=== PATIENT | female | born 1935 | race Two or more races ===

== ENCOUNTER 2024-01-12 15:04 | Inpatient (IN) | payer MEDICARE, OTHER, SELFPAY ==
[2024-01-12] VITALS (12 sets, daily range): BP systolic 100–153; BP diastolic 59–100; BMI 34.5
--- NOTE | 2024-01-12 11:13 | ED.GENMED ---
ED Provider Triage
<Jose Robert PA-C - Last Filed: 01/12/24 11:14>
-
Patient seen by provider in Triage?: Seen in Triage
88-year-old female with history insulin-dependent diabetes, coronary artery disease, CHF presents with chest pain and shortness of breath progressively worsening over the past week.
Evaluated by provider in triage. EKG performed in triage. Will check labs.
Patient is Malagasy-speaking. Her son is with her who speaks some Chilean
History of Present Illness
<Jose Robert PA-C - Last Filed: 01/12/24 11:14>
General
Chief Complaint: Chest Pain
Time Seen by Provider: 01/12/24 12:42
<Arianne Solano DO - Last Filed: 01/12/24 14:04>
History of Present Illness
History of Present Illness:
88-year-old female with history of CAD status post stenting to the LAD in 2020, CHF, RACHEL on CPAP at night, hypertension presenting to the emergency department for chest wall pain. Patient reports symptoms have been ongoing for the past several
days, worsened last evening. Reports a dull ache to her chest, as well as shortness of breath. Denies cough or fever. She tried 3 nitroglycerin today, without relief. Denies any recent surgery or travel. [facility] follows primarily with [facility]. Patient is Malagasy-speaking, with primary translation performed by son. Pain is present at rest and with exertion. No additional history obtained at this time
Phy Exam
<Arianne Solano DO - Last Filed: 01/12/24 14:04>
Physical Exam
Physical Exam:
General: Well-appearing, no clinical signs of dehydration, nontoxic and in no acute distress. Morbidly obese
HEENT: protecting airway
Neck: appears supple
CV: Normal heart rate, regular rhythm
Resp: No accessory muscle use, no increased work of breathing, lungs clear to auscultation bilaterally
Abd: Soft and non-distended, no tenderness to palpation
Extremities: No deformities, no swelling, no erythema
Neuro: alert, no focal neurologic deficit
: deferred
Rectal: deferred
Psych: Normal affect
Skin: Intact
Scores
<Arianne Solano DO - Last Filed: 01/12/24 14:04>
Heart Score for Chest Pain Patients
STEMI patient?: No
History: Moderately Suspicious
ECG: Significant ST-Depression
Age: >/= 65 years
Risk Factors: >/= 3 Risk Factors or History of CAD
Troponin: </= Normal Limit
Heart Score for Chest Pain Patients: 7
Heart Score Risk: 72.7 % MACE over next 6 weeks
Course
<Jose Robert PA-C - Last Filed: 01/12/24 11:14>
Orders/Labs/Results
Orders:
Orders
01/12/24 11:01
Electrocardiogram (*1) Urgent
Reason for Study: Chest Pain
EKG- Treatment ONCE
01/12/24 11:02
EKG- Treatment ONCE
01/12/24 11:11
CR Chest - 2 Views Urgent
Comment:
Reason For Exam: chest pain, sob
01/12/24 11:22
Complete Blood Count/With Diff Urgent
Comprehensive Metabolic Panel Urgent
NT-proBNP Urgent
Troponin I Urgent
01/12/24 13:07
Morphine Sulfate 4 mg IV NOW STA
01/12/24 14:20
Troponin I Urgent
Abnormal Lab Results
01/12/24
11:22
WBC 12.3 H 10^3/uL
(4.8-10.8)
Hgb 11.8 L g/dL
(12.0-16.0)
Hct 35.7 L %
(37.0-47.0)
MCV 79.0 L fL
(81.0-99.0)
MCH 26.1 L pg
(27.0-31.0)
RDW 15.7 H %
(11.5-14.5)
Abs Immat Gran (auto) 0.1 H 10^3/uL
(0-0.05)
Absolute Neuts (auto) 9.3 H 10^3/uL
(1.4-6.5)
Absolute Monos (auto) 0.7 H 10^3/uL
(0.1-0.6)
Immature Gran % 1.0 H %
(0-0.5)
Neutrophils % 75.8 H %
(42.2-75.2)
Lymphocytes % 13.9 L %
(20.5-51.1)
BUN 23 H mg/dl
(7-17)
Glucose 144 H mg/dl
(70-99)
01/12/24 11:22
01/12/24 11:22
Vital Signs
Initial and Last Documented VS:
Initial Vital Signs
Temp Pulse Resp BP Pulse Ox
98.0 F 82 20 153/84 94
01/12/24 11:08 01/12/24 11:08 01/12/24 11:08 01/12/24 11:08 01/12/24 11:08
Last Documented Vital Signs
Temp Pulse Resp BP Pulse Ox
98.0 F 82 20 120/67 93
01/12/24 11:08 01/12/24 11:08 01/12/24 12:52 01/12/24 12:49 01/12/24 12:50
<Arianne Solano, DO - Last Filed: 01/12/24 14:04>
Orders/Labs/Results
Orders:
Orders
01/12/24 11:01
Electrocardiogram (*1) Urgent
Reason for Study: Chest Pain
EKG- Treatment ONCE
01/12/24 11:02
EKG- Treatment ONCE
01/12/24 11:11
CR Chest - 2 Views Urgent
Comment:
Reason For Exam: chest pain, sob
01/12/24 11:22
Complete Blood Count/With Diff Urgent
Comprehensive Metabolic Panel Urgent
NT-proBNP Urgent
Troponin I Urgent
01/12/24 13:07
Morphine Sulfate 4 mg IV NOW STA
01/12/24 14:20
Troponin I Urgent
Abnormal Lab Results
01/12/24
11:22
WBC 12.3 H 10^3/uL
(4.8-10.8)
Hgb 11.8 L g/dL
(12.0-16.0)
Hct 35.7 L %
(37.0-47.0)
MCV 79.0 L fL
(81.0-99.0)
MCH 26.1 L pg
(27.0-31.0)
RDW 15.7 H %
(11.5-14.5)
Abs Immat Gran (auto) 0.1 H 10^3/uL
(0-0.05)
Absolute Neuts (auto) 9.3 H 10^3/uL
(1.4-6.5)
Absolute Monos (auto) 0.7 H 10^3/uL
(0.1-0.6)
Immature Gran % 1.0 H %
(0-0.5)
Neutrophils % 75.8 H %
(42.2-75.2)
Lymphocytes % 13.9 L %
(20.5-51.1)
BUN 23 H mg/dl
(7-17)
Glucose 144 H mg/dl
(70-99)
01/12/24 11:22
01/12/24 11:22
Vital Signs
Initial and Last Documented VS:
Initial Vital Signs
Temp Pulse Resp BP Pulse Ox
98.0 F 82 20 153/84 94
01/12/24 11:08 01/12/24 11:08 01/12/24 11:08 01/12/24 11:08 01/12/24 11:08
Last Documented Vital Signs
Temp Pulse Resp BP Pulse Ox
98.0 F 82 20 120/67 93
01/12/24 11:08 01/12/24 11:08 01/12/24 12:52 01/12/24 12:49 01/12/24 12:50
<Arianne Solano DO - Last Filed: 01/12/24 14:04>
MDM/Problems Addressed
MDM/Problems Addressed:
88-year-old female with history of CAD status post stenting to LAD, CHF, hypertension presenting for chest wall pain. Vital signs on arrival are significant for hypertension.
On exam, patient is in no acute distress, does appear slightly uncomfortable, however notes that she has bad arthritis and is having chronic pain to her legs. Patient had EKG on arrival, abnormal with ST depressions laterally, no prior for
comparison. At this time, concern for unstable angina. Plan for laboratory analysis including troponin. Patient had nitro prior to arrival without relief. Will administer morphine. Will discuss with cardiology.
14:00 - Patient's troponin is 0.022. Will obtain second. Again given patient's comorbidities and known cardiac disease, with concern of unstable angina and abnormal EKG, plan for admission for continued cardiac consultation.
<Arianne Solano DO - Last Filed: 01/12/24 14:04>
*EKG
Interpreted by ED Provider?: Yes
EKG Intrepretation Date: 01/12/24
EKG Intrepretation Time: 13:59
Interpretation: abnormal
Comparison EKG: no comparison EKG present
Heart Rate: 75
Rate: normal
Rhythm: sinus
[place]: normal axis
Interval: normal interval
QRS Pattern: normal QRS
Ischemia: ST depression (laterally)
*Critical Care Note
Total Time (30-74mins, 75-104mins- exclusive of procedures): Not Applicable
ED Attending Note
<Jose Robert PA-C - Last Filed: 01/12/24 11:14>
-
Portions of this chart may have been created with voice recognition software.� Occasional wrong word or��sound alike� substitutions may have occurred due to the inherent limitations of voice recognition software.
Discharge Plan
Departure
Referrals:
Sabino August MD [Family Provider] -
Interventions
Interventions:
*Risk Screen - Suicide Last Done: 01/12/24 11:08
*General Assessment Last Done: 01/12/24 11:08
*Neglect/Abuse Screening Last Done: 01/12/24 12:53
*ED COVID-19 Vaccine History Last Done: 01/12/24 11:08
ED- Cardiac Assessment Last Done: 01/12/24 12:51
Discharge Date and Time
Print Language: Malagasy
[2024-01-12 11:52] LABS: % Basophils 0.4 % (0-2); % Lymphocytes 13.9 % (20.5-51.1); % Monocytes 5.9 % (1.7-9.3); % Neutrophils 75.8 % (42.2-75.2); Absolute Basophils 0.1 10^3/uL (0-0.2); Absolute Eosinophils 0.4 10^3/uL (0-0.7); Absolute Immature Granulocytes 0.1 10^3/uL (0-0.05); Absolute Lymphocytes 1.7 10^3/uL (1.2-3.4); Absolute Monocytes 0.7 10^3/uL (0.1-0.6); Absolute Neutrophils 9.3 10^3/uL (1.4-6.5); Hematocrit 35.7 % (37.0-47.0); Hemoglobin 11.8 g/dL (12.0-16.0); Mean Corp Hgb Conc. 33.1 g/dL (33.0-37.0); Mean Corpuscular Hgb 26.1 pg (27.0-31.0); Mean Platelet Volume 8.8 fL (7.4-10.4); Nucleated Red Blood Cells % 0 %; Platelet Count 357 10^3/uL (130-400); Red Blood Cell Count 4.52 10^6/uL (4.20-5.40); Red Cell Dist. Width 15.7 % (11.5-14.5); White Blood Cell Count 12.3 10^3/uL (4.8-10.8)
[2024-01-12 12:04] LABS: ALT (SGPT) 16 U/L (0-35); AST (SGOT) 20 U/L (14-36); Albumin 4.1 g/dl (3.5-5.0); Alkaline Phosphatase 74 U/L (38-126); Blood Urea Nitrogen 23 mg/dl (7-17); Calcium 9.5 mg/dl (8.4-10.2); Carbon Dioxide 24 mmol/L (22-30); Chloride 102 mmol/L (98-107); Glucose 144 mg/dl (70-99); Potassium 4.1 mmol/L (3.5-5.1); Sodium 140 mmol/L (135-145); Total Bilirubin 0.4 mg/dl (0.2-1.3); Total Protein 6.8 g/dl (6.3-8.2); eGFR > 60.00
[2024-01-12 12:13] LABS: NT-proBNP 518 pg/ml; Troponin I 0.022 ng/ml
--- NOTE | 2024-01-12 13:52 | CON.CAR ---
Addendum entered and electronically signed by Bi Mcdaniel MD 01/12/24 17:10:
I saw and examined the patient.
The INTERNATIONAL FIRST OFFICER's note was reviewed and I agree with the note.
Comment: 88-year-old female with coronary artery disease (PCI to LAD, 2021), hypertension, dyslipidemia, HFpEF, type 2 diabetes mellitus, RACHEL on CPAP, asthma, and obesity who presented to the emergency department the chief complaint of shortness of
breath.
She also has mod to severe , we will update her echo.
- IV diuresis for now
- trend trop
- update echo
Original Note:
Consultation
Consultation Request
Date/Time Consultation Requested: 01/12/2024 13:40
Date/Time Consultation Performed: 01/12/2024 14:00
Requesting Provider: Dr. Soalno
Performing Provider: ROSALIA Dowd for Dr. Mcdaniel
Reason for Consultation: Chest pain
Medical History
-
Chief Complaint: Shortness of breath
History of Present Illness:
Umm Skinner is an 88-year-old female with coronary artery disease (PCI to LAD, 2021), hypertension, dyslipidemia, HFpEF, type 2 diabetes mellitus, RACHEL on CPAP, asthma, and obesity who presented to the emergency department the chief complaint of
shortness of breath. Her shortness of breath has been ongoing for several days. It is worse when she lays flat. Last night every time she fell asleep she woke up struggling to breathe. She is normally not very active but feels that she cannot do
much due to her shortness of breath. She reports medication adherence. She does not weigh herself at home but does not believe she gained any weight. She had chest pain 2 days ago but has since subsided.
This patient is Martiniquais-speaking. A draw operator service was used for this consultation.
Past Medical History
Past Medical History: Asthma, CAD, CHF, HTN, Hypercholesterolemia and NIDDM
Social History
Tobacco: Non-Smoker
Alcohol: None
Drug: None
Personal:
Living: Alone
Employment: Retired
Allergies / Home Medications
Allergy/AdvReac Type Severity Reaction Status Date / Time
No Known Allergies Allergy Unverified 01/12/24 11:18
Review of Systems
-
History Source: Patient
All other systems: Negative unless noted
Constitutional: Fatigue
EENT: No Symptoms
Respiratory: Trouble Breathing
Cardiac: No Symptoms
Abdomen/GI: No Symptoms
: No Symptoms
Musculoskeletal: No Symptoms
Skin: No Symptoms
Neurological: No Symptoms
Endocrine: No Symptoms
Hematologic/Lymphatic: No Symptoms
Physical Exam
Vital Signs
Temp Pulse Resp BP Pulse Ox
98.0 F 82 20 120/67 93
01/12/24 11:08 01/12/24 11:08 01/12/24 12:52 01/12/24 12:49 01/12/24 12:50
Lab Results
01/12/24 11:22
01/12/24 11:22
Troponin I 0.022 ng/ml 01/12/24 11:22
Bcy-R-Gwvwiblcasl Pept 518 pg/ml 01/12/24 11:22
Physical Exam
General: Well Developed, Well Nourished, No Apparent Distress and Comfortable
HEENT: Normocephalic, Anicteric and Moist Mucous Membranes
Respiratory: Clear and Non Labored Respirations
Cardiac: S1/S2, Regular Rhythm and Murmur (III/)
Breast: Deferred by me
GI: Soft, Non Tender, Non Distended and Normal Bowel Sounds
Rectal: Deferred by Provider
Genito-urinary: No Costovertebral Tender
Musculoskeletal: No Clubbing
Skin: Warm and Dry
Neuro: AO x 3
Hematologic/Lymphatic: No Lymphadenopathy
Psych: Calm
Impression / Plan
-
BACKGROUND: 88F with CAD, HFpEF, severe , HTN, HLD, asthma, DM, RACHEL on CPAP, and obesity presents with shortness of breath
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
Shortness of breath, in the setting of acute on chronic heart failure
-Prior notes from [facility] reflect she has home oxygen
HFpEF, acute on chronic
-proBNP only 518 but she endorses orthopnea and PND
-Diuresis with furosemide 40 mg IV twice daily
-Update echocardiogram
-She does not weigh herself at home, we discussed she will need to start doing so, dry weight to be determined
-Heart failure education
-Daily weight, I/O, and BMP with diuresis
Aortic stenosis, moderate to severe by TTE 07/2021 (JUDY 1.1 cm�)
-Diuresis
-Records reflect she was high risk for AVR, I do not see any mention of TAVR
-Update echocardiogram
CAD
-Stable without chest pain
-Continue aspirin, PCI to mid LAD 08/11/2020
-LHC 07/2021: LAD with patent stent, D1 50%, OM2 70%
Leukocytosis, per primary
Hypertension, chronic and stable
Asthma, chronic, no acute exacerbation
Type 2 diabetes mellitus, HbA1c pending, per primary
RACHEL on CPAP
Obesity
Data Reviewed
-
EKG: Report Reviewed by me (Sinus rhythm with PACs, rate 75)
Radiology: Report Reviewed by me (CXR: No acute pathology)
Labs: Labs Reviewed by me
--- NOTE | 2024-01-12 14:11 | HPS.HSE ---
Addendum entered and electronically signed by Dwaine Hoang MD 01/12/24 15:02:
This note serves as an addendum to the H&P by rn nursery ASHLEY Beverley DAILEY
HPI:
88 yo with CAD s/p stenting to LAD in 2020 and CHF, HTN, RACHEL on CPAP pw Lt sided CP . Not relived by SL NTG and tylenol. Associated wih orthopna.
Vitals stable.
KENNEDY
WCC 12.3 Hgb 11.8
Troponin 0.022.
pBNP 518
EKG : lateral depressions, no priors available.
CXR: Heart and pulmonary vascularity at least top normal.
ASSESSMENT & PLAN
CP concerning for ACS/USA : currently CP free
HX CAD s/p stenting to LAD in 2020 a
- CBC card consulted c/w t ASA
- Full liquid diet incase card cath
- trend TPNI
- ECHO
HX CHF; c/w TOE STAPLER PO Frusemide
DMT2 on Insulin: held tresiba, held metformin , add ISS low
[place] HTN: Metoprolol
HLD: on Atorvastatin
HX RACHEL on CPAP
- c/w all OP meds
DVT Px: LMWH
Code: Full code
IP TLM
Original Note:
Family Physician
-
Family Physician: Sabino August
Chief Complaint
-
chest pain
sob
History of Present Illness
88-year-old female with history of CAD status post stenting to the LAD in 2020, CHF, RACHEL on CPAP at night, hypertension presenting to the emergency department for left sided chest pain radiating to back and left upper arm for one week. she was
taking Tylenol, nitro with no relief in her symptoms. last night she was not able to sleep due to sob and chest pain. she was not able to lay flat due to sob. denied fever, chills, runny nose, congestion, cough.denied MARQUIS, dizzy or syncopal episode.
denied abdominal pain, n,v,d. denied dysuria or hematuria
admitting for for further management. patient received asa and nitro for unstable angina.
Medical History
Past Medical History
Past Medical History: Reports Other
Additional Past Medical History:
RACHEL
DM
HTn
CAD
CHF
Past Surgical History: Reports Other
Additional Past Surgical History:
hysterectomy
Coronary artery stent
Social History
Tobacco: Non-smoker
Alcohol: None
Drug: None
Personal: Single
Living: With Family
Family History
Family History: Not pertinent
Allergies / Home Medications
Allergies reflects when Allergies were last updated in [facility].
Home Medications with original date entered in [facility]
Allergy/Medication List:
Allergies
Allergy/AdvReac Type Severity Reaction Status Date / Time
No Known Allergies Allergy Unverified 01/12/24 11:18
Home Medications
acetaminophen 650 mg tablet,extended release (Pain Relief (acetaminophen)) 650 mg PO BIDPRN PRN mild pain 01/12/24
albuterol sulfate 90 mcg/actuation aerosol inhaler (Ventolin HFA) 2 puff inhalation R Q4HPRN PRN sob/wheezing 01/12/24
aspirin 81 mg tablet,delayed release 81 mg PO DAILY 01/12/24
atorvastatin 80 mg tablet 80 mg PO QPM 01/12/24
bisacodyl 5 mg tablet,delayed release 10 mg PO DAILY 01/12/24
cholecalciferol (vitamin D3) 50 mcg (2,000 unit) capsule (Vitamin D3) 50 mcg PO DAILY 01/12/24
diclofenac sodium 1 % topical gel 1 ea topical QIDPRN PRN knee pain 01/12/24
docusate sodium 100 mg capsule 100 mg PO BID 01/12/24
fluticasone furoate 200 mcg-vilanterol 25 mcg/dose inhalation powder (Breo Ellipta) 2 inh inhalation R DAILY 01/12/24
furosemide 20 mg tablet 20 mg PO BID 01/12/24
insulin degludec 100 unit/mL (3 mL) subcutaneous pen (Tresiba FlexTouch U-100 insulin) 35 unit SC HS 01/12/24
bsuycg-egjxrolq-tloovim 24,000-76,000-120,000 unit capsule,delayed rel (Creon) 1 cap PO MEALS 01/12/24
meclizine 12.5 mg tablet 12.5 mg PO BIDPRN PRN dizziness 01/12/24
metformin 1,000 mg tablet 1,000 mg PO BID 01/12/24
metoprolol tartrate 25 mg tablet 12.5 mg PO BID 01/12/24
mirabegron 50 mg tablet,extended release 24 hr (Myrbetriq) 50 mg PO DAILY 01/12/24
nitroglycerin 0.4 mg sublingual tablet 0.4 mg sublingual [id number] PRN chest pain 01/12/24
tramadol 50 mg tablet 50 mg PO TIDPRN PRN moderate pain 01/12/24
zolpidem 5 mg tablet (Ambien) 5 mg PO HSPRN PRN sleep 01/12/24
Review of Systems
-
Constitutional: Reports No Symptoms
EENT: Reports No Symptoms
Respiratory: Reports No Symptoms and Trouble Breathing
Cardiac: Reports Chest Pain
Abdomen/GI: Reports No Symptoms
: Reports No Symptoms
Musculoskeletal: Reports Other (b/l Knee pain)
Skin: Reports No Symptoms
Neurological: Reports No Symptoms
Endocrine: Reports No Symptoms
Hematologic/Lymphatic: Reports No Symptoms
Psych: Reports No Symptoms
Physical Exam
Vital Signs
Vital Signs
Temp Pulse Resp BP Pulse Ox
98.0 F 82 20 120/67 93
01/12/24 11:08 01/12/24 11:08 01/12/24 12:52 01/12/24 12:49 01/12/24 12:50
Physical Exam
General: Well Developed, Well Nourished and No Apparent Distress
HEENT: NormoCephalic, Moist mucous membranes and Atraumatic
Respiratory: Clear
Cardiac: S1/S2 and Regular Rhythm; No Murmur or Rub
GI: Soft, Non Tender, Non Distended and Normal Bowel Sounds; No Organomegaly
Rectal: Deferred by Provider
Musculoskeletal: No Clubbing, No Cyanosis and No Edema
Skin: No Rash
Neuro: AO x 3 and Nonfocal/grossly intact
Laboratory Results
-
01/12/24 11:22
01/12/24 11:22
Laboratory Results
Total Bilirubin 0.4 mg/dl (0.2-1.3) 01/12/24 11:22
AST 20 U/L (14-36) 01/12/24 11:22
ALT 16 U/L (0-35) 01/12/24 11:22
Alkaline Phosphatase 74 U/L (38-126) 01/12/24 11:22
Troponin I 0.022 ng/ml 01/12/24 11:22
Data Reviewed
-
Diagnostic Radiology: Report Reviewed by me
Lab Data: Labs Reviewed by me
Impression/Plan
-
#unstable angina /sob r/o acute ACS
-trop 0.022
-chest x ray negative
-EKG with SINUS RHYTHM WITH PREMATURE ATRIAL COMPLEXES
MARKED ST ABNORMALITY, POSSIBLE LATERAL SUBENDOCARDIAL INJURY
-continue to trend trop
-morphine prn for pain
-obtain ECHO
-asa continued, received loading dose asa in ER
-cardiology consulted
#leucocytosis unclear cause
-wbc 12.3
-obtain UA
-ctm
#hxt of CAD
-s/p cardiac stents
-asa continued
#HLD
-statin continued
#hxt of CHF
-lasix continued
-strict I &O
-daily weight
-fluid restriction
#type 2 Dm
-sliding scale
-hold metformin
#essential htn
-metoprolol continued
#hxt of osteoarthritis/knee pain
-tramadol continued
#RACHEL
-C PAP ordered
#DVT Prophylaxis
-Lovenox
#CODE status
-full code
[2024-01-12] MEDS: LOW STRENGTH ASPIRIN 324 MG PO (14:27)
[2024-01-12] MEDS: MORPHINE SULFATE 4 MG IV (14:27)
[2024-01-12 15:04] LABS: Troponin I 0.024 ng/ml
[2024-01-12] MEDS: LASIX 40 MG IV (15:38)
[2024-01-12 17:43] LABS: Glucose - Point of Care 137 mg/dl (70-99)
--- NOTE | 2024-01-12 17:50 | PTCARENOTE ---
Patient received from the ED. She alert, speaks Gambian only, obtaining silo operator services. Appears short of breath, placed on 3 liters NC 98%, HOB elevated. NSR HR in the 60's, BP 111/60. Right knee pain
[2024-01-12] MEDS: DICLOFENAC 1% TOPICAL GEL 2 GRAM TOPICAL (17:55)
[2024-01-12] MEDS: NOVOLOG FLEXPEN-LOW RESISTANCE SC (19:07)
[2024-01-12] MEDS: SYMBICORT 160/4.5 MCG INHALER 2 PUFF INH (19:19)
--- NOTE | 2024-01-12 19:51 | PTCARENOTE ---
Admission completed uses paper feeder services
[2024-01-12] MEDS: LIPITOR 80 MG PO (20:02)
[2024-01-12] MEDS: LOVENOX 40 MG SC (20:02)
[2024-01-12] MEDS: ZENPEP DELAYED RELEASE CAPSULE 1 CAPSULE PO (20:02)
[2024-01-12] MEDS: COLACE 100 MG PO (20:03)
[2024-01-12] MEDS: LOPRESSOR PO (20:06)
[2024-01-12 20:32] LABS: Troponin I 0.014 ng/ml
[2024-01-12] MEDS: AMBIEN 5 MG PO (21:47)
[2024-01-12 22:32] LABS: Urine Albumin Negative (Neg - Trace); Urine Bilirubin Negative (Negative); Urine Character Clear (Clear); Urine Color Yellow; Urine Glucose Negative (Negative); Urine Ketone Negative (Negative); Urine Leukocyte 1+ (Negative); Urine Nitrite Negative (Negative); Urine Occult Blood Negative (Negative); Urine Urobilinogen Negative (Neg - 1+)
[2024-01-12 22:38] LABS: Urine Bacteria Moderate (Negative); Urine Red Blood Cell 0-2 /HPF (0-2)
[2024-01-13] VITALS (20 sets, daily range): BP systolic 97–164; BP diastolic 46–102; PULSE 72; O2SAT 94; BMI 37.2
[2024-01-13 01:19] LABS: Glucose - Point of Care 104 mg/dl (70-99)
[2024-01-13] MEDS: DICLOFENAC 1% TOPICAL GEL 2 GRAM TOPICAL ×2 (02:21→07:37)
[2024-01-13] MEDS: ULTRAM 50 MG PO ×3 (02:52→21:25)
[2024-01-13 03:21] LABS: Hematocrit 34.4 % (37.0-47.0); Hemoglobin 11.8 g/dL (12.0-16.0); Mean Corp Hgb Conc. 34.3 g/dL (33.0-37.0); Mean Corpuscular Hgb 26.5 pg (27.0-31.0); Mean Corpuscular Volume 77.1 fL (81.0-99.0); Mean Platelet Volume 8.7 fL (7.4-10.4); Platelet Count 334 10^3/uL (130-400); Red Blood Cell Count 4.46 10^6/uL (4.20-5.40); Red Cell Dist. Width 15.6 % (11.5-14.5); White Blood Cell Count 9.6 10^3/uL (4.8-10.8)
[2024-01-13 03:29] LABS: Glucose - Point of Care 115 mg/dl (70-99)
[2024-01-13 03:51] LABS: Blood Urea Nitrogen 19 mg/dl (7-17); Calcium 9.3 mg/dl (8.4-10.2); Carbon Dioxide 26 mmol/L (22-30); Chloride 104 mmol/L (98-107); Estimated Creatinine Clearance 64 ml/min; Glucose 108 mg/dl (70-99); HDL Cholesterol 53 mg/dl; LDL Cholesterol, Calculated 40 mg/dl; Potassium 3.5 mmol/L (3.5-5.1); Sodium 142 mmol/L (135-145); Total Cholesterol 123 mg/dl (50-199); Triglyceride 154 mg/dl (10-149); Very Low Density Lipoprotein 30 mg/dl (0-30); eGFR > 60.00
--- NOTE | 2024-01-13 03:55 | PTCARENOTE ---
Rec'd pt at change of shift. Pt on TELE monitor in NSR w/ occasional PACs. Pt moaning out and upon assessment repeating the same phrase. Per swim coach pt keeps repeating 'How did I get here, why am i here.' This RN explained to patient situation
and provided emotional support. Pt remains intermittently forgetful of place and situation. Per son pt has hx of recent forgetfulness. Unable to complete home med rec due to forgetfulness despsite swim coach. Pt Israeli speaking and swim coach in
room to be used as needed. Pt was restless and mumbling and showing signs of discomfort but denied any pain or chest discomfort via swim coach. Patient does report 'trouble breathing' sating anywhere from 92-98% on RA and 2L of oxygen applied for
comfort. Pt verbalized having difficultly sleeping and PRN Ambien given HS as ordered (see mar). Pt uses call young appropriately and maintained on bed alarm for safety. Pt resting in bed with call young in reach.
[2024-01-13 06:30] LABS: Glucose - Point of Care 109 mg/dl (70-99)
[2024-01-13] MEDS: MORPHINE SULFATE 1 MG IV (06:40)
[2024-01-13] MEDS: VENTOLIN NEBULES 2.5 MG INH (07:22)
[2024-01-13] MEDS: SYMBICORT 160/4.5 MCG INHALER 2 PUFF INH ×2 (07:26→20:09)
--- NOTE | 2024-01-13 07:26 | PTCARENOTE ---
Pt called out reporting chest pain at 0637 describing pain as 'pressure' and rating it as a 10/10. IV morphine given for pain per order (see mar) and O2 via nasal canula continued. EKG obtained and ROSALIA Vergara aware. No new orders rec'd. When
further assessed pt reported hunger, right knee pain (hx arteritis), and 'itching' in lower back. VSS (see flowchart). Handoff report given to dayshift RN.
[2024-01-13] MEDS: LASIX 20 MG PO ×2 (07:47→08:43)
[2024-01-13] MEDS: COLACE 100 MG PO ×2 (07:47→20:17)
[2024-01-13] MEDS: ASPIR LOW (ENTERIC COATED) 81 MG PO (07:47)
[2024-01-13] MEDS: VITAMIN D3 (cholecalciferol) 50 MCG PO (07:47)
[2024-01-13] MEDS: ZENPEP DELAYED RELEASE CAPSULE 1 CAPSULE PO ×3 (07:47→16:38)
[2024-01-13] MEDS: LOPRESSOR 12.5 MG PO ×2 (07:47→20:16)
[2024-01-13] MEDS: NOVOLOG FLEXPEN-LOW RESISTANCE SC ×3 (08:39→17:53)
[2024-01-13 08:40] LABS: Glucose - Point of Care 117 mg/dl (70-99)
[2024-01-13] MEDS: DULCOLAX 10 MG PO (08:48)
[2024-01-13] MEDS: NITROSTAT (SUBLINGUAL) 0.4 MG SL (09:07)
--- NOTE | 2024-01-13 09:14 | W.PN.HOSP.TC ---
Today's Communication/Plan
-
See PN
Assessment / Plan
Assessment / Plan
88yo Portuguese speaking F with PMHX of CAD s/p PCI @2020, CHF, HTN, RACHEL on CPAP came with 2 weeks of progressive SOB associated with intermittent pressure-like epigastric pain. PAtient recently became less ambulatory 2/2 progression of R knee
osteoarthritis. Also concern for UTI
A/P:
#dyspnea 2/2 CHF exacerbation
#Chest pain, atypical with PMHX of CAD
Lasix, follow weights and electrolytes, low sodium diet
Echo
Cardiology consult
Morphin, Nitro SL (actually nitro was helpful to the patient)
Serial troponin WNL
EKG without signs of ACS
BroBNP 518, but can be lowith obesity, chest XR showed possible early mild vascular congestion
check DDimer
cont ASA, statin, BB
telemetry showed sinus arrhythmia
LDL 40
Check Hgba1c and TSH
#UTI
ceftriaxone follow Ucx
Cr WNL, currently no concern for complicated infection
#DM type 2 with neuropathy
Cont basal insulin, Accuchecks, Insulin SS and DM diet
hold metformin
#pancreatic insufficiency
#Vertigo
#Insomnia
#Urinary urgency
cont home meds
#RACHEL
cont CPAP
DVT ppx lovenox
Full code
I have spent at least 58min reviewing chart, test results, communication with consultants and direct patient care
Anticipated Discharge: > 48 hours
Subjective/Interval History
-
Date of Service: January 13, 2024
Objective Data
-
Labs:
Laboratory Results
01/13/24
03:04
WBC 9.6
Hgb 11.8 L
Hct 34.4 L
Plt Count 334
Sodium 142
Potassium 3.5
Chloride 104
Carbon Dioxide 26
BUN 19 H
Creatinine 0.7
Glucose 108 H
Calcium 9.3
Vital Signs:
Vital Signs
Temp Pulse Resp BP Pulse Ox
97.9 F 71 24 97/54 99
01/13/24 06:50 01/13/24 09:11 01/13/24 07:27 01/13/24 09:11 01/13/24 09:00
I&O
01/12/24 01/13/24 01/14/24
06:59 06:59 06:59
Intake Total 240 / 240
Output Total 500 / 500 300 / 300
Balance -260 / -260 -300 / -300
Review of Systems
-
History Source: Patient
All other systems: Reviewed and negative
Respiratory: Reports Trouble Breathing
Cardiac: Reports Chest Pain
Physical Exam
-
General: No Apparent Distress
HEENT: Normocephalic and Atraumatic
Respiratory: Clear to Auscultation; Negative Wheezes
Cardiac: Regular Rhythm
GI: Soft, Nontender and Nondistended
Genito-urinary: No Costovertebral Tender
Musculoskeletal: No Clubbing, No Cyanosis, Edema, Right Lower Extrem and Edema, Left Lower Extrem
Neuro: Awake, Alert, Oriented and AO x 3
Psych: Calm
[2024-01-13 09:34] LABS: Glycohemoglobin (HgbA1c) 6.7 % (4.0-5.6)
[2024-01-13 09:34] LABS: D-Dimer 1.78 ug/mlFEU (0.00-0.50)
[2024-01-13 09:51] LABS: Troponin I 0.014 ng/ml
--- NOTE | 2024-01-13 10:11 | PTCARENOTE ---
Patient with multiple complaints, using educational sign language interpreter services. 'I'm hungry and diabetic, I need to eat' Epigastric pain comes and goes, some relief with 1 SL nitro earlier. She is alert to self, place and time. SR in the 70's. Dyspneic, orthopneic
and anxious, upset. Oxygen at 4 liters NC, POX 100%. Purwick placed. Voided on commode earlier became very short of breath, voided 300 cc, so using purwick for now. 40 PO Lasix given She is eating her full liquid tray, call young in reach
[2024-01-13] MEDS: ROCEPHIN 1000 MG IV (10:25)
[2024-01-13] MEDS: STERILE WATER FOR INJECTION 10 ML IV (10:26)
--- NOTE | 2024-01-13 10:55 | PTCARENOTE ---
Patient wanting to get up, assisted to the chair using rolling walker
[2024-01-13 11:16] LABS: TSH Reflex To Free T4 2.01 uIU/ml (0.47-4.68)
--- NOTE | 2024-01-13 11:26 | CM ---
Chart reviewed. Patient is independent of ADLS, lives alone in a apartment, 1st floor, elevator access, ambulates with a RW. Patient does not speak Japanese, I spoke to the patient's son Camilo. Patient is current with [facility]. Referral sent to
resume services. Plan is for the patient to return home with [facility] CM to follow
--- NOTE | 2024-01-13 12:07 | W.PN.CD ---
Addendum entered and electronically signed by Bi Mcdaniel MD 01/13/24 15:15:
I saw and examined the patient.
The WOMEN'S BASKETBALL COACH's note was reviewed and I agree with the note.
Comment: IV diuresis, pending echo
Original Note:
Today's Communication / Plan
-
Continue diuresis
Echocardiogram today
Check cost of SGLT2i
Impression / Plan
-
BACKGROUND: 88F with CAD, HFpEF, severe , HTN, HLD, asthma, DM, RACHEL on CPAP, and obesity presents with shortness of breath
Cadd Instructor: Dr. Rosenthal ([place])
Shortness of breath, in the setting of acute on chronic heart failure
-Prior notes from [facility] reflect she has home oxygen
HFpEF, acute on chronic
-proBNP only 518 but she endorses orthopnea and PND
-Contiue diuresis with furosemide 40 mg IV twice daily
-Consider spironolactone tomorrow (BP soft today)
-Case mgmt to suárez SGLT2i
-Update echocardiogram
-Weights appear to be very unreliable
-She does not weigh herself at home, we discussed she will need to start doing so, dry weight to be determined
-Heart failure education
-Daily weight, I/O, and BMP with diuresis
Aortic stenosis, moderate to severe by TTE 07/2021 (JUDY 1.1 cm�)
-Diuresis
-Records reflect she was high risk for AVR, I do not see any mention of TAVR
-Update echocardiogram
CAD
-Stable without chest pain
-Continue aspirin, PCI to mid LAD 08/11/2020
-LHC 07/2021: LAD with patent stent, D1 50%, OM2 70%
Abnormal D-dimer, CT scan ordered by primary, no PE identified
Leukocytosis, resolved, likely reactive
Hypertension, chronic and stable
Asthma, chronic, no acute exacerbation
Type 2 diabetes mellitus, HbA1c pending, per primary
RACHEL on CPAP
Obesity, BMI 37
SUBJECTIVE:
Denies CP and shortness of breath is improving.
Physical Exam
Vital Signs/Labs
Vital Signs
Temp Pulse Resp BP Pulse Ox
98.2 F 71 20 97/62 98
01/13/24 11:20 01/13/24 09:11 01/13/24 11:20 01/13/24 09:12 01/13/24 11:20
01/12/24 01/13/24 01/14/24
06:59 06:59 06:59
Actual Weight 98.1 kg
01/13/24 03:04
01/13/24 03:04
Triglycerides 154 mg/dl (10-149) H 01/13/24 03:04
LDL Cholesterol, Calc 40 mg/dl 01/13/24 03:04
VLDL Cholesterol, Calc 30 mg/dl (0-30) 01/13/24 03:04
HDL Cholesterol 53 mg/dl 01/13/24 03:04
01/12/24
11:22
Kry-V-Mtlbsvjdpoh Pept 518
LAB Results
01/12/24 01/12/24 01/12/24
11:22 14:26 19:51
Troponin I 0.022 0.024 0.014 D
01/12/24 01/13/24
20:30 09:16
Troponin I Cancelled 0.014
Physical Exam
Constitutional: No acute distress and Comfortable
EENT: Anicteric and Moist mucous membranes
Cardiovascular: Rhythm & rate is regular, Pedal edema present (mild), Systolic murmur present and S1S2 is normal
Respiratory: Respiratory effort normal and Crackles Present
GI: Soft, Distention absent, Flat and Non tender
Neuro/Psych: AO x 3
Other: Skin (warm and dry)
Data Reviewed
-
Date of Service: January 13, 2024
Labs: Labs Reviewed by me
[2024-01-13] MEDS: KCL 40 MEQ PO (13:02)
[2024-01-13 13:09] LABS: Glucose - Point of Care 132 mg/dl (70-99)
--- NOTE | 2024-01-13 13:09 | CM ---
Pricing through the patient's [facility] Prescription Plan ID # [id number]
Farxiga 10 mg daily is $0 copay
Jardiance 10mg daily is $0 copay
--- NOTE | 2024-01-13 13:21 | PTCARENOTE ---
Patient taken to CT of chest US today on a stretchor. Patient returned to room, walked to the bathroom using rolling walker, in chair, diet advanced, call young in reach
[2024-01-13] MEDS: LASIX 40 MG PO (16:38)
[2024-01-13 17:19] LABS: Glucose - Point of Care 121 mg/dl (70-99)
[2024-01-13] MEDS: LOVENOX 40 MG SC (17:24)
[2024-01-13] MEDS: LIPITOR 80 MG PO (17:24)
[2024-01-13 21:36] LABS: Glucose - Point of Care 151 mg/dl (70-99)
[2024-01-13] MEDS: AMBIEN 5 MG PO (23:55)
[2024-01-14] VITALS (8 sets, daily range): BP systolic 127–172; BP diastolic 59–90; BMI 37.0
--- NOTE | 2024-01-14 00:18 | PTCARENOTE ---
Rec'd pt at change of shift. Pt in NSR, with vss, AAO*3, and Central African speaking. Pt forgetful at times, bed/chair alarm applied for safety. Pt reported R knee discomfort and PO Ultram given as ordered for pain. Pt on 4L of oxygen for comfort and
pulse ox at 98%. Shipping Team Leader at bedside and pt uses call young when needed. Pt denied any further pain or discomfort. Pt resting in bed with call young in reach.
[2024-01-14 05:01] LABS: % Basophils 0.7 % (0-2); % Eosinophils 3.4 % (0-6); % Immature Granulocytes 0.9 % (0-0.5); % Lymphocytes 21.6 % (20.5-51.1); % Monocytes 7.6 % (1.7-9.3); % Neutrophils 65.8 % (42.2-75.2); Absolute Basophils 0.1 10^3/uL (0-0.2); Absolute Eosinophils 0.3 10^3/uL (0-0.7); Absolute Immature Granulocytes 0.1 10^3/uL (0-0.05); Absolute Lymphocytes 1.9 10^3/uL (1.2-3.4); Absolute Monocytes 0.7 10^3/uL (0.1-0.6); Absolute Neutrophils 5.9 10^3/uL (1.4-6.5); Hematocrit 39.6 % (37.0-47.0); Hemoglobin 13.2 g/dL (12.0-16.0); Mean Corp Hgb Conc. 33.3 g/dL (33.0-37.0); Mean Corpuscular Hgb 26.9 pg (27.0-31.0); Mean Corpuscular Volume 80.7 fL (81.0-99.0); Mean Platelet Volume 8.8 fL (7.4-10.4); Nucleated Red Blood Cells % 0 %; Platelet Count 329 10^3/uL (130-400); Red Blood Cell Count 4.91 10^6/uL (4.20-5.40); Red Cell Dist. Width 15.6 % (11.5-14.5); White Blood Cell Count 8.9 10^3/uL (4.8-10.8)
--- NOTE | 2024-01-14 05:15 | DOWNTIME ---
There was a [employer] Client Blister Packaging Machine Operator Downtime on 01/14/2024 from 0100 to 01/14/2024 at 0355. Downtime documentation of patient's care, including medication administrations, has been reconciled in the electronic record per guidelines. Refer to the
patient's paper chart under the miscellaneous tab to see printed paper medication records and downtime forms.
[2024-01-14 05:50] LABS: Ferritin 17.1 ng/ml (11.1-264.0)
[2024-01-14 06:38] LABS: ALT (SGPT) 15 U/L (0-35); Albumin 3.7 g/dl (3.5-5.0); Alkaline Phosphatase 67 U/L (38-126); Blood Urea Nitrogen 18 mg/dl (7-17); Calcium 9.7 mg/dl (8.4-10.2); Carbon Dioxide 29 mmol/L (22-30); Chloride 102 mmol/L (98-107); Estimated Creatinine Clearance 56 ml/min; Iron 48 ug/dl (37-170); Magnesium 1.7 mg/dl (1.6-2.3); Potassium 3.7 mmol/L (3.5-5.1); Sodium 141 mmol/L (135-145); Total Bilirubin 0.4 mg/dl (0.2-1.3); Total Protein 6.4 g/dl (6.3-8.2); eGFR > 60.00
[2024-01-14] MEDS: DICLOFENAC 1% TOPICAL GEL 2 GRAM TOPICAL ×3 (06:42→17:30)
[2024-01-14 06:47] LABS: AST (SGOT) 18 U/L (14-36); Glucose 140 mg/dl (70-99); Percent Saturation 13 % (20-50); Total Iron Binding Capacity 353 ug/dl (265-497)
[2024-01-14 07:13] LABS: Glucose - Point of Care 169 mg/dl (70-99)
[2024-01-14] MEDS: SYMBICORT 160/4.5 MCG INHALER 2 PUFF INH ×2 (08:43→19:21)
--- NOTE | 2024-01-14 08:51 | PTCARENOTE ---
Received patient this morning sitting at the side of the bed, assisted assistant casino shift manager in transferring the patient to the chair. ARAUJO, and required assist of two to place on the standing scale and then transfer to the chair with the rolling walker.
Stance stooped over and appeared to have discomfort from her right knee with activity. Eating breakfast, chair alarm in place and using virtual patient observation for safety, call young in reach.
[2024-01-14] MEDS: NOVOLOG FLEXPEN-LOW RESISTANCE 1 UNITS SC ×2 (09:11→17:16)
[2024-01-14] MEDS: COLACE 100 MG PO ×2 (09:12→19:18)
[2024-01-14] MEDS: ASPIR LOW (ENTERIC COATED) 81 MG PO (09:12)
[2024-01-14] MEDS: FARXIGA 10 MG PO (09:12)
[2024-01-14] MEDS: DULCOLAX 10 MG PO (09:12)
[2024-01-14] MEDS: LASIX 40 MG PO (09:13)
[2024-01-14] MEDS: ZENPEP DELAYED RELEASE CAPSULE 1 CAPSULE PO ×3 (09:13→17:17)
[2024-01-14] MEDS: VITAMIN D3 (cholecalciferol) 50 MCG PO (09:13)
[2024-01-14] MEDS: LOPRESSOR 12.5 MG PO ×2 (09:13→19:18)
[2024-01-14] MEDS: FLUSH (NSS) 1 FLUSH IV (09:14)
[2024-01-14] MEDS: STERILE WATER FOR INJECTION 10 ML IV (09:14)
[2024-01-14] MEDS: ROCEPHIN 1000 MG IV (09:14)
[2024-01-14] MEDS: ULTRAM 50 MG PO ×2 (09:16→17:29)
--- NOTE | 2024-01-14 11:11 | W.PN.HOSP.TC ---
Addendum entered and electronically signed by Colt Florentino MD 01/14/24 11:15:
Echo with pulmonary HTN, preserved EF and moderate-severe
Original Note:
Today's Communication/Plan
-
increase Lasix to 60mg sinc every minimal weight drop
Assessment / Plan
Assessment / Plan
88yo Cameroonian speaking F with PMHX of CAD s/p PCI @2020, CHF, HTN, RACHEL on CPAP came with 2 weeks of progressive SOB associated with intermittent pressure-like epigastric pain. PAtient recently became less ambulatory 2/2 progression of R knee
osteoarthritis. Also concern for UTI
A/P:
#dyspnea 2/2 CHF exacerbation
#Chest pain, atypical with PMHX of CAD
Lasix, follow weights and electrolytes, low sodium diet
Echo
Cardiology consult
Morphin, Nitro SL (actually nitro was helpful to the patient)
Serial troponin WNL
EKG without signs of ACS
BroBNP 518, but can be lowith obesity, chest XR showed possible early mild vascular congestion
check DDimer
cont ASA, statin, BB
telemetry showed sinus arrhythmia
LDL 40
Hgba1c 6.7%
TSH WNL
#UTI
ceftriaxone
Ucx - CNB - possible E.coli
Cr WNL, currently no concern for complicated infection
#DM type 2 with neuropathy
Cont basal insulin, Accuchecks, Insulin SS and DM diet
hold metformin
#pancreatic insufficiency
#Vertigo
#Insomnia
#Urinary urgency
cont home meds
#RACHEL
cont CPAP
DVT ppx lovenox
Full code
I have spent at least 38min reviewing chart, test results, communication with consultants and direct patient care
Anticipated Discharge: > 48 hours
Subjective/Interval History
-
Date of Service: January 14, 2024
Objective Data
-
Labs:
Laboratory Results
01/14/24 01/14/24
04:23 06:03
WBC 8.9
Hgb 13.2
Hct 39.6
Plt Count 329
Sodium Cancelled 141
Potassium Cancelled 3.7
Chloride Cancelled 102
Carbon Dioxide Cancelled 29
BUN Cancelled 18 H
Creatinine Cancelled 0.8
Glucose Cancelled 140 H
Calcium Cancelled 9.7
Total Bilirubin Cancelled 0.4
AST Cancelled 18
ALT Cancelled 15
Alkaline Phosphatase Cancelled 67
Vital Signs:
Vital Signs
Temp Pulse Resp BP Pulse Ox
98.6 F 78 20 136/88 97
01/14/24 06:56 01/14/24 08:47 01/14/24 08:47 01/14/24 06:58 01/14/24 08:47
I&O
01/13/24 01/14/24 01/15/24
06:59 06:59 06:59
Intake Total 240 / 240 1060 / 1060
Output Total 500 / 500 1350 / 1350
Balance -260 / -260 -290 / -290
Review of Systems
-
History Source: Patient
All other systems: Reviewed and negative
Physical Exam
-
General: No Apparent Distress
HEENT: Normocephalic
Respiratory: Crackles
Cardiac: Regular Rhythm
GI: Soft, Nontender and Nondistended
Musculoskeletal: No Clubbing, No Cyanosis, Edema, Right Lower Extrem and Edema, Left Lower Extrem
Neuro: Awake, Alert, Oriented and AO x 3
Psych: Calm
--- NOTE | 2024-01-14 11:31 | CM ---
Chart reviewed. Patient is independent of ADLS, lives alone in a apartment, 1st floor, elevator access, ambulates with a rollator, receives VN along with CLOTH COLORER through [place]. PT evaluation recommending SNF. I spoke to patient's sons and they are
refusing. I notified Dr. Florentino. Plan is for the patient to return home with VN. CM to follow
[2024-01-14 12:07] LABS: Glucose - Point of Care 141 mg/dl (70-99)
[2024-01-14] MEDS: NOVOLOG FLEXPEN-LOW RESISTANCE SC (12:08)
--- NOTE | 2024-01-14 12:08 | W.PN.CD ---
Today's Communication / Plan
-
Continue diuresis.
Possible R/L heart cath to clarify volume status, also a TAVR evaluation.
Impression / Plan
-
Impression/Plan: 88F with CAD, HFpEF, severe , HTN, HLD, asthma, DM, RACHEL on CPAP, and obesity presents with shortness of breath.
#Shortness of breath
-In the setting of acute on chronic heart failure.
-Prior notes from [place] reflect she has home oxygen.
-Difficult to discern volume status.
-Given , we will discuss R/L heart catheterization to clarify volume status, coronary anatomy.
#HFpEF
-Acute on chronic.
-proBNP only 518 but she endorses orthopnea and PND.
-Continue diuresis with furosemide 40 mg IV twice daily.
-Consider spironolactone tomorrow (BP soft today).
-Case mgmt to suárez SGLT2i.
-Echocardiogram confirms normal LVEF and moderate-severe .
#Aortic stenosis
-Chronic.
-Moderate to severe (JUDY 1.1 cm�).
-Diuresis
-Records reflect she was high risk for AVR, I do not see any mention of TAVR
-Update echocardiogram
#CAD
-Stable without chest pain.
-PCI to mid LAD 08/11/2020.
-LHC 07/2021: LAD with patent stent, D1 50%, OM2 70%.
-Continue aspirin, atorvastatin, metoprolol.
#Abnormal D-dimer
-CTPE scan negative.
#Leukocytosis
-Acute, resolved.
-Likely reactive.
#Hypertension
-Chronic and stable.
#Asthma
-Chronic, no acute exacerbation.
#Type 2 diabetes mellitus
-Chronic, insulin dependent.
-HbA1c = 6.7%.
#RACHEL on CPAP
#Obesity, BMI 37
Clay Temperer: Dr. Rosenthal ([place])
Subjective/Interval History:
Weight down 0.4 kg (97.7 kg <-- 98.1 kg).
BP mildly elevated.
SaO2 99% on 2LNC.
She feels the same.
Internal medicine increasing furosemide given lack of progress.
DATA:
TTE, 01/13/2024:
CONCLUSIONS
Normal LV size and function with no regional wall motion abnormalities.
LV ejection fraction is 55-60% by visual assessment.
Mild concentric LVH.
Normal right ventricular size and function.
Moderate to severe aortic stenosis.
Mild tricuspid regurgitation.
Estimated pulmonary artery pressure of 37 mmHg, assuming a right atrial
pressure of 3 mmHg.
No prior study available for comparison.
CTPE, 01/13/2024:
IMPRESSION:
No evidence of central pulmonary embolism.
LE Duplex, 01/13/2024:
IMPRESSION:
No evidence of deep venous thrombosis bilaterally.
Left popliteal fossa fluid collection, likely a Davis's cyst.
Physical Exam
Vital Signs/Labs
Vital Signs
Temp Pulse Resp BP Pulse Ox
36.6 C 78 24 136/88 99
01/14/24 11:40 01/14/24 08:47 01/14/24 11:40 01/14/24 06:58 01/14/24 11:40
01/13/24 01/14/24 01/15/24
11:59 11:59 11:59
Actual Weight 98.1 kg 97.7 kg
01/14/24 04:23
01/14/24 06:03
Magnesium 1.7 mg/dl (1.6-2.3) 01/14/24 06:03
Triglycerides 154 mg/dl (10-149) H 01/13/24 03:04
LDL Cholesterol, Calc 40 mg/dl 01/13/24 03:04
VLDL Cholesterol, Calc 30 mg/dl (0-30) 01/13/24 03:04
HDL Cholesterol 53 mg/dl 01/13/24 03:04
01/12/24
11:22
Omq-I-Xlnvyexznfb Pept 518
LAB Results
01/12/24 01/12/24 01/12/24
11:22 14:26 19:51
Troponin I 0.022 0.024 0.014 D
01/12/24 01/13/24
20:30 09:16
Troponin I Cancelled 0.014
Physical Exam
Constitutional: No acute distress and Comfortable
EENT: Anicteric and Moist mucous membranes
Cardiovascular: Rhythm & rate is regular, JVD pressure is normal, Pedal edema present (Trace), Systolic murmur present and S1S2 is normal
Respiratory: Respiratory effort normal, Lungs clear to auscul., Wheeze Absent, Crackles Absent and Rhonchi Absent
GI: Soft, Distention absent, Flat, Non tender and Normal bowel sounds
Neuro/Psych: AO x 3
Data Reviewed
-
Date of Service: January 14, 2024
Medical Decision Making: Reviewed Test Results, Independent Historian Assessment and Test Interpretation
EKG: Tracing Personally Visualized and interpreted and Report Reviewed by me
Echo: Tracing Personally Visualized and interpreted and Report Reviewed by me
X-Ray/CT/US/MRI/NUC/PET: Image Personally Visualized and interpreted and Report Reviewed by me
Medical Tests (PFT, Pathology etc): Image Personally Visualized and interpreted and Report Reviewed by me
Labs: Labs Reviewed by me
Old Records: Reviewed
[2024-01-14 12:47] LABS: Glucose - Point of Care 190 mg/dl (70-99)
[2024-01-14] MEDS: LASIX 60 MG PO (15:02)
--- NOTE | 2024-01-14 16:36 | PTCARENOTE ---
Patient sitting oob in the chair, has been using call young appropriately. Found crying, moaning and talking to herself frequently. When questioned if she needed pain medication she denied. Appears sad, stating she wants to go home. Using google
translate, communicating that we are giving her diuretics here, she verbalized that she can take pills at home. Chair alarm and med sitter still in place, call young in reach.
[2024-01-14 17:11] LABS: Glucose - Point of Care 163 mg/dl (70-99)
[2024-01-14] MEDS: LIPITOR 80 MG PO (17:17)
[2024-01-14] MEDS: LOVENOX 40 MG SC (17:17)
--- NOTE | 2024-01-14 18:11 | PTCARENOTE ---
Assisting patient to the bathroom with rolling walker. Able to get to the bathroom better than this morning. Patient is stooped over when she walks and lies her arms on the top of walker rather than using her hands, does not take direction well,
seems to understand but prefers to do it her own way. Son in now to visit, informed him that she cries often in the room and appears very restless. He states that this behavior also happens at home. Questioned son about home meds, and if she takes
anything for anxiety. Son states that she takes lexapro, added this med to her med list. Wanted to review home meds with him, he states her other son will be here tonight and he can go on her portal and let us know.
[2024-01-14 21:52] LABS: Glucose - Point of Care 150 mg/dl (70-99)
[2024-01-14] MEDS: AMBIEN 5 MG PO (22:37)
--- NOTE | 2024-01-14 22:41 | PTCARENOTE ---
Pt. received at change of shift. Pt. seen and assessed in room with 2 sons present. Pt. pleasant sitting in chair. Palauan speaking, VS WNL, Tele reading NSR. After sons left, pt. nods head in understanding to plan of care. Call young within reach.
Hourly rounds done on patient. Around 2229, pt. restless, moaning and groaning. Pt. appearing to be crying and cannot sleep. PRN ambien administered. Call young within reach, fall precautions in place. Continuing to monitor pt at this time.
[2024-01-15] VITALS (10 sets, daily range): BP systolic 115–149; BP diastolic 56–96; PULSE 87; O2SAT 97; BMI 36.8
[2024-01-15] MEDS: ULTRAM 50 MG PO ×3 (00:45→20:31)
[2024-01-15 03:15] LABS: Hematocrit 35.5 % (37.0-47.0); Mean Corp Hgb Conc. 33.8 g/dL (33.0-37.0); Mean Corpuscular Hgb 26.1 pg (27.0-31.0); Mean Corpuscular Volume 77.3 fL (81.0-99.0); Mean Platelet Volume 9.1 fL (7.4-10.4); Platelet Count 348 10^3/uL (130-400); Red Blood Cell Count 4.59 10^6/uL (4.20-5.40); Red Cell Dist. Width 15.9 % (11.5-14.5); White Blood Cell Count 10.2 10^3/uL (4.8-10.8)
[2024-01-15] MEDS: TORADOL 15 MG IV (03:45)
[2024-01-15 05:25] LABS: ALT (SGPT) 16 U/L (0-35); AST (SGOT) 18 U/L (14-36); Alkaline Phosphatase 74 U/L (38-126); Blood Urea Nitrogen 24 mg/dl (7-17); Calcium 9.5 mg/dl (8.4-10.2); Carbon Dioxide 29 mmol/L (22-30); Chloride 102 mmol/L (98-107); Estimated Creatinine Clearance 50 ml/min; Glucose 156 mg/dl (70-99); Magnesium 1.8 mg/dl (1.6-2.3); Potassium 3.3 mmol/L (3.5-5.1); Sodium 142 mmol/L (135-145); Total Bilirubin 0.4 mg/dl (0.2-1.3); Total Protein 6.7 g/dl (6.3-8.2); eGFR > 60.00
[2024-01-15] MEDS: SYMBICORT 160/4.5 MCG INHALER 2 PUFF INH ×2 (07:16→20:02)
--- NOTE | 2024-01-15 08:22 | W.PN.CD ---
Today's Communication / Plan
-
Discuss TAVR evaluation.
Restart escitalopram.
Impression / Plan
-
Impression/Plan: 88F with CAD, HFpEF, severe , HTN, HLD, asthma, DM, RACHEL on CPAP, and obesity presents with shortness of breath.
#Shortness of breath
-In the setting of acute on chronic heart failure.
-Prior notes from [facility] reflect she has home oxygen.
-Difficult to discern volume status.
-Given , we will discuss R/L heart catheterization to clarify volume status, coronary anatomy.
#HFpEF
-Acute on chronic.
-proBNP only 518 but she endorses orthopnea and PND.
-Continue diuresis with furosemide 40 mg IV twice daily.
-Consider spironolactone tomorrow (BP soft today).
-Case mgmt to suáerz SGLT2i.
-Echocardiogram confirms normal LVEF and moderate-severe .
#Aortic stenosis
-Chronic.
-Moderate to severe (JUDY 1.1 cm�).
-Diuresis.
-We will discuss TAVR work up, which may also help us clarify her volume status, coronary anatomy.
#CAD
-Stable without chest pain.
-PCI to mid LAD 08/11/2020.
-C 07/2021: LAD with patent stent, D1 50%, OM2 70%.
-Continue aspirin, atorvastatin, metoprolol.
#Abnormal D-dimer
-CTPE scan negative.
#Leukocytosis
-Acute, resolved.
-Likely reactive.
#Hypertension
-Chronic and stable.
#Asthma
-Chronic, no acute exacerbation.
#Type 2 diabetes mellitus
-Chronic, insulin dependent.
-HbA1c = 6.7%.
#RACHEL on CPAP
#Obesity, BMI 37
French Instructor: Dr. Rosenthal ([place])
Subjective/Interval History:
Weight stable.
Patient reportedly on escitalopram at home (not previously known).
Nursing reports the patient has been crying in her room, sons confirm that this behavior happens at home as well.
Communication limited by language barrier. Jordanian rack carrier not readily available.
DATA:
TTE, 01/13/2024:
CONCLUSIONS
Normal LV size and function with no regional wall motion abnormalities.
LV ejection fraction is 55-60% by visual assessment.
Mild concentric LVH.
Normal right ventricular size and function.
Moderate to severe aortic stenosis.
Mild tricuspid regurgitation.
Estimated pulmonary artery pressure of 37 mmHg, assuming a right atrial
pressure of 3 mmHg.
No prior study available for comparison.
CTPE, 01/13/2024:
IMPRESSION:
No evidence of central pulmonary embolism.
LE Duplex, 01/13/2024:
IMPRESSION:
No evidence of deep venous thrombosis bilaterally.
Left popliteal fossa fluid collection, likely a Davis's cyst.
Physical Exam
Vital Signs/Labs
Vital Signs
Temp Pulse Resp BP Pulse Ox
36.8 C 76 14 139/59 95
01/15/24 07:03 01/15/24 07:17 01/15/24 07:17 01/15/24 07:07 01/15/24 07:17
01/13/24 01/14/24 01/15/24
11:59 11:59 11:59
Actual Weight 98.1 kg 97.7 kg
01/15/24 02:54
01/15/24 04:35
Magnesium 1.8 mg/dl (1.6-2.3) 01/15/24 04:35
Triglycerides 154 mg/dl (10-149) H 01/13/24 03:04
LDL Cholesterol, Calc 40 mg/dl 01/13/24 03:04
VLDL Cholesterol, Calc 30 mg/dl (0-30) 01/13/24 03:04
HDL Cholesterol 53 mg/dl 01/13/24 03:04
01/12/24
11:22
Tvx-N-Ecdsesdxhdk Pept 518
LAB Results
01/12/24 01/12/24 01/12/24
11:22 14:26 19:51
Troponin I 0.022 0.024 0.014 D
01/12/24 01/13/24
20:30 09:16
Troponin I Cancelled 0.014
Physical Exam
Constitutional: No acute distress and Comfortable
EENT: Anicteric and Moist mucous membranes
Cardiovascular: Rhythm & rate is regular, Pedal edema is absent, JVD pressure is normal, S1S2 is normal and Murmur/rub/gallop absent
Respiratory: Respiratory effort normal, Lungs clear to auscul., Wheeze Absent, Crackles Absent and Rhonchi Absent
GI: Soft, Distention absent, Flat, Non tender and Normal bowel sounds
Neuro/Psych: AO x 3
Data Reviewed
-
Date of Service: January 15, 2024
Medical Decision Making: Reviewed Test Results and Independent Historian Assessment
EKG: Tracing Personally Visualized and interpreted and Report Reviewed by me
Echo: Tracing Personally Visualized and interpreted and Report Reviewed by me
X-Ray/CT/US/MRI/NUC/PET: Image Personally Visualized and interpreted and Report Reviewed by me
Medical Tests (PFT, Pathology etc): Report Reviewed by me
Labs: Labs Reviewed by me
[2024-01-15 08:33] LABS: Glucose - Point of Care 174 mg/dl (70-99)
[2024-01-15] MEDS: NOVOLOG FLEXPEN-LOW RESISTANCE 1 UNITS SC ×2 (09:13→16:55)
[2024-01-15] MEDS: FARXIGA 10 MG PO (09:14)
[2024-01-15] MEDS: KCL 40 MEQ PO ×2 (09:14→20:31)
[2024-01-15] MEDS: COLACE 100 MG PO ×2 (09:14→20:30)
[2024-01-15] MEDS: ASPIR LOW (ENTERIC COATED) 81 MG PO (09:14)
[2024-01-15] MEDS: DULCOLAX 10 MG PO (09:14)
[2024-01-15] MEDS: LASIX 60 MG PO ×2 (09:15→16:54)
[2024-01-15] MEDS: ZENPEP DELAYED RELEASE CAPSULE 1 CAPSULE PO ×3 (09:16→16:54)
[2024-01-15] MEDS: LOPRESSOR 12.5 MG PO ×2 (09:16→20:30)
[2024-01-15] MEDS: MAGNESIUM OXIDE 500 MG PO (09:16)
[2024-01-15] MEDS: VITAMIN D3 (cholecalciferol) 50 MCG PO (09:16)
[2024-01-15] MEDS: STERILE WATER FOR INJECTION 10 ML IV (09:20)
[2024-01-15] MEDS: ROCEPHIN 1000 MG IV (09:20)
[2024-01-15] MEDS: FLUSH (NSS) 2 FLUSH IV (09:20)
--- NOTE | 2024-01-15 10:23 | PTCARENOTE ---
TT to Dr. Florentino that med rec was updated after son produced his mother's med list. Patient assisted oob to standing scale. ARAUJO and complains of right knee pain but declined pain medication when offered this morning. Dr. Ward in to speak with
the patient regarding possible right and left heart cath tomorrow. Dr. Florentino in the room to translate. Patient would like to discuss with her son later today when he viPatient sitting oob in the chair now, alarm in place, call young in reach.
[2024-01-15] MEDS: NOVOLOG FLEXPEN-LOW RESISTANCE 2 UNITS SC (11:18)
[2024-01-15 11:19] LABS: Glucose - Point of Care 212 mg/dl (70-99)
--- NOTE | 2024-01-15 11:50 | CM ---
Chart reviewed. Patient lives alone in apartment, 1st floor, elevator access, ambulates with a rollator. PT evaluation recommending SNF. Patient sons are refusing. Patient is current with [facility]. Plan is for the patient to return home with
[facility]. CM to follow
--- NOTE | 2024-01-15 14:10 | W.PN.HOSP.TC ---
Today's Communication/Plan
-
cont diuresis
replete portassium
ceftriaxone to cont
Card for possible cath
Assessment / Plan
Assessment / Plan
88yo East Timorese speaking F with PMHX of CAD s/p PCI @2020, CHF, HTN, RACHEL on CPAP came with 2 weeks of progressive SOB associated with intermittent pressure-like epigastric pain. Patient recently became less ambulatory 2/2 progression of R knee
osteoarthritis. Also concern for UTI
Managed for CHF, however no symptom improvement on diuresis, chest CT without PE, probably patient has symptomatic . Pending cardiology for possible R and L heart cath
A/P:
#dyspnea 2/2 CHF exacerbation
#Chest pain, atypical with PMHX of CAD
Lasix, follow weights and electrolytes, low sodium diet
Echo
Cardiology consult
Morphin, Nitro SL (actually nitro was helpful to the patient)
Serial troponin WNL
EKG without signs of ACS
BroBNP 518, but can be low with obesity, chest XR showed possible early mild vascular congestion
check DDimer
cont ASA, statin, BB
telemetry showed sinus arrhythmia
LDL 40
Hgba1c 6.7%
TSH WNL
#UTI
ceftriaxone
Ucx - CNB - pansensitive E.coli - Ceftriaxone 5 days till 01/18/24
Cr WNL, currently no concern for complicated infection
#DM type 2 with neuropathy
Cont basal insulin, Accuchecks, Insulin SS and DM diet
hold metformin
#pancreatic insufficiency
#Vertigo
#Insomnia
#Urinary urgency
cont home meds
#RACHEL
cont CPAP
DVT ppx lovenox
Full code
I have spent at least 38min reviewing chart, test results, communication with consultants and direct patient care
Anticipated Discharge: > 48 hours
Subjective/Interval History
-
Date of Service: January 15, 2024
Objective Data
-
Labs:
Laboratory Results
01/15/24 01/15/24
02:54 04:35
WBC 10.2
Hgb 12.0
Hct 35.5 L
Plt Count 348
Sodium Cancelled 142
Potassium Cancelled 3.3 L
Chloride Cancelled 102
Carbon Dioxide Cancelled 29
BUN Cancelled 24 H
Creatinine Cancelled 0.9
Glucose Cancelled 156 H
Calcium Cancelled 9.5
Total Bilirubin Cancelled 0.4
AST Cancelled 18
ALT Cancelled 16
Alkaline Phosphatase Cancelled 74
Vital Signs:
Vital Signs
Temp Pulse Resp BP Pulse Ox
97.6 F 71 20 115/63 98
01/15/24 10:56 01/15/24 11:21 01/15/24 10:56 01/15/24 11:21 01/15/24 10:56
I&O
01/14/24 01/15/24 01/16/24
06:59 06:59 06:59
Intake Total 1060 / 1060 980 / 980
Output Total 1350 / 1350
Balance -290 / -290 980 / 980
Review of Systems
-
History Source: Patient
All other systems: Reviewed and negative
Respiratory: Reports Trouble Breathing
Physical Exam
-
General: No Apparent Distress
HEENT: Normocephalic
Respiratory: Clear to Auscultation
Cardiac: Regular Rhythm
GI: Soft, Nontender and Nondistended
Musculoskeletal: No Clubbing, No Cyanosis and No Edema
Skin: Warm
Neuro: Awake, Alert, Oriented and AO x 3
[2024-01-15 16:36] LABS: Glucose - Point of Care 181 mg/dl (70-99)
[2024-01-15] MEDS: ProAIR HFA INHALER 2 PUFF INH ×2 (16:46→20:03)
[2024-01-15] MEDS: LIPITOR 80 MG PO (16:54)
[2024-01-15] MEDS: LOVENOX 40 MG SC (16:54)
[2024-01-15] MEDS: DICLOFENAC 1% TOPICAL GEL 2 GRAM TOPICAL (20:30)
--- NOTE | 2024-01-15 20:45 | PTCARENOTE ---
Addendum entered by Shara Deutsch RN 01/15/24 20:52:
BP 128/70, SNR mid 80s, 99% on 4 L 02-- lowered to 2L. Patient tolerating lower rate.
Original Note:
Received patient at change of shift. Patient awake, alert, and oriented sitting in chair. No complaint of chest pain. Used bedside commode and had pain in right knee-- could not use walker because of pain. RN assist x2 to bed afterwards. Used
uniforms sales representative to verify wanting pain medication (see MAR) and to discuss care plan for the night. Patient verbalized understanding. Call young left within reach.
[2024-01-15 21:25] LABS: Glucose - Point of Care 213 mg/dl (70-99)
[2024-01-15] MEDS: AMBIEN 5 MG PO (21:44)
[2024-01-16] VITALS (15 sets, daily range): BP systolic 100–163; BP diastolic 43–107; BMI 36.8
--- NOTE | 2024-01-16 01:18 | PTCARENOTE ---
Addendum entered by Shara Deutsch RN 01/16/24 02:14:
Discussed plan of care with TODD Marie. Continue plan of care-- bed alarm.
Original Note:
Patient confused in conversation. Became weepy and restless at bedtime-- stripping off gown, laying backwards in bed, pulling off monitor. When asked, patient denies any pain. Comfort measures provided. Bed alarm on for safety.
[2024-01-16] MEDS: TYLENOL 650 MG PO ×2 (03:30→21:49)
[2024-01-16] MEDS: LIDOCAINE 4% PATCH 2 PATCH TOPICAL (03:31)
--- NOTE | 2024-01-16 03:45 | PTCARENOTE ---
Pt requested lidocaine patches both be placed on the right knee-- laterally and medially.
[2024-01-16 04:13] LABS: % Basophils 0.6 % (0-2); % Eosinophils 2.8 % (0-6); % Immature Granulocytes 1.1 % (0-0.5); % Lymphocytes 20.8 % (20.5-51.1); % Monocytes 8.9 % (1.7-9.3); % Neutrophils 65.8 % (42.2-75.2); Absolute Basophils 0.1 10^3/uL (0-0.2); Absolute Eosinophils 0.3 10^3/uL (0-0.7); Absolute Immature Granulocytes 0.1 10^3/uL (0-0.05); Absolute Lymphocytes 2.2 10^3/uL (1.2-3.4); Absolute Neutrophils 7.1 10^3/uL (1.4-6.5); Hematocrit 38.4 % (37.0-47.0); Hemoglobin 12.9 g/dL (12.0-16.0); Mean Corp Hgb Conc. 33.6 g/dL (33.0-37.0); Mean Corpuscular Hgb 26.7 pg (27.0-31.0); Mean Corpuscular Volume 79.3 fL (81.0-99.0); Mean Platelet Volume 9.1 fL (7.4-10.4); Nucleated Red Blood Cells % 0 %; Platelet Count 384 10^3/uL (130-400); Red Blood Cell Count 4.84 10^6/uL (4.20-5.40); Red Cell Dist. Width 15.9 % (11.5-14.5); White Blood Cell Count 10.8 10^3/uL (4.8-10.8)
[2024-01-16 04:40] LABS: ALT (SGPT) 18 U/L (0-35); AST (SGOT) 20 U/L (14-36); Albumin 4.2 g/dl (3.5-5.0); Alkaline Phosphatase 74 U/L (38-126); Blood Urea Nitrogen 29 mg/dl (7-17); Calcium 9.7 mg/dl (8.4-10.2); Carbon Dioxide 24 mmol/L (22-30); Chloride 102 mmol/L (98-107); Estimated Creatinine Clearance 50 ml/min; Glucose 156 mg/dl (70-99); Potassium 4.2 mmol/L (3.5-5.1); Sodium 140 mmol/L (135-145); Total Bilirubin 0.4 mg/dl (0.2-1.3); Total Protein 7.1 g/dl (6.3-8.2); eGFR > 60.00
[2024-01-16] MEDS: ULTRAM 50 MG PO ×2 (06:04→10:58)
--- NOTE | 2024-01-16 06:15 | PTCARENOTE ---
Patient called RN with shortness of breath. She was tachypneic (rr30/min) and increased work of breathing. Patient also complaining of right knee pain. PRN ultram given-- see MAY. HR Sinus 70s-80s, BP 157/91. Sat patient in chair and made
comfortable. Notified respiratory for PRN albuterol inhaler-- 99% on 2 L. Once patient in chair, patient calmed down and breathing improved. Call young in reach, chair alarm in place.
[2024-01-16] MEDS: SYMBICORT 160/4.5 MCG INHALER 2 PUFF INH (06:23)
[2024-01-16] MEDS: ProAIR HFA INHALER 2 PUFF INH (06:23)
[2024-01-16 07:20] LABS: Glucose - Point of Care 175 mg/dl (70-99)
--- NOTE | 2024-01-16 08:28 | W.PN.CD ---
Today's Communication / Plan
-
Right/left cardiac catheterization as part of TAVR workup and to clarify volume status.
Deliniation of clinical course will depend on filling pressures.
Impression / Plan
-
Impression/Plan: 88F with CAD, HFpEF, severe , HTN, HLD, asthma, DM, RACHEL on CPAP, and obesity presents with shortness of breath.
#Shortness of breath
-In the setting of acute on chronic heart failure.
-Prior notes from [facility] reflect she has home oxygen.
-Difficult to discern volume status.
-Right/left heart catheterization today to clarify volume status and coronary anatomy.
#HFpEF
-Acute on chronic.
-proBNP only 518 but she endorses orthopnea and PND.
-Continue diuresis with furosemide 40 mg IV twice daily.
-Consider spironolactone tomorrow (BP soft today).
-Case mgmt to suárez SGLT2i.
-Echocardiogram confirms normal LVEF and moderate-severe .
-L/R cath for volume today.
#Aortic stenosis
-Chronic.
-Moderate to severe (JUDY 1.1 cm�).
-Diuresis.
-L/R cath as part of TAVR workup.
#CAD
-Stable without chest pain.
-PCI to mid LAD 08/11/2020.
-LHC 07/2021: LAD with patent stent, D1 50%, OM2 70%.
-Continue aspirin, atorvastatin, metoprolol.
#Abnormal D-dimer
-CTPE scan negative.
#Leukocytosis
-Acute, resolved.
-Likely reactive.
#Hypertension
-Chronic and stable.
#Asthma
-Chronic, no acute exacerbation.
#Type 2 diabetes mellitus
-Chronic, insulin dependent.
-HbA1c = 6.7%.
#RACHEL on CPAP
#Obesity, BMI 37
Prevention Specialist: Dr. Rosenthal ([place])
Subjective/Interval History:
Communication improved through Hospitalist (thanks to Dr. Florentino).
Patient is agreeable to cardiac catheterization as part of her workup.
She had some SOB this morning associated with her knee pain. This improved with tramadol.
The patient's sons are present and assist with translation. She is hungry.
DATA:
TTE, 01/13/2024:
CONCLUSIONS
Normal LV size and function with no regional wall motion abnormalities.
LV ejection fraction is 55-60% by visual assessment.
Mild concentric LVH.
Normal right ventricular size and function.
Moderate to severe aortic stenosis.
Mild tricuspid regurgitation.
Estimated pulmonary artery pressure of 37 mmHg, assuming a right atrial
pressure of 3 mmHg.
No prior study available for comparison.
CTPE, 01/13/2024:
IMPRESSION:
No evidence of central pulmonary embolism.
LE Duplex, 01/13/2024:
IMPRESSION:
No evidence of deep venous thrombosis bilaterally.
Left popliteal fossa fluid collection, likely a Davis's cyst.
Physical Exam
Vital Signs/Labs
Vital Signs
Temp Pulse Resp BP Pulse Ox
36.9 C 72 20 163/94 98
01/16/24 07:16 01/16/24 06:25 01/16/24 07:16 01/16/24 03:33 01/16/24 07:16
01/14/24 01/15/24 01/16/24
11:59 11:59 11:59
Actual Weight 97.7 kg 97.3 kg
01/16/24 03:41
01/16/24 03:41
Magnesium 2.0 mg/dl (1.6-2.3) 01/16/24 03:41
Triglycerides 154 mg/dl (10-149) H 01/13/24 03:04
LDL Cholesterol, Calc 40 mg/dl 01/13/24 03:04
VLDL Cholesterol, Calc 30 mg/dl (0-30) 01/13/24 03:04
HDL Cholesterol 53 mg/dl 01/13/24 03:04
01/12/24
11:22
Pxs-T-Yojuluivuhn Pept 518
LAB Results
01/13/24
09:16
Troponin I 0.014
Physical Exam
Constitutional: No acute distress and Comfortable
EENT: Anicteric and Moist mucous membranes
Cardiovascular: Rhythm & rate is regular, Pedal edema is absent, JVD pressure is normal, Systolic murmur present and S1S2 is normal
Respiratory: Respiratory effort normal and Other (Decreased throughout.)
GI: Soft
Neuro/Psych: AO x 3
Data Reviewed
-
Date of Service: January 16, 2024
Medical Decision Making: Reviewed Test Results, Independent Historian Assessment and Test Interpretation
EKG: Tracing Personally Visualized and interpreted and Report Reviewed by me
Echo: Report Reviewed by me
X-Ray/CT/US/MRI/NUC/PET: Image Personally Visualized and interpreted and Report Reviewed by me
Labs: Labs Reviewed by me
Old Records: Reviewed
[2024-01-16] MEDS: LOPRESSOR 12.5 MG PO ×2 (08:36→20:09)
[2024-01-16] MEDS: ASPIR LOW (ENTERIC COATED) 81 MG PO (08:36)
[2024-01-16] MEDS: MAGNESIUM OXIDE 500 MG PO (08:36)
[2024-01-16] MEDS: LEXAPRO 20 MG PO (08:36)
[2024-01-16] MEDS: ZENPEP DELAYED RELEASE CAPSULE 1 CAPSULE PO (08:36)
[2024-01-16] MEDS: FARXIGA 10 MG PO (08:37)
[2024-01-16] MEDS: BUSPAR 20 MG PO ×3 (08:37→21:50)
[2024-01-16] MEDS: LASIX 60 MG PO (08:37)
[2024-01-16] MEDS: NORVASC 10 MG PO (08:38)
[2024-01-16] MEDS: VITAMIN D3 (cholecalciferol) 50 MCG PO (08:38)
[2024-01-16] MEDS: KCL 40 MEQ PO (08:38)
[2024-01-16] MEDS: FOLVITE 1 MG PO (08:38)
[2024-01-16 09:04] LABS: Glucose - Point of Care 156 mg/dl (70-99)
[2024-01-16] MEDS: COLACE PO (09:14)
[2024-01-16] MEDS: DULCOLAX PO (09:14)
[2024-01-16] MEDS: NOVOLOG FLEXPEN-LOW RESISTANCE SC ×3 (10:17→18:37)
[2024-01-16 10:46] LABS: Glucose - Point of Care 134 mg/dl (70-99)
[2024-01-16] MEDS: ROCEPHIN 1000 MG IV (10:46)
[2024-01-16] MEDS: STERILE WATER FOR INJECTION 10 ML IV (10:46)
[2024-01-16] MEDS: ZENPEP DELAYED RELEASE CAPSULE PO ×2 (12:46→18:37)
--- NOTE | 2024-01-16 12:57 | CM ---
Chat reviewed. Patient is independent of ADLS, lives alone in a apartment, 1st floor, elevator access, ambulates with a rollator. Patient is current with VN. Plan is for the patient to return home with [facility]. CM to follow
--- NOTE | 2024-01-16 13:06 | W.PN.HOSP.TC ---
Today's Communication/Plan
-
pending further cardio mgmt
Assessment / Plan
Assessment / Plan
88yo Welsh speaking F with PMHX of CAD s/p PCI @2020, CHF, HTN, RACHEL on CPAP came with 2 weeks of progressive SOB associated with intermittent pressure-like epigastric pain. Patient recently became less ambulatory 2/2 progression of R knee
osteoarthritis. Also concern for UTI
Managed for CHF, however no symptom improvement on diuresis, chest CT without PE, probably patient has symptomatic . Pending cardiology for R and L heart cath
A/P:
#dyspnea 2/2 CHF exacerbation
#Chest pain, atypical with PMHX of CAD
#Moderate-severe
Lasix, follow weights and electrolytes, low sodium diet
Echo: EF preserved, Moderate to severe aortic stenosis
Cardiology consult
Morphin, Nitro SL (actually nitro was helpful to the patient)
Serial troponin WNL
EKG without signs of ACS
BroBNP 518, but can be low with obesity, chest XR showed possible early mild vascular congestion
DDimer elevated but CTA w/o PE, US LE w/o DVT
cont ASA, statin, BB
telemetry showed sinus arrhythmia
LDL 40
Hgba1c 6.7%
TSH WNL
#UTI
ceftriaxone
Ucx - CNB - pansensitive E.coli - Ceftriaxone 5 days till 01/18/24
Cr WNL, currently no concern for complicated infection
#DM type 2 with neuropathy
Cont basal insulin, Accuchecks, Insulin SS and DM diet
hold metformin
#pancreatic insufficiency
#Vertigo
#Insomnia
#Urinary urgency
cont home meds
#RACHEL
cont CPAP
DVT ppx lovenox
Full code
I have spent at least 38min reviewing chart, test results, communication with consultants and direct patient care
Anticipated Discharge: > 48 hours
Subjective/Interval History
-
Date of Service: January 16, 2024
Objective Data
-
Labs:
Laboratory Results
01/16/24
03:41
WBC 10.8
Hgb 12.9
Hct 38.4
Plt Count 384
Sodium 140
Potassium 4.2 D
Chloride 102
Carbon Dioxide 24
BUN 29 H
Creatinine 0.9
Glucose 156 H
Calcium 9.7
Total Bilirubin 0.4
AST 20
ALT 18
Alkaline Phosphatase 74
Vital Signs:
Vital Signs
Temp Pulse Resp BP Pulse Ox
98.4 F 72 20 134/69 97
01/16/24 12:10 01/16/24 10:00 01/16/24 12:10 01/16/24 08:36 01/16/24 12:10
I&O
01/15/24 01/16/24 01/17/24
06:59 06:59 06:59
Intake Total 980 / 980 1080 / 1080 480 / 480
Output Total 350 / 350
Balance 980 / 980 730 / 730 480 / 480
Review of Systems
-
History Source: Patient
All other systems: Reviewed and negative
Respiratory: Reports Trouble Breathing
Physical Exam
-
General: No Apparent Distress
HEENT: Normocephalic
Respiratory: Clear to Auscultation
GI: Soft, Nontender and Nondistended
Musculoskeletal: No Clubbing, No Cyanosis and No Edema
Neuro: Awake, Alert, Oriented and AO x 3
Psych: Calm
[2024-01-16] MEDS: NITROSTAT (SUBLINGUAL) 0.4 MG SL (16:20)
[2024-01-16 16:23] LABS: Glucose - Point of Care 138 mg/dl (70-99)
--- NOTE | 2024-01-16 16:41 | PTCARENOTE ---
pt c/o 7/10 chest pressure. ekg complete, 1 sl nitro given per protocol. nsr, vss. pt resting in bed. notified dr. gil, pt taken to wharf laborer. report called prior. pt educated on plan of care and pt verbalized understanding.
--- NOTE | 2024-01-16 17:35 | ITS.CL.CATH ---
Bilingual Executive Assistant - Catheterization
Cardiac Catheterization
Procedure Report:
CARDIAC CATHETERIZATION REPORT
Date of Procedure: 01/16/2024
Referring: Colt Florentino M.D.
Indication: Moderate to severe aortic valve stenosis, shortness of breath, evaluation of filling pressures.
PROCEDURE:
1. Right heart catheterization.
2. Coronary angiography.
ACCESS:
6 Colombian right radial artery.
5 Colombian right antecubital vein.
CATHETERS:
1. 5 Colombian balloon wedge.
2. 5 Colombian JR4.
3. 5 Colombian JL 3.5.
HEMODYNAMIC DATA
Weight (kg): 97.1
AO (s/d/x mmHg): 156/84/113
LV (s/x mmHg): Not obtained.
PCWP (a/v/x mmHg): 30/27/26
PA (s/d/x mmHg): 50/26/34
RV (s/x mmHg): 50/14
RA (a/v/x mmHg): 19/16/15
SVC SvO2 (%): 55.8
PA SvO2 (%): 57.5
SaO2 (%): 98.0 (on 2 L nasal cannula)
Hbg (g/dL): 13.0
CO (L/min): 2.61
CI (L/min/m2): 1.30
TPG (mmHg): 8
PVR (Mittal Units): 3.1
SVR (dynes*seconds*cm^-5): 3004
AVO2 Diff (Volume %): 7.16
AV gradient (x, mmHg): Not obtained.
AV area (cm2): Not obtained.
LEFT VENTRICULOGRAPHY: Not performed.
CORONARY ANGIOGRAPHY
Dominance: Right.
Left Main: Normal size, bifurcating vessel. There is no coronary artery disease.
LAD: Normal size vessel giving rise to 1 significant diagonal before wrapping around the apex. There are minor luminal irregularities throughout the body of the vessel. A patent stent is present in the mid vessel.
Ramus: Congenitally absent.
Circumflex: Large size, nondominant vessel giving rise to 1 obtuse marginal before terminating as a larger left posterolateral branch. There is a 30% lesion in the distal circumflex as it becomes the left posterolateral branch.
RCA: Large size, dominant vessel. There is no coronary artery disease.
INTERVENTIONS
None.
Closure Device: Vascular band for the right radial artery, manual pressure for the right antecubital vein.
Radiation dose (mGy): 453.87
DAP (cm2.Gy): 34.6770
Fluoroscopy time (minutes): 3.6
Sedation time (minutes): 12
CONCLUSIONS:
1. Right dominant circulation with a patent stent in the mid LAD and a 30% lesion in the distal circumflex as becomes the left posterolateral branch.
2. Severely elevated filling pressures (PCWP = 26 mmHg at 97.1 kg).
3. Severely depressed cardiac function (cardiac index = 1.3 L/min/m�).
4. 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
5. Severely elevated systemic vascular resistance (SVR = 3004 dynes*seconds*cm^-5).
RECOMMENDATIONS:
1. Expectant management after cardiac catheterization via right radial and antecubital approach.
2. Limited weight bearing on the right wrist for one week.
3. Increase diuresis given severe elevation in filling pressures.
4. Guideline directed medical therapy as hemodynamics will tolerate.
5. Consider vasodilators to improve forward flow as well as cardiac index.
6. TAVR evaluation.
Copy to: Colt Florentino M.D., Sabino Lozano M.D.
Roosevelt Ward, DO, FACC, FACP
[2024-01-16] MEDS: LASIX PO (18:24)
[2024-01-16] MEDS: ZESTRIL 5 MG PO (19:06)
[2024-01-16] MEDS: LIPITOR 80 MG PO (19:06)
[2024-01-16] MEDS: LOVENOX 40 MG SC (19:07)
[2024-01-16] MEDS: BUMEX 50 IV (19:08)
--- NOTE | 2024-01-16 19:21 | PTCARENOTE ---
pt back from lab courier, right radial band cdi, right brachial dressing is cdi. pt offers no complaints at this time. pt is sr on the monitor, hr in the 70s, vss. pt educated on plan of care. pw placed per natasha garcia/ camilla gtt running per
protocol. call young within reach.
[2024-01-16] MEDS: DICLOFENAC 1% TOPICAL GEL 2 GRAM TOPICAL (20:08)
[2024-01-16] MEDS: COLACE 100 MG PO (20:09)
--- NOTE | 2024-01-16 21:37 | PTCARENOTE ---
Patient received at change of shift. Patient in bed post cath-- awake, alert, and oriented. Right brachial site clean, dry, and intact. Soft with no hematoma. Right radial site with R-band-- 8 mL of air. Site clean, dry, and intact. Soft with no
hematoma. BP 140/92, NSR 79-82, 97% on room air. Discussed with patient the importance of not pushing up with her hand and care plan. Patient's son in room. Patient verbalized understanding. Call young within reach.
[2024-01-16 22:26] LABS: Glucose - Point of Care 143 mg/dl (70-99)
[2024-01-17] VITALS (13 sets, daily range): BP systolic 76–145; BP diastolic 48–111; BMI 36.2
[2024-01-17] MEDS: ULTRAM 50 MG PO (02:26)
[2024-01-17] MEDS: BUMEX 50 IV (03:50)
[2024-01-17 03:58] LABS: Hematocrit 38.9 % (37.0-47.0); Hemoglobin 13.1 g/dL (12.0-16.0); Mean Corp Hgb Conc. 33.7 g/dL (33.0-37.0); Mean Corpuscular Hgb 26.1 pg (27.0-31.0); Mean Corpuscular Volume 77.5 fL (81.0-99.0); Mean Platelet Volume 8.8 fL (7.4-10.4); Platelet Count 439 10^3/uL (130-400); Red Blood Cell Count 5.02 10^6/uL (4.20-5.40); Red Cell Dist. Width 16.1 % (11.5-14.5); White Blood Cell Count 9.1 10^3/uL (4.8-10.8)
--- NOTE | 2024-01-17 04:22 | PTCARENOTE ---
Bumex continued overnight--see MAY. Sinus/Sinus arrhythmia/PACs, blood pressure stable. Cath sites stable. Patient reinforced on activity restrictions-- patient continues to use it. Complete bed bath given. Purewick still in place.
[2024-01-17 04:23] LABS: Blood Urea Nitrogen 24 mg/dl (7-17); Calcium 9.7 mg/dl (8.4-10.2); Carbon Dioxide 26 mmol/L (22-30); Chloride 101 mmol/L (98-107); Estimated Creatinine Clearance 56 ml/min; Glucose 181 mg/dl (70-99); Potassium 3.8 mmol/L (3.5-5.1); Sodium 142 mmol/L (135-145); eGFR > 60.00
[2024-01-17 07:57] LABS: Glucose - Point of Care 220 mg/dl (70-99)
[2024-01-17] MEDS: NOVOLOG FLEXPEN-LOW RESISTANCE 2 UNITS SC (09:28)
[2024-01-17] MEDS: LIDOCAINE 4% PATCH 2 PATCH TOPICAL (09:29)
[2024-01-17] MEDS: VITAMIN D3 (cholecalciferol) 50 MCG PO (09:31)
[2024-01-17] MEDS: LOPRESSOR 12.5 MG PO ×2 (09:32→19:45)
[2024-01-17] MEDS: FOLVITE 1 MG PO (09:32)
[2024-01-17] MEDS: MAGNESIUM OXIDE 500 MG PO (09:32)
[2024-01-17] MEDS: BUSPAR 20 MG PO ×3 (09:32→21:37)
[2024-01-17] MEDS: NORVASC 10 MG PO (09:32)
[2024-01-17] MEDS: FARXIGA 10 MG PO (09:32)
[2024-01-17] MEDS: COLACE 100 MG PO (09:32)
[2024-01-17] MEDS: DULCOLAX 10 MG PO (09:32)
[2024-01-17] MEDS: ASPIR LOW (ENTERIC COATED) 81 MG PO (09:32)
[2024-01-17] MEDS: LEXAPRO 20 MG PO (09:32)
[2024-01-17] MEDS: FEOSOL 325 MG PO (09:32)
[2024-01-17] MEDS: ZENPEP DELAYED RELEASE CAPSULE 1 CAPSULE PO ×3 (09:33→17:37)
[2024-01-17] MEDS: STERILE WATER FOR INJECTION 10 ML IV (09:33)
[2024-01-17] MEDS: ROCEPHIN 1000 MG IV (09:33)
[2024-01-17] MEDS: ZESTRIL 5 MG PO (09:33)
[2024-01-17] MEDS: DICLOFENAC 1% TOPICAL GEL 2 GRAM TOPICAL (09:36)
--- NOTE | 2024-01-17 10:25 | PTCARENOTE ---
Patient OOB to chair with assist x1 and walker. After 30 minutes, patient c/o feeling dizzy. BP 82/60 HR75 RR24. Patient back in bed, physician in room, Maximino put on hold at 1030.
--- NOTE | 2024-01-17 10:30 | W.PN.CD ---
Addendum entered and electronically signed by Gabe Loza MD 01/17/24 12:57:
I personally evaluated and examined the patient. I agree with the assessment and documentation, examination and plan of care as noted below.
Briefly, 88-year-old woman with coronary disease, severe , heart failure with HFpEF, asthma and diabetes along with obstructive sleep apnea on CPAP status post right heart cath on 01/16/2024 was noted to have severely elevated filling pressure.
Patient's cardiac output was significantly reduced. She was started on Bumex drip. Overnight patient becomes hypotensive limiting diuretic efforts. At this time we will hold patient's lisinopril and valsartan. I will switch Bumex drip to IV
twice daily starting tomorrow.
Original Note:
Today's Communication / Plan
-
Hold Bumex drip
Hold lisinopril
Impression / Plan
-
Impression/Plan: 88F with CAD, HFpEF, severe , HTN, HLD, asthma, DM, RACHEL on CPAP, and obesity presents with shortness of breath.
#Shortness of breath
-In the setting of acute on chronic heart failure.
-Prior notes from [facility] reflect she has home oxygen.
-Difficult to discern volume status.
-Right/left heart catheterization today to clarify volume status and coronary anatomy.
#HFpEF, acute on chronic.
-proBNP only 518 but she endorsed orthopnea and PND.
-RHC 01/16/24: Severely elevated filling pressures (PCWP = 26 mmHg at 97.1 kg) with severely depressed cardiac function (cardiac index = 1.3 L/min/m�).
-She was started on a Bumex drip post cardiac catheterization, now on hold
-SGLT2i stopped, she is being treated for a UTI (on Rocephin)
-Echocardiogram confirms normal LVEF and moderate-severe .
-Dry weight to be determined, first standing scale weight this admission 98.1 kg
#Aortic stenosis
-Chronic.
-Moderate to severe (JUDY 1.1 cm�).
-Diuresis.
#CAD
-Stable without chest pain.
-PCI to mid LAD 08/11/2020.
-LHC 01/16/2024: Patent stent in mid LAD and 30% lesion in the distal circumflex as a becomes a left posteriolateral branch
-Continue aspirin, atorvastatin, metoprolol.
#Abnormal D-dimer
-CTPE scan negative.
#Leukocytosis
-Acute, resolved.
-Likely reactive.
#Hypertension
-Now with hypotension, hold Bumex gtt & Lisinopril
#Asthma
-Chronic, no acute exacerbation.
#Type 2 diabetes mellitus
-Chronic, insulin dependent.
-HbA1c = 6.7%.
#RACHEL on CPAP
#Obesity, BMI 41
Email Deployment Specialist: Dr. Rosenthal ([place])
Subjective/Interval History:
She is having orthostasis with associated hypotension.
Her son is at the bedside and she prefers to utilize him for translation. A professional translation service was offered.
DATA:
TTE, 01/13/2024:
CONCLUSIONS
Normal LV size and function with no regional wall motion abnormalities.
LV ejection fraction is 55-60% by visual assessment.
Mild concentric LVH.
Normal right ventricular size and function.
Moderate to severe aortic stenosis.
Mild tricuspid regurgitation.
Estimated pulmonary artery pressure of 37 mmHg, assuming a right atrial
pressure of 3 mmHg.
No prior study available for comparison.
CTPE, 01/13/2024:
IMPRESSION:
No evidence of central pulmonary embolism.
LE Duplex, 01/13/2024:
IMPRESSION:
No evidence of deep venous thrombosis bilaterally.
Left popliteal fossa fluid collection, likely a Davis's cyst.
Physical Exam
Vital Signs/Labs
Vital Signs
Temp Pulse Resp BP Pulse Ox
97.5 F 68 20 121/69 97
01/17/24 08:22 01/17/24 07:59 01/17/24 03:32 01/17/24 07:59 01/17/24 08:11
01/16/24 01/17/24 01/18/24
06:59 06:59 06:59
Actual Weight 97.3 kg 95.6 kg
01/17/24 03:49
01/17/24 03:49
Magnesium 2.0 mg/dl (1.6-2.3) 01/17/24 03:49
Triglycerides 154 mg/dl (10-149) H 01/13/24 03:04
LDL Cholesterol, Calc 40 mg/dl 01/13/24 03:04
VLDL Cholesterol, Calc 30 mg/dl (0-30) 01/13/24 03:04
HDL Cholesterol 53 mg/dl 01/13/24 03:04
01/12/24
11:22
Trl-E-Cuisxgygcag Pept 518
Physical Exam
Constitutional: No acute distress and Comfortable
EENT: Anicteric and Moist mucous membranes
Cardiovascular: Rhythm & rate is regular, Systolic murmur present and S1S2 is normal
Respiratory: Respiratory effort normal and Lungs clear to auscul.
GI: Soft, Distention absent, Flat, Non tender and Normal bowel sounds
Neuro/Psych: AO x 3
Other: Skin (Warm and dry, edema improving)
Data Reviewed
-
Date of Service: January 17, 2024
--- NOTE | 2024-01-17 11:35 | W.PN.HOSP.TC ---
Today's Communication/Plan
-
Hold Lisinopril and Bumex drip with symptomatic hypotesnion
Assessment / Plan
Assessment / Plan
88yo Albanian speaking F with PMHX of CAD s/p PCI @2020, CHF, HTN, RACHEL on CPAP came with 2 weeks of progressive SOB associated with intermittent pressure-like epigastric pain. Patient recently became less ambulatory 2/2 progression of R knee
osteoarthritis. Also concern for UTI
Managed for CHF, however no symptom improvement on diuresis, chest CT without PE, probably patient has symptomatic . Pending cardiology for R and L heart cath
A/P:
#dyspnea 2/2 CHF exacerbation
#Chest pain, atypical with PMHX of CAD
#Moderate-severe
follow weights and electrolytes, low sodium diet
Echo: EF preserved, Moderate to severe aortic stenosis
Cardiology consult: cardiac cath R and L heart done on 01/16/24. found Right dominant circulation with a patent stent in the mid LAD and a 30% lesion in the distal circumflex as becomes the left posterolateral branch, no stent placed, PCWP 26mmHg,
CI 1.3, elevated SVR
Bumex drip started, causing weight drop and neg 2L balance, however patient did not tolerate with hypotension, so it was stopped on 01/17/24
cont ASA, statin, BB
TAVR assessment team to start eval on 01/19/24
telemetry showed sinus arrhythmia
LDL 40
Hgba1c 6.7%
TSH WNL
Serial troponin WNL
EKG without signs of ACS
#UTI
Ucx - CNB - pansensitive E.coli - Ceftriaxone 5 days till 01/18/24
Cr WNL, currently no concern for complicated infection
#DDimer elevated
CTA w/o PE, US LE w/o DVT
#DM type 2 with neuropathy
Cont basal insulin, Accuchecks, Insulin SS and DM diet
hold metformin
#pancreatic insufficiency
#Vertigo
#Insomnia
#Urinary urgency
cont home meds
#RACHEL
cont CPAP
DVT ppx lovenox
Full code
I have spent at least 38min reviewing chart, test results, communication with consultants and direct patient care
Anticipated Discharge: > 48 hours
Subjective/Interval History
-
Date of Service: January 17, 2024
Objective Data
-
Labs:
Laboratory Results
01/17/24
03:49
WBC 9.1
Hgb 13.1
Hct 38.9
Plt Count 439 H
Sodium 142
Potassium 3.8
Chloride 101
Carbon Dioxide 26
BUN 24 H
Creatinine 0.8
Glucose 181 H
Calcium 9.7
Vital Signs:
Vital Signs
Temp Pulse Resp BP Pulse Ox
97.5 F 80 20 82/60 95
01/17/24 08:22 01/17/24 10:23 01/17/24 03:32 01/17/24 10:23 01/17/24 10:39
I&O
01/16/24 01/17/24 01/18/24
06:59 06:59 06:59
Intake Total 1080 / 1080 530 / 530
Output Total 350 / 350 3000 / 3000
Balance 730 / 730 -2470 / -2470
Review of Systems
-
History Source: Patient
All other systems: Reviewed and negative
Constitutional: Reports Fatigue
Respiratory: Reports Trouble Breathing
Neuro: Reports Lightheadedness
Physical Exam
-
General: Comfortable and Appears in Distress
HEENT: Normocephalic
GI: Soft, Nontender and Nondistended
Musculoskeletal: No Clubbing, No Cyanosis and No Edema
Neuro: Awake, Alert, Oriented and AO x 3
Psych: Calm
--- NOTE | 2024-01-17 13:00 | PTCARENOTE ---
Patient c/o chest pain and difficulty breathing per son. RA 95% HR78 BP 101/66 Patient restless and moaning. Patient repositioned in bed and symptoms resolved within 3 minutes. Patient now resting comfortably, eating lunch, no c/o pain or
difficulty breathing at present. ECG done. Physician notified, orders for Troponins.
[2024-01-17 13:31] LABS: Glucose - Point of Care 251 mg/dl (70-99)
[2024-01-17] MEDS: NOVOLOG FLEXPEN-LOW RESISTANCE 3 UNITS SC (13:31)
[2024-01-17] MEDS: TYLENOL 650 MG PO (14:29)
[2024-01-17 15:06] LABS: Troponin I 0.084 ng/ml
[2024-01-17] MEDS: LIPITOR 80 MG PO (17:37)
[2024-01-17] MEDS: LOVENOX 40 MG SC (17:37)
[2024-01-17] MEDS: NOVOLOG FLEXPEN-LOW RESISTANCE 1 UNITS SC (17:41)
[2024-01-17 17:42] LABS: Glucose - Point of Care 176 mg/dl (70-99)
[2024-01-17] MEDS: COLACE PO (19:23)
[2024-01-17 21:08] LABS: Glucose - Point of Care 213 mg/dl (70-99)
[2024-01-17] MEDS: MAALOX PLUS 1 TABLET PO (21:37)
[2024-01-17] MEDS: PEPCID 20 MG PO (21:37)
[2024-01-17 22:26] LABS: Troponin I 0.114 ng/ml
--- NOTE | 2024-01-17 22:45 | PTCARENOTE ---
Received patient at change of shift. Pt OOB in recliner chair, proceeded to have three episodes of loose stool in the bathroom. Pt complained of cramps in stomach. Colace held. Pepcid and Maalox administered. No further BMs since then. Second
troponin at HS was 0.114, no complaints of chest pain. SR on the monitor, HR in the 70s. Bed and chair alarms activated. R radial and R brachial dressings remain dry. Call young within reach.
[2024-01-18] VITALS (7 sets, daily range): BP systolic 91–143; BP diastolic 40–70
[2024-01-18 06:12] LABS: Troponin I 0.074 ng/ml
[2024-01-18 06:14] LABS: Blood Urea Nitrogen 35 mg/dl (7-17); Calcium 9.8 mg/dl (8.4-10.2); Carbon Dioxide 25 mmol/L (22-30); Chloride 96 mmol/L (98-107); Estimated Creatinine Clearance 20 ml/min; Glucose 180 mg/dl (70-99); Magnesium 2.3 mg/dl (1.6-2.3); Potassium 3.5 mmol/L (3.5-5.1); Sodium 137 mmol/L (135-145); eGFR 22.38
[2024-01-18 07:28] LABS: Glucose - Point of Care 207 mg/dl (70-99)
[2024-01-18] MEDS: FOLVITE 1 MG PO (07:45)
[2024-01-18] MEDS: ZENPEP DELAYED RELEASE CAPSULE 1 CAPSULE PO ×3 (07:45→16:59)
[2024-01-18] MEDS: ASPIR LOW (ENTERIC COATED) 81 MG PO (07:45)
[2024-01-18] MEDS: FEOSOL 325 MG PO (07:45)
[2024-01-18] MEDS: NOVOLOG FLEXPEN-LOW RESISTANCE 2 UNITS SC ×2 (07:45→16:59)
[2024-01-18] MEDS: MAGNESIUM OXIDE 500 MG PO (07:45)
[2024-01-18] MEDS: BUSPAR 20 MG PO ×3 (07:45→21:36)
[2024-01-18] MEDS: LEXAPRO 20 MG PO (07:45)
[2024-01-18] MEDS: VITAMIN D3 (cholecalciferol) 50 MCG PO (07:46)
[2024-01-18] MEDS: LIDOCAINE 4% PATCH 2 PATCH TOPICAL (07:46)
[2024-01-18] MEDS: DULCOLAX PO (07:46)
[2024-01-18] MEDS: COLACE PO (07:46)
--- NOTE | 2024-01-18 08:40 | PTCARENOTE ---
Received pt sitting on side of the bed crying and calling out in Cuban. Language line used to assess pt. Pt states she is crying because she is hungry and breakfast as not come yet. I assured pt that breakfast was ordered and will be coming. Pt
crying holding chest, moaning and dramatically gasping. She denies having chest pain. Reports some feelings of dizziness and shortness of breath this morning but not now. 97% on RA. Emotional support given and a snack. Will continue to monitor
closely.
--- NOTE | 2024-01-18 09:33 | W.PN.HOSP.TC ---
Today's Communication/Plan
-
stop antihypertensives and Bumex
US kidney and Urine studies
serial BMP
avoid SBP<100 - IVF as needed
Pending TAVR team eval on 01/19/24
Last dose of Abx today
Hold laxatives
start probiotics
Assessment / Plan
Assessment / Plan
88yo Syrian speaking F with PMHX of CAD s/p PCI @2020, CHF, HTN, RACHEL on CPAP came with 2 weeks of progressive SOB associated with intermittent pressure-like epigastric pain. Also concern for UTI
Managed for CHF and moderate severe , chest CT without PE, probably patient has symptomatic . S/P R and L heart cath with findings of volume overload. Developed LAUREANO afterward, however dyspnea much improved with aggressive diuresis
A/P:
#LAUREANO
Possibly 2/2 episodes of diarrhea and hypotension due to aggressive diuresis and Abx
Norvasc and Bumex held
Cautious to give IVF in view of recent volume overload
Urine studies and US kidney pending
Watch patient off BP meds and off diuretics expecting improvement, if episodes of SBP<100 - will give small bolus IVF
serial Cr
Cannot r/o SARAY. Pending repeated BMP, expecting kidney function recovery with aforementioned approach, patient not oliguric
#dyspnea 2/2 CHF exacerbation
#Chest pain, atypical with PMHX of CAD
#Moderate-severe
follow weights and electrolytes, low sodium diet
Echo: EF preserved, Moderate to severe aortic stenosis
Cardiology consult: cardiac cath R and L heart done on 01/16/24. found Right dominant circulation with a patent stent in the mid LAD and a 30% lesion in the distal circumflex as becomes the left posterolateral branch, no stent placed, PCWP 26mmHg,
CI 1.3, elevated SVR
Bumex drip started, causing weight drop and neg 2L balance, however patient did not tolerate with hypotension, so it was stopped on 01/17/24
cont ASA, statin, BB
TAVR assessment team to start eval on 01/19/24
telemetry showed sinus arrhythmia
LDL 40
Hgba1c 6.7%
TSH WNL
Serial troponin WNL
EKG without signs of ACS
#UTI
Completed Ceftriaxone
#Abx-induced diarrhea
hold laxatives
Probiotics
#DDimer elevated
CTA w/o PE, US LE w/o DVT
#DM type 2 with neuropathy
Cont basal insulin, Accuchecks, Insulin SS and DM diet
hold metformin
#pancreatic insufficiency
#Vertigo
#Insomnia
#Urinary urgency
cont home meds
#RACHEL
cont CPAP
DVT ppx hep (witgh LAUREANO)
Full code
I have spent at least 58min reviewing chart, test results, communication with consultants and direct patient care
Anticipated Discharge: > 48 hours
Subjective/Interval History
-
Date of Service: January 18, 2024
Objective Data
-
Labs:
Laboratory Results
01/18/24
04:30
Sodium 137
Potassium 3.5
Chloride 96 L
Carbon Dioxide 25
BUN 35 H
Creatinine 2.1 H
Glucose 180 H
Calcium 9.8
Vital Signs:
Vital Signs
Temp Pulse Resp BP Pulse Ox
97.8 F 87 20 92/40 97
01/18/24 06:52 01/18/24 05:00 01/18/24 06:52 01/18/24 04:19 01/18/24 06:52
I&O
01/17/24 01/18/24 01/19/24
06:59 06:59 06:59
Intake Total 530 / 530 1180 / 1180
Output Total 3000 / 3000 550 / 550
Balance -2470 / -2470 630 / 630
--- NOTE | 2024-01-18 09:43 | W.PN.CD ---
Today's Communication / Plan
-
-Hold diuretics
-Hold antihypertensives to allow for improved renal perfusion
Impression / Plan
-
Impression/Plan: 88F with CAD, HFpEF, severe , HTN, HLD, asthma, DM, RACHEL on CPAP, and obesity presents with shortness of breath.
#Shortness of breath
-In the setting of acute on chronic heart failure.
-Prior notes from [facility] reflect she has home oxygen.
-Difficult to discern volume status.
-Left heart cath showed patent stent in mid LAD and only 30% distal left circumflex lesion.
-Right/left heart catheterization on 01/16/2024 significantly elevated filling pressure and reduced cardiac index
#LAUREANO
-Acute renal failure noted
-Patient herself is clinically feeling much better but creatinine is rising.
-Bumex drip is on hold. Will hold Bumex IV as well.
-Patient has diarrhea, Bumex drip and contrast which may have played a role
#HFpEF, acute on chronic.
-proBNP only 518 but she endorsed orthopnea and PND.
-RHC 01/16/24: Severely elevated filling pressures (PCWP = 26 mmHg at 97.1 kg) with severely depressed cardiac function (cardiac index = 1.3 L/min/m�).
-She was started on a Bumex drip post cardiac catheterization, LAUREANO noted.
-SGLT2i stopped, she is being treated for a UTI (on Rocephin)
-Echocardiogram confirms normal LVEF and moderate-severe .
-Dry weight to be determined, first standing scale weight this admission 98.1 kg
# Acute renal insufficiency
-Creatinine is elevated after Bumex drip and IV contrast.
-Holding diuresis at this time.
-SGLT2i stopped,
-Will hold amlodipine and metoprolol today as well.
#Aortic stenosis
-Chronic.
-Moderate to severe (JUDY 1.1 cm�).
-Diuresis -on hold with LAUREANO
#CAD
-Stable without chest pain.
-PCI to mid LAD 08/11/2020.
-LHC 01/16/2024: Patent stent in mid LAD and 30% lesion in the distal circumflex as a becomes a left posteriolateral branch
-Continue aspirin, atorvastatin,
-Holding metoprolol and amlodipine.
#Abnormal D-dimer
-CTPE scan negative.
#Leukocytosis
-Acute, resolved.
-Likely reactive.
#Hypertension
-Now with hypotension, hold Bumex gtt & Lisinopril
#Asthma
-Chronic, no acute exacerbation.
#Type 2 diabetes mellitus
-Chronic, insulin dependent.
-HbA1c = 6.7%.
#RACHEL on CPAP
#Obesity, BMI 41
Senior Front End Developer: Dr. Rosenthal ([place])
Subjective/Interval History:
Patient is feeling better and breathing is improved.
Her son is at the bedside and she prefers to utilize him for translation. A professional translation service was offered.
DATA:
TTE, 01/13/2024:
CONCLUSIONS
Normal LV size and function with no regional wall motion abnormalities.
LV ejection fraction is 55-60% by visual assessment.
Mild concentric LVH.
Normal right ventricular size and function.
Moderate to severe aortic stenosis.
Mild tricuspid regurgitation.
Estimated pulmonary artery pressure of 37 mmHg, assuming a right atrial
pressure of 3 mmHg.
No prior study available for comparison.
CTPE, 01/13/2024:
IMPRESSION:
No evidence of central pulmonary embolism.
LE Duplex, 01/13/2024:
IMPRESSION:
No evidence of deep venous thrombosis bilaterally.
Left popliteal fossa fluid collection, likely a Davis's cyst.
Physical Exam
Vital Signs/Labs
Vital Signs
Temp Pulse Resp BP Pulse Ox
97.8 F 87 20 92/40 97
01/18/24 06:52 01/18/24 05:00 01/18/24 06:52 01/18/24 04:19 01/18/24 06:52
01/17/24 01/18/24 01/19/24
06:59 06:59 06:59
Actual Weight 95.6 kg
01/17/24 03:49
Magnesium 2.3 mg/dl (1.6-2.3) 01/18/24 04:30
Triglycerides 154 mg/dl (10-149) H 01/13/24 03:04
LDL Cholesterol, Calc 40 mg/dl 01/13/24 03:04
VLDL Cholesterol, Calc 30 mg/dl (0-30) 01/13/24 03:04
HDL Cholesterol 53 mg/dl 01/13/24 03:04
01/12/24
11:22
Thn-Q-Xhdtrtakslk Pept 518
LAB Results
01/17/24 01/17/24 01/18/24
14:28 21:55 04:30
Troponin I 0.084 H* 0.114 H* D 0.074 H* D
Physical Exam
Constitutional: No acute distress, Comfortable and Other (Ashy looks)
EENT: Anicteric and Moist mucous membranes
Cardiovascular: Rhythm & rate is regular, Pedal edema present, JVD present and Systolic murmur present
Respiratory: Respiratory effort normal and Lungs clear to auscul.
GI: Non tender and Normal bowel sounds
Neuro/Psych: Alert, Oriented and AO x 3
Data Reviewed
-
Date of Service: January 18, 2024
Medical Decision Making: Reviewed Test Results, Independent Historian Assessment and Review of Case with other Provider
EKG: Tracing Personally Visualized and interpreted
Echo: Report Reviewed by me
Labs: Labs Reviewed by me
Old Records: Reviewed
[2024-01-18] MEDS: VISBIOME 2 CAP PO (10:35)
[2024-01-18] MEDS: NSS 250 IV (12:01)
[2024-01-18 13:25] LABS: Glucose - Point of Care 234 mg/dl (70-99)
[2024-01-18] MEDS: NOVOLOG FLEXPEN-LOW RESISTANCE 3 UNITS SC (13:25)
--- NOTE | 2024-01-18 13:50 | PTCARENOTE ---
Pt's bp low 91/52. Dr Arreola notified. 250ml NS bolus given. Repeat 119/66.
[2024-01-18] MEDS: HEPARIN 5000 UNITS SC ×2 (15:17→23:20)
[2024-01-18] MEDS: ULTRAM 50 MG PO ×2 (15:17→23:20)
[2024-01-18 15:21] LABS: Urine Sodium 16 mmol/L (30-90)
[2024-01-18 16:53] LABS: Glucose - Point of Care 227 mg/dl (70-99)
[2024-01-18] MEDS: LIPITOR 80 MG PO (16:59)
[2024-01-18 18:04] LABS: % Basophils 0.5 % (0-2); % Eosinophils 2.1 % (0-6); % Immature Granulocytes 0.9 % (0-0.5); % Lymphocytes 20.2 % (20.5-51.1); % Monocytes 8.2 % (1.7-9.3); % Neutrophils 68.1 % (42.2-75.2); Absolute Basophils 0.1 10^3/uL (0-0.2); Absolute Eosinophils 0.3 10^3/uL (0-0.7); Absolute Immature Granulocytes 0.1 10^3/uL (0-0.05); Absolute Lymphocytes 2.6 10^3/uL (1.2-3.4); Absolute Monocytes 1.1 10^3/uL (0.1-0.6); Absolute Neutrophils 8.7 10^3/uL (1.4-6.5); Hematocrit 39.5 % (37.0-47.0); Hemoglobin 13.4 g/dL (12.0-16.0); Mean Corp Hgb Conc. 33.9 g/dL (33.0-37.0); Mean Corpuscular Hgb 27.2 pg (27.0-31.0); Mean Corpuscular Volume 80.1 fL (81.0-99.0); Mean Platelet Volume 8.9 fL (7.4-10.4); Nucleated Red Blood Cells % 0 %; Platelet Count 460 10^3/uL (130-400); Red Blood Cell Count 4.93 10^6/uL (4.20-5.40); Red Cell Dist. Width 15.7 % (11.5-14.5); White Blood Cell Count 12.8 10^3/uL (4.8-10.8)
[2024-01-18 18:19] LABS: Blood Urea Nitrogen 44 mg/dl (7-17); Calcium 9.7 mg/dl (8.4-10.2); Carbon Dioxide 25 mmol/L (22-30); Chloride 94 mmol/L (98-107); Estimated Creatinine Clearance 21 ml/min; Glucose 203 mg/dl (70-99); Potassium 3.4 mmol/L (3.5-5.1); Sodium 135 mmol/L (135-145); eGFR 23.73
[2024-01-18] MEDS: KCL 40 MEQ PO (20:17)
[2024-01-18] MEDS: LR 1000 IV (20:18)
[2024-01-18 21:55] LABS: Glucose - Point of Care 221 mg/dl (70-99)
--- NOTE | 2024-01-18 23:52 | PTCARENOTE ---
Received pt at change of shift. SR on the monitor, HR in the 70s, VSS. Pt complained of 7/10 pain in her left knee. PRN Ultram administered as per MAY.R brachial and R radial sites intact. Assisted pt from chair to bed, call young within reach.
[2024-01-19] VITALS (8 sets, daily range): BP systolic 117–135; BP diastolic 50–75; PULSE 77; O2SAT 97; BMI 41.6
[2024-01-19] MEDS: ULTRAM 50 MG PO (05:44)
--- NOTE | 2024-01-19 06:06 | PTCARENOTE ---
01/18 0522 Pt transferred from IVU via bed with belongings. x1-2 assist w/ rolling walker. Telemetry orders. VSS: SR on monitor, afebrile, HR 73, RR 18, BP 130/62, pox 95% room air. c/o pain to right need, Ultram administered. IVF infusing per order
though Lt arm INT. Bed alarm in place. Patient oriented to room. call young within reach.
[2024-01-19 08:06] LABS: Glucose - Point of Care 214 mg/dl (70-99)
[2024-01-19 08:26] LABS: Blood Urea Nitrogen 37 mg/dl (7-17); Calcium 9.6 mg/dl (8.4-10.2); Carbon Dioxide 27 mmol/L (22-30); Chloride 98 mmol/L (98-107); Estimated Creatinine Clearance 34 ml/min; Glucose 197 mg/dl (70-99); Magnesium 2.4 mg/dl (1.6-2.3); Sodium 138 mmol/L (135-145); eGFR 43.81
[2024-01-19] MEDS: ZENPEP DELAYED RELEASE CAPSULE 1 CAPSULE PO ×3 (08:34→17:55)
[2024-01-19] MEDS: ASPIR LOW (ENTERIC COATED) 81 MG PO (08:34)
[2024-01-19] MEDS: FEOSOL 325 MG PO (08:35)
[2024-01-19] MEDS: FOLVITE 1 MG PO (08:35)
[2024-01-19] MEDS: LEXAPRO 20 MG PO (08:35)
[2024-01-19] MEDS: BUSPAR 20 MG PO ×3 (08:35→21:49)
[2024-01-19] MEDS: VITAMIN D3 (cholecalciferol) 50 MCG PO (08:35)
[2024-01-19] MEDS: VISBIOME 2 CAP PO (08:35)
[2024-01-19] MEDS: HEPARIN 5000 UNITS SC ×2 (08:35→16:38)
[2024-01-19] MEDS: NOVOLOG FLEXPEN-LOW RESISTANCE 2 UNITS SC ×2 (08:36→11:51)
[2024-01-19] MEDS: LIDOCAINE 4% PATCH 2 PATCH TOPICAL (08:36)
[2024-01-19] MEDS: DICLOFENAC 1% TOPICAL GEL 2 GRAM TOPICAL (08:38)
[2024-01-19 11:50] LABS: Glucose - Point of Care 207 mg/dl (70-99)
--- NOTE | 2024-01-19 13:03 | W.PN.HOSP.TC ---
Today's Communication/Plan
-
Hold diuretics.
BP responded to IV fluid boluses.
Observe off IV fluids. Patient complains of chest tightness.
Relatively stable respiratory status while on 2 L of nasal cannula oxygen
Likely to reintroduce diuretic regimen over the next 24 hours.
Patient antihypertensives
TAVR evaluation
Assessment / Plan
Assessment / Plan
88yo Nigerian speaking F with PMHX of CAD s/p PCI @2020, CHF, HTN, RACHEL on CPAP came with 2 weeks of progressive SOB associated with intermittent pressure-like epigastric pain. Also concern for UTI
Managed for CHF and moderate severe , chest CT without PE, probably patient has symptomatic . S/P R and L heart cath with findings of volume overload. Developed LAUREANO afterward, however dyspnea much improved with aggressive diuresis
Impression:
Acute valvular/preserved EF CHF
Acute hypoxic respiratory insufficiency secondary to above.
Acute kidney injury, cardiorenal state suspected.
Other conditions:
CHF preserved EF
CAD.
Essential hypertension
Type 2 diabetes.
Obstructive sleep apnea on CPAP
Obesity with BMI of 41
Plan:
#dyspnea 2/2 CHF exacerbation
#Chest pain, atypical with PMHX of CAD
#Moderate-severe
follow weights and electrolytes, low sodium diet
Echo: EF preserved, Moderate to severe aortic stenosis
Cardiology consult: cardiac cath R and L heart done on 01/16/24. found Right dominant circulation with a patent stent in the mid LAD and a 30% lesion in the distal circumflex as becomes the left posterolateral branch, no stent placed, PCWP 26mmHg,
CI 1.3, elevated SVR
Bumex drip started, causing weight drop and neg 2L balance, however patient did not tolerate with hypotension, so it was stopped on 01/17/24
cont ASA, statin, BB
TAVR assessment team to start eval on 01/19/24
telemetry showed sinus arrhythmia
LDL 40
Hgba1c 6.7%
TSH WNL
Serial troponin WNL
EKG without signs of ACS
Acute kidney injury suspect cardiorenal state.
Renal sonogram with no evidence of abnormalities.
No obstruction clinically.
Monitor renal function
#UTI
Completed Ceftriaxone
#Abx-induced diarrhea
hold laxatives
Probiotics
#DDimer elevated
CTA w/o PE, US LE w/o DVT
#DM type 2 with neuropathy
Cont basal insulin, Accuchecks, Insulin SS and DM diet
hold metformin
#pancreatic insufficiency
#Vertigo
#Insomnia
#Urinary urgency
cont home meds
#RACHEL
cont CPAP
DVT ppx hep (witgh LAUREANO)
Full code
I have spent at least 58min reviewing chart, test results, communication with consultants and direct patient care
Anticipated Discharge: 24 - 48 hours
Subjective/Interval History
-
Date of Service: January 19, 2024
Objective Data
-
Labs:
Laboratory Results
01/19/24
07:39
Sodium 138
Potassium 4.0
Chloride 98
Carbon Dioxide 27
BUN 37 H
Creatinine 1.2 H
Glucose 197 H
Calcium 9.6
Vital Signs:
Vital Signs
Temp Pulse Resp BP Pulse Ox
97.0 F 74 14 118/70 98
01/19/24 11:17 01/19/24 11:17 01/19/24 11:17 01/19/24 11:17 01/19/24 11:17
I&O
01/18/24 01/19/24 01/20/24
06:59 06:59 06:59
Intake Total 1180 / 1180 250 / 250
Output Total 550 / 550 450 / 450
Balance 630 / 630 -200 / -200
Physical Exam
-
General: Comfortable and Appears in Distress
HEENT: Normocephalic
GI: Soft, Nontender and Nondistended
Musculoskeletal: No Clubbing, No Cyanosis and No Edema
Neuro: Awake, Alert, Oriented and AO x 3
Psych: Calm
--- NOTE | 2024-01-19 16:04 | CONSULT.STRU ---
Consultation
-
Date/Time Consultation Requested: 01/19/2024
Date/Time Consultation Performed: 01/20/2024
Requesting Provider: Sawyer Hernandez MD
Performing Provider: ROSALIA Underwood
Reason for Consultation: /TAVR
Patient History
Physicians
Family Physician: Kory August
History of Present Illness
Ms. Skinner is an 88 yo [place]ese speaking female (she prefers to utilize son to translate vs. language line) that presents with symptomatic aortic stenosis associated with ARAUJO and recent hospitalization. Her echocardiogram from 01/13/2024 is notable
for an EF 55-60%, AV P/M 47/28, JUDY 0.7, pk alexander 3.62, trace AI, MAC with mild MR, mild TR and PAP 37. Discussed pathophysiology and treatment options of including SAVR and TAVR with patient and her son. Explained evaluation process comprising of
staged CT scan d/t RI, CT surgical consult, dental clearance and a heart team discussion. TAVR booklet, contact information, prescriptions, and appointments given to patient. Allowed for and answered questions.
Past Medical History
Past Medical History: Asthma, CAD (JOHNNA to LAD (2020)), CHF (HFpEF), HTN, IDDM, RACHEL (CPAP) and Valvular Disease (aortic stenosis)
Past Surgical History
Past Surgical History: Hysterectomy
Dental History
edentulous
Family History
Mother: N/A
Father: N/A
Social History
Alcohol: None
Drug: None
Tobacco: Non-Smoker
Personal: Single
Living: With Family
Allergies
Allergy/AdvReac Type Severity Reaction Status Date / Time
No Known Allergies Allergy Unverified 01/12/24 11:18
Home Medications
�Medication �Instructions �Recorded �Confirmed �Type
acetaminophen 650 mg 650 mg PO BIDPRN PRN mild pain 01/12/24 01/14/24 History
tablet,extended release (Pain
Relief (acetaminophen))
albuterol sulfate 90 mcg/actuation 2 puff inhalation R Q4HPRN PRN 01/12/24 01/14/24 History
aerosol inhaler (Ventolin HFA) sob/wheezing
aspirin 81 mg tablet,delayed 81 mg PO DAILY Blood Clot 01/12/24 01/14/24 History
release Prevention/Tx
atorvastatin 80 mg tablet 80 mg PO QPM High Cholesterol 01/12/24 01/14/24 History
bisacodyl 5 mg tablet,delayed 10 mg PO DAILY Constipation 01/12/24 01/15/24 History
release
cholecalciferol (vitamin D3) 50 50 mcg PO DAILY Supplement 01/12/24 01/14/24 History
mcg (2,000 unit) capsule (Vitamin
D3)
diclofenac sodium 1 % topical gel 1 ea topical QIDPRN PRN knee pain 01/12/24 01/14/24 History
docusate sodium 100 mg capsule 100 mg PO BID Constipation 01/12/24 01/15/24 History
fluticasone furoate 200 2 inh inhalation R DAILY 01/12/24 01/14/24 History
mcg-vilanterol 25 mcg/dose Lung/Breathing Issues
inhalation powder (Breo Ellipta)
furosemide 20 mg tablet 20 mg PO BID Fluid 01/12/24 01/15/24 History
Retention/Swelling
insulin degludec 100 unit/mL (3 35 unit SC HS Diabetes 01/12/24 01/15/24 History
mL) subcutaneous pen (Tresiba
FlexTouch U-100 insulin)
meclizine 12.5 mg tablet 12.5 mg PO BIDPRN PRN dizziness 01/12/24 01/15/24 History
metoprolol tartrate 25 mg tablet 25 mg PO BID Heart 01/12/24 01/15/24 History
Disease/Condition
mirabegron 50 mg tablet,extended 50 mg PO DAILY Urinary Issue 01/12/24 01/15/24 History
release 24 hr (Myrbetriq)
nitroglycerin 0.4 mg sublingual 0.4 mg sublingual [id number] PRN 01/12/24 01/14/24 History
tablet chest pain
tramadol 50 mg tablet 50 mg PO TIDPRN PRN moderate pain 01/12/24 01/15/24 History
zolpidem 5 mg tablet (Ambien) 5 mg PO HSPRN PRN sleep 01/12/24 01/15/24 History
budesonide 160 mcg-glycopyr 9 2 inh inhalation BID 01/14/24 01/14/24 History
mcg-formot 4.8 mcg/actuation HFA
inhaler (Breztri Aerosphere)
buspirone 10 mg tablet 20 mg PO TID 01/14/24 01/14/24 History
escitalopram oxalate 20 mg tablet 20 mg PO DAILY 01/14/24 01/14/24 History
(Lexapro)
folic acid 1 mg tablet 1 mg PO DAILY 01/14/24 01/14/24 History
gabapentin 100 mg capsule 100 mg PO BID 01/14/24 01/14/24 History
metronidazole 0.75 % topical gel 1 applic topical BID 01/14/24 01/14/24 History
pantoprazole 40 mg tablet,delayed 40 mg PO DAILY 01/14/24 01/14/24 History
release (Protonix)
vitamin M05-ezakwrqcl factor 500 mcg PO DAILY 01/14/24 01/14/24 History
amlodipine 10 mg tablet 10 mg PO DAILY 01/15/24 01/15/24 History
bisacodyl 10 mg rectal suppository 10 mg RI DAILY PRN constipation 01/15/24 01/15/24 History
insulin lispro 100 unit/mL 6 unit SC TID 01/15/24 01/15/24 History
subcutaneous pen
isosorbide mononitrate 60 mg 60 mg PO DAILY 01/15/24 01/15/24 History
tablet,extended release 24 hr
caytfg-klriqept-pajyrgc 1 cap PO TID 01/15/24 01/15/24 History
24,000-76,000-120,000 unit
capsule,delayed rel (Creon)
metformin 1,000 mg tablet 1,000 mg PO BID 01/15/24 01/15/24 History
repaglinide 2 mg tablet 2 mg PO TID 01/15/24 01/15/24 History
tirzepatide 10 mg/0.5 mL 10 mg SC QWEEK 01/15/24 01/15/24 History
subcutaneous pen injector
(Mounjaro)
valsartan 160 mg capsule 160 mg PO DAILY 01/15/24 01/15/24 History
STS%
STS %: 10.9
Review of Systems
-
History Source: Family
General: Reports Weight Gain and Fatigue
Respiratory: Reports ARAUJO
Cardiac: Reports No Symptoms
Abdomen/GI: Reports No Symptoms
Skin: Reports No Symptoms
Neurological: Reports No Symptoms
Physical Exam
Vital Signs
Temp 98.2 F 01/19/24 16:01
Temp route: Oral 01/19/24 16:01
Pulse 70 01/19/24 16:01
Rhythm: Normal sinus rhythm 01/19/24 08:15
With- PAC's 01/17/24 19:57
Resp Rate 14 01/19/24 16:01
Blood pressure 135/68 01/19/24 16:01
Blood pressure extremity used: Right upper arm 01/19/24 16:01
Position: Lying 01/19/24 16:01
MAP (cuff-Quentin Monitor) 70 01/19/24 04:02
SaO2 97 01/19/24 16:01
Nasal Cannula flow liters per minute 2 01/19/24 16:01
Oxygen Mode of Delivery Room air 01/19/24 10:38
Other oxygen comment uses 2L nasal cannula when feeling anxious 01/17/24 19:57
Pulse Ox at Rest 97 01/19/24 09:35
Can the patient verbally communicate their pain? Yes 01/19/24 06:44
Pain scale rating: Asleep 01/19/24 06:44
Actual Weight 96.57 kg 01/19/24 06:00
Body Mass Index (BMI) 41.6 01/19/24 06:00
Supine- Blood Pressure 128/63 01/19/24 09:35
Supine- Pulse 77 01/19/24 09:35
Sitting- Blood Pressure 116/79 01/15/24 10:30
Sitting- Pulse 87 01/15/24 10:30
Heart rate after activity 77 01/19/24 09:35
Blood pressure after activity 121/76 01/13/24 15:23
Oxygen Saturation with Activity 97 01/19/24 09:35
Labs
01/18/24 17:54
01/19/24 07:39
Hemoglobin A1c 6.7 % (4.0-5.6) H 01/12/24 11:22
Troponin I 0.074 ng/ml H* D 01/18/24 04:30
Xhh-Z-Eagzvctbqfv Pept 518 pg/ml 01/12/24 11:22
Urinalysis
Urine Color Yellow 01/12/24 22:11
Urine Clarity Clear (Clear) 01/12/24 22:11
Urine pH 6.0 (5.0-9.0) 01/12/24 22:11
Ur Specific [place] 1.010 (<1.030) 01/12/24 22:11
Urine Ketones Negative (Negative) 01/12/24 22:11
Ur Occult Blood Reflex Negative (Negative) 01/12/24 22:11
Urine Bilirubin Negative (Negative) 01/12/24 22:11
Leukocyte Esterase Rfl 1+ (Negative) A 01/12/24 22:11
Urine RBC 0-2 /HPF (0-2) 01/12/24 22:11
Urine WBC (Reflex) 11-15 /HPF (0-5) A 01/12/24 22:11
Ur Squamous Epith Cells 6-10 /LPF (Few) 01/12/24 22:11
Urine Bacteria (Reflex) Moderate (Negative) A 01/12/24 22:11
Urine Glucose Negative (Negative) 01/12/24 22:11
Urine Albumin (Reflex) Negative (Neg - Trace) 01/12/24 22:11
Diagnostic Studies
Echocardiogram 01/13/2024:
CONCLUSIONS
Normal LV size and function with no regional wall motion abnormalities.
LV ejection fraction is 55-60% by visual assessment.
Mild concentric LVH.
Normal right ventricular size and function.
Moderate to severe aortic stenosis.
Mild tricuspid regurgitation.
Estimated pulmonary artery pressure of 37 mmHg, assuming a right atrial
pressure of 3 mmHg.
No prior study available for comparison.
Aortic Valve
Trileaflet aortic valve. Calcified aortic valve. Thickened aortic valve with
restricted leaflet motion. Moderate to severe aortic stenosis. Peak/mean
gradients across the aortic valve are 47/28 mmHg. Using an LVOT diameter of
1.9 cm, the JUDY = .94 cm2. Trace aortic regurgitation.
Cardiac Catheterization 01/16/2024:
CONCLUSIONS:
1. Right dominant circulation with a patent stent in the mid LAD and a 30% lesion in the distal circumflex as becomes the left posterolateral branch.
2. Severely elevated filling pressures (PCWP = 26 mmHg at 97.1 kg).
3. Severely depressed cardiac function (cardiac index = 1.3 L/min/m�).
4. 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
5. Severely elevated systemic vascular resistance (SVR = 3004 dynes*seconds*cm^-5).
RECOMMENDATIONS:
1. Expectant management after cardiac catheterization via right radial and antecubital approach.
2. Limited weight bearing on the right wrist for one week.
3. Increase diuresis given severe elevation in filling pressures.
4. Guideline directed medical therapy as hemodynamics will tolerate.
5. Consider vasodilators to improve forward flow as well as cardiac index.
6. TAVR evaluation.
Procedure Type:�Isolated AVR
PERIOPERATIVE OUTCOME ESTIMATE %
Operative Mortality 10.9%
Morbidity & Mortality 19.1%
Stroke 2.61%
Renal Failure 5.61%
Reoperation 2.92%
Prolonged Ventilation 13.7%
Deep Sternal Wound Infection 0.242%
Long Hospital Stay (>14 days) 15.8%
Short Hospital Stay (<6 days)* 15%
Exam
General: Well Developed (obese), Well Nourished, No Apparent Distress and Comfortable
HEENT: Moist Mucous Membranes
Neck: Trachea Midline
Respiratory: Clear
Cardiac: Regular Rhythm and Murmur (II/ JOE)
GI: Soft and Non Tender
Rectal: Deferred by Provider
Skin: Warm
Neuro: Awake, Alert, Oriented and AO x 3
Psych: Calm
Assessment / Plan
-
Aortic Stenosis
Continue with TAVR evaluation
Trend creatinine (Rx given)
Staged CT scan r/t CKD (02/02)--Labs improved w/ GFR >60 will repeat labs next week and if GFR continues to be >60 will do full TAVR CT scan.
CT surgical consult (MPT 02/02)
Frailty testing and [id number] at consult
Continue aspirin
Dental Clearance--Patient edentulous
heart team discussion
Data Reviewed
-
EKG: Tracing Personally Visualized and interpreted (SR)
Mortgage Assistant: Report Reviewed by me and Discussed with Physician
Echo: Report Reviewed by me and Discussed with Physician
Labs: Labs Reviewed by me
Old Records: Reviewed (all notes from this admission. )
Total Time Spent with Patient (in minutes): 45
--- NOTE | 2024-01-19 16:35 | CM ---
Met with patient and son Camilo
PT recommending SNF-patient/son declined
Current with [facility]. Per Mark at [facility] she has Caregivers 7am-11p (through waiver)
Referral in [facility], although no response
Spoke with Irina at [facility] [phone] ext [phone]
Discussed need for home health services upon discharge as patient/son declined SNF
Discussed plan with lester Page
PLAN: home with [facility]
Fax #: [phone]
--- NOTE | 2024-01-19 16:58 | W.PN.CD ---
Today's Communication / Plan
-
We will need to reintroduce meds more slowly
AoV will need more evaluation to decide if there is severe present
Impression / Plan
-
88F with CAD, HFpEF, severe , HTN, HLD, asthma, DM, RACHEL on CPAP, and obesity presents with shortness of breath.
Combat Engineer: Dr. Rosenthal ([place])
HFpEF
- PCWP = 26 mmHg at 97.1 kg
- Will need to introduce meds more slowly
- Dry weight to be determined, first standing scale weight this admission 98.1 kg
Low gradient severe
- Could consider dobutamine echo to help determine if this is truley severe valvular
LAUREANO, improved
CAD, no obstructive CAD at cath 01/16/2024
-PCI to mid LAD 08/11/2020.
HTN
Asthma
DM, type II
RACHEL on CPAP
Morbid Obesity, BMI 41
Language barrier
- pt prefers to utilize her son for translation
Subjective:
No CP/dyspnea
DATA:
Cath:
1. Patent stent in the mid LAD and a 30% lesion in the distal circumflex as becomes the left posterolateral branch.
2. Severely elevated filling pressures (PCWP = 26 mmHg at 97.1 kg).
3. Severely depressed cardiac function (cardiac index = 1.3 L/min/m�).
TTE, 01/13/2024:
CONCLUSIONS
Normal LV size and function with no regional wall motion abnormalities.
LV ejection fraction is 55-60% by visual assessment.
Mild concentric LVH.
Normal right ventricular size and function.
Moderate to severe aortic stenosis.
Mild tricuspid regurgitation.
Estimated pulmonary artery pressure of 37 mmHg, assuming a right atrial
pressure of 3 mmHg.
No prior study available for comparison.
CTPE, 01/13/2024:
IMPRESSION:
No evidence of central pulmonary embolism.
LE Duplex, 01/13/2024:
IMPRESSION:
No evidence of deep venous thrombosis bilaterally.
Left popliteal fossa fluid collection, likely a Davis's cyst.
Physical Exam
Vital Signs/Labs
Vital Signs
Temp Pulse Resp BP Pulse Ox
98.2 F 70 14 135/68 97
01/19/24 16:01 01/19/24 16:01 01/19/24 16:01 01/19/24 16:01 01/19/24 16:01
01/18/24 01/19/24 01/20/24
06:59 06:59 06:59
Actual Weight 96.57 kg
01/18/24 17:54
01/19/24 07:39
Magnesium 2.4 mg/dl (1.6-2.3) H 01/19/24 07:39
Triglycerides 154 mg/dl (10-149) H 01/13/24 03:04
LDL Cholesterol, Calc 40 mg/dl 01/13/24 03:04
VLDL Cholesterol, Calc 30 mg/dl (0-30) 01/13/24 03:04
HDL Cholesterol 53 mg/dl 01/13/24 03:04
01/12/24
11:22
Mty-S-Mofsqohptna Pept 518
LAB Results
01/17/24 01/17/24 01/18/24
14:28 21:55 04:30
Troponin I 0.084 H* 0.114 H* D 0.074 H* D
Physical Exam
Constitutional: No acute distress
EENT: Anicteric
Cardiovascular: Rhythm & rate is regular and Systolic murmur present
Respiratory: Respiratory effort normal and Lungs clear to auscul.
GI: Soft and Distention absent
Neuro/Psych: Alert
Data Reviewed
-
Date of Service: January 19, 2024
[2024-01-19 17:52] LABS: Glucose - Point of Care 258 mg/dl (70-99)
[2024-01-19] MEDS: NOVOLOG FLEXPEN-LOW RESISTANCE 3 UNITS SC (17:56)
[2024-01-19] MEDS: LIPITOR 80 MG PO (17:58)
[2024-01-19 21:46] LABS: Glucose - Point of Care 234 mg/dl (70-99)
[2024-01-20] MEDS: HEPARIN 5000 UNITS SC ×4 (00:14→23:18)
[2024-01-20 03:14] VITALS: BP 139/74
[2024-01-20 05:50] VITALS: BMI 41.6
[2024-01-20 07:15] VITALS: BP 156/90
[2024-01-20 07:31] LABS: Blood Urea Nitrogen 30 mg/dl (7-17); Calcium 9.6 mg/dl (8.4-10.2); Carbon Dioxide 28 mmol/L (22-30); Chloride 101 mmol/L (98-107); Estimated Creatinine Clearance 46 ml/min; Glucose 218 mg/dl (70-99); Potassium 3.7 mmol/L (3.5-5.1); Sodium 141 mmol/L (135-145); eGFR > 60.00
[2024-01-20 07:53] LABS: Glucose - Point of Care 187 mg/dl (70-99)
[2024-01-20] MEDS: LIDOCAINE 4% PATCH 2 PATCH TOPICAL (08:01)
[2024-01-20] MEDS: BUSPAR 20 MG PO ×3 (08:02→21:32)
[2024-01-20] MEDS: ASPIR LOW (ENTERIC COATED) 81 MG PO (08:02)
[2024-01-20] MEDS: LEXAPRO 20 MG PO (08:02)
[2024-01-20] MEDS: VITAMIN D3 (cholecalciferol) 50 MCG PO (08:02)
[2024-01-20] MEDS: ZENPEP DELAYED RELEASE CAPSULE 1 CAPSULE PO ×3 (08:02→17:24)
[2024-01-20] MEDS: FEOSOL 325 MG PO (08:02)
[2024-01-20] MEDS: FOLVITE 1 MG PO (08:02)
[2024-01-20] MEDS: VISBIOME 2 CAP PO (08:02)
[2024-01-20] MEDS: NOVOLOG FLEXPEN-LOW RESISTANCE 1 UNITS SC ×2 (08:03→13:11)
--- NOTE | 2024-01-20 08:46 | W.PN.CD ---
Addendum entered and electronically signed by Carmine Canada MD 01/21/24 08:09:
Discussed case with my colleagues:
- Dr. Ward, a member of the structural heart team said that TAVR evaluation is underway
- My colleagues reviewed that with normal LVEF dobutamine stress echo is not that useful
- Valve calcium scoring is being used more frequently to help determine these normal LVEF, low stroke volume, low gradient, severe cases to see if true valvular severe is present or not
- Dr. Ward will see patient today
- Treatment for HFpEF with loop diuretic, MRA, and SGLT2-I makes sense as valve workup progresses
Addendum entered and electronically signed by Carmine Canada MD 01/21/24 07:29:
Asked to comment on troponin elevation. Known CAD, prior LAD PCI but at cath no residual obstructive CAD found. Troponin elevation is non-ischemic myocardial injury related to heart failure and mod/severe .
Addendum entered and electronically signed by Carmine Canada MD 01/20/24 14:00:
Farxiga is covered at ZERO dollar co-pay.
Original Note:
Today's Communication / Plan
-
We will need to reintroduce meds more slowly
- Check copay of SGLT2-I
- Concentrate on BP meds appropriate for HFpEF
- Add back some loop diuretic
- Will need to move slowly on med adjustment
- Add fluid restriction to Na+ restricted diet
- HF education consulted
AoV will need more evaluation to decide if there is severe valvular present
Impression / Plan
-
88F with CAD, HFpEF, mod-severe , HTN, HLD, asthma, DM, RACHEL on CPAP, and obesity presents with shortness of breath.
Marketing Services Rep: Dr. Rosenthal ([place])
HFpEF
- PCWP = 26 mmHg at 97.1 kg
- Will need to introduce meds more slowly. Aggressive diuresis led to LAUREANO
- Dry weight to be determined, first standing scale weight this admission 98.1 kg
- Check copay of SGLT2-I
- Concentrate on BP meds appropriate for HFpEF
- Add back some loop diuretic
- Add fluid restriction to Na+ restricted diet
- HF education consulted
Low gradient severe
- Could consider dobutamine echo to help determine if this is actually severe valvular
LAUREANO, improved
CAD, no obstructive CAD at cath 01/16/2024
-PCI to mid LAD 08/11/2020.
HTN
Asthma
DM, type II
RACHEL on CPAP
Morbid Obesity, BMI 41
Language barrier
- pt prefers to utilize her son for translation
Subjective:
No CP/dyspnea
DATA:
Cath:
1. Patent stent in the mid LAD and a 30% lesion in the distal circumflex as becomes the left posterolateral branch.
2. Severely elevated filling pressures (PCWP = 26 mmHg at 97.1 kg).
3. Severely depressed cardiac function (cardiac index = 1.3 L/min/m�).
TTE, 01/13/2024:
CONCLUSIONS
Normal LV size and function with no regional wall motion abnormalities.
LV ejection fraction is 55-60% by visual assessment.
Mild concentric LVH.
Normal right ventricular size and function.
Moderate to severe aortic stenosis.
Mild tricuspid regurgitation.
Estimated pulmonary artery pressure of 37 mmHg, assuming a right atrial
pressure of 3 mmHg.
No prior study available for comparison.
CTPE, 01/13/2024:
IMPRESSION:
No evidence of central pulmonary embolism.
LE Duplex, 01/13/2024:
IMPRESSION:
No evidence of deep venous thrombosis bilaterally.
Left popliteal fossa fluid collection, likely a Davis's cyst.
Physical Exam
Vital Signs/Labs
Vital Signs
Temp Pulse Resp BP Pulse Ox
98.1 F 87 16 156/90 99
01/20/24 07:15 01/20/24 07:15 01/20/24 07:15 01/20/24 07:15 01/20/24 07:15
01/19/24 01/20/24 01/21/24
06:59 06:59 06:59
Actual Weight 96.57 kg 96.661 kg
01/18/24 17:54
01/20/24 05:28
Magnesium 2.4 mg/dl (1.6-2.3) H 01/19/24 07:39
Triglycerides 154 mg/dl (10-149) H 01/13/24 03:04
LDL Cholesterol, Calc 40 mg/dl 01/13/24 03:04
VLDL Cholesterol, Calc 30 mg/dl (0-30) 01/13/24 03:04
HDL Cholesterol 53 mg/dl 01/13/24 03:04
01/12/24
11:22
Blo-E-Ovjfcmafgnq Pept 518
LAB Results
01/17/24 01/17/24 01/18/24
14:28 21:55 04:30
Troponin I 0.084 H* 0.114 H* D 0.074 H* D
Physical Exam
Constitutional: No acute distress
EENT: Anicteric
Cardiovascular: Rhythm & rate is regular, Pedal edema is absent and Systolic murmur present
Respiratory: Respiratory effort normal and Lungs clear to auscul.
GI: Soft and Distention absent
Neuro/Psych: AO x 3
Data Reviewed
-
Date of Service: January 20, 2024
[2024-01-20] MEDS: ALDACTONE 12.5 MG PO (09:38)
[2024-01-20] MEDS: MYRBETRIQ EXTENDED RELEASE 50 MG PO (09:38)
[2024-01-20] MEDS: LASIX 40 MG PO (09:38)
[2024-01-20] MEDS: LASIX 40 MG IV (11:35)
[2024-01-20] MEDS: SYMBICORT 160/4.5 MCG INHALER INH (11:41)
[2024-01-20] MEDS: SPIRIVA RESPIMAT 2.5 MCG INH (11:42)
[2024-01-20 11:43] VITALS: BP 120/74
[2024-01-20] MEDS: ULTRAM 50 MG PO ×2 (11:45→20:15)
[2024-01-20 12:18] LABS: Glucose - Point of Care 188 mg/dl (70-99)
--- NOTE | 2024-01-20 13:42 | CM ---
Addendum entered by Ligia Felipe 01/20/24 13:52:
Farxiga covered No copay. Spoke with Jodie at [facility] [phone]
Original Note:
Case management consult completed for cost of Jardiance 10mg, Farxiga 10mg.
CM called supplemental insurance listed [facility] and spoke with Elvin who stated both Jardiance and Farxiga are not covered.
CM called [facility] and the pharmacist stated Farxiga is covered.
tt Dr. Canada
--- NOTE | 2024-01-20 15:04 | PN.CDI ---
CDI
- -
CDI:
Physician Documentation Request
Admit Date: 01/12/24 15:04
Dear Doctor Dread,
Please review the following and provide your response in the progress notes.
Clinical Indicators:
- Patient admit with chest pain, shortness of breath, and acute on chronic HFpEF
- 01/15 RHC 'There is no coronary artery disease'
- 01/19 Cardiology note indicates moderate to severe aortic stenosis
- 01/15 RN note 'pt c/o 7/10 chest pressure. ekg complete, 1 sl nitro given'
Laboratory Tests
01/17/24 01/17/24 01/18/24
14:28 21:55 04:30
Troponin I 0.084 H* 0.114 H* D 0.074 H* D
Please clarify the following regarding the documented elevated troponins:
Non-ischemic myocardial injury
Clinically insignificant abnormal lab value
Other
Use of terms such as suspected, likely, concern for, or probable (associated with a specific diagnosis that is being evaluated, monitored, or treated as if it exists) are acceptable and can be coded in the inpatient setting, when documented at the
time of discharge.
Thank you,
Rachel Hall RN
CDI Specialist
Please use your independent medical judgment in providing your response.
--- NOTE | 2024-01-20 15:16 | W.PN.HOSP.TC ---
Today's Communication/Plan
-
Resume Lasix on 12/2239 mg IV given with following dose of 40 mg p.o. daily.
Has been off metoprolol, Norvasc, Imdur. Monitor for recurrent hypotension while on diuresis
Undergoing evaluation for aortic valve stenosis
Reintroduce nightly BiPAP to facilitate diuresis
Plan of care discussed with patient's son at the bedside.
Assessment / Plan
Assessment / Plan
88yo Mozambican speaking F with PMHX of CAD s/p PCI @2020, CHF, HTN, RACHEL on CPAP came with 2 weeks of progressive SOB associated with intermittent pressure-like epigastric pain. Also concern for UTI
Managed for CHF and moderate severe , chest CT without PE, probably patient has symptomatic . S/P R and L heart cath with findings of volume overload. Developed LAUREANO afterward, however dyspnea much improved with aggressive diuresis
Impression:
Acute valvular/preserved EF CHF
Acute hypoxic respiratory insufficiency secondary to above.
Acute kidney injury, cardiorenal state suspected.
Other conditions:
CHF preserved EF
CAD.
Essential hypertension
Type 2 diabetes.
Obstructive sleep apnea on CPAP
Obesity with BMI of 41
Plan:
#dyspnea 2/2 CHF exacerbation
#Chest pain, atypical with PMHX of CAD
#Moderate-severe
follow weights and electrolytes, low sodium diet
Echo: EF preserved, Moderate to severe aortic stenosis
Cardiology consult: cardiac cath R and L heart done on 01/16/24. found Right dominant circulation with a patent stent in the mid LAD and a 30% lesion in the distal circumflex as becomes the left posterolateral branch, no stent placed, PCWP 26mmHg,
CI 1.3, elevated SVR
Bumex drip started, causing weight drop and neg 2L balance, however patient did not tolerate with hypotension, so it was stopped on 01/17/24
cont ASA, statin, BB
TAVR assessment team to start eval on 01/19/24
telemetry showed sinus arrhythmia
LDL 40
Hgba1c 6.7%
TSH WNL
Serial troponin WNL
EKG without signs of ACS
She is dyspneic/orthopneic.
Resume Lasix on 12/2239 mg IV given with following dose of 40 mg p.o. daily.
Has been off metoprolol, Norvasc, Imdur. Monitor for recurrent hypotension while on diuresis
Undergoing evaluation for aortic valve stenosis
Reintroduce nightly BiPAP to facilitate diuresis
Acute kidney injury suspect cardiorenal state.
Renal sonogram with no evidence of abnormalities.
No obstruction clinically.
Monitor renal function
#UTI
Completed Ceftriaxone
#Abx-induced diarrhea
hold laxatives
Probiotics
#DDimer elevated
CTA w/o PE, US LE w/o DVT
#DM type 2 with neuropathy
Cont basal insulin, Accuchecks, Insulin SS and DM diet
hold metformin
#pancreatic insufficiency
#Vertigo
#Insomnia
#Urinary urgency
cont home meds
#RACHEL
cont CPAP
DVT ppx hep (witgh LAUREANO)
Full code
I have spent at least 58min reviewing chart, test results, communication with consultants and direct patient care
Anticipated Discharge: 24 - 48 hours
Subjective/Interval History
-
Date of Service: January 20, 2024
Objective Data
-
Labs:
Laboratory Results
01/20/24
05:28
Sodium 141
Potassium 3.7
Chloride 101
Carbon Dioxide 28
BUN 30 H
Creatinine 0.9
Glucose 218 H
Calcium 9.6
Vital Signs:
Vital Signs
Temp Pulse Resp BP Pulse Ox
97.9 F 78 16 120/74 95
01/20/24 11:43 01/20/24 11:43 01/20/24 11:43 01/20/24 11:43 01/20/24 13:28
I&O
01/19/24 01/20/24 01/21/24
06:59 06:59 06:59
Intake Total 250 / 250 1440 / 1440
Output Total 450 / 450
Balance -200 / -200 1440 / 1440
Physical Exam
-
General: Comfortable and Appears in Distress
HEENT: Normocephalic
GI: Soft, Nontender and Nondistended
Musculoskeletal: No Clubbing, No Cyanosis and No Edema
Neuro: Awake, Alert, Oriented and AO x 3
Psych: Calm
[2024-01-20 15:50] VITALS: BP 123/74
[2024-01-20 17:09] LABS: Glucose - Point of Care 402 mg/dl (70-99)
[2024-01-20] MEDS: LIPITOR 80 MG PO (17:24)
[2024-01-20 18:04] LABS: Glucose 282 mg/dl (70-99)
[2024-01-20] MEDS: NOVOLOG FLEXPEN-LOW RESISTANCE 3 UNITS SC (18:05)
--- NOTE | 2024-01-20 18:42 | PTCARENOTE ---
Patient's dinnertime accucheck RRHI. Stat glucose lab draw obtained by this RN made aware. Stat glucose result 282, patient covered with insulin per protocol.
[2024-01-20 19:20] VITALS: BP 130/87
[2024-01-20 19:48] LABS: Glucose - Point of Care 264 mg/dl (70-99)
[2024-01-20] MEDS: SYMBICORT 160/4.5 MCG INHALER 2 PUFF INH (20:11)
[2024-01-20 23:10] VITALS: BP 118/60
[2024-01-20] MEDS: MELATONIN 5 MG PO (23:18)
[2024-01-20 23:55] LABS: Glucose - Point of Care 262 mg/dl (70-99)
[2024-01-21] MEDS: ULTRAM 50 MG PO (00:49)
[2024-01-21 03:15] VITALS: BP 154/76
[2024-01-21 05:24] VITALS: BMI 42.2
[2024-01-21 07:15] VITALS: BP 109/57
[2024-01-21] MEDS: SPIRIVA RESPIMAT 2.5 MCG 2 PUFF INH (07:28)
[2024-01-21] MEDS: SYMBICORT 160/4.5 MCG INHALER 2 PUFF INH (07:29)
[2024-01-21 07:47] LABS: Glucose - Point of Care 254 mg/dl (70-99)
[2024-01-21 08:11] LABS: Blood Urea Nitrogen 24 mg/dl (7-17); Calcium 9.6 mg/dl (8.4-10.2); Carbon Dioxide 29 mmol/L (22-30); Chloride 96 mmol/L (98-107); Estimated Creatinine Clearance 46 ml/min; Glucose 215 mg/dl (70-99); Potassium 4.1 mmol/L (3.5-5.1); Sodium 139 mmol/L (135-145); eGFR > 60.00
[2024-01-21] MEDS: LIDOCAINE 4% PATCH 2 PATCH TOPICAL (08:46)
[2024-01-21] MEDS: BUSPAR 20 MG PO ×2 (08:47→15:35)
[2024-01-21] MEDS: MYRBETRIQ EXTENDED RELEASE 50 MG PO (08:47)
[2024-01-21] MEDS: ASPIR LOW (ENTERIC COATED) 81 MG PO (08:47)
[2024-01-21] MEDS: ZENPEP DELAYED RELEASE CAPSULE 1 CAPSULE PO ×3 (08:47→17:00)
[2024-01-21] MEDS: VISBIOME 2 CAP PO (08:47)
[2024-01-21] MEDS: FARXIGA 10 MG PO (08:47)
[2024-01-21] MEDS: FOLVITE 1 MG PO (08:48)
[2024-01-21] MEDS: VITAMIN D3 (cholecalciferol) 50 MCG PO (08:48)
[2024-01-21] MEDS: HEPARIN 5000 UNITS SC (08:54)
[2024-01-21] MEDS: LEXAPRO 20 MG PO (08:55)
[2024-01-21] MEDS: FEOSOL 325 MG PO (08:55)
[2024-01-21] MEDS: NOVOLOG FLEXPEN-LOW RESISTANCE 3 UNITS SC (08:57)
[2024-01-21] MEDS: ALDACTONE 12.5 MG PO (09:13)
[2024-01-21] MEDS: LASIX 40 MG PO (09:13)
[2024-01-21 10:53] LABS: Glucose - Point of Care 248 mg/dl (70-99)
[2024-01-21 11:05] VITALS: BP 129/89
[2024-01-21] MEDS: NOVOLOG FLEXPEN-LOW RESISTANCE 2 UNITS SC ×2 (13:08→16:58)
--- NOTE | 2024-01-21 13:56 | W.DS.TRANS ---
DC Summary - Riveting Machine Operator Automatic
-
Discharge Instructions:
Discharge Diagnosis/Procedures Cardiac cath\\
Acute CHF
Aortic stenosis
LAUREANO
Diet 2 Gram Sodium
Blood Work PLEASE GET YOUR LAB WORK DONE NEXT WEEK (FRIDAY
OR FRIDAY). PLEASE FAX RESULTS TO [phone]
[id number] [facility] TEAM
Others Tests YOUR CT SCAN IS SCHEDULED FOR 02/02 AT 10:30 AT
[facility]. NOTHING TO EAT OR DRINK [address] SCAN. PLEASE BRING A LIST OF
YOUR MEDICATIONS.
YOU WILL NEED DENTAL CLEARANCE BEFORE YOUR
VALVE REPLACEMENT
Instructions:
Stand-Alone Forms: DC Instructions- Cath/EP Lab
Changes to Home Medications: Yes
Discharge Medications:
DC Medications w/original date entered in [facility]
acetaminophen 650 mg tablet,extended release (Pain Relief (acetaminophen)) 650 mg PO BIDPRN PRN mild pain 01/12/24
albuterol sulfate 90 mcg/actuation aerosol inhaler (Ventolin HFA) 2 puff inhalation R Q4HPRN PRN sob/wheezing 01/12/24
aspirin 81 mg tablet,delayed release 81 mg PO DAILY Blood Clot Prevention/Tx 01/12/24
atorvastatin 80 mg tablet 80 mg PO QPM High Cholesterol 01/12/24
bisacodyl 5 mg tablet,delayed release 10 mg PO DAILY Constipation 01/12/24
cholecalciferol (vitamin D3) 50 mcg (2,000 unit) capsule (Vitamin D3) 50 mcg PO DAILY Supplement 01/12/24
diclofenac sodium 1 % topical gel 1 ea topical QIDPRN PRN knee pain 01/12/24
docusate sodium 100 mg capsule 100 mg PO BID Constipation 01/12/24
fluticasone furoate 200 mcg-vilanterol 25 mcg/dose inhalation powder (Breo Ellipta) 2 inh inhalation R DAILY Lung/Breathing Issues 01/12/24
furosemide 20 mg tablet 20 mg PO BID Fluid Retention/Swelling 01/12/24
insulin degludec 100 unit/mL (3 mL) subcutaneous pen (Tresiba FlexTouch U-100 insulin) 35 unit SC HS Diabetes 01/12/24
meclizine 12.5 mg tablet 12.5 mg PO BIDPRN PRN dizziness 01/12/24
metoprolol tartrate 25 mg tablet 25 mg PO BID Heart Disease/Condition 01/12/24
mirabegron 50 mg tablet,extended release 24 hr (Myrbetriq) 50 mg PO DAILY Urinary Issue 01/12/24
nitroglycerin 0.4 mg sublingual tablet 0.4 mg sublingual [id number] PRN chest pain 01/12/24
tramadol 50 mg tablet 50 mg PO TIDPRN PRN moderate pain 01/12/24
zolpidem 5 mg tablet (Ambien) 5 mg PO HSPRN PRN sleep 01/12/24
budesonide 160 mcg-glycopyr 9 mcg-formot 4.8 mcg/actuation HFA inhaler (Breztri Aerosphere) 2 inh inhalation BID 01/14/24
buspirone 10 mg tablet 20 mg PO TID 01/14/24
escitalopram oxalate 20 mg tablet (Lexapro) 20 mg PO DAILY 01/14/24
folic acid 1 mg tablet 1 mg PO DAILY 01/14/24
gabapentin 100 mg capsule 100 mg PO BID 01/14/24
metronidazole 0.75 % topical gel 1 applic topical BID 01/14/24
pantoprazole 40 mg tablet,delayed release (Protonix) 40 mg PO DAILY 01/14/24
vitamin B91-mmymqmgrd factor 500 mcg PO DAILY 01/14/24
bisacodyl 10 mg rectal suppository 10 mg IN DAILY PRN constipation 01/15/24
insulin lispro 100 unit/mL subcutaneous pen 6 unit SC TID 01/15/24
mdcutk-vihkvcji-vevdxfb 24,000-76,000-120,000 unit capsule,delayed rel (Creon) 1 cap PO TID 01/15/24
repaglinide 2 mg tablet 2 mg PO TID 01/15/24
tirzepatide 10 mg/0.5 mL subcutaneous pen injector (Leannero) 10 mg SC QWEEK 01/15/24
dapagliflozin propanediol 10 mg tablet 10 mg PO DAILY #30 tabs 01/21/24
Home Medication Changes
Discontinued Amlodipine, Valsartan, Imdur, Metformin.
Farxiga initiated
Pending Results: No
[2024-01-21 14:27] VITALS: BP 134/76
--- NOTE | 2024-01-21 15:13 | CM ---
CM reviewed chart, met with patient bedside who placed call to son, discussed patient for discharge. Son reports he will provide transportation home. IMM reviewed over phone, son agrees to discharge, form placed in chart, patient provided with copy.
CM discussed with patients nurse. CM will continue to follow for all discharge planning needs.
PLAN: home with [facility]
Fax #: [phone]
--- NOTE | 2024-01-21 15:20 | W.PN.CD ---
Today's Communication / Plan
-
Outpatient calcium score to assess severity of aortic valve calcification.
Ongoing outpatient TAVR evaluation, including CTA of chest/abdomen/pelvis.
Stable for outpatient follow up.
I have reached out to Dr. Rosenthal to update him.
Impression / Plan
-
Impression/Plan: 88F with CAD, HFpEF, mod-severe , HTN, HLD, asthma, DM, RACHEL on CPAP, and obesity presents with shortness of breath.
#HFpEF
-Acute on chronic.
-PCWP = 26 mmHg at 97.1 kg.
-Will need to introduce meds more slowly. Aggressive diuresis led to LAUREANO.
-GDMT
-Beta erika: None at this time. LVEF > 40%.
-ACEI/ARB/ARNi: None at this time. LVEF > 40%.
-SGLT2i: Dapagliflozin 10 mg daily.
-MRA: Spironolactone 12.5 mg daily.
-Continue furosemide 40 mg PO daily.
-Currently off of supplemental oxygen.
#Low gradient severe
-Chronic.
-Mean gradient 23 mmHg by echo.
-Difficult to discern if the is contributory as the gradient is not very high, but stroke volume index is < 35 mL/m2.
-It is reasonable to consider a calcium score of the valve (outpatient) to see if the valve is severely calcified.
#LAUREANO
-Resolved.
#CAD
-Chronic, stable.
-PCI to mid LAD 08/11/2020.
-No obstructive CAD at cath 01/16/2024.
#Asthma
-Chronic.
-Currently off of supplemental oxygen.
#HTN
#DM, type II
#RACHEL on CPAP
#Morbid Obesity (BMI = 41)
#Language barrier
-Pt prefers to utilize her son for translation.
Stitch Bonding Machine Drawer In: Dr. Rosenthal ([place])
Subjective/Interval History:
Weight now 98.021 kg, but LAUREANO with diuresis.
SaO2 = 95% on RA.
Dapagliflozin started today.
Spironolactone 12.5 mg daily started yesterday.
DATA:
Cath:
1. Patent stent in the mid LAD and a 30% lesion in the distal circumflex as becomes the left posterolateral branch.
2. Severely elevated filling pressures (PCWP = 26 mmHg at 97.1 kg).
3. Severely depressed cardiac function (cardiac index = 1.3 L/min/m�).
TTE, 01/13/2024:
CONCLUSIONS
Normal LV size and function with no regional wall motion abnormalities.
LV ejection fraction is 55-60% by visual assessment.
Mild concentric LVH.
Normal right ventricular size and function.
Moderate to severe aortic stenosis.
Mild tricuspid regurgitation.
Estimated pulmonary artery pressure of 37 mmHg, assuming a right atrial
pressure of 3 mmHg.
No prior study available for comparison.
CTPE, 01/13/2024:
IMPRESSION:
No evidence of central pulmonary embolism.
LE Duplex, 01/13/2024:
IMPRESSION:
No evidence of deep venous thrombosis bilaterally.
Left popliteal fossa fluid collection, likely a Davis's cyst.
Physical Exam
Vital Signs/Labs
Vital Signs
Temp Pulse Resp BP Pulse Ox
36.4 C 85 18 134/76 95
01/21/24 14:27 01/21/24 14:27 01/21/24 14:27 01/21/24 14:27 01/21/24 14:27
01/20/24 01/21/24 01/22/24
11:59 11:59 11:59
Actual Weight 96.661 kg 98.021 kg
01/18/24 17:54
01/21/24 07:13
Magnesium 2.4 mg/dl (1.6-2.3) H 01/19/24 07:39
Triglycerides 154 mg/dl (10-149) H 01/13/24 03:04
LDL Cholesterol, Calc 40 mg/dl 01/13/24 03:04
VLDL Cholesterol, Calc 30 mg/dl (0-30) 01/13/24 03:04
HDL Cholesterol 53 mg/dl 01/13/24 03:04
01/12/24
11:22
Fom-D-Ifdzkukktnt Pept 518
Physical Exam
Constitutional: No acute distress and Comfortable
EENT: Anicteric and Moist mucous membranes
Cardiovascular: Rhythm & rate is regular, Systolic murmur present and S1S2 is normal
Respiratory: Respiratory effort normal and Other (Decreased throughout.)
GI: Soft, Distention absent, Flat, Non tender and Normal bowel sounds
Neuro/Psych: AO x 3
Other: Cath Site (Right radial access site is C/D/I.)
Data Reviewed
-
Date of Service: January 21, 2024
Medical Decision Making: Reviewed Test Results, Independent Historian Assessment and Test Interpretation
EKG: Tracing Personally Visualized and interpreted and Report Reviewed by me
Echo: Tracing Personally Visualized and interpreted and Report Reviewed by me
X-Ray/CT/US/MRI/NUC/PET: Image Personally Visualized and interpreted and Report Reviewed by me
Medical Tests (PFT, Pathology etc): Image Personally Visualized and interpreted and Report Reviewed by me
Labs: Labs Reviewed by me
Old Records: Reviewed
[2024-01-21 16:41] LABS: Glucose - Point of Care 222 mg/dl (70-99)
[2024-01-21] MEDS: HEPARIN SC (16:58)
[2024-01-21] MEDS: LIPITOR 80 MG PO (17:00)
--- NOTE | 2024-01-21 18:31 | PTCARENOTE ---
Patient discharged home with VN. This RN reviewed discharge instructions and medications with patient and patient's sons at bedside. Patient Tongan speaking, language line used for translation. This RN removed patient's IV, tele pack removed by
tech, patient assisted in dressing in home clothes prior to DC by tech. Patient and her sons verbalized understanding of discharge paperwork. Electric Stop Installer at bedside to speak to sons prior to DC. Patient being taken home by sons, belongings in room
gathered by sons, taken down to son's car at [facility] in wheelchair with assistance from tech.
== END 2024-01-21 18:30 | disposition home health service (06) | DRG 286 ==
LOC: 2 NORTH 15:04
PROVIDERS: Internal Medicine; Internal Medicine Cardiovascular Disease; Physician Assistant; Registered Nurse; ADMITTING PHYSICIAN Internal Medicine; ATTENDING PHYSICIAN Internal Medicine; CONSULT PHYSICIAN Internal Medicine Cardiovascular Disease; EMERGENCY PHYSICIAN Student in an Organized Health Care Education/Training Program; FAMILY PHYSICIAN Internal Medicine
PROC: 4A023N6 Measurement of Cardiac Sampling and Pressure, Right Heart, Percutaneous Approach (ICD-10-PCS; 2024-01-16)
PROC: B211YZZ Fluoroscopy of Multiple Coronary Arteries using Other Contrast (ICD-10-PCS; 2024-01-16)
DX: I11.0 Hypertensive heart disease with heart failure (principal); I50.33 Acute on chronic diastolic (congestive) heart failure; Z68.41 Body mass index [BMI] 40.0-44.9, adult; N39.0 Urinary tract infection, site not specified; K52.1 Toxic gastroenteritis and colitis; N17.8 Other acute kidney failure; I25.10 Atherosclerotic heart disease of native coronary artery without angina pectoris; I35.0 Nonrheumatic aortic (valve) stenosis; D72.829 Elevated white blood cell count, unspecified; E11.9 Type 2 diabetes mellitus without complications; G47.33 Obstructive sleep apnea (adult) (pediatric); J45.909 Unspecified asthma, uncomplicated; E11.40 Type 2 diabetes mellitus with diabetic neuropathy, unspecified; K86.89 Other specified diseases of pancreas; G47.00 Insomnia, unspecified; R42 Dizziness and giddiness; E66.01 Morbid (severe) obesity due to excess calories; T36.95XA Adverse effect of unspecified systemic antibiotic, initial encounter; R06.89 Other abnormalities of breathing; R09.02 Hypoxemia; I5A Non-ischemic myocardial injury (non-traumatic); T50.1X5A Adverse effect of loop [high-ceiling] diuretics, initial encounter; Z95.5 Presence of coronary angioplasty implant and graft; Z79.4 Long term (current) use of insulin; Z79.82 Long term (current) use of aspirin; Z79.51 Long term (current) use of inhaled steroids; Z79.84 Long term (current) use of oral hypoglycemic drugs; I27.29 Other secondary pulmonary hypertension; E78.00 Pure hypercholesterolemia, unspecified
CPT/HCPCS: 71046; 71275; 76770; 80048; 80053; 80061; 81003; 81015; 82570; 82728; 82947; 82962; 83036; 83540; 83550; 83735; 83880; 84300; 84443; 84484; 85025; 85027; 85379; 87077; 87086; 87186; 93005; 93306; 93456; 93970; 94640; 94660; 96374; 97116; 97163; 97530; 99285; C1894; Q9967

== ENCOUNTER → 2024-02-03 10:09 | Outpatient (REF) | payer MEDICARE, OTHER, SELFPAY | LOC: RAD 10:09 | PROVIDERS: ATTENDING PHYSICIAN Nurse Practitioner Acute Care; FAMILY PHYSICIAN Internal Medicine | DX: I35.0 Nonrheumatic aortic (valve) stenosis (principal) | CPT/HCPCS: 74174; 75572; Q9967 ==

== ENCOUNTER 2025-01-21 05:41 | Inpatient (IN) | payer MEDICARE, OTHER, SELFPAY ==
[2025-01-21] VITALS (17 sets, daily range): BP systolic 98–170; BP diastolic 57–98; PULSE 2–84; BMI 40.0
[2025-01-21 00:58] LABS: Hematocrit 43.3 % (37.0-47.0); Hemoglobin 13.0 g/dL (12.0-16.0); Mean Corp Hgb Conc. 30.0 g/dL (33.0-37.0); Mean Corpuscular Volume 88.0 fL (81.0-99.0); Nucleated Red Blood Cells % 0 %; Platelet Count 308 10^3/uL (130-400); Red Cell Dist. Width 18.6 % (11.5-14.5)
[2025-01-21 01:14] LABS: ALT (SGPT) 26 U/L (0-35); AST (SGOT) 25 U/L (14-36); Albumin 4.1 g/dl (3.5-5.0); Alkaline Phosphatase 76 U/L (38-126); Blood Urea Nitrogen 23 mg/dl (7-17); Calcium 9.1 mg/dl (8.4-10.2); Carbon Dioxide 31 mmol/L (22-30); Chloride 106 mmol/L (98-107); Glucose 184 mg/dl (70-99); Potassium 3.9 mmol/L (3.5-5.1); Sodium 143 mmol/L (135-145); Total Protein 6.8 g/dl (6.3-8.2); eGFR > 60.00
[2025-01-21 01:49] LABS: Troponin I 0.040 ng/ml
[2025-01-21] MEDS: NSS 500 IV (02:36)
--- NOTE | 2025-01-21 02:48 | EDRN ---
Pt's sons at bedside are emergency contacts: Cruzito [phone] & Camilo [phone]
[2025-01-21] MEDS: DUONEB 3 ML INH (04:05)
[2025-01-21] MEDS: TYLENOL 650 MG PO (04:06)
--- NOTE | 2025-01-21 04:20 | ED.GENMED ---
History of Present Illness
General
Chief Complaint: Breathing Problem
Source: patient
Exam Limitations: clinical condition
Time Seen by Provider: 01/21/25 01:22
Nursing documentation reviewed up to this point in time: agreed with
History of Present Illness
History of Present Illness:
Note:
CHIEF COMPLAINT(S)
Difficulty breathing, inability to sleep while laying down, recent weight gain.
HISTORY OF PRESENT ILLNESS
The patient is an 89-year-old female with a history of mitral valve disease and hypertension, who presents with progressively worsening difficulty breathing over the past four weeks. She has been unable to sleep while lying flat, and therefore,
sleeps while sitting upright. This positional orthopnea has been accompanied by a significant decline in her ability to ambulate; she becomes breathless after only two steps and is reliant on supplemental oxygen at home. Recently, her oxygen
saturation has been dropping, necessitating continuous use of oxygen. The history suggests exacerbation of heart failure due to mitral valve stenosis, diagnosed previously, and fluid accumulation in her lungs. Additionally, the patient reports a
recent and unexplained increase in abdominal girth and a longstanding hernia that has visibly enlarged. The family also notes difficulty fitting diapers despite trying larger sizes, which raises concerns about potential fluid retention and abdominal
pathology. The patient has been previously advised that valve replacement was considered, but not performed due to concerns about age-related surgical risks.
PAST MEDICAL AND SURGICAL HISTORY
Known mitral valve disease with past consideration for valve replacement, hypertension, possible chronic kidney disease, latest noted during her last hospital visit.
CHRONIC MEDICAL CONDITIONS SIGNIFICANTLY AFFECTING CARE
Mitral valve disease
Hypertension
ADDITIONAL HISTORY OBTAINED FROM SOURCES OTHER THAN THE PATIENT
According to family, the patient cannot manage more than two steps due to severe breathlessness and requires oxygen therapy continuously. Family members are concerned about her severe shortness of breath and inability to fit into appropriately-sized
diapers due to abdominal enlargement.
EXTERNAL RECORDS REVIEWED
Family confirms that the patient has been admitted to this facility previously and relevant medical records, including assessments of her kidney function and details of her cardiac condition, are available for review.
SOCIAL HISTORY
Receives home care assistance.
REVIEW OF SYSTEMS
- Respiratory: Orthopnea, requires oxygen supplementation at home due to drops in oxygen saturation.
- Cardiovascular: History of mitral valve disease, hypertension; significant exertional dyspnea.
- Gastrointestinal: Abdominal distension, noted increase in the size of a pre-existing hernia.
- General: Difficulty managing personal care due to breathlessness and fatigue.
PHYSICAL EXAM
General: Alert, in mild respiratory distress, temporized by increased oxygen. Typically on 2-1/2l.
Skin: Warm, dry.
Head: Normocephalic, atraumatic.
Neck: Supple, trachea midline.
Eye Ears, Nose, Mouth, and Throat: Oral mucosa moist.
Cardiovascular: Normal peripheral perfusion, no edema noted.
Respiratory: Respirations are labored, reliant on supplemental oxygen.
Gastrointestinal: Abdomen largly distended, with noted enlargement of an existing hernia.
Back: Normal range of motion, normal alignment.
Musculoskeletal: Limited by shortness of breath; unable to assess full range of motion or strength.
Neurological: Alert and oriented to person, place, time, and situation.
Psychiatric: Cooperative, appropriate mood & affect.
PLAN
- Admit the patient for further monitoring and management due to concerns about oxygenation and potential heart failure exacerbation.
- Perform a computed tomography (CT) scan of the abdomen if renal function permits, to investigate the cause of abdominal distension and hernia enlargement. If kidney function is compromised, consider a non-contrast CT scan.
- Review and monitor kidney function to determine the feasibility of contrast use for CT.
- Establish a cardiac evaluation to address the possibility of heart failure secondary to mitral valve and cardiac function exacerbations.
- Ensure continuous supplemental oxygen and monitor respiratory status.
- Explore potential surgical options or medical management for hernia if deemed clinically significant.
DIFFERENTIAL DIAGNOSIS
The Differential Diagnosis includes, in no particular order and is not limited to:
1. Congestive Heart Failure Exacerbation
2. Mitral Valve Stenosis/Regurgitation
3. Pulmonary Edema
4. Chronic Obstructive Pulmonary Disease (COPD) Exacerbation
5. Pneumonia
6. Abdominal Hernia with Complications
7. Ascites due to possible cardiac etiology
8. Renal Impairment/Azotemia
9. Anemia
10. Obesity Hypoventilation Syndrome
Disposition:
SUMMARY OF ENCOUNTER
The patient is an 89-year-old female presenting with difficulty breathing (dyspnea) and abdominal distension. Her sons, who have brought her from [place], seek evaluation due to her progressive symptoms. She has a history of cardiac issues,
including previously recommended valve surgery, and has been admitted to this facility before. The patient is currently hypoxic on room air and is utilizing nasal cannula to improve oxygenation. Due to her clinical status and the suspicion of
congestive heart failure exacerbation, admission is warranted. Elevated troponin levels also suggest cardiac involvement in her current condition.
DISPOSITION
Admit
ASSESSMENT
The clinical picture is suggestive of congestive heart failure exacerbation, likely secondary to underlying cardiac pathology and fluid overload. Elevation in troponin levels indicates potential myocardial strain or injury.
PLAN
- Admit the patient for comprehensive management of suspected heart failure exacerbation and close monitoring of cardiac function.
- Continue oxygen supplementation via nasal cannula and assess the need for advanced respiratory support if necessary.
- Evaluate abdominal distension, potentially with imaging, to rule out other possible causes.
- Conduct a thorough cardiac evaluation to determine the extent of exacerbation and elevate treatment for underlying cardiac conditions.
INDEPENDENT REVIEW OF LABS AND INTERPRETATION OF TESTS
My independent review reveals an elevated troponin level, indicating myocardial strain.
MEDICAL DECISION MAKING
-Complexity of Data Reviewed: Chronic conditions affecting care: mitral valve disease, hypertension, congestive heart failure. Differential diagnosis includes:
1. Congestive Heart Failure Exacerbation
2. Mitral Valve Stenosis/Regurgitation
3. Pulmonary Edema
4. Chronic Obstructive Pulmonary Disease (COPD) Exacerbation
5. Pneumonia
6. Abdominal Hernia with Complications
7. Ascites due to possible cardiac etiology
8. Renal Impairment/Azotemia
9. Anemia
10. Obesity Hypoventilation Syndrome
-Data:
Category 1: Non-emergency department records reviewed; external records indicate prior admissions for cardiac issues.
Category 2: Input was obtained from her sons, who provided history regarding her symptoms and previous care.
Category 3: Management has been discussed for her inpatient care to address her current exacerbations and symptoms.
DIAGNOSIS
- Congestive Heart Failure Exacerbation (I50.9)
- Abdominal distension (R19.00)
- Hypoxia (R09.02)
Phy Exam
Physical Exam
Physical Exam:
.
Scores
Heart Failure Risk
Heart Failure Risk Score: Yes
History of Stroke or TIA: No
History of intubation for respiratory distress: No
Heart rate on ED arrival >/= 110: No
SaO2 <90% on arrival on room air: Yes
HR >/=110 during 3min walk test (or too ill to perform test): Yes
ECG has acute ischemic changes: No
Urea >/=12mmol/L (BUN 33.6mg/dL): No
Serum CO2>/=35mmol/L: No
Troponin I or T elevated to [place] Level (0.4mg/dL): No
NT-proBNP >/=5,000ng/L (5,000pg/ml): No
HF Risk Score: 3
Admission Status: HIGH RISK 15.9% Consider SNF treatment or admission to hospital
Course
Orders/Labs/Results
Orders:
Orders
01/21/25 00:37
Electrocardiogram (*1) Urgent
Reason for Study: Other
Other Reason for Exam: Respiratory Distress
Cardiac Monitoring- Treatment ONCE
EKG- Treatment ONCE
IV Insert/Care/Rem.- Treatment PRN
O2 Therapy [RESP] Urgent
Titrate/Wean O2 to maintain O2 sat greater than (%): 93
Special Instructions: TO MAINTAIN CONTINUOUS O2 SATS >/= 93%
Pulse Ox/cont/shift [RESP] Urgent
Quantity: 1
Special Instructions: continuous pulse ox
01/21/25 00:38
CR Chest Portable - 1 View Urgent
Comment:
Reason For Exam: respiratory distress
Reason Study Needs to be Portable: Patient Unstable
01/21/25 00:46
Complete Blood Count/With Diff Urgent
Comprehensive Metabolic Panel Urgent
NT-proBNP Urgent
Troponin I Urgent
01/21/25 01:47
CT Abd/pelvis W Iv Cont Urgent
Comment:
Reason For Exam: abd distention
01/21/25 02:00
0.9% Sodium Chloride 500 ml [Nss] 500 ml IV 125 mls/hr
01/21/25 03:50
Ipratropium/Albuterol Sulfate [Duoneb] 3 ml .ROUTE .STK-MED ONE
01/21/25 04:04
Acetaminophen [Tylenol] 650 mg .ROUTE .STK-MED ONE
01/21/25 04:05
Ipratropium/Albuterol Sulfate [Duoneb] 3 ml INH R NOW ONE
01/21/25 04:06
Acetaminophen [Tylenol] 650 mg PO NOW STA
01/21/25 04:51
Venous Blood Gas Stat
%Oxygen/Room Air: 32
01/21/25 05:05
Furosemide [Lasix] 60 mg IV NOW STA
01/21/25 05:09
Admit/Transfer Patient As Directed
Co-Sign Provider:
Level of Care: Inpatient admission
Assign to:: IMU- Intermediate Care
Physician / Group: Daniel
Diagnosis: CHF exacerbation
Reason for Hospitalization: CHF exacerbation
Expected length of stay greater than two midnights?: Yes
ELOS- Estimated Length of Stay in days: 2
I certify the patient meets the requirements for IP care: Yes
01/21/25 05:20
Code Status As Directed
Resuscitation Status: Full Code
Abnormal Lab Results
01/21/25
00:46
WBC 11.2 H 10^3/uL
(4.8-10.8)
MCH 26.4 L pg
(27.0-31.0)
MCHC 30.0 L g/dL
(33.0-37.0)
RDW 18.6 H %
(11.5-14.5)
Abs Immat Gran (auto) 0.1 H 10^3/uL
(0-0.05)
Absolute Neuts (auto) 8.1 H 10^3/uL
(1.4-6.5)
Absolute Monos (auto) 0.7 H 10^3/uL
(0.1-0.6)
Immature Gran % 1.2 H %
(0-0.5)
Lymphocytes % 16.8 L %
(20.5-51.1)
Carbon Dioxide 31 H mmol/L
(22-30)
BUN 23 H mg/dl
(7-17)
Glucose 184 H mg/dl
(70-99)
Troponin I 0.040 H* ng/ml
01/21/25 00:46
01/21/25 00:46
Vital Signs
Initial and Last Documented VS:
Initial Vital Signs
Pulse Resp Pulse Ox
79 24 97
01/21/25 00:37 01/21/25 00:37 01/21/25 00:37
Last Documented Vital Signs
Temp Pulse Resp BP Pulse Ox
98.6 F 69 18 159/91 95
01/21/25 00:41 01/21/25 01:00 01/21/25 01:00 01/21/25 01:00 01/21/25 04:21
*Pulse Oximetry
SaO2: 95
Nasal Cannula flow liters per minute: 4
Patient hypoxic: no
*Critical Care Note
Total Time (30-74mins, 75-104mins- exclusive of procedures): 40 (Critical care statement: A total of 40 minutes of critical care time was provided for this patient. This time is separate from time utilized to perform the aforementioned documented
procedures. Aggregate critical care time includes only time during which I was engaged in work directl)
Update Note
Update Note:
NAME: CELESTINO CERVANTES
DATE OF EXAM: 01/21/2025
Patient No: [id number]
Physician: TRISTA
Date of : 1935
Past Medical History (entered by Technologist):
Reason For Exam (entered by Technologist):
Other Notes (entered by Technologist): pt arrives from home via transport with c/o SOB. arrives on 3L oxygen, SaO2 85%. Increased to 4L on arrival for SaO2 95%. Pt speaks Danish, pt's family at bedside assisting translate. Pt's family reports she
has been SOB for the past couple of days
Additional Information (per [facility]):
CT ABDOMEN PELVIS WITH CONTRAST
COMPARISON: None
IMPRESSION:
No acute findings in the abdomen.
Moderate body wall edema
There is severe colonic diverticulosis but no diverticulitis. Normal appendix. No bowel obstruction. No free air.
No obstructive uropathy. Bilateral renal cysts.
No concerning bone finding.
Moderate aortic valve calcification. Mild bibasal atelectasis.
Case finalized on 01/21/25 04:05 EDT
Geo Goins M.D.
ED Attending Note
-
Portions of this chart may have been created with voice recognition software.� Occasional wrong word or��sound alike� substitutions may have occurred due to the inherent limitations of voice recognition software.
Discharge Plan
Departure
Patient Disposition: Admit
Date of Disposition: 01/21/25
Time of Disposition: 05:00
Admit to: Telemetry
Presentation/result/management discussed w/ accepting MD/DO: Hospitalist
Discharge Problem:
Unstable angina, Chronic heart failure with preserved ejection fraction (HFpEF), CAD (coronary artery disease), Obesity
Prescriptions:
No Action
atorvastatin 80 mg tablet
80 mg PO QPM
meclizine 12.5 mg tablet
12.5 mg PO BIDPRN PRN (Reason: dizziness)
acetaminophen [Pain Relief (acetaminophen)] 650 mg tablet extended release
650 mg PO BIDPRN PRN (Reason: mild pain)
nitroglycerin 0.4 mg tablet, sublingual
0.4 mg sublingual [id number] PRN (Reason: chest pain)
docusate sodium 100 mg capsule
100 mg PO BID
furosemide 20 mg tablet
20 mg PO BID
albuterol sulfate [Ventolin HFA] 90 mcg/actuation HFA aerosol inhaler
2 puff INHALATION R Q4HPRN PRN (Reason: sob/wheezing)
metoprolol tartrate 25 mg tablet
25 mg PO BID
diclofenac sodium 1 % gel
1 ea TOPICAL QIDPRN PRN (Reason: knee pain)
cholecalciferol (vitamin D3) [Vitamin D3] 50 mcg (2,000 unit) capsule
50 mcg PO DAILY
mirabegron [Myrbetriq] 50 mg tablet extended release 24 hr
50 mg PO DAILY
insulin degludec [Tresiba FlexTouch U-100] 100 unit/mL (3 mL) insulin pen
35 unit SC HS
aspirin 81 mg Tablet,Delayed Release (Dr/Ec)
81 mg PO DAILY
tramadol 50 mg Tablet
50 mg PO TIDPRN PRN (Reason: moderate pain)
Patient Comments:
01/12/2024: last filled 12/10/23, 90 tabs for 30 days from [facility]
bisacodyl 5 mg tablet,delayed release (DR/EC)
10 mg PO DAILY
zolpidem [Ambien] 5 mg Tablet
5 mg PO HSPRN PRN (Reason: sleep)
fluticasone furoate-vilanterol [Breo Ellipta] 200-25 mcg/dose Blister With Device
2 inh INHALATION R DAILY
escitalopram oxalate [Lexapro] 20 mg Tablet
20 mg PO DAILY
folic acid 1 mg Tablet
1 mg PO DAILY
metronidazole 0.75 % Gel
1 applic TOPICAL BID
Breztri Aerosphere 160-9-4.8 mcg/actuation Hfa Aerosol Inhaler
2 inh INHALATION BID
vitamin [id number] factor
500 mcg PO DAILY
pantoprazole [Protonix] 40 mg Tablet,Delayed Release (Dr/Ec)
40 mg PO DAILY
buspirone 10 mg Tablet
20 mg PO TID
gabapentin 100 mg Capsule
100 mg PO BID
repaglinide 2 mg Tablet
2 mg PO TID
bisacodyl 10 mg Suppository
10 mg NC DAILY PRN (Reason: constipation)
insulin lispro 100 unit/mL Insulin Pen
6 unit SC TID
Creon 24,000-76,000 -120,000 unit Capsule,Delayed Release(Dr/Ec)
1 cap PO TID
Mounjaro 10 mg/0.5 mL Pen Injector
10 mg SC QWEEK
dapagliflozin propanediol 10 mg Tablet
10 mg PO DAILY Qty: 30 0RF
Referrals:
Sabino August MD [Family Provider, Internal Medicine]
Interventions
Interventions:
*Risk Screen - Suicide Last Done: 01/21/25 00:54
*General Assessment Last Done: 01/21/25 00:54
*Neglect/Abuse Screening Last Done: 01/21/25 00:54
*ED- Fall Risk Assessment Last Done: 01/21/25 00:54
*ED COVID-19 Vaccine History Last Done: 01/21/25 00:54
*ED Influenza Vaccine History Last Done: 01/21/25 00:54
ED- Cardiac Assessment Last Done: 01/21/25 04:00
ED- Pulmonary Assessment Last Done: 01/21/25 04:00
Discharge Date and Time
Print Language: Danish
--- NOTE | 2025-01-21 04:38 | HPS.HSE ---
Family Physician
-
Family Physician: Sabino August
Chief Complaint
-
Shortness of breath
History of Present Illness
This 89-year-old female with past medical history significant for CHF with preserved EF, moderate to severe aortic stenosis with valve area of 0.94 and peak gradients of 48/28, CAD, diabetes, hypertension, RACHEL who presents to the emergency
department with shortness of breath.
Patient arrived from home via transport complain of shortness of breath and arrives on 3 L of oxygen with oxygen saturation of 85%. Increased to 4 L on arrival for saturation of 95%. Family reports that patient has been short of breath for the
last couple of days. She denies having any chest pain.
They reported that she was admitted here 2 years ago and at that time was told that she had severe aortic stenosis and will need valve replacement. Due to her worsening shortness of breath etc. bring her back to be evaluated for valve replacement.
Did report compliance with her usual medications including Lasix 40 mg p.o. daily. She has not had any known sick contacts. They denied having any cough fevers or chills.
In the emergency department she was afebrile with a temp of 98.6, blood pressure of 160/90 with a pulse rate of 69 she was satting 95% on 4 L. Chest x-ray shows bilateral small pleural effusions with pulmonary interstitial edema. ECG shows sinus
rhythm at a rate of 62 with PACs. Troponin was 0.04 similar to prior. BNP is elevated to 1400.
CBC shows a white count of 11.2 but otherwise unremarkable. Electrolytes were stable. BUN and creatinine were stable and a glucose of 184. CT of the abdomen pelvis shows moderate body wall edema and diverticulosis without diverticulitis.
Otherwise no other acute intra-abdominal findings.
Medical History
Past Medical History
Past Medical History: Reports Other
Additional Past Medical History:
RACHEL
DM
HTn
CAD
CHF
Past Surgical History: Reports Other
Additional Past Surgical History:
hysterectomy
Coronary artery stent
Social History
Tobacco: Non-smoker
Alcohol: None
Drug: None
Personal: Single
Living: With Family
Family History
Family History: Not pertinent
Allergies / Home Medications
Allergies reflects when Allergies were last updated in [facility].
Home Medications with original date entered in [facility]
Allergy/Medication List:
Allergies
Allergy/AdvReac Type Severity Reaction Status Date / Time
No Known Allergies Allergy Unverified 01/12/24 11:18
Review of Systems
-
Constitutional: Reports No Symptoms
EENT: Reports No Symptoms
Respiratory: Reports Trouble Breathing
Cardiac: Reports No Symptoms
Abdomen/GI: Denies Abdominal Pain (Abdominal distention without abdominal pain.)
: Reports No Symptoms
Musculoskeletal: Reports Other (b/l Knee pain)
Skin: Reports No Symptoms
Neurological: Reports No Symptoms
Endocrine: Reports No Symptoms
Hematologic/Lymphatic: Reports No Symptoms
Psych: Reports No Symptoms
Physical Exam
Vital Signs
Vital Signs
Temp Pulse Resp BP Pulse Ox
98.6 F 69 18 159/91 95
01/21/25 00:41 01/21/25 01:00 01/21/25 01:00 01/21/25 01:00 01/21/25 04:21
Physical Exam
General: Well Developed, Well Nourished and No Apparent Distress
HEENT: NormoCephalic, Moist mucous membranes and Atraumatic
Respiratory: Clear
Cardiac: S1/S2 and Regular Rhythm; No Murmur or Rub
GI: Soft, Non Tender, Non Distended and Normal Bowel Sounds; No Organomegaly
Rectal: Deferred by Provider
Musculoskeletal: No Clubbing, No Cyanosis and No Edema
Skin: No Rash
Neuro: AO x 3 and Nonfocal/grossly intact
Laboratory Results
-
01/21/25 00:46
01/21/25 00:46
Laboratory Results
Total Bilirubin 0.6 mg/dl (0.2-1.3) 01/21/25 00:46
AST 25 U/L (14-36) 01/21/25 00:46
ALT 26 U/L (0-35) 01/21/25 00:46
Alkaline Phosphatase 76 U/L (38-126) 01/21/25 00:46
Troponin I 0.040 ng/ml H* 01/21/25 00:46
Data Reviewed
-
Diagnostic Radiology: Image Personally Visualized and interpreted
CT Scan: Report Reviewed by me
Medical Tests (Nuc Med, Echo, EKG etc): Image Personally Visualized and interpreted
Lab Data: Labs Reviewed by me
Old Records: Reviewed
Impression/Plan
-
IMPRESSION:
89-year-old with complex past medical history coming to the emergency department with progressive shortness of breath much more severe over the last 2 to 3 days without known weight gain. Evaluation in the ED is consistent with CHF exacerbation
with increasing BNP, bilateral pleural effusions and pulmonary edema on x-ray, increased work of breathing. She is not wheezing and does not appear to be having asthma or COPD exacerbation. She has no focal consolidation on x-ray and shows no
other signs of an acute infection. She does appear to have significant sleep apnea in the setting of her somnolence.
PLAN:
CHF exacerbation -patient with history of CHF with preserved EF, severe aortic stenosis with valve area of 0.94 and peak gradients of 48/28, prior evaluation by cardiology and suggestion of TAVR a year ago now coming in with shortness of breath,
pulmonary edema and hypoxia. She is usually on 2 L as needed at home but is currently requiring 4 L to maintain a sat of 95%.
- Will admit to IMU given possible need for BiPAP
- Will start on IV Lasix 60 mg every 12 with hold parameters for hypotension
- Continue metoprolol, change to succinate
� Continue losartan
� Echo in a.m.
� Daily weights and ins and outs
�Cardiology consult to CBC
CAD -troponin 0.04. No active chest pain. His troponin similar to prior. ECG is nonischemic
� Continue aspirin, statin and
� Continue beta-blockade
-Will not trend troponin further at this time
HTN
- continue amlodipine and losartan
RACHEL - Sleep apnea, unknown cpap setting. Getting VBG
- if no CO2 retention will start CPAP 10 and titrate to efficacy, family does not know her setting
- if CO2 retention will place on bipap
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
- continue prandin 4 and metformin 1000 bid
- basal bolus insulin with lantus 20 units hs and low dose sliding scale
Pancreatic insufficiency
- continue creon
DVT PPX - lovenox sq
Code status - Full code
[2025-01-21 05:36] LABS: Venous Blood Gas B.E. 6.6 mmol/L (-4 to +4); Venous Blood Gas O2 Sat % 99.4 %
[2025-01-21] MEDS: LASIX 60 MG IV ×2 (05:41→16:46)
--- NOTE | 2025-01-21 07:15 | PTCARENOTE ---
received pt from ED RN. pt is [place] speaking arousable to verbal stimuli, yelling out at times. pt placed on bipap by RT, order present. satting 98%. HR 55 bpm, nsr.
--- NOTE | 2025-01-21 08:00 | CON.CAR ---
Addendum entered and electronically signed by Bi Mcdaniel MD 01/21/25 10:50:
I saw and evaluated the patient, and I provided the substantive portion of the medical decision making.
I reviewed and agree with the note by Dr De and it accurately reflects our care.
I personally performed the medical decision making of the this encounter and my assessment and plan is below:
89 yo F PMH HTN, HFpEF, moderate-severe aortic stenosis, CAD, DM, RACHEL, HLD p/w dyspnea for the past few days.
It appears there is medication compliance issues. Previous eval for TAVR, however, not indicated at that time.
Agree wtih IV diuresis. Will discuss with TAVR team.
Echo Today Jan 21 2025
SUMMARY
1. Normal biventricular size and function without regional wall motion abnormalities.
2. LVEF is 60-65% by visual estimation. Mild concentric LVH.
3. Moderate to severe aortic stenosis with peak/mean gradient of 59/35 mmHg. JUDY = 0.91 cm2.
4. Mild to moderate TR. Estimated PASP moderately elevated at 44 mmHg.
5. Compared to prior from January 13, 2024, mean gradient has increased and TR is now mild to moderate with moderately elevated PASP at 44 mmHg, previously mild TR with estimated PASP at 37 mmHg.
Original Note:
Consultation
Consultation Request
Date/Time Consultation Requested: 01/21/2025; 06:42
Date/Time Consultation Performed: 01/21/2025; 08:00
Requesting Provider: Dr. Isca Sanchez
Performing Provider: Dr. Bi Mcdaniel; Dr. Tim De
Reason for Consultation: CHF exacerbation
Medical History
-
Chief Complaint: CHF exacerbation
History of Present Illness:
89 yo F PMH HTN, HFpEF, moderate-severe aortic stenosis (valve area 0.94; peak gradients fo 48/48), CAD, DM, RACHEL, HLD p/w dyspnea for the past few days.
Patient is nigerien speaking, and currently on BIPAP. Per maxine, son, the patient experienced significant dyspnea, orthopnea, could not lie down. Low O2 to 88% and endorsed some chest pressure. She is on 2.5 L at home oxygen.
Per chart review: she arrived to ED on supplemental oxygen because of dyspnea. She denied chest pain. Per nurse, she is not compliant with meds. No sick contacts, No cough, fever, or chills.
PEr chart review: increase in abdominal girth and a longstanding hernia.
When I visited this morning, she denies chest pain but cannot specify medication names. However, she appears cognitively intact and is able to follow some commands (squeeze my hands, wiggle toes).
ED course: VS 160/90, HR 69, 95% on 4L, CXR (on my review) suggest bilateral pleural effusions + pulmonary edema. CT abdomen pelivs EKG was NSR. Troponin was 0.04. BNP is 1460 (last 518).
discussion with Dr. Hernandez, hospitalist, who obtained additional information -> she is not compliant with her medications, including furosemide. and follows with
Past Medical History
Past Medical History: CAD, CHF, HTN, Hypercholesterolemia, IDDM, Valvular Disease (aortic stenosis) and Other (RACHEL, pancreatic insufficiency)
Past Surgical History: Other (hysterectomy; Coronary artery stent)
Social History
Tobacco: Non-Smoker
Alcohol: None
Drug: None
Personal: Single
Living: With Family
Allergies / Home Medications
Allergy/AdvReac Type Severity Reaction Status Date / Time
No Known Allergies Allergy Verified 01/21/25 01:06
�Medication �Instructions �Recorded �Confirmed �Type
acetaminophen 650 mg 650 mg PO BIDPRN PRN mild pain 01/12/24 01/14/24 History
tablet,extended release (Pain
Relief (acetaminophen))
albuterol sulfate 90 mcg/actuation 2 puff inhalation R Q4HPRN PRN 01/12/24 01/14/24 History
aerosol inhaler (Ventolin HFA) sob/wheezing
aspirin 81 mg tablet,delayed 81 mg PO DAILY Blood Clot 01/12/24 01/14/24 History
release Prevention/Tx
atorvastatin 80 mg tablet 80 mg PO QPM High Cholesterol 01/12/24 01/14/24 History
bisacodyl 5 mg tablet,delayed 10 mg PO DAILY Constipation 01/12/24 01/15/24 History
release
cholecalciferol (vitamin D3) 50 50 mcg PO DAILY Supplement 01/12/24 01/14/24 History
mcg (2,000 unit) capsule (Vitamin
D3)
diclofenac sodium 1 % topical gel 1 ea topical QIDPRN PRN knee pain 01/12/24 01/14/24 History
docusate sodium 100 mg capsule 100 mg PO BID Constipation 01/12/24 01/15/24 History
fluticasone furoate 200 2 inh inhalation R DAILY 01/12/24 01/14/24 History
mcg-vilanterol 25 mcg/dose Lung/Breathing Issues
inhalation powder (Breo Ellipta)
furosemide 20 mg tablet 20 mg PO BID Fluid 01/12/24 01/15/24 History
Retention/Swelling
insulin degludec 100 unit/mL (3 35 unit SC HS Diabetes 01/12/24 01/15/24 History
mL) subcutaneous pen (Tresiba
FlexTouch U-100 insulin)
meclizine 12.5 mg tablet 12.5 mg PO BIDPRN PRN dizziness 01/12/24 01/15/24 History
metoprolol tartrate 25 mg tablet 25 mg PO BID Heart 01/12/24 01/15/24 History
Disease/Condition
mirabegron 50 mg tablet,extended 50 mg PO DAILY Urinary Issue 01/12/24 01/15/24 History
release 24 hr (Myrbetriq)
nitroglycerin 0.4 mg sublingual 0.4 mg sublingual [id number] PRN 01/12/24 01/14/24 History
tablet chest pain
tramadol 50 mg tablet 50 mg PO TIDPRN PRN moderate pain 01/12/24 01/15/24 History
zolpidem 5 mg tablet (Ambien) 5 mg PO HSPRN PRN sleep 01/12/24 01/15/24 History
budesonide 160 mcg-glycopyr 9 2 inh inhalation BID 01/14/24 01/14/24 History
mcg-formot 4.8 mcg/actuation HFA
inhaler (Breztri Aerosphere)
buspirone 10 mg tablet 20 mg PO TID 01/14/24 01/14/24 History
escitalopram oxalate 20 mg tablet 20 mg PO DAILY 01/14/24 01/14/24 History
(Lexapro)
folic acid 1 mg tablet 1 mg PO DAILY 01/14/24 01/14/24 History
gabapentin 100 mg capsule 100 mg PO BID 01/14/24 01/14/24 History
metronidazole 0.75 % topical gel 1 applic topical BID 01/14/24 01/14/24 History
pantoprazole 40 mg tablet,delayed 40 mg PO DAILY 01/14/24 01/14/24 History
release (Protonix)
vitamin D24-uhxasgtun factor 500 mcg PO DAILY 01/14/24 01/14/24 History
bisacodyl 10 mg rectal suppository 10 mg [place] DAILY PRN constipation 01/15/24 01/15/24 History
insulin lispro 100 unit/mL 6 unit SC TID 01/15/24 01/15/24 History
subcutaneous pen
khcuxq-dgermyqu-fvmohn(pork)24,000-76,000-120,000 1 cap PO TID 01/15/24 01/15/24 History
unit capsule,del rel (Creon)
repaglinide 2 mg tablet 2 mg PO TID 01/15/24 01/15/24 History
tirzepatide 10 mg/0.5 mL 10 mg SC QWEEK 01/15/24 01/15/24 History
subcutaneous pen injector
(Mounjaro)
dapagliflozin propanediol 10 mg 10 mg PO DAILY #30 tabs 01/21/24 Rx
tablet
Review of Systems
-
Unable to obtain full review of systems at this time due to: Acuity and Language Barrier
Physical Exam
Vital Signs
Temp Pulse Resp BP Pulse Ox
97.4 F 78 18 122/66 96
01/21/25 06:41 01/21/25 06:00 01/21/25 01:30 01/21/25 06:00 01/21/25 06:38
Lab Results
01/21/25 00:46
01/21/25 00:46
Troponin I 0.040 ng/ml H* 01/21/25 00:46
Syg-U-Xxollctrqlt Pept 1460 pg/ml 01/21/25 00:46
Troponin: 0.040
proBNP 1460 (prior 518)
EK01/21/2025
Vent. Rate : 62 BPM Atrial Rate : 62 BPM
P-R Int : 148 ms QRS Dur : 82 ms
QT Int : 428 ms P-R-T Axes : 52 4 81 degrees
QTcB Int : 434 ms
SINUS RHYTHM WITH PREMATURE ATRIAL COMPLEXES
NONSPECIFIC ST AND T WAVE ABNORMALITY
ABNORMAL ECG
WHEN COMPARED WITH ECG OF 17-Jan-2024 12:43,
PREMATURE ATRIAL COMPLEXES ARE NOW PRESENT
[place] INTERVAL HAS INCREASED
NONSPECIFIC T WAVE ABNORMALITY, IMPROVED IN INFERIOR LEADS
T WAVE INVERSION LESS EVIDENT IN LATERAL LEADS
Diagnostic imaging
CT ABDOMEN PELVIS WITH CONTRAST 01/21/2025 ([facility])
COMPARISON: None
IMPRESSION:
No acute findings in the abdomen.
Moderate body wall edema
There is severe colonic diverticulosis but no diverticulitis. Normal appendix. No bowel obstruction. No free air.
No obstructive uropathy. Bilateral renal cysts.
No concerning bone finding.
Moderate aortic valve calcification. Mild bibasal atelectasis.
Echocardiogram 01/13/2024
CONCLUSIONS
Normal LV size and function with no regional wall motion abnormalities.
LV ejection fraction is 55-60% by visual assessment.
Mild concentric LVH.
Normal right ventricular size and function.
Moderate to severe aortic stenosis.
Mild tricuspid regurgitation.
Estimated pulmonary artery pressure of 37 mmHg, assuming a right atrial
pressure of 3 mmHg.
No prior study available for comparison.
Catheterization lab 01/26/2024:
CONCLUSIONS:
1. Right dominant circulation with a patent stent in the mid LAD and a 30% lesion in the distal circumflex as becomes the left posterolateral branch.
2. Severely elevated filling pressures (PCWP = 26 mmHg at 97.1 kg).
3. Severely depressed cardiac function (cardiac index = 1.3 L/min/m�).
4. 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
5. Severely elevated systemic vascular resistance (SVR = 3004 dynes*seconds*cm^-5).
Physical Exam
General: Other (on BIPAP)
HEENT: Normocephalic
Cardiac: Regular Rhythm and Murmur (holosystolic crescendo-decrescendo murmur)
GI: Soft, Non Tender and Distended
Musculoskeletal: Edema (1+ pitting edema bilaterally)
Neuro: Awake, Alert and No Motor Deficits
Psych: Calm
Impression / Plan
-
In summary, 89 yo F PMH HTN, HFpEF, moderate-severe aortic stenosis (valve area 0.94; peak gradients fo 48/48), CAD, DM, RACHEL, HLD p/w dyspnea most c/f HFpEF exacerbation
HFpEF exacerbation
- Dyspnea, orthopnea, appears fluid overload (abdominal girth) c/f HFpEF exacerbation
- Triggers are broad and include: medication nonadherence, arrhythmia, ischemia, infection, anemia, lifestyle changes etc.
- trigger here: is most likely medication nonadherence
- proBNP 1460 elevated from 518 prior admission
- Last echo in 12/2023 showed EF 55-60%
- Her GDMT per chart review: SGLT2i (dapagliflozin) + b-beta erika (metoprolol tartrate)
- She takes furosemide 20mg bid PO at home as well but is not compliant
- Her pile driver operator helper: Dr. Rosenthal ([place])
Plan:
- Consider increase to IV furosemide 80mg q12h
- Continue metoprolol succinate 25mg bid
- Hold valsartan, hold amlodipine
- Hold isosorbide mononitrate because she no longer complains of chest pain
- f/u TTE today (which should be completed)
- Recommendations are not final until discussed with Dr. Mcdaniel, cardiology attending
Elevated troponin
- 0.040
- EKG showed no signs of ischemia
Aortic Stenosis
- Last stated moderate to severe
- f/u TTE (completed)
CAD
- RHC in 12/2023: TAVR was not deemed appropriate at that time
- C 07/2021: LAD with patent stent, D1 50%, OM2 70%
- PCI to mid LAD 08/11/2020
- No chest pain
- Continue aspirin 81mg
HTN
- hold valsartan, hold amlodipine
--- NOTE | 2025-01-21 08:53 | PTCARENOTE ---
Pt recieved on BIPAP now on 6 liters O2 . Pt Puerto Rican speaking but denies CP or SOB. Will attempt meds
[2025-01-21] MEDS: NOVOLOG FLEXPEN-LOW RESISTANCE SC (09:15)
[2025-01-21 09:20] LABS: Glucose - Point of Care 146 mg/dl (70-99)
[2025-01-21] MEDS: LEXAPRO 15 MG PO (10:10)
[2025-01-21] MEDS: LOPRESSOR PO ×2 (10:10→21:38)
[2025-01-21] MEDS: COLACE 100 MG PO ×2 (10:11→19:53)
[2025-01-21] MEDS: PEPCID 20 MG PO ×2 (10:11→21:48)
[2025-01-21] MEDS: ASPIR LOW (ENTERIC COATED) 81 MG PO (10:12)
[2025-01-21] MEDS: DULCOLAX 10 MG PO (10:12)
--- NOTE | 2025-01-21 10:19 | W.PN.HOSP.TC ---
Today's Communication/Plan
-
Echo
Diuresis
Follow renal function
Plan of care discussed with patient's son over the phone and cardiology
Assessment / Plan
Assessment / Plan
Impression
89-year-old with complex past medical history coming to the emergency department with progressive shortness of breath much more severe over the last 2 to 3 days without known weight gain. Evaluation in the ED is consistent with CHF exacerbation
with increasing BNP, bilateral pleural effusions and pulmonary edema on x-ray, increased work of breathing. She is not wheezing and does not appear to be having asthma or COPD exacerbation. She has no focal consolidation on x-ray and shows no
other signs of an acute infection. She does appear to have significant sleep apnea in the setting of her somnolence.
Acute on chronic hypoxic respiratory failure.
Acute CHF preserved EF/valvular secondary severe aortic stenosis
Acute cardiogenic pulmonary edema
Conditions prior to admission:
Chronic CHF preserved EF.
Chronic hypoxic respiratory failure on home O2 at 2-1/2 L.
CAD
Obstructive sleep apnea on nightly CPAP.
Moderate to severe aortic stenosis by echo 01/21.
CAD.
History of acute kidney injury
IDDM.
Obesity with BMI of 40
Ventral hernia
Plan
Acute CHF presumed with preserved EF and secondary to severe aortic stenosis.
Acute on chronic hypoxic respiratory failure, currently requiring nasal cannula oxygen up to 6 L.
Chest x-ray with pulmonary edema
Weight is up close to 20 pounds since December 2023.
Anasarca with increased abdominal girth and peripheral edema.
Patient states to be compliant with diuretic regimen at home.
Suspect progressive and now critical
Repeat echocardiogram
Cardiology evaluation
Initiated on Lasix 60 mg IV twice daily
Continue metoprolol
Hold Imdur, valsartan avoiding hypotension in the settings of severe aortic stenosis also with prior history of LAUREANO.
Daily weights
Daily BMP
Relatively high risk for TAVR, although could be considered depends on response to diuresis, renal function and overall performance status.
GDMT to be determined according to above.
CAD.
Hypertension
History of PCI to LAD 08/18
She complains of periodic chest pain.
Has mildly elevated troponin.
ECG without ischemia.
Had nonobstructive CAD on cath 01/21
Continue aspirin
Continue high potency statin
Continue beta-erika
Hold amlodipine
Hold Imdur avoiding hypotension while on aggressive diuresis
Obstructive sleep apnea.
Continue CPAP at night.
IDDM
Update hemoglobin A1c.
Continue Basaglar insulin Lantus
Hold oral glucose lowering medications including Prandin and metformin.
Basal bolus protocol with serial Accu-Cheks
Increase of abdominal girth
Anasarca with severe peripheral edema
Ventral hernia.
CT scan abdomen pelvis done in ED pending report
Severe DJD with chronic ambulatory dysfunction
CODE STATUS. Goals of care discussed with patient. Bella is clear with her directions not to pursue any heroic measures including CPR or invasive ventilation. She would accept invasive cardiac tests and procedures if there is a reasonable chance
to improve her quality of life.
DNR
DVT prophylaxis Lovenox
Anticipated Discharge: > 48 hours
Subjective/Interval History
-
Date of Service: January 21, 2025
Objective Data
-
Labs:
Laboratory Results
01/21/25
00:46
WBC 11.2 H
Hgb 13.0
Hct 43.3
Plt Count 308
Sodium 143
Potassium 3.9
Chloride 106
Carbon Dioxide 31 H
BUN 23 H
Creatinine 0.8
Glucose 184 H
Calcium 9.1
Total Bilirubin 0.6
AST 25
ALT 26
Alkaline Phosphatase 76
Vital Signs:
Vital Signs
Temp Pulse Resp BP Pulse Ox
97.5 F 58 18 122/66 92
01/21/25 09:15 01/21/25 10:10 01/21/25 01:30 01/21/25 06:00 01/21/25 09:34
Physical Exam
-
General: Well Developed and No Apparent Distress
HEENT: Normocephalic, Atraumatic and Moist Mucous Membranes
Respiratory: Rales and Crackles; Negative Wheezes
Cardiac: Regular Rhythm, S1/S2 and Murmur (Systolic, left sternal border); Negative Rub or Gallop
GI: Soft, Nontender, Nondistended and Normal Bowel Sounds; Negative Organomegaly
Rectal: Deferred by Provider
Musculoskeletal: No Clubbing, No Cyanosis and No Edema
Skin: Negative Rash
Neuro: Nonfocal/Grossly Intact
[2025-01-21 11:16] LABS: Glycohemoglobin (HgbA1c) 7.8 % (4.0-5.9)
[2025-01-21] MEDS: ULTRAM 50 MG PO ×2 (11:50→19:53)
[2025-01-21 13:05] LABS: Glucose - Point of Care 239 mg/dl (70-99)
[2025-01-21] MEDS: NOVOLOG FLEXPEN-LOW RESISTANCE 2 UNITS SC (13:41)
[2025-01-21] MEDS: ZENPEP DELAYED RELEASE CAPSULE 1 CAPSULE PO ×2 (16:42→21:48)
--- NOTE | 2025-01-21 16:45 | CM ---
Initial Assessment Completed By TRISHA Quinones
Patient who is Icelandic Speaking lives ins subsidized housing in [place] in an apartment, uses a rolling walking, has a CPAP plus Home O2 augie 2-3 Liters (all through [employer]), uses [facility], and No Inpatient Rehab.
PCP: Dr. Sahneka August
Pharmacy: [facility]
Patient has transportation home. PLAN: Home with [facility].
[2025-01-21] MEDS: NOVOLOG FLEXPEN-LOW RESISTANCE 1 UNITS SC (17:04)
[2025-01-21] MEDS: LIPITOR 80 MG PO (17:09)
[2025-01-21] MEDS: LOVENOX 40 MG SC (17:09)
[2025-01-21 17:13] LABS: Glucose - Point of Care 169 mg/dl (70-99)
[2025-01-21] MEDS: AMBIEN 5 MG PO (20:38)
[2025-01-21 21:42] LABS: Glucose - Point of Care 209 mg/dl (70-99)
[2025-01-21] MEDS: LIDOCAINE 4% PATCH 2 PATCH TOPICAL (21:47)
[2025-01-21] MEDS: LANTUS 0.2 UNITS SC (21:48)
--- NOTE | 2025-01-21 22:26 | PTCARENOTE ---
Pt aaox3, cameroonian speaking. NSR with PACs on monitor. Trace blle edema. Heart murmur noted. Palpable pedal pulses. BIPAP HS with 6L. Diminished bilaterally with crackles in bases. SaO2 96%. Round/obese abdomen, +bowel sounds, incontinent of bladder,
purwick in place. HS accucheck 209, 20 units lantus given.
--- NOTE | 2025-01-21 23:19 | PTCARENOTE ---
Pt noted to have significant pain in her knees at 19:45. PRN tramadol given at 19:53. Pt found crying in bed 30 minutes later, stating that she can't fall asleep. PRN ambien given at 20:38. At 21:30, pt states that she was having 5/10 chest pain.
When asked if she had experience this type of pain before, she replied yes. When asked if she takes anything for her chest pain she replied 'nitroglycerin'. Manual BP taken, 105/70. NURSING TECHNICIAN notified via tiger text. PRN nitro held at this time due to soft
BP. Chest pain improved within 5-10 minutes. EKG done, NSR. Pt resting comfortably in bed at this time. No c/o pain. VSS. BP 116/60. Care ongoing.
[2025-01-22] VITALS (10 sets, daily range): BP systolic 101–153; BP diastolic 63–95; PULSE 2–58; BMI 39.3
[2025-01-22] MEDS: ULTRAM 50 MG PO ×3 (04:59→18:44)
[2025-01-22 05:25] LABS: Hematocrit 43.1 % (37.0-47.0); Hemoglobin 12.6 g/dL (12.0-16.0); Mean Corp Hgb Conc. 29.2 g/dL (33.0-37.0); Mean Corpuscular Volume 90.7 fL (81.0-99.0); Platelet Count 281 10^3/uL (130-400); Red Cell Dist. Width 18.4 % (11.5-14.5)
[2025-01-22] MEDS: MORPHINE SULFATE 1 MG IV (05:38)
[2025-01-22 06:00] LABS: Blood Urea Nitrogen 20 mg/dl (7-17); Calcium 9.0 mg/dl (8.4-10.2); Carbon Dioxide 35 mmol/L (22-30); Chloride 101 mmol/L (98-107); Estimated Creatinine Clearance 68 ml/min; Glucose 145 mg/dl (70-99); HDL Cholesterol 58 mg/dl; LDL Cholesterol, Calculated 42 mg/dl; Magnesium 2.1 mg/dl (1.6-2.3); Potassium 3.9 mmol/L (3.5-5.1); Sodium 138 mmol/L (135-145); Very Low Density Lipoprotein 16 mg/dl (0-30); eGFR > 60.00
[2025-01-22] MEDS: NITROSTAT (SUBLINGUAL) 0.4 MG SL (07:36)
[2025-01-22] MEDS: LASIX 60 MG IV ×2 (07:38→16:30)
--- NOTE | 2025-01-22 07:45 | PTCARENOTE ---
Pt crying with chest pain and l hip pain, given Nitro X1 with relief. Pt is AAOx3, Pt on 6L O2 at 91%
[2025-01-22 08:01] LABS: Glucose - Point of Care 153 mg/dl (70-99)
[2025-01-22] MEDS: NOVOLOG FLEXPEN-LOW RESISTANCE 1 UNITS SC (08:49)
[2025-01-22] MEDS: ASPIR LOW (ENTERIC COATED) 81 MG PO (08:50)
[2025-01-22] MEDS: MYRBETRIQ EXTENDED RELEASE 50 MG PO (08:51)
[2025-01-22] MEDS: ZENPEP DELAYED RELEASE CAPSULE 1 CAPSULE PO ×3 (08:51→23:16)
[2025-01-22] MEDS: PEPCID 20 MG PO (08:52)
[2025-01-22] MEDS: LOPRESSOR 25 MG PO ×2 (08:52→19:58)
[2025-01-22] MEDS: DULCOLAX 10 MG PO (08:52)
[2025-01-22] MEDS: LEXAPRO 15 MG PO (08:53)
[2025-01-22] MEDS: COLACE 100 MG PO ×2 (08:54→19:58)
--- NOTE | 2025-01-22 08:54 | W.PN.CD ---
Today's Communication / Plan
-
Cont IV diuresis
Resume farxiga 10 mg
Impression / Plan
-
In summary, 89 yo F PMH HTN, HFpEF, moderate-severe aortic stenosis (valve area 0.94; peak gradients fo 48/48), CAD, DM, RACHEL, HLD p/w dyspnea most c/f HFpEF exacerbation
HFpEF acute on chronic
- Possible med noncompliance
- proBNP 1460 elevated from 518 prior admission
- Echo below
- Her career services manager: Dr. Rosenthal ([place])
- Cont IV diuresis bid
- resume farxiga 10 mg
Elevated troponin
- nonischemic myocardial injury 2/2 HFpEF Exacerbation
Aortic Stenosis
- progressive but remains moderate to severe mean gradient 35 mmHG
- f/u TTE below
- will discuss with IC Friday
CAD
- RHC in 12/2023: TAVR was not deemed appropriate at that time
- [facility] 07/2021: LAD with patent stent, D1 50%, OM2 70%
- PCI to mid LAD 08/11/2020
- No chest pain
- Continue aspirin 81mg
HTN
- cont valsartan and amlodipine
Subjective; back pain otherwise OK
Echo Jan 21 2025: SUMMARY
1. Normal biventricular size and function without regional wall motion abnormalities.
2. LVEF is 60-65% by visual estimation. Mild concentric LVH.
3. Moderate to severe aortic stenosis with peak/mean gradient of 59/35 mmHg. JUDY = 0.91 cm2.
4. Mild to moderate TR. Estimated PASP moderately elevated at 44 mmHg.
5. Compared to prior from January 13, 2024, mean gradient has increased and TR is now mild to moderate with moderately elevated PASP at 44 mmHg, previously mild TR with estimated PASP at 37 mmHg.
Physical Exam
Vital Signs/Labs
Vital Signs
Temp Pulse Resp BP Pulse Ox
97.6 F 71 15 119/77 97
01/22/25 03:00 01/22/25 07:38 01/22/25 04:00 01/22/25 07:41 01/22/25 02:15
01/21/25 01/22/25 01/23/25
06:59 06:59 06:59
Actual Weight 240 lb 4.862 oz 236 lb 5.369 oz
01/22/25 03:59
01/22/25 03:59
Magnesium 2.1 mg/dl (1.6-2.3) 01/22/25 03:59
Triglycerides 84 mg/dl (10-149) 01/22/25 03:59
LDL Cholesterol, Calc 42 mg/dl 01/22/25 03:59
VLDL Cholesterol, Calc 16 mg/dl (0-30) 01/22/25 03:59
HDL Cholesterol 58 mg/dl 01/22/25 03:59
01/21/25
00:46
Jpl-H-Iyhpczhxqjq Pept 1460
LAB Results
01/21/25
00:46
Troponin I 0.040 H*
Physical Exam
Constitutional: No acute distress
EENT: Anicteric
Cardiovascular: Rhythm & rate is regular, Pedal edema present and Systolic murmur present
Respiratory: Respiratory effort normal and Crackles Present
GI: Soft
Neuro/Psych: AO x 3
Data Reviewed
-
Date of Service: January 22, 2025
EKG: Tracing Personally Visualized and interpreted (sr)
Echo: Tracing Personally Visualized and interpreted
Labs: Labs Reviewed by me
[2025-01-22] MEDS: REMOVE LIDOCAINE PATCH 2 PATCH REMOVE (10:15)
[2025-01-22 12:11] LABS: Glucose - Point of Care 304 mg/dl (70-99)
[2025-01-22] MEDS: NOVOLOG FLEXPEN-LOW RESISTANCE 4 UNITS SC (12:28)
--- NOTE | 2025-01-22 14:15 | PTCARENOTE ---
Pt for IVU report given
--- NOTE | 2025-01-22 15:05 | PTCARENOTE ---
Received pt from IMU, monitor showing SR, VSS. Pt denies pain at present. Lungs diminished, O2 6L intact, denies shortness of breath. Oriented to room, call young in reach.
--- NOTE | 2025-01-22 16:03 | W.PN.HOSP.TC ---
Today's Communication/Plan
-
Assessment / Plan
Assessment / Plan
NAD, Armenian/Trinidadian speaking female, sitting in bedside chair with nasal prongs in
Scleral Anicteric
MMM
No JVD
Bibasilar crackles
RRR, S1/S2, right upper sternal border JOE 3/6
Obese, soft, NT, ND, BS+
Warm, Dry
AAOx3
Calm
Impression
89-year-old with complex past medical history coming to the emergency department with progressive shortness of breath much more severe over the last 2 to 3 days without known weight gain. Evaluation in the ED is consistent with CHF exacerbation
with increasing BNP, bilateral pleural effusions and pulmonary edema on x-ray, increased work of breathing. She is not wheezing and does not appear to be having asthma or COPD exacerbation. She has no focal consolidation on x-ray and shows no
other signs of an acute infection. She does appear to have significant sleep apnea in the setting of her somnolence.
Acute on chronic hypoxic respiratory failure.
Acute CHF preserved EF/valvular secondary severe aortic stenosis
Acute cardiogenic pulmonary edema
Conditions prior to admission:
Chronic CHF preserved EF.
Chronic hypoxic respiratory failure on home O2 at 2-1/2 L.
CAD
Obstructive sleep apnea on nightly CPAP.
Moderate to severe aortic stenosis by echo 01/21.
CAD.
History of acute kidney injury
IDDM.
Obesity with BMI of 40
Ventral hernia
Plan
Acute CHF presumed with preserved EF and secondary to severe aortic stenosis.
Acute on chronic hypoxic respiratory failure, currently requiring nasal cannula oxygen up to 6 L.
Chest x-ray with pulmonary edema
Weight is up close to 20 pounds since December 2023.
Anasarca with increased abdominal girth and peripheral edema.
Patient states to be compliant with diuretic regimen at home.
Suspect progressive and now critical
Repeat echocardiogram
Cardiology evaluation
Continue Lasix 60 mg IV twice daily
Continue metoprolol
Hold Imdur, valsartan avoiding hypotension in the settings of severe aortic stenosis also with prior history of LAUREANO.
Daily weights
Daily BMP
Relatively high risk for TAVR, although could be considered depends on response to diuresis, renal function and overall performance status.
Resume Farxiga
GDMT to be determined according to above.
CAD.
Hypertension
History of PCI to LAD 08/18
She complains of periodic chest pain.
Has mildly elevated troponin.
ECG without ischemia.
Had nonobstructive CAD on cath 01/21
Continue aspirin
Continue high potency statin
Continue beta-erika
Hold amlodipine
Hold Imdur avoiding hypotension while on aggressive diuresis
Flank pain could be musculoskeletal no CVA tenderness
Ordered a renal bladder ultrasound. Low clinical suspicion for pyelonephritis/UTI at this time
Obstructive sleep apnea.
Continue CPAP at night.
IDDM
Update hemoglobin A1c.
Continue Basaglar insulin Lantus
Hold oral glucose lowering medications including Prandin and metformin.
Basal bolus protocol with serial Accu-Cheks
Increase of abdominal girth
Anasarca with severe peripheral edema
Ventral hernia.
CT scan abdomen pelvis done in ED pending report
Severe DJD with chronic ambulatory dysfunction
CODE STATUS. Goals of care discussed with patient. Bella is clear with her directions not to pursue any heroic measures including CPR or invasive ventilation. She would accept invasive cardiac tests and procedures if there is a reasonable chance
to improve her quality of life.
DNR
DVT prophylaxis Lovenox
Anticipated Discharge: > 48 hours
Subjective/Interval History
-
Date of Service: January 22, 2025
Seen and examined. Having some left-sided flank pain discomfort
No burning with urination no urinary frequency
Objective Data
-
Labs:
Laboratory Results
01/22/25
03:59
WBC 7.9
Hgb 12.6
Hct 43.1
Plt Count 281
Sodium 138
Potassium 3.9
Chloride 101
Carbon Dioxide 35 H
BUN 20 H
Creatinine 0.7
Glucose 145 H
Calcium 9.0
Vital Signs:
Vital Signs
Temp Pulse Resp BP Pulse Ox
97.8 F 59 18 105/69 99
01/22/25 14:57 01/22/25 14:57 01/22/25 14:57 01/22/25 14:55 01/22/25 14:57
I&O
01/21/25 01/22/25 01/23/25
06:59 06:59 06:59
Intake Total 500 / 500
Output Total 1350 / 1350 1000 / 1000
Balance -1350 / -1350 -500 / -500
[2025-01-22] MEDS: LOVENOX 40 MG SC (16:36)
[2025-01-22] MEDS: LIPITOR 80 MG PO (16:36)
[2025-01-22] MEDS: NOVOLOG FLEXPEN-LOW RESISTANCE 3 UNITS SC (17:40)
[2025-01-22 17:41] LABS: Glucose - Point of Care 265 mg/dl (70-99)
--- NOTE | 2025-01-22 23:02 | PTCARENOTE ---
Pt rec'd at change of shift in recliner chair 2 person assist back to bed with walker. + ARAUJO, no audible wheezing noted on 6 lit n/c.
Saturated in pt's own depends. Depends removed pt washed thoroughly in perineal area and pure wick placed. no irritation noted.
At this time pt resting on Bipap 15/10 with 8 lit, per resp therapist.Sinus with pac's on telemetry.
[2025-01-22 23:14] LABS: Glucose - Point of Care 155 mg/dl (70-99)
[2025-01-22] MEDS: LANTUS 0.2 UNITS SC (23:22)
[2025-01-23] VITALS (8 sets, daily range): BP systolic 103–158; BP diastolic 46–135; BMI 38.8
[2025-01-23] MEDS: AMBIEN 5 MG PO ×2 (01:01→23:19)
[2025-01-23] MEDS: ULTRAM 50 MG PO ×3 (01:32→19:54)
--- NOTE | 2025-01-23 02:06 | PTCARENOTE ---
Pt calling out tugging at Bipap; sat 100% device removed; pt placed back on O2 at 6lit n/c. rsp aware.
pt given Ambien for sleep but pt started calling out legs in constant motion medicated with Tramadol for leg pain and left hip pain.
[2025-01-23 04:48] LABS: Blood Urea Nitrogen 26 mg/dl (7-17); Calcium 8.8 mg/dl (8.4-10.2); Carbon Dioxide 40 mmol/L (22-30); Chloride 96 mmol/L (98-107); Estimated Creatinine Clearance 59 ml/min; Glucose 154 mg/dl (70-99); Potassium 4.2 mmol/L (3.5-5.1); Sodium 139 mmol/L (135-145); eGFR > 60.00
[2025-01-23] MEDS: PEPCID 20 MG PO (07:18)
[2025-01-23] MEDS: MYRBETRIQ EXTENDED RELEASE 50 MG PO (07:18)
[2025-01-23] MEDS: DULCOLAX 10 MG PO (07:18)
[2025-01-23] MEDS: LOPRESSOR 25 MG PO ×2 (07:18→19:54)
[2025-01-23] MEDS: COLACE 100 MG PO ×2 (07:19→19:54)
[2025-01-23] MEDS: LEXAPRO 15 MG PO (07:19)
[2025-01-23] MEDS: FARXIGA 10 MG PO (07:19)
[2025-01-23] MEDS: ASPIR LOW (ENTERIC COATED) 81 MG PO (07:19)
[2025-01-23] MEDS: LASIX 60 MG IV ×2 (07:20→16:36)
[2025-01-23] MEDS: ZENPEP DELAYED RELEASE CAPSULE 1 CAPSULE PO ×3 (07:21→22:46)
[2025-01-23 08:03] LABS: Glucose - Point of Care 150 mg/dl (70-99)
[2025-01-23] MEDS: NOVOLOG FLEXPEN-LOW RESISTANCE 1 UNITS SC (08:49)
--- NOTE | 2025-01-23 12:22 | W.PN.HOSP.TC ---
Today's Communication/Plan
-
Assessment / Plan
Assessment / Plan
NAD, Congolese/Turkish speaking female, sitting in bedside chair with nasal prongs in
Scleral Anicteric
MMM
No JVD
Bibasilar crackles
RRR, S1/S2, right upper sternal border JOE 3/6
Obese, soft, NT, ND, BS+
Warm, Dry
AAOx3
Calm
Impression
89-year-old with complex past medical history coming to the emergency department with progressive shortness of breath much more severe over the last 2 to 3 days without known weight gain. Evaluation in the ED is consistent with CHF exacerbation
with increasing BNP, bilateral pleural effusions and pulmonary edema on x-ray, increased work of breathing. She is not wheezing and does not appear to be having asthma or COPD exacerbation. She has no focal consolidation on x-ray and shows no
other signs of an acute infection. She does appear to have significant sleep apnea in the setting of her somnolence.
Acute on chronic hypoxic respiratory failure.
Acute CHF preserved EF/valvular secondary severe aortic stenosis
Acute cardiogenic pulmonary edema
Conditions prior to admission:
Chronic CHF preserved EF.
Chronic hypoxic respiratory failure on home O2 at 2-1/2 L.
CAD
Obstructive sleep apnea on nightly CPAP.
Moderate to severe aortic stenosis by echo 01/21.
CAD.
History of acute kidney injury
IDDM.
Obesity with BMI of 40
Ventral hernia
Plan
Acute CHF presumed with preserved EF and secondary to severe aortic stenosis.
Acute on chronic hypoxic respiratory failure, currently requiring nasal cannula oxygen up to 6 L.
Chest x-ray with pulmonary edema
Weight is up close to 20 pounds since December 2023.
Anasarca with increased abdominal girth and peripheral edema.
Patient states to be compliant with diuretic regimen at home.
Suspect progressive and now critical
Repeat echocardiogram
Cardiology evaluation
Continue Lasix 60 mg IV twice daily
May need to consider holding Lasix as developing contraction, bicarb now 40, if increases to greater than 42 would give a dose of Diamox
-Appreciate cardiology input
Continue metoprolol
Hold Imdur, valsartan avoiding hypotension in the settings of severe aortic stenosis also with prior history of LAUREANO.
Daily weights
Daily BMP
Relatively high risk for TAVR, although could be considered depends on response to diuresis, renal function and overall performance status.
Resume Farxiga
GDMT to be determined according to above.
CAD.
Hypertension
History of PCI to LAD 08/18
She complains of periodic chest pain.
Has mildly elevated troponin.
ECG without ischemia.
Had nonobstructive CAD on cath 01/21
Continue aspirin
Continue high potency statin
Continue beta-erika
Hold amlodipine
Hold Imdur avoiding hypotension while on aggressive diuresis
Flank pain
Resolved
Obstructive sleep apnea.
Continue CPAP at night.
IDDM
Update hemoglobin A1c.
Continue Basaglar insulin Lantus
Hold oral glucose lowering medications including Prandin and metformin.
Basal bolus protocol with serial Accu-Cheks
Increase of abdominal girth
Anasarca with severe peripheral edema
Ventral hernia.
CT scan abdomen pelvis done in ED pending report
Severe DJD with chronic ambulatory dysfunction
CODE STATUS. Goals of care discussed with patient. Bella is clear with her directions not to pursue any heroic measures including CPR or invasive ventilation. She would accept invasive cardiac tests and procedures if there is a reasonable chance
to improve her quality of life.
DNR
DVT prophylaxis Lovenox
Anticipated Discharge: 24 - 48 hours
Subjective/Interval History
-
Date of Service: January 23, 2025
Seen and examined. He had left-sided flank pain resolved. Now complaining of right knee pain likely related to arthritis
Was seen in the hallway of [facility].
No acute overnight events
Objective Data
-
Labs:
Laboratory Results
01/23/25 01/23/25
03:42 09:12
WBC Pending
Hgb Pending
Hct Pending
Plt Count Pending
Sodium 139 Pending
Potassium 4.2 Pending
Chloride 96 L Pending
Carbon Dioxide 40 H Pending
BUN 26 H Pending
Creatinine 0.8 Pending
Glucose 154 H Pending
Calcium 8.8 Pending
Vital Signs:
Vital Signs
Temp Pulse Resp BP Pulse Ox
98.5 F 64 20 154/82 97
01/23/25 11:12 01/23/25 07:15 01/23/25 11:12 01/23/25 07:15 01/23/25 11:12
I&O
01/22/25 01/23/25 01/24/25
06:59 06:59 06:59
Intake Total 500 / 500
Output Total 1350 / 1350 1000 / 1000
Balance -1350 / -1350 -500 / -500
[2025-01-23 12:40] LABS: Glucose - Point of Care 250 mg/dl (70-99)
--- NOTE | 2025-01-23 13:11 | W.PN.CD ---
Today's Communication / Plan
-
Continue IV diuresis
Impression / Plan
-
In summary, 89 yo F PMH HTN, HFpEF, moderate-severe aortic stenosis (valve area 0.94; peak gradients fo 48/48), CAD, DM, RACHEL, HLD p/w dyspnea most c/f HFpEF exacerbation
HFpEF acute on chronic
- Possible med noncompliance
- proBNP 1460 elevated from 518 prior admission
- Echo below
- Her black oxide coating equipment tender: Dr. Rosenthal ([place])
- Cont IV diuresis bid
- resume farxiga 10 mg
Elevated troponin
- nonischemic myocardial injury 2/2 HFpEF Exacerbation
Aortic Stenosis
- progressive but remains moderate to severe mean gradient 35 mmHG
- f/u TTE below
- will discuss with IC Friday
CAD
- RHC in 12/2023: TAVR was not deemed appropriate at that time
- C 07/2021: LAD with patent stent, D1 50%, OM2 70%
- PCI to mid LAD 08/11/2020
- No chest pain
- Continue aspirin 81mg
HTN
- cont valsartan and amlodipine
Subjective; going for ultrasound this a.m.
Echo Jan 21 2025: SUMMARY
1. Normal biventricular size and function without regional wall motion abnormalities.
2. LVEF is 60-65% by visual estimation. Mild concentric LVH.
3. Moderate to severe aortic stenosis with peak/mean gradient of 59/35 mmHg. JUDY = 0.91 cm2.
4. Mild to moderate TR. Estimated PASP moderately elevated at 44 mmHg.
5. Compared to prior from January 13, 2024, mean gradient has increased and TR is now mild to moderate with moderately elevated PASP at 44 mmHg, previously mild TR with estimated PASP at 37 mmHg.
Physical Exam
Vital Signs/Labs
Vital Signs
Temp Pulse Resp BP Pulse Ox
98.5 F 64 20 154/82 97
01/23/25 11:12 01/23/25 07:15 01/23/25 11:12 01/23/25 07:15 01/23/25 11:12
01/22/25 01/23/25 01/24/25
06:59 06:59 06:59
Actual Weight 236 lb 5.369 oz 233 lb 0.458 oz
Magnesium 2.1 mg/dl (1.6-2.3) 01/22/25 03:59
Triglycerides 84 mg/dl (10-149) 01/22/25 03:59
LDL Cholesterol, Calc 42 mg/dl 01/22/25 03:59
VLDL Cholesterol, Calc 16 mg/dl (0-30) 01/22/25 03:59
HDL Cholesterol 58 mg/dl 01/22/25 03:59
01/21/25
00:46
Nfy-X-Lumhudkfprk Pept 1460
LAB Results
01/21/25
00:46
Troponin I 0.040 H*
Physical Exam
Constitutional: No acute distress
EENT: Anicteric
Cardiovascular: Rhythm & rate is regular
Respiratory: Crackles Present
GI: Soft
Neuro/Psych: Alert and Oriented
Data Reviewed
-
Date of Service: January 23, 2025
EKG: Tracing Personally Visualized and interpreted (Sinus rhythm)
Echo: Tracing Personally Visualized and interpreted
Labs: Labs Reviewed by me
[2025-01-23] MEDS: NOVOLOG FLEXPEN-LOW RESISTANCE 3 UNITS SC (14:37)
[2025-01-23] MEDS: LIPITOR 80 MG PO (16:36)
[2025-01-23] MEDS: LOVENOX 40 MG SC (16:36)
[2025-01-23 17:00] LABS: Glucose - Point of Care 143 mg/dl (70-99)
[2025-01-23] MEDS: NOVOLOG FLEXPEN-LOW RESISTANCE SC (17:33)
[2025-01-23] MEDS: VENTOLIN NEBULES 2.5 MG INH (18:13)
[2025-01-23] MEDS: MORPHINE SULFATE 1 MG IV (18:22)
[2025-01-23 22:39] LABS: Glucose - Point of Care 177 mg/dl (70-99)
[2025-01-23] MEDS: LANTUS 0.2 UNITS SC (22:46)
[2025-01-24] VITALS (7 sets, daily range): BP systolic 105–151; BP diastolic 47–88; PULSE 2–78; BMI 38.0
--- NOTE | 2025-01-24 00:40 | PTCARENOTE ---
Received pt at change of shift resting in bed. pt AAO x3, but forgetful at x's, bed alarm on and audible. SB-SR with PAC's on tele, HR 50's-60's. PRN Tramadol administered per pt request--see MAR. Educated pt to call RN for assistance ambulating,
call young within reach.
[2025-01-24 04:57] LABS: Hematocrit 39.9 % (37.0-47.0); Hemoglobin 12.4 g/dL (12.0-16.0); Mean Corp Hgb Conc. 31.1 g/dL (33.0-37.0); Mean Corpuscular Volume 85.6 fL (81.0-99.0); Platelet Count 264 10^3/uL (130-400); Red Cell Dist. Width 17.7 % (11.5-14.5)
[2025-01-24] MEDS: MORPHINE SULFATE 1 MG IV ×2 (05:17→09:38)
[2025-01-24 05:18] LABS: Blood Urea Nitrogen 20 mg/dl (7-17); Calcium 8.9 mg/dl (8.4-10.2); Chloride 94 mmol/L (98-107); Estimated Creatinine Clearance 67 ml/min; Glucose 130 mg/dl (70-99); Potassium 3.7 mmol/L (3.5-5.1); Sodium 136 mmol/L (135-145); eGFR > 60.00
[2025-01-24 05:30] LABS: Carbon Dioxide 37 mmol/L (22-30)
[2025-01-24] MEDS: PEPCID 20 MG PO (08:20)
[2025-01-24] MEDS: MYRBETRIQ EXTENDED RELEASE 50 MG PO (08:20)
[2025-01-24] MEDS: LASIX 60 MG IV ×2 (08:20→16:54)
[2025-01-24] MEDS: DULCOLAX 10 MG PO (08:21)
[2025-01-24] MEDS: FARXIGA 10 MG PO (08:21)
[2025-01-24] MEDS: LEXAPRO 15 MG PO (08:21)
[2025-01-24] MEDS: ASPIR LOW (ENTERIC COATED) 81 MG PO (08:21)
[2025-01-24] MEDS: COLACE 100 MG PO ×2 (08:21→20:57)
[2025-01-24] MEDS: ULTRAM 50 MG PO ×2 (08:24→20:58)
[2025-01-24] MEDS: ZENPEP DELAYED RELEASE CAPSULE 1 CAPSULE PO ×3 (08:24→21:00)
[2025-01-24 08:48] LABS: Urine Character Slightly Cloudy (Clear)
[2025-01-24 09:01] LABS: Glucose - Point of Care 118 mg/dl (70-99)
[2025-01-24 09:19] LABS: Urine White Cell 70-80 /HPF (0-5)
--- NOTE | 2025-01-24 09:56 | W.PN.CD ---
Today's Communication / Plan
-
Straight cath.
Hold Farxiga with possible UTI.
Impression / Plan
-
In summary, 89 yo F PMH HTN, HFpEF, moderate-severe aortic stenosis (valve area 0.94; peak gradients fo 48/48), CAD, DM, RACHEL, HLD p/w dyspnea most c/f HFpEF exacerbation
Primary stem roller or crusher operator: Dr. Rosenthal ([place])
HFpEF acute on chronic
- Possible med noncompliance
- proBNP 1460 elevated from 518 prior admission, echo below
- Cont furosemide 60 mg IV twice daily, this requires intensive monitoring
- Hold Farxiga 10 mg, possible UTI
- HF education
- Trend daily weight, I/O, and BMP with diuresis
- Net weight loss unclear with transitions from bed scale to standing scale, last December she was 98 kg on a bed scale
Elevated troponin
- nonischemic myocardial injury 2/2 HFpEF Exacerbation
- Chest pain-free
Aortic Stenosis
- progressive but remains moderate to severe mean gradient 35 mmHg
- f/u TTE below
- will discuss with IC today
CAD
- RHC in 12/2023: TAVR was not deemed appropriate at that time
- LHC 07/2021: LAD with patent stent, D1 50%, OM2 70%
- PCI to mid LAD 08/11/2020
- No chest pain
- Continue aspirin 81mg, isosorbide mononitrate on hold with diuresis
Urinary frequency with retention
- Straight cath with UA GLOBAL COMMODITY MANAGER, hold Farxiga
HTN
- Cont valsartan and amlodipine
Chronic hypoxic respiratory failure, on home oxygen
Type 2 diabetes mellitus, with hyperglycemia, HgbA1c 7.8
Obesity, BMI 38
Subjective:
Reporting urinary frequency. Bladder scan with >500 mL.
DATA:
Echo Jan 21 2025:
SUMMARY
1. Normal biventricular size and function without regional wall motion abnormalities.
2. LVEF is 60-65% by visual estimation. Mild concentric LVH.
3. Moderate to severe aortic stenosis with peak/mean gradient of 59/35 mmHg. JUDY = 0.91 cm2.
4. Mild to moderate TR. Estimated PASP moderately elevated at 44 mmHg.
5. Compared to prior from January 13, 2024, mean gradient has increased and TR is now mild to moderate with moderately elevated PASP at 44 mmHg, previously mild TR with estimated PASP at 37 mmHg.
Physical Exam
Vital Signs/Labs
Vital Signs
Temp Pulse Resp BP Pulse Ox
98.1 F 61 22 142/76 97
01/24/25 07:56 01/24/25 08:20 01/24/25 07:56 01/24/25 08:20 01/24/25 07:56
01/23/25 01/24/25 01/25/25
06:59 06:59 06:59
Actual Weight 105.7 kg 103.5 kg
01/24/25 04:39
01/24/25 04:39
Magnesium 2.1 mg/dl (1.6-2.3) 01/22/25 03:59
Triglycerides 84 mg/dl (10-149) 01/22/25 03:59
LDL Cholesterol, Calc 42 mg/dl 01/22/25 03:59
VLDL Cholesterol, Calc 16 mg/dl (0-30) 01/22/25 03:59
HDL Cholesterol 58 mg/dl 01/22/25 03:59
01/21/25
00:46
Efc-I-Chrprbtpgqj Pept 1460
Physical Exam
Constitutional: No acute distress and Comfortable
EENT: Anicteric and Moist mucous membranes
Cardiovascular: Rhythm & rate is regular, Systolic murmur present (III/) and S1S2 is normal
Respiratory: Respiratory effort normal and Lungs clear to auscul.
GI: Soft, Distention absent, Flat and Non tender
Neuro/Psych: Alert and Oriented
Other: Skin (Warm and dry)
Data Reviewed
-
Date of Service: January 24, 2025
[2025-01-24] MEDS: KCL 40 MEQ PO (10:23)
[2025-01-24] MEDS: NOVOLOG FLEXPEN-LOW RESISTANCE SC ×3 (10:23→17:25)
[2025-01-24 10:38] LABS: Urine Character Clear (Clear)
[2025-01-24 11:12] LABS: Urine Squamous Cell 0-2 /LPF (Few)
[2025-01-24 11:19] LABS: Troponin I 0.017 ng/ml
[2025-01-24] MEDS: BenGay-Like 1 APPLIC TOPICAL ×3 (12:08→21:02)
--- NOTE | 2025-01-24 12:44 | W.PN.CD ---
Today's Communication / Plan
-
diuresis
d/w patient/family re: TAVR workup
Impression / Plan
-
In summary, 89 yo F PMH HTN, HFpEF, moderate-severe aortic stenosis (valve area 0.94; peak gradients fo 48/48), CAD, DM, RACHEL, HLD p/w dyspnea most c/f HFpEF exacerbation.
Primary law professor: Dr. Rosenthal ([place])
HFpEF acute on chronic
- Possible med noncompliance
- proBNP 1460 elevated from 518 prior admission, echo below
- Cont furosemide 60 mg IV twice daily, this requires intensive monitoring
- Hold Farxiga 10 mg, possible UTI
- HF education
- Trend daily weight, I/O, and BMP with diuresis
- Net weight loss unclear with transitions from bed scale to standing scale, last December she was 98 kg on a bed scale
Elevated troponin
- nonischemic myocardial injury 2/2 HFpEF Exacerbation
- Chest pain-free
Aortic Stenosis
- prior date reviewed extensively: progressive, moderate-severe likely LFLG with mean gradient ~35 mmHg, JUDY ~1.0; echo somewhat limited given body habitus, prior cath 12/2023 with non-obstructive CAD but no invasive valve gradient, calcium
score 1400, has a small annulus that would size for a evolut 26 mm valve, vessel caliber adaquate for femoral access
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
- will discuss course of cation with son patient (attempted to call son today but straight to voicemail)
CAD
- C 07/2021: LAD with patent stent, D1 50%, OM2 70%
- PCI to mid LAD 08/11/2020
- No chest pain
- Continue aspirin 81mg, isosorbide mononitrate on hold with diuresis
Urinary frequency with retention
- Straight cath with UA PHOTONICS ENGINEER, hold Farxiga
HTN
- Cont valsartan and amlodipine
Chronic hypoxic respiratory failure, on home oxygen
Type 2 diabetes mellitus, with hyperglycemia, HgbA1c 7.8
Obesity, BMI 38
Subjective:
Reporting urinary frequency. UA sent.
DATA:
Echo Jan 21 2025:
SUMMARY
1. Normal biventricular size and function without regional wall motion abnormalities.
2. LVEF is 60-65% by visual estimation. Mild concentric LVH.
3. Moderate to severe aortic stenosis with peak/mean gradient of 59/35 mmHg. JUDY = 0.91 cm2.
4. Mild to moderate TR. Estimated PASP moderately elevated at 44 mmHg.
5. Compared to prior from January 13, 2024, mean gradient has increased and TR is now mild to moderate with moderately elevated PASP at 44 mmHg, previously mild TR with estimated PASP at 37 mmHg.
Physical Exam
Vital Signs/Labs
Vital Signs
Temp Pulse Resp BP Pulse Ox
36.2 C 65 22 142/76 97
01/24/25 11:42 01/24/25 11:42 01/24/25 11:42 01/24/25 08:20 01/24/25 11:42
01/23/25 01/24/25 01/25/25
06:59 06:59 06:59
Actual Weight 105.7 kg 103.5 kg
01/24/25 04:39
01/24/25 04:39
Magnesium 2.1 mg/dl (1.6-2.3) 01/22/25 03:59
Triglycerides 84 mg/dl (10-149) 01/22/25 03:59
LDL Cholesterol, Calc 42 mg/dl 01/22/25 03:59
VLDL Cholesterol, Calc 16 mg/dl (0-30) 01/22/25 03:59
HDL Cholesterol 58 mg/dl 01/22/25 03:59
01/21/25
00:46
Aho-G-Uuldxamabqu Pept 1460
LAB Results
01/24/25
10:39
Troponin I 0.017
Physical Exam
Constitutional: Comfortable
Cardiovascular: Rhythm & rate is regular
Respiratory: Respiratory effort normal
Neuro/Psych: AO x 3
Data Reviewed
-
Date of Service: January 24, 2025
Medical Decision Making: Reviewed Test Results
EKG: Tracing Personally Visualized and interpreted
Echo: Tracing Personally Visualized and interpreted
X-Ray/CT/US/MRI/NUC/PET: Image Personally Visualized and interpreted
Medical Tests (PFT, Pathology etc): Image Personally Visualized and interpreted
Labs: Labs Reviewed by me
[2025-01-24 13:14] LABS: Glucose - Point of Care 140 mg/dl (70-99)
--- NOTE | 2025-01-24 13:47 | W.PN.HOSP.TC ---
Today's Communication/Plan
-
IV diuresis
Empiric antibiotics for UTI ceftriaxone pending cultures
Ongoing evaluation for TAVR
Assessment / Plan
Assessment / Plan
Impression
89-year-old with complex past medical history coming to the emergency department with progressive shortness of breath much more severe over the last 2 to 3 days without known weight gain. Evaluation in the ED is consistent with CHF exacerbation
with increasing BNP, bilateral pleural effusions and pulmonary edema on x-ray, increased work of breathing. She is not wheezing and does not appear to be having asthma or COPD exacerbation. She has no focal consolidation on x-ray and shows no
other signs of an acute infection. She does appear to have significant sleep apnea in the setting of her somnolence.
Acute on chronic hypoxic respiratory failure.
Acute CHF preserved EF/valvular secondary severe aortic stenosis
Acute cardiogenic pulmonary edema
Conditions prior to admission:
Chronic CHF preserved EF.
Chronic hypoxic respiratory failure on home O2 at 2-1/2 L.
CAD
Obstructive sleep apnea on nightly CPAP.
Moderate to severe aortic stenosis by echo 01/21.
CAD.
History of acute kidney injury
IDDM.
Obesity with BMI of 40
Ventral hernia
Plan
Acute CHF presumed with preserved EF and secondary to severe aortic stenosis.
Acute on chronic hypoxic respiratory failure, currently requiring nasal cannula oxygen up to 6 L.
Chest x-ray with pulmonary edema
Weight is up close to 20 pounds since December 2023.
Anasarca with increased abdominal girth and peripheral edema.
Patient states to be compliant with diuretic regimen at home.
Suspect progressive and now critical
Repeat echocardiogram
Cardiology evaluation
Continue IV diuresis monitoring renal function and acid-base status
Continue metoprolol
Hold Imdur, valsartan avoiding hypotension in the settings of severe aortic stenosis also with prior history of LAUREANO.
Daily weights
Daily BMP
Relatively high risk for TAVR, although could be considered depends on response to diuresis, renal function and overall performance status.
Hold Farxiga with possible UTI
GDMT to be determined according to above.
CAD.
Hypertension
History of PCI to LAD 08/18
She complains of periodic chest pain.
Has mildly elevated troponin.
ECG without ischemia.
Had nonobstructive CAD on cath 01/21
Continue aspirin
Continue high potency statin
Continue beta-erika
Hold amlodipine
Hold Imdur avoiding hypotension while on aggressive diuresis
Most likely UTI
Intermittent flank pain
Foul-smelling urine
Urinalysis obtained via straight cath equivocal
Urine cultures pending
Renal sonogram with no acute abnormalities
Start empiric antibiotic ceftriaxone pending cultures
Monitor for retention
Hold Farxiga
Obstructive sleep apnea.
Continue CPAP at night.
Not compliant
IDDM
Hemoglobin A1c 7.8
Continue Basaglar insulin Lantus
Hold oral glucose lowering medications including Prandin and metformin.
Basal bolus protocol with serial Accu-Cheks
Increase of abdominal girth
Anasarca with severe peripheral edema
Ventral hernia.
CT scan abdomen pelvis done in ED pending report
Severe DJD with chronic ambulatory dysfunction
CODE STATUS. Goals of care discussed with patient. Bella is clear with her directions not to pursue any heroic measures including CPR or invasive ventilation. She would accept invasive cardiac tests and procedures if there is a reasonable chance
to improve her quality of life.
DNR
DVT prophylaxis Lovenox
Anticipated Discharge: 24 - 48 hours
Subjective/Interval History
-
Date of Service: January 24, 2025
Objective Data
-
Labs:
Laboratory Results
01/24/25
04:39
WBC 8.4
Hgb 12.4
Hct 39.9
Plt Count 264
Sodium 136
Potassium 3.7
Chloride 94 L
Carbon Dioxide 37 H
BUN 20 H
Creatinine 0.7
Glucose 130 H
Calcium 8.9
Vital Signs:
Vital Signs
Temp Pulse Resp BP Pulse Ox
97.2 F 65 22 142/76 97
01/24/25 11:42 01/24/25 11:42 01/24/25 11:42 01/24/25 08:20 01/24/25 11:42
I&O
01/23/25 01/24/25 01/25/25
06:59 06:59 06:59
Intake Total 500 / 500 476 / 476
Output Total 1600 / 1600 975 / 1025 2570 / 2570
Balance -1100 / -1100 -975 / -1025 -2094 / -2093
Physical Exam
-
General: Well Developed and No Apparent Distress
HEENT: Normocephalic, Atraumatic and Moist Mucous Membranes
Respiratory: Rales and Crackles; Negative Wheezes
Cardiac: Regular Rhythm, S1/S2 and Murmur (Systolic, left sternal border); Negative Rub or Gallop
GI: Soft, Nontender, Nondistended and Normal Bowel Sounds; Negative Organomegaly
Rectal: Deferred by Provider
Musculoskeletal: No Clubbing, No Cyanosis and No Edema
Skin: Negative Rash
Neuro: Nonfocal/Grossly Intact
[2025-01-24] MEDS: STERILE WATER FOR INJECTION IV ×2 (14:53→15:12)
[2025-01-24] MEDS: ROCEPHIN IV ×2 (14:53→15:11)
--- NOTE | 2025-01-24 15:24 | CM ---
"Chart reviewed. Patient is Gibraltarian speaking. I spoke to the patient's son over the phone. 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 Patient receives 21 hours a week. Referral sent to "[facility] to resume services when medically stable for discharge. CM to follow"
[2025-01-24 17:22] LABS: Glucose - Point of Care 142 mg/dl (70-99)
[2025-01-24] MEDS: LIPITOR 80 MG PO (18:18)
[2025-01-24] MEDS: LOVENOX 40 MG SC (18:18)
[2025-01-24] MEDS: DICLOFENAC 1% TOPICAL GEL 100 GRAM TOPICAL (18:19)
--- NOTE | 2025-01-24 19:41 | PTCARENOTE ---
~3911-0048: Handoff repot received from nightshift RN. Pt Azerbaijani speaking, language line utilized for translation. Bed check/chair check in place for safety. AOx4 forgetful at tiems and appears anxious. NSR 70s + murmur, +2 pulses, +1 edema, SBP
140s, 6L NC satting 97%, O2 weaned to 5L NC. Patient c/o 7/10 pain in B/L knees, PRN tramadol given with no relief. Patient max Ax2 to stand and pivot to commode. Urine odorous, patient on commode and voided, urine sample sent. New urine sample
ordered as straight cath sample from hospitalist. Patient bladder scanned for 513cc and straight cathed for 560cc, sterile urine sample sent to lab per order. Pateint still c/o pain in legs, PRN morphine given with no relief, hospitalist made aware
and verbal order for bengay placed. Purewick in place for I/Os and urinary frequency.
Spoke to son on the phone, update given and patient is requesting to speak with Dr. Hernandez about plan of care, TT sent informing hospitalist. All needs met at this time, call young within reach.
~[id number]: Rocephin ordered by hospitalist for possible UTI pending culture results. Spoke to Patient's Son, Camilo. Per Son, he does not want patient to receive abx for possible UTI until Urine Cultures result. Son educated on why abx are ordered
with a pending urine culture but request remains. Dr. Hernandez made aware.
~[id number]: Patient in bed, turned and repositioned. Bladder scanned to monitor for residual, no residual at this time. Purewick in place, patient remains ARAUJO/ dyspneic at rest. Pain seems more manageable in knees at this time, patient states 5/10
is 'ok.' Son at bedside. Large BM in commode. OOB with assit x2 and walker to chair, beds alarm in place for safety. All needs met at this time, call young within reach.
[2025-01-24 20:57] LABS: Glucose - Point of Care 171 mg/dl (70-99)
[2025-01-24] MEDS: LANTUS 0.2 UNITS SC (21:00)
[2025-01-24] MEDS: DICLOFENAC 1% TOPICAL GEL 2 GRAM TOPICAL (21:01)
[2025-01-25] VITALS (7 sets, daily range): BP systolic 97–153; BP diastolic 63–96; BMI 37.8
[2025-01-25] MEDS: AMBIEN 2.5 MG PO (00:55)
[2025-01-25] MEDS: TYLENOL 1000 MG PO ×2 (00:55→23:11)
--- NOTE | 2025-01-25 02:11 | PTCARENOTE ---
Received pt @ change of shift. AAOx3, but forgetful and confused @ times. NSR w/ PACs on monitor. Pt on 4L NC, but increased to 6L NC after not being able to tolerate CPAP/BiPAP overnight. Pt resting in bed in chair position. Discussed plan of care
with help of GUALBERTO Baker. Pt verbalizes understanding. Call young within reach.
[2025-01-25 05:00] LABS: Hematocrit 41.5 % (37.0-47.0); Hemoglobin 13.0 g/dL (12.0-16.0); Mean Corp Hgb Conc. 31.3 g/dL (33.0-37.0); Mean Corpuscular Volume 85.2 fL (81.0-99.0); Platelet Count 268 10^3/uL (130-400); Red Cell Dist. Width 17.7 % (11.5-14.5)
[2025-01-25 05:25] LABS: Blood Urea Nitrogen 24 mg/dl (7-17); Calcium 9.2 mg/dl (8.4-10.2); Carbon Dioxide 39 mmol/L (22-30); Chloride 92 mmol/L (98-107); Estimated Creatinine Clearance 58 ml/min; Glucose 151 mg/dl (70-99); Potassium 3.9 mmol/L (3.5-5.1); Sodium 138 mmol/L (135-145); eGFR > 60.00
[2025-01-25 08:39] LABS: Glucose - Point of Care 130 mg/dl (70-99)
[2025-01-25] MEDS: PEPCID 20 MG PO (09:06)
[2025-01-25] MEDS: NOVOLOG FLEXPEN-LOW RESISTANCE SC ×2 (09:06→15:32)
[2025-01-25] MEDS: MYRBETRIQ EXTENDED RELEASE 50 MG PO (09:06)
[2025-01-25] MEDS: ASPIR LOW (ENTERIC COATED) 81 MG PO (09:06)
[2025-01-25] MEDS: COLACE 100 MG PO ×2 (09:06→19:40)
[2025-01-25] MEDS: BenGay-Like 1 APPLIC TOPICAL ×3 (09:07→22:17)
[2025-01-25] MEDS: LEXAPRO 15 MG PO (09:07)
[2025-01-25] MEDS: LASIX 60 MG IV (09:08)
[2025-01-25] MEDS: DICLOFENAC 1% TOPICAL GEL 2 GRAM TOPICAL ×4 (09:08→22:16)
[2025-01-25] MEDS: DULCOLAX 10 MG PO (09:08)
[2025-01-25] MEDS: ZENPEP DELAYED RELEASE CAPSULE 1 CAPSULE PO ×3 (09:16→22:16)
[2025-01-25 12:56] LABS: Glucose - Point of Care 160 mg/dl (70-99)
--- NOTE | 2025-01-25 13:07 | W.PN.HOSP.TC ---
Today's Communication/Plan
-
IV diuresis
Ongoing evaluation for TAVR
Antibiotics for UTI
Assessment / Plan
Assessment / Plan
Impression
89-year-old with complex past medical history coming to the emergency department with progressive shortness of breath much more severe over the last 2 to 3 days without known weight gain. Evaluation in the ED is consistent with CHF exacerbation
with increasing BNP, bilateral pleural effusions and pulmonary edema on x-ray, increased work of breathing. She is not wheezing and does not appear to be having asthma or COPD exacerbation. She has no focal consolidation on x-ray and shows no
other signs of an acute infection. She does appear to have significant sleep apnea in the setting of her somnolence.
Acute on chronic hypoxic respiratory failure.
Acute CHF preserved EF/valvular secondary severe aortic stenosis
Acute cardiogenic pulmonary edema
Conditions prior to admission:
Chronic CHF preserved EF.
Chronic hypoxic respiratory failure on home O2 at 2-1/2 L.
CAD
Obstructive sleep apnea on nightly CPAP.
Moderate to severe aortic stenosis by echo 01/21.
CAD.
History of acute kidney injury
IDDM.
Obesity with BMI of 40
Ventral hernia
Plan
Acute CHF presumed with preserved EF and secondary to severe aortic stenosis.
Acute on chronic hypoxic respiratory failure, currently requiring nasal cannula oxygen up to 6 L.
Chest x-ray with pulmonary edema
Weight is up close to 20 pounds since December 2023.
Anasarca with increased abdominal girth and peripheral edema.
Patient states to be compliant with diuretic regimen at home.
Suspect progressive and now critical
Repeat echocardiogram
Cardiology evaluation
Continue IV diuresis monitoring renal function and acid-base status
Continue metoprolol
Hold Imdur, valsartan avoiding hypotension in the settings of severe aortic stenosis also with prior history of LAUREANO.
Daily weights
Daily BMP
Relatively high risk for TAVR, although could be considered depends on response to diuresis, renal function and overall performance status.
Hold Farxiga with possible UTI
GDMT to be determined according to above.
CAD.
Hypertension
History of PCI to LAD 08/18
She complains of periodic chest pain.
Has mildly elevated troponin.
ECG without ischemia.
Had nonobstructive CAD on cath 01/21
Continue aspirin
Continue high potency statin
Continue beta-erika
Hold amlodipine
Hold Imdur avoiding hypotension while on aggressive diuresis
Most likely UTI
Intermittent flank pain
Foul-smelling urine
Urinalysis obtained via straight cath equivocal
Urine cultures with E. coli
Renal sonogram with no acute abnormalities
Start empiric antibiotic ceftriaxone pending cultures
Will treat bacteremia/UTI for at least 3 to 5 days of antibiotics.
Hold Farxiga
Obstructive sleep apnea.
Continue CPAP at night.
Not compliant
IDDM
Hemoglobin A1c 7.8
Continue Basaglar insulin Lantus
Hold oral glucose lowering medications including Prandin and metformin.
Basal bolus protocol with serial Accu-Cheks
Increase of abdominal girth
Anasarca with severe peripheral edema
Ventral hernia.
CT scan abdomen pelvis done in ED pending report
Severe DJD with chronic ambulatory dysfunction
CODE STATUS. Goals of care discussed with patient. Bella is clear with her directions not to pursue any heroic measures including CPR or invasive ventilation. She would accept invasive cardiac tests and procedures if there is a reasonable chance
to improve her quality of life.
DNR
DVT prophylaxis Lovenox
Anticipated Discharge: > 48 hours
Subjective/Interval History
-
Date of Service: January 25, 2025
Objective Data
-
Labs:
Laboratory Results
01/25/25
04:39
WBC 7.8
Hgb 13.0
Hct 41.5
Plt Count 268
Sodium 138
Potassium 3.9
Chloride 92 L
Carbon Dioxide 39 H
BUN 24 H
Creatinine 0.8
Glucose 151 H
Calcium 9.2
Vital Signs:
Vital Signs
Temp Pulse Resp BP Pulse Ox
98.0 F 75 16 153/81 95
01/25/25 11:57 01/25/25 11:57 01/25/25 11:57 01/25/25 08:42 01/25/25 12:03
I&O
01/24/25 01/25/25 01/26/25
06:59 06:59 06:59
Intake Total 1314 / 1314
Output Total 975 / 1025 4545 / 4545 500 / 500
Balance -975 / -1025 -3231 / -3231 -500 / -500
Physical Exam
-
General: Well Developed and No Apparent Distress
HEENT: Normocephalic, Atraumatic and Moist Mucous Membranes
Respiratory: Rales and Crackles; Negative Wheezes
Cardiac: Regular Rhythm, S1/S2 and Murmur (Systolic, left sternal border); Negative Rub or Gallop
GI: Soft, Nontender, Nondistended and Normal Bowel Sounds; Negative Organomegaly
Rectal: Deferred by Provider
Musculoskeletal: No Clubbing, No Cyanosis and No Edema
Skin: Negative Rash
Neuro: Nonfocal/Grossly Intact
--- NOTE | 2025-01-25 15:16 | CM ---
Reviewed chart. Prior to admission Mrs. Skinner to review discharge plans. Prior to admission she resides alone in an apartment. Prior to admission she ambulates with a rolling walker. She has CPAP Machine, rolling walker and possible home 02. She
is current with [facility]. Referral already sent to [facility] to resume services when medically stable. Will need to see her current functional level to see if she will have any skilled care needs Meidcal work-up in progress. The discharge
plan is to return home with resumption of [facility] when medically stable.
[2025-01-25] MEDS: ROCEPHIN 1000 MG IV (15:34)
[2025-01-25] MEDS: STERILE WATER FOR INJECTION 10 ML IV (15:34)
[2025-01-25] MEDS: LASIX 80 MG IV (15:34)
--- NOTE | 2025-01-25 15:35 | W.PN.CD ---
Today's Communication / Plan
-
discussed option for TAVR with patient and family
will discuss with heart team
cont. diuresis
restart valsartan at half dose (40 mg)
Impression / Plan
-
89 yo F PMH HTN, HFpEF, borderline severe LFLG (mean grad 35, JUDY 0.9, SVI 36), CAD, DM, RACHEL, HLD p/w HFpEF exacerbation.
Primary escrow officer: Dr. 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 Rsoenthal ([facility])
Aortic Stenosis
- prior data from 2023 hospitalization and repeat TTE from this hospitalization reviewed:
- 2024 echo with progressive, borderline severe LFLG (mean grad 35 mmHg, JUDY 0.9, SVI 36)
- prior cath 12/2023 with non-obstructive CAD but no invasive valve gradient
- TAVR CT with calcium score 1400 and small annulus that would size for a Evolut 26 mm valve, vessel caliber adequate for femoral access
- overall, while her heart failure is certainly multifactorial in setting of HFpEF, obesity, and , I think her aortic valva pathology is significantly contributing to her symptoms and decompensation
- I discussed this at length with the patient and her two sons today at bedside. They are interested in proceeding with TAVR evaluation. This will be discussed among the valve team and we will make an effort to complete her workup while she is here
so that TAVR can be scheduled prior to discharge if deemed appropriate.
HFpEF acute on chronic
- proBNP 1460 elevated from 518 prior admission, echo below
- Cont furosemide 80 mg IV twice daily (increaesd from 60), this requires intensive monitoring
- Hold Farxiga 10 mg, possible UTI
- HF education
- Trend daily weight, I/O, and BMP with diuresis
- Net weight loss unclear with transitions from bed scale to standing scale, last December she was 98 kg on a bed scale
Elevated troponin
- nonischemic myocardial injury 2/2 HFpEF Exacerbation
- Chest pain-free
CAD
- [facility] 07/2021: LAD with patent stent, D1 50%, OM2 70%
- PCI to mid LAD 08/11/2020
- No chest pain
- Continue aspirin 81mg, isosorbide mononitrate on hold with diuresis
Urinary frequency with retention
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
HTN
- Cont valsartan at half dose, amlodipine held given intermittent hypotension
Chronic hypoxic respiratory failure, on home oxygen
Type 2 diabetes mellitus, with hyperglycemia, HgbA1c 7.8
Obesity, BMI 38
Subjective:
Reporting urinary frequency. UA sent.
DATA:
Echo Jan 21 2025:
SUMMARY
1. Normal biventricular size and function without regional wall motion abnormalities.
2. LVEF is 60-65% by visual estimation. Mild concentric LVH.
3. Moderate to severe aortic stenosis with peak/mean gradient of 59/35 mmHg. JUDY = 0.91 cm2.
4. Mild to moderate TR. Estimated PASP moderately elevated at 44 mmHg.
5. Compared to prior from January 13, 2024, mean gradient has increased and TR is now mild to moderate with moderately elevated PASP at 44 mmHg, previously mild TR with estimated PASP at 37 mmHg.
Physical Exam
Vital Signs/Labs
Vital Signs
Temp Pulse Resp BP Pulse Ox
36.7 C 92 16 125/70 95
01/25/25 11:57 01/25/25 14:00 01/25/25 11:57 01/25/25 11:54 01/25/25 12:03
01/24/25 01/25/25 01/26/25
06:59 06:59 06:59
Actual Weight 103.5 kg 103 kg
01/25/25 04:39
01/25/25 04:39
Magnesium 2.1 mg/dl (1.6-2.3) 01/22/25 03:59
Triglycerides 84 mg/dl (10-149) 01/22/25 03:59
LDL Cholesterol, Calc 42 mg/dl 01/22/25 03:59
VLDL Cholesterol, Calc 16 mg/dl (0-30) 01/22/25 03:59
HDL Cholesterol 58 mg/dl 01/22/25 03:59
01/21/25
00:46
Hsu-M-Jliesoywxqo Pept 1460
LAB Results
01/24/25
10:39
Troponin I 0.017
Physical Exam
Constitutional: Comfortable
Cardiovascular: Rhythm & rate is regular
Respiratory: Respiratory effort normal
Neuro/Psych: AO x 3
Data Reviewed
-
Date of Service: January 25, 2025
Medical Decision Making: Reviewed Test Results
EKG: Tracing Personally Visualized and interpreted
Echo: Tracing Personally Visualized and interpreted
Labs: Labs Reviewed by me
[2025-01-25] MEDS: DIOVAN 80 MG PO (15:36)
[2025-01-25] MEDS: LIPITOR 80 MG PO (18:24)
[2025-01-25] MEDS: LOVENOX 40 MG SC (18:24)
[2025-01-25] MEDS: NOVOLOG FLEXPEN-LOW RESISTANCE 4 UNITS SC (18:27)
[2025-01-25 18:28] LABS: Glucose - Point of Care 332 mg/dl (70-99)
[2025-01-25] MEDS: ULTRAM 50 MG PO (19:40)
[2025-01-25] MEDS: LANTUS 0.2 UNITS SC (22:19)
[2025-01-25 22:20] LABS: Glucose - Point of Care 156 mg/dl (70-99)
--- NOTE | 2025-01-25 23:25 | PTCARENOTE ---
Received pt @ change of shift. AAOx3, VSS-- on 2L NC, NSR with occasional PACs. Pt c/o knee pain and flank pain. Given ultram, but still in a lot of discomfort-- reached out to Cynthia Marie ([employer]END[employer]), order for 1000mg Tylenol-- see MAY. Pt less
confused and able to make needs more known tonight. Discussed plan of care, pt verbalizes understanding. Call young within reach.
[2025-01-26 02:05] VITALS: BP 142/82
[2025-01-26 03:08] LABS: Hematocrit 41.2 % (37.0-47.0); Hemoglobin 12.9 g/dL (12.0-16.0); Mean Corp Hgb Conc. 31.3 g/dL (33.0-37.0); Mean Corpuscular Volume 87.1 fL (81.0-99.0); Platelet Count 288 10^3/uL (130-400); Red Cell Dist. Width 17.4 % (11.5-14.5)
[2025-01-26 03:30] LABS: Blood Urea Nitrogen 29 mg/dl (7-17); Calcium 9.1 mg/dl (8.4-10.2); Carbon Dioxide 35 mmol/L (22-30); Chloride 92 mmol/L (98-107); Estimated Creatinine Clearance 58 ml/min; Glucose 191 mg/dl (70-99); Potassium 3.6 mmol/L (3.5-5.1); Sodium 133 mmol/L (135-145); eGFR > 60.00
[2025-01-26 06:00] VITALS: BMI 37.2
[2025-01-26 07:35] VITALS: BP 130/96
--- NOTE | 2025-01-26 07:41 | PTCARENOTE ---
Pt called RN to use the bedside commode. When pivoting to the commode, pt became very short of breath and dyspneic. RN increased oxygen to 6L NC and coached pt on slow, deep and steady breathing-- reminding her to breathe through her nose. She began
clutching her chest and panicking some more. RN took EKG-- pt was moving a lot, so two EKGs were obtained. Pt continued to clutch chest. RN explained pt needs to slow her breathing, and part of the discomfort and pain was from her . RN listened to
lungs-- clear, but diminished @ the bases. Updated day shift RN.
[2025-01-26] MEDS: NOVOLOG FLEXPEN-LOW RESISTANCE 2 UNITS SC (09:39)
[2025-01-26] MEDS: MYRBETRIQ EXTENDED RELEASE 50 MG PO (09:39)
[2025-01-26] MEDS: COLACE 100 MG PO ×2 (09:40→19:36)
[2025-01-26] MEDS: DIOVAN 80 MG PO (09:40)
[2025-01-26] MEDS: DULCOLAX 10 MG PO (09:40)
[2025-01-26] MEDS: LEXAPRO 15 MG PO (09:40)
[2025-01-26] MEDS: ASPIR LOW (ENTERIC COATED) 81 MG PO (09:40)
[2025-01-26] MEDS: ZENPEP DELAYED RELEASE CAPSULE 1 CAPSULE PO ×3 (09:40→20:41)
[2025-01-26] MEDS: LASIX 80 MG IV ×2 (09:41→15:46)
[2025-01-26] MEDS: BenGay-Like 1 APPLIC TOPICAL ×3 (09:41→20:42)
[2025-01-26] MEDS: DICLOFENAC 1% TOPICAL GEL 100 GRAM TOPICAL ×3 (09:41→20:42)
[2025-01-26] MEDS: PEPCID PO (09:42)
[2025-01-26 09:45] LABS: Glucose - Point of Care 244 mg/dl (70-99)
--- NOTE | 2025-01-26 11:05 | W.PN.CD ---
Today's Communication / Plan
-
Continue diuresis.
Discuss at TAVR meeting (/Friday).
Impression / Plan
-
Impression/Plan: 89 y/o Welsh speaking female with HTN, HFpEF, CAD s/p prior PCI, RACHEL, HLD, and HFpEF with borderline severe LFLG (mean grad 35, JUDY 0.9, SVI 36) a/w HFpEF exacerbation and evidence of progression of her .
Primary nurse's companion: Dr. 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 Rosenthal ([place])
#Aortic Stenosis
-Chronic, progressive.
-Prior data from 2023 hospitalization and repeat TTE from this hospitalization reviewed:
-Echo from 01/22/2025 shows progressive, borderline severe LFLG (mean grad 35 mmHg, JUDY 0.9, SVI 36).
-Prior cath from 12/2023 with non-obstructive CAD but no invasive valve gradient.
-TAVR CT with calcium score 1400 but mobile aortic valve leaflets and small annulus. Aortic stenosis deemed moderate at this time and TAVR deferred.
-She sizes for a Medtronic Evolut #26 valve (or a #20 YARELI S3); vessel caliber adequate for femoral access.
-Overall, while her heart failure is certainly multifactorial in setting of HFpEF, obesity, and , I agree her aortic valva pathology is significantly contributing to her symptoms and decompensation.
-Family interested in proceeding with TAVR evaluation. This will be discussed among the valve team and we will make an effort to complete her workup while she is here so that TAVR can be scheduled prior to discharge if deemed appropriate.
-I discussed the fact that the patient's symptoms may or may not be relieved by TAVR. The patient's son acknowledged this fact and conveyed it to the patient. They are both interested in inpatient TAVR if possible due to burden of transportation.
#HFpEF
-Acute on chronic.
-proBNP 1460 elevated from 518 prior admission, echo below.
-GDTM as hemodynamics will tolerate:
-Diuretics: Continue furosemide 80 mg IV twice daily (increased from 60); this requires intensive monitoring.
-Beta erika: Currently on hold.
-ACEI/ARB/ARNi: Valsartan 80 mg daily.
-MRA: None.
-SGLT2i: Dapagliflozin on hold for possible UTI.
-ICD: Not currently indicated.
#Elevated troponin
-Nonischemic myocardial injury 2/2 HFpEF exacerbation.
-Chest pain-free.
#CAD
-Chronic, stable, non-anginal.
-[facility] 07/2021: LAD with patent stent, D1 50%, OM2 70%.
-PCI to mid LAD 08/11/2020.
-Continue aspirin 81mg, isosorbide mononitrate on hold with diuresis.
-Continue atorvastatin 80 mg daily. Goal LDL < 55.
#Urinary frequency with retention
-Acute.
-Straight cath yesterday for 560 mL.
-UA shows evidence of infection. UCx positive for E. coli (Ampicillin-R, Ampicillin/Sulbactam-I, Tetracycline-R, TMP/SMX-R).
-Hold dapagliflozin.
-Continue cefazolin.
#HTN
-Chronic, stable.
-Continue valsartan at half dose.
-Amlodipine held given intermittent hypotension.
#Hypoxic respiratory failure
-Chronic, on home oxygen.
#Type 2 diabetes mellitus
-Chronic, stable.
-HgbA1c 7.8%.
#Obesity
-Chronic, stable.
-BMI 38.
Subjective/Interval History:
Patient continues to require 4-6LNC.
Generalized pain is stable.
Weight is down 1.7 kg (unclear how reliable this is).
DATA:
CT Abdomen/Pelvis, 01/21/2025:
IMPRESSION:
1. No acute intra-abdominal abnormalities.
2. Extensive left colonic diverticular disease.
3. Mild diffuse subcutaneous stranding within the anterior abdominal wall inferiorly. Small fat-containing ventral hernia.
4. 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 Severe left hip osteoarthritis.
5. Additional findings above.
Echo 01/21/2025:
SUMMARY
1. Normal biventricular size and function without regional wall motion abnormalities.
2. LVEF is 60-65% by visual estimation. Mild concentric LVH.
3. Moderate to severe aortic stenosis with peak/mean gradient of 59/35 mmHg. JUDY = 0.91 cm2.
4. Mild to moderate TR. Estimated PASP moderately elevated at 44 mmHg.
5. Compared to prior from January 13, 2024, mean gradient has increased and TR is now mild to moderate with moderately elevated PASP at 44 mmHg, previously mild TR with estimated PASP at 37 mmHg.
Renal US, 01/23/2025:
IMPRESSION:
No hydronephrosis.
There is a 9.0 cm cyst along the lower pole of the right kidney which demonstrates layering echogenic debris which likely represents a hemorrhagic cyst.
Mild debris within the urinary bladder which can be seen with cystitis.
Physical Exam
Vital Signs/Labs
Vital Signs
Temp Pulse Resp BP Pulse Ox
36.3 C 78 24 130/96 93
01/26/25 07:35 01/26/25 10:00 01/26/25 07:35 01/26/25 09:40 01/26/25 07:35
01/24/25 01/25/25 01/26/25
11:59 11:59 11:59
Actual Weight 103.5 kg 103 kg 101.3 kg
01/26/25 02:13
01/26/25 02:13
Magnesium 2.1 mg/dl (1.6-2.3) 01/22/25 03:59
Triglycerides 84 mg/dl (10-149) 01/22/25 03:59
LDL Cholesterol, Calc 42 mg/dl 01/22/25 03:59
VLDL Cholesterol, Calc 16 mg/dl (0-30) 01/22/25 03:59
HDL Cholesterol 58 mg/dl 01/22/25 03:59
01/21/25
00:46
Kbs-K-Jmfrbaoubmh Pept 1460
LAB Results
01/24/25
10:39
Troponin I 0.017
Physical Exam
Constitutional: No acute distress and Comfortable
EENT: Anicteric and Moist mucous membranes
Cardiovascular: Rhythm & rate is regular, Pedal edema is absent, JVD pressure is normal, Systolic murmur present and S1S2 is normal
Respiratory: Respiratory effort normal, Lungs clear to auscul., Wheeze Absent, Rhonchi Absent and Crackles Present (Bilateral bases.)
GI: Soft, Distention absent, Non tender, Normal bowel sounds and Other (Morbidly obese.)
Neuro/Psych: AO x 3
Data Reviewed
-
Date of Service: January 26, 2025
Medical Decision Making: Reviewed Test Results, Independent Historian Assessment and Test Interpretation
EKG: Tracing Personally Visualized and interpreted and Report Reviewed by me
Echo: Tracing Personally Visualized and interpreted and Report Reviewed by me
X-Ray/CT/US/MRI/NUC/PET: Image Personally Visualized and interpreted and Report Reviewed by me
Medical Tests (PFT, Pathology etc): Image Personally Visualized and interpreted and Report Reviewed by me
Labs: Labs Reviewed by me
Old Records: Reviewed
[2025-01-26 11:07] VITALS: BP 134/70
--- NOTE | 2025-01-26 12:19 | CM ---
Chart reviewed. Patient is Mauritanian speaking, lives alone in a subsidized apartment, ambulates with a RW and has [facility] VN. Patient received 21 hours of care with [employer] and VN. Nur from [place] to be notified when discharged at [phone] ext
102, . Plan is for the patient to return home with [place] [facility]. TRISHA to follow
[2025-01-26] MEDS: NOVOLOG FLEXPEN-LOW RESISTANCE 1 UNITS SC (12:53)
[2025-01-26 12:54] LABS: Glucose - Point of Care 174 mg/dl (70-99)
[2025-01-26] MEDS: DICLOFENAC 1% TOPICAL GEL TOPICAL (13:46)
[2025-01-26] MEDS: STERILE WATER FOR INJECTION 10 ML IV (15:45)
[2025-01-26] MEDS: ROCEPHIN 1000 MG IV (15:45)
[2025-01-26 15:48] VITALS: BP 111/85
--- NOTE | 2025-01-26 15:51 | W.PN.HOSP.TC ---
Today's Communication/Plan
-
Continue IV diuresis
Continue IV antibiotics for UTI
Assessment / Plan
Assessment / Plan
Impression
89-year-old with complex past medical history coming to the emergency department with progressive shortness of breath much more severe over the last 2 to 3 days without known weight gain. Evaluation in the ED is consistent with CHF exacerbation
with increasing BNP, bilateral pleural effusions and pulmonary edema on x-ray, increased work of breathing. She is not wheezing and does not appear to be having asthma or COPD exacerbation. She has no focal consolidation on x-ray and shows no
other signs of an acute infection. She does appear to have significant sleep apnea in the setting of her somnolence.
Acute on chronic hypoxic respiratory failure.
Acute CHF preserved EF/valvular secondary severe aortic stenosis
Acute cardiogenic pulmonary edema
Conditions prior to admission:
Chronic CHF preserved EF.
Chronic hypoxic respiratory failure on home O2 at 2-1/2 L.
CAD
Obstructive sleep apnea on nightly CPAP.
Moderate to severe aortic stenosis by echo 01/21.
CAD.
History of acute kidney injury
IDDM.
Obesity with BMI of 40
Ventral hernia
Plan
Acute CHF presumed with preserved EF and secondary to severe aortic stenosis.
Acute on chronic hypoxic respiratory failure, currently requiring nasal cannula oxygen up to 6 L.
Chest x-ray with pulmonary edema
Weight is up close to 20 pounds since December 2023.
Anasarca with increased abdominal girth and peripheral edema.
Patient states to be compliant with diuretic regimen at home.
Suspect progressive and now critical
Repeat echocardiogram
Cardiology evaluation
Continue IV diuresis monitoring renal function and acid-base status
Continue metoprolol
Hold Imdur, valsartan avoiding hypotension in the settings of severe aortic stenosis also with prior history of LAUREANO.
Daily weights
Daily BMP
Relatively high risk for TAVR, although could be considered depends on response to diuresis, renal function and overall performance status.
Hold Farxiga with possible UTI
GDMT to be determined according to above.
CAD.
Hypertension
History of PCI to LAD 08/18
She complains of periodic chest pain.
Has mildly elevated troponin.
ECG without ischemia.
Had nonobstructive CAD on cath 01/21
Continue aspirin
Continue high potency statin
Continue beta-erika
Hold amlodipine
Hold Imdur avoiding hypotension while on aggressive diuresis
Most likely UTI
Intermittent flank pain
Foul-smelling urine
Urinalysis obtained via straight cath equivocal
Urine cultures with E. coli
Renal sonogram with no acute abnormalities
Start empiric antibiotic ceftriaxone pending cultures
Will treat bacteremia/UTI for at least 3 to 5 days of antibiotics.
Hold Farxiga
Obstructive sleep apnea.
Continue CPAP at night.
Not compliant
IDDM
Hemoglobin A1c 7.8
Continue Basaglar insulin Lantus
Hold oral glucose lowering medications including Prandin and metformin.
Basal bolus protocol with serial Accu-Cheks
Increase of abdominal girth
Anasarca with severe peripheral edema
Ventral hernia.
CT scan abdomen pelvis done in ED pending report
Severe DJD with chronic ambulatory dysfunction
CODE STATUS. Goals of care discussed with patient. Bella is clear with her directions not to pursue any heroic measures including CPR or invasive ventilation. She would accept invasive cardiac tests and procedures if there is a reasonable chance
to improve her quality of life.
DNR
DVT prophylaxis Lovenox
Anticipated Discharge: > 48 hours
Subjective/Interval History
-
Date of Service: January 26, 2025
Objective Data
-
Vital Signs:
Vital Signs
Temp Pulse Resp BP Pulse Ox
98 F 78 20 111/85 94
01/26/25 11:07 01/26/25 15:46 01/26/25 11:07 01/26/25 15:46 01/26/25 11:07
I&O
01/25/25 01/26/25 01/27/25
06:59 06:59 06:59
Intake Total 1314 / 1314
Output Total 4545 / 4545 1275 / 1275 450 / 450
Balance -3231 / -3231 -1275 / -1275 -450 / -450
Physical Exam
-
General: Well Developed and No Apparent Distress
HEENT: Normocephalic, Atraumatic and Moist Mucous Membranes
Respiratory: Rales and Crackles; Negative Wheezes
Cardiac: Regular Rhythm, S1/S2 and Murmur (Systolic, left sternal border); Negative Rub or Gallop
GI: Soft, Nontender, Nondistended and Normal Bowel Sounds; Negative Organomegaly
Rectal: Deferred by Provider
Musculoskeletal: No Clubbing, No Cyanosis and No Edema
Skin: Negative Rash
Neuro: Nonfocal/Grossly Intact
[2025-01-26 16:59] LABS: Glucose - Point of Care 265 mg/dl (70-99)
[2025-01-26 17:15] LABS: Glucose - Point of Care 283 mg/dl (70-99)
[2025-01-26] MEDS: LIPITOR 80 MG PO (17:15)
[2025-01-26] MEDS: LOVENOX 40 MG SC (17:15)
[2025-01-26] MEDS: NOVOLOG FLEXPEN-LOW RESISTANCE 3 UNITS SC (17:15)
[2025-01-26 18:49] VITALS: BP 125/82
[2025-01-26] MEDS: ULTRAM 50 MG PO (20:41)
[2025-01-26] MEDS: AMBIEN 2.5 MG PO (20:41)
[2025-01-26 22:08] LABS: Glucose - Point of Care 184 mg/dl (70-99)
[2025-01-26] MEDS: LANTUS 0.2 UNITS SC (22:20)
[2025-01-26 22:23] VITALS: BP 135/75
[2025-01-27] VITALS (9 sets, daily range): BP systolic 99–139; BP diastolic 63–85; PULSE 90; BMI 37.1
--- NOTE | 2025-01-27 03:43 | PTCARENOTE ---
Pt NSR on monitor, VSS. Pt refused BiPAP overnight. Pt c/o generalized pain and Knee pain 10/07. PRN meds given. Pt ambulates to bed side commode with x 1 assist, Safety measures in place, call young within reach
[2025-01-27] MEDS: ULTRAM 50 MG PO ×2 (04:45→21:31)
[2025-01-27 05:07] LABS: Hematocrit 42.7 % (37.0-47.0); Hemoglobin 13.1 g/dL (12.0-16.0); Mean Corp Hgb Conc. 30.7 g/dL (33.0-37.0); Mean Corpuscular Volume 88.0 fL (81.0-99.0); Platelet Count 301 10^3/uL (130-400); Red Cell Dist. Width 17.4 % (11.5-14.5)
[2025-01-27 05:17] LABS: Blood Urea Nitrogen 27 mg/dl (7-17); Calcium 9.1 mg/dl (8.4-10.2); Carbon Dioxide 36 mmol/L (22-30); Chloride 94 mmol/L (98-107); Estimated Creatinine Clearance 57 ml/min; Glucose 169 mg/dl (70-99); Potassium 3.7 mmol/L (3.5-5.1); Sodium 138 mmol/L (135-145); eGFR > 60.00
[2025-01-27 07:53] LABS: Glucose - Point of Care 152 mg/dl (70-99)
[2025-01-27] MEDS: NOVOLOG FLEXPEN-LOW RESISTANCE 1 UNITS SC (07:54)
[2025-01-27] MEDS: DIOVAN 80 MG PO (08:03)
[2025-01-27] MEDS: ZENPEP DELAYED RELEASE CAPSULE 1 CAPSULE PO ×3 (08:03→21:30)
[2025-01-27] MEDS: LASIX IV ×2 (08:03→08:13)
[2025-01-27] MEDS: COLACE 100 MG PO (08:03)
[2025-01-27] MEDS: MYRBETRIQ EXTENDED RELEASE 50 MG PO (08:03)
[2025-01-27] MEDS: PEPCID 20 MG PO (08:04)
[2025-01-27] MEDS: DULCOLAX 10 MG PO (08:04)
[2025-01-27] MEDS: LEXAPRO 15 MG PO (08:04)
[2025-01-27] MEDS: ASPIR LOW (ENTERIC COATED) 81 MG PO (08:04)
[2025-01-27] MEDS: BenGay-Like 1 APPLIC TOPICAL ×3 (08:07→21:32)
[2025-01-27] MEDS: DICLOFENAC 1% TOPICAL GEL 2 GRAM TOPICAL (08:08)
[2025-01-27] MEDS: BUMEX 4 MG PO ×2 (08:39→15:21)
[2025-01-27] MEDS: TYLENOL 650 MG PO ×2 (08:42→23:14)
--- NOTE | 2025-01-27 08:55 | W.PN.CD ---
Today's Communication / Plan
-
oral diuretics
discharge planning
TAVR possibly 02/01; final date pending
Impression / Plan
-
Impression/Plan: 89 y/o [place]orese speaking female with HTN, HFpEF, CAD s/p prior PCI, RACHEL, HLD, and HFpEF with borderline severe LFLG (mean grad 35, JUDY 0.9, SVI 36) a/w HFpEF exacerbation and evidence of progression of her .
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 Rosenthal ([place])
#Aortic Stenosis
-Chronic, progressive.
-Prior data from 2023 hospitalization and repeat TTE from this hospitalization reviewed:
-Echo from 01/22/2025 shows progressive, borderline severe LFLG (mean grad 35 mmHg, JUDY 0.9, SVI 36).
-Prior cath from 12/2023 with non-obstructive CAD but no invasive valve gradient.
-TAVR CT with calcium score 1400 but mobile aortic valve leaflets and small annulus. Aortic stenosis deemed moderate at this time and TAVR deferred.
-She sizes for a Medtronic Evolut #26 valve (or a #20 YARELI S3); vessel caliber adequate for femoral access.
-Overall, while her heart failure is certainly multifactorial in setting of HFpEF, obesity, and , aortic valva pathology is significantly contributing to her symptoms and decompensation.
-I discussed the fact that the patient's symptoms may or may not be relieved by TAVR. The patient's son acknowledged this fact and conveyed it to the patient. Family and patient interested in proceeding with TAVR.
-Case discussed at multidisciplinary TAVR meeting today: plan will be for 26 mm Evolute from the left groin, timing TBD, possible next Thursday 02/01
#HFpEF
-Acute on chronic.
-proBNP 1460 elevated from 518 prior admission, echo below.
-GDTM as hemodynamics will tolerate:
-Diuretics: Transitioned to 4 BID bumex today; will check weight tomrorow to determine final regimen (may do better on 4 qD with BID dosing PRN)
-Beta erika: Currently on hold.
-ACEI/ARB/ARNi: Valsartan 80 mg daily.
-MRA: None.
-SGLT2i: Dapagliflozin on hold for UTI.
-ICD: Not currently indicated.
#Elevated troponin
-Nonischemic myocardial injury 2/2 HFpEF exacerbation.
-Chest pain-free.
#CAD
-Chronic, stable, non-anginal.
-LHC 07/2021: LAD with patent stent, D1 50%, OM2 70%.
-PCI to mid LAD 08/11/2020.
-Continue aspirin 81mg, isosorbide mononitrate on hold with diuresis.
-Continue atorvastatin 80 mg daily. Goal LDL < 55.
#Urinary frequency with retention
-Acute.
-Straight cath yesterday for 560 mL.
-UA shows evidence of infection. UCx positive for E. coli (Ampicillin-R, Ampicillin/Sulbactam-I, Tetracycline-R, TMP/SMX-R).
-Hold dapagliflozin.
-Continue CTX, consider transition to oral antibiotics after tomorrow to facilitate discharge home tomorrow if possible.
#HTN
-Chronic, stable.
-Continue valsartan at half dose.
-Amlodipine held given intermittent hypotension.
#Hypoxic respiratory failure
-Chronic, on home oxygen.
#Type 2 diabetes mellitus
-Chronic, stable.
-HgbA1c 7.8%.
#Obesity
-Chronic, stable.
-BMI 38.
Subjective/Interval History:
Patient continues to require 4-6LNC.
Generalized pain is stable.
Weight is stable, lots of unmeasured UOP
DATA:
CT Abdomen/Pelvis, 01/21/2025:
IMPRESSION:
1. No acute intra-abdominal abnormalities.
2. Extensive left colonic diverticular disease.
3. Mild diffuse subcutaneous stranding within the anterior abdominal wall inferiorly. Small fat-containing ventral hernia.
4. 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 Severe left hip osteoarthritis.
5. Additional findings above.
Echo 01/21/2025:
SUMMARY
1. Normal biventricular size and function without regional wall motion abnormalities.
2. LVEF is 60-65% by visual estimation. Mild concentric LVH.
3. Moderate to severe aortic stenosis with peak/mean gradient of 59/35 mmHg. JUDY = 0.91 cm2.
4. Mild to moderate TR. Estimated PASP moderately elevated at 44 mmHg.
5. Compared to prior from January 13, 2024, mean gradient has increased and TR is now mild to moderate with moderately elevated PASP at 44 mmHg, previously mild TR with estimated PASP at 37 mmHg.
Renal US, 01/23/2025:
IMPRESSION:
No hydronephrosis.
There is a 9.0 cm cyst along the lower pole of the right kidney which demonstrates layering echogenic debris which likely represents a hemorrhagic cyst.
Mild debris within the urinary bladder which can be seen with cystitis.
Physical Exam
Vital Signs/Labs
Vital Signs
Temp Pulse Resp BP Pulse Ox
36.7 C 78 19 134/80 96
01/27/25 03:39 01/27/25 03:39 01/27/25 03:39 01/27/25 03:40 01/27/25 03:39
01/26/25 01/27/25 01/28/25
06:59 06:59 06:59
Actual Weight 101.3 kg 101.2 kg
01/27/25 04:06
01/27/25 04:06
Magnesium 2.1 mg/dl (1.6-2.3) 01/22/25 03:59
Triglycerides 84 mg/dl (10-149) 01/22/25 03:59
LDL Cholesterol, Calc 42 mg/dl 01/22/25 03:59
VLDL Cholesterol, Calc 16 mg/dl (0-30) 01/22/25 03:59
HDL Cholesterol 58 mg/dl 01/22/25 03:59
01/21/25
00:46
Owp-S-Oprbkyxapgp Pept 1460
LAB Results
01/24/25
10:39
Troponin I 0.017
Physical Exam
Constitutional: Comfortable
Cardiovascular: Rhythm & rate is regular
Respiratory: Respiratory effort normal
Neuro/Psych: AO x 3
Data Reviewed
-
Date of Service: January 27, 2025
Medical Decision Making: Reviewed Test Results
Labs: Labs Reviewed by me
--- NOTE | 2025-01-27 11:00 | PTCARENOTE ---
Assumed care at 0700. Patient AO x3, [place] speaking, appears anxious, moaning rubbing knees. Tylenol given for pain and medicated pain rubs applied with relief. NSR, murmur. Oxygen dependent at home, 3 liters NC. Dyspneic at rest and with
activity, purse lip breathing intermittently. Lungs clear CTA, POX 94% on 3 liters NC. Incontinent of urine in bed this morning, assisted to commode, voided and large BM. Assisted back to chair using rolling walker. Bed and chair alarms audible,
call young in reach
--- NOTE | 2025-01-27 12:03 | CM ---
Reviewed preoperative instructions and restrictions, along with showering instructions with the inside tester line with Umm and her son Camilo over the phone. Gave them 2 soaps, along with Indonesian and [place]an showering instructions. Also gave them a
TAVR Book. Patient is outside the driving radius for the CT Transitional RN. 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 Patient is current with
[facility]. Patient receives 21 hours a week with [facility] and a [employer] BLASTING. Plan is for the patient to return home with [facility].
[2025-01-27 12:17] LABS: Glucose - Point of Care 204 mg/dl (70-99)
[2025-01-27] MEDS: NOVOLOG FLEXPEN-LOW RESISTANCE 2 UNITS SC (12:36)
[2025-01-27] MEDS: DICLOFENAC 1% TOPICAL GEL 4 GRAM TOPICAL (12:36)
[2025-01-27] MEDS: ROCEPHIN 1000 MG IV (13:54)
[2025-01-27] MEDS: STERILE WATER FOR INJECTION 10 ML IV (13:54)
--- NOTE | 2025-01-27 14:37 | W.PN.HOSP.TC ---
Today's Communication/Plan
-
Transition to oral diuretics
PT assessment
Discharge planning
Assessment / Plan
Assessment / Plan
Impression
89-year-old with complex past medical history coming to the emergency department with progressive shortness of breath much more severe over the last 2 to 3 days without known weight gain. Evaluation in the ED is consistent with CHF exacerbation
with increasing BNP, bilateral pleural effusions and pulmonary edema on x-ray, increased work of breathing. She is not wheezing and does not appear to be having asthma or COPD exacerbation. She has no focal consolidation on x-ray and shows no
other signs of an acute infection. She does appear to have significant sleep apnea in the setting of her somnolence.
Acute on chronic hypoxic respiratory failure.
Acute CHF preserved EF/valvular secondary severe aortic stenosis
Acute cardiogenic pulmonary edema
Conditions prior to admission:
Chronic CHF preserved EF.
Chronic hypoxic respiratory failure on home O2 at 2-1/2 L.
CAD
Obstructive sleep apnea on nightly CPAP.
Moderate to severe aortic stenosis by echo 01/21.
CAD.
History of acute kidney injury
IDDM.
Obesity with BMI of 40
Ventral hernia
Plan
Acute CHF presumed with preserved EF and secondary to severe aortic stenosis.
Acute on chronic hypoxic respiratory failure, currently requiring nasal cannula oxygen up to 6 L.
Chest x-ray with pulmonary edema
Weight is up close to 20 pounds since December 2023.
Anasarca with increased abdominal girth and peripheral edema.
Patient states to be compliant with diuretic regimen at home.
Suspect progressive and now critical
Repeat echocardiogram
Cardiology evaluation
Responding to IV diuresis and transition from Lasix to Bumex 4 mg twice daily on 01/27
Continue metoprolol
Continue valsartan
Hold Imdur and Norvasc avoiding hypotension
Daily weights
Daily BMP
Relatively high risk for TAVR, although could be considered depends on response to diuresis, renal function and overall performance status.
Hold Farxiga with possible UTI
GDMT to be determined according to above.
CAD.
Hypertension
History of PCI to LAD 08/18
She complains of periodic chest pain.
Has mildly elevated troponin.
ECG without ischemia.
Had nonobstructive CAD on cath 01/21
Continue aspirin
Continue high potency statin
Continue beta-erika
Hold amlodipine
Hold Imdur avoiding hypotension while on aggressive diuresis
UTI without complications
Intermittent flank pain
Foul-smelling urine
Urinalysis obtained via straight cath equivocal
Urine cultures with E. coli
Renal sonogram with no acute abnormalities
Start empiric antibiotic ceftriaxone pending cultures
Continue ceftriaxone through 01/30
Hold Farxiga
Obstructive sleep apnea.
Continue CPAP at night.
Not compliant
IDDM
Hemoglobin A1c 7.8
Continue Basaglar insulin Lantus
Hold oral glucose lowering medications including Prandin and metformin.
Basal bolus protocol with serial Accu-Cheks
Increase of abdominal girth
Anasarca with severe peripheral edema
Ventral hernia.
CT scan abdomen pelvis done in ED pending report
Severe DJD with chronic ambulatory dysfunction
CODE STATUS discussed again on 01/27 with the patient in the presence of son. Patient would like to have full resuscitation
DVT prophylaxis Lovenox
Anticipated Discharge: Within 24 hours
Subjective/Interval History
-
Date of Service: January 27, 2025
Objective Data
-
Labs:
Laboratory Results
01/27/25
04:06
WBC 6.9
Hgb 13.1
Hct 42.7
Plt Count 301
Sodium 138
Potassium 3.7
Chloride 94 L
Carbon Dioxide 36 H
BUN 27 H
Creatinine 0.8
Glucose 169 H
Calcium 9.1
Vital Signs:
Vital Signs
Temp Pulse Resp BP Pulse Ox
97.5 F 80 20 111/75 98
01/27/25 12:12 01/27/25 12:11 01/27/25 12:12 01/27/25 12:11 01/27/25 12:12
I&O
01/26/25 01/27/25 01/28/25
06:59 06:59 06:59
Intake Total 150 / 150 480 / 480
Output Total 1275 / 1275 1150 / 1150
Balance -1275 / -1275 -1000 / -1000 480 / 480
Physical Exam
-
General: Well Developed and No Apparent Distress
HEENT: Normocephalic, Atraumatic and Moist Mucous Membranes
Respiratory: Rales and Crackles; Negative Wheezes
Cardiac: Regular Rhythm, S1/S2 and Murmur (Systolic, left sternal border); Negative Rub or Gallop
GI: Soft, Nontender, Nondistended and Normal Bowel Sounds; Negative Organomegaly
Rectal: Deferred by Provider
Musculoskeletal: No Clubbing, No Cyanosis and No Edema
Skin: Negative Rash
Neuro: Nonfocal/Grossly Intact
[2025-01-27] MEDS: COLACE PO (15:48)
[2025-01-27 17:16] LABS: Glucose - Point of Care 265 mg/dl (70-99)
[2025-01-27] MEDS: NOVOLOG FLEXPEN-LOW RESISTANCE 3 UNITS SC (17:16)
[2025-01-27] MEDS: DICLOFENAC 1% TOPICAL GEL 100 GRAM TOPICAL ×2 (17:16→21:31)
[2025-01-27] MEDS: LOVENOX 40 MG SC (17:16)
[2025-01-27] MEDS: LIPITOR 80 MG PO (17:16)
[2025-01-27] MEDS: LANTUS 0.2 UNITS SC (21:30)
[2025-01-27 21:36] LABS: Glucose - Point of Care 254 mg/dl (70-99)
[2025-01-28] VITALS (45 sets, daily range): BP systolic 79–151; BP diastolic 47–102; BMI 37.2
[2025-01-28] MEDS: NITROSTAT (SUBLINGUAL) 0.4 MG SL ×2 (04:42→05:02)
[2025-01-28] MEDS: LOPRESSOR 2.5 MG IV (04:49)
[2025-01-28] MEDS: TYLENOL 650 MG PO (05:17)
[2025-01-28 05:20] LABS: Hematocrit 43.0 % (37.0-47.0); Hemoglobin 13.3 g/dL (12.0-16.0); Mean Corp Hgb Conc. 30.9 g/dL (33.0-37.0); Mean Corpuscular Volume 87.9 fL (81.0-99.0); Platelet Count 297 10^3/uL (130-400); Red Cell Dist. Width 17.2 % (11.5-14.5)
[2025-01-28 05:38] LABS: Blood Urea Nitrogen 25 mg/dl (7-17); Calcium 9.0 mg/dl (8.4-10.2); Carbon Dioxide 34 mmol/L (22-30); Chloride 96 mmol/L (98-107); Estimated Creatinine Clearance 57 ml/min; Glucose 192 mg/dl (70-99); Magnesium 2.0 mg/dl (1.6-2.3); Potassium 4.2 mmol/L (3.5-5.1); Sodium 136 mmol/L (135-145); eGFR > 60.00
[2025-01-28 05:42] LABS: Troponin I 0.025 ng/ml
[2025-01-28] MEDS: HEPARIN 4000 UNITS IV (05:44)
[2025-01-28] MEDS: HEPARIN 25000 UNITS/250 ML IV ×2 (05:46→23:48)
[2025-01-28 05:57] LABS: APTT 28.5 Sec (23.4-35.0)
--- NOTE | 2025-01-28 05:58 | W.PN.UPDATE ---
Update Note
Progress Note Update
Nursing notified me of new afib with RVR on this patient. Also c/o CP. speaks Cymraes and able to make needs known through her Nurse who speaks her language. HR 120-140s lopressor 2.5mg IV, and 2 doses of NTG SL given. She then c/o MARQUIS. Heparin
infusion for anticoagulation. She is anxious rolling in bed. Valium 1 mg x1. PCXR ordered and done. Will start amiodorone without bolus due to low bp for rate control. Protonix IV given. Reviewed with CBC Dr. Mcdaniel who recommends no further NTG
due to her significant . Pulse oximetry 95-100% on 5 L NC.
[2025-01-28] MEDS: VALIUM INJECTION 1 MG IV (06:00)
[2025-01-28] MEDS: PROTONIX IV 40 MG IV (06:24)
[2025-01-28] MEDS: CORDARONE 259 MG IV ×2 (06:25→15:18)
[2025-01-28] MEDS: NSS (PRESERVATIVE FREE) 10 ML IV (06:25)
--- NOTE | 2025-01-28 07:19 | PTCARENOTE ---
Pt converted to AFib with RVR while asleep. Also c/o chest pain 10/. Nitro SL x 2 given and didn't help with pain, still 10/. NOISE TESTER ordered Lopressor 2.5 IV. BP dropped to SBP in 80s. Pt is very anxious, continued crying and c/o pain in her chest,
head, throat, legs. Tylenol PRN and Diazepam x 1 given. Heparin gtt and Amio gtt started
[2025-01-28] MEDS: COLACE PO (07:46)
[2025-01-28] MEDS: DULCOLAX PO (07:46)
[2025-01-28 07:55] LABS: Glucose - Point of Care 202 mg/dl (70-99)
[2025-01-28] MEDS: NOVOLOG FLEXPEN-LOW RESISTANCE 2 UNITS SC (07:59)
[2025-01-28] MEDS: PEPCID 20 MG PO (08:02)
[2025-01-28] MEDS: BenGay-Like 1 APPLIC TOPICAL ×3 (08:02→20:58)
[2025-01-28] MEDS: ASPIR LOW (ENTERIC COATED) 81 MG PO (08:02)
[2025-01-28] MEDS: ZENPEP DELAYED RELEASE CAPSULE 1 CAPSULE PO ×3 (08:02→20:57)
[2025-01-28] MEDS: DICLOFENAC 1% TOPICAL GEL 4 GRAM TOPICAL ×4 (08:03→20:57)
--- NOTE | 2025-01-28 09:31 | PTCARENOTE ---
Assumed care at 0700. Patient anxious, moaning out. Did have abdominal pain, no resolved. A-Fib hr 130's-110's, on IV amiodarone. Heparin infusing into a new right hand IV. Assisted to commode to void, cloudy yellow urine, small soft BM. Held Colace
and Dulcolax had 4 soft brown stools yesterday, one small one this morning. Denies chest pain. breathing unchanged dyspneic at rest, with exertion and uses purse lip breathing at times. Oxygen decreased to 4 liters NC, POX 96%. Lungs clear. Patient
sitting on side of bed. BP 102/77, will continue to monitor
[2025-01-28] MEDS: MYRBETRIQ EXTENDED RELEASE 50 MG PO (09:50)
[2025-01-28] MEDS: DIOVAN PO (09:51)
[2025-01-28] MEDS: BUMEX PO (10:56)
[2025-01-28] MEDS: LOPRESSOR 12.5 MG PO ×3 (11:00→23:52)
[2025-01-28] MEDS: LOPRESSOR PO (11:38)
[2025-01-28 12:09] LABS: APTT 42.1 Sec (23.4-35.0)
[2025-01-28] MEDS: NOVOLOG FLEXPEN-LOW RESISTANCE 3 UNITS SC (12:48)
[2025-01-28 12:53] LABS: Glucose - Point of Care 258 mg/dl (70-99)
--- NOTE | 2025-01-28 13:02 | W.PN.HOSP.TC ---
Today's Communication/Plan
-
New onset of A-fib with RVR
Transient hypotension
Initiated on amiodarone with plan to transition to oral
Lower dose of beta-erika
Hold valsartan
Hold Bumex
Monitor for recurrent hypotension
Follow BMP and daily weights
Complete course of antibiotics for UTI
Plan is for TAVR tentatively on 02/01
Patient son updated over the phone
Discussed with cardiology
Assessment / Plan
Assessment / Plan
Impression
89-year-old with complex past medical history coming to the emergency department with progressive shortness of breath much more severe over the last 2 to 3 days without known weight gain. Evaluation in the ED is consistent with CHF exacerbation
with increasing BNP, bilateral pleural effusions and pulmonary edema on x-ray, increased work of breathing. She is not wheezing and does not appear to be having asthma or COPD exacerbation. She has no focal consolidation on x-ray and shows no
other signs of an acute infection. She does appear to have significant sleep apnea in the setting of her somnolence.
Acute on chronic hypoxic respiratory failure.
Acute CHF preserved EF/valvular secondary severe aortic stenosis
Acute cardiogenic pulmonary edema
Atrial fibrillation with rapid ventricular response new onset on 01/28/2025
Conditions prior to admission:
Chronic CHF preserved EF.
Chronic hypoxic respiratory failure on home O2 at 2-1/2 L.
CAD
Obstructive sleep apnea on nightly CPAP.
Moderate to severe aortic stenosis by echo 01/21.
CAD.
History of acute kidney injury
IDDM.
Obesity with BMI of 40
Ventral hernia
Plan
Acute CHF presumed with preserved EF and secondary to severe aortic stenosis.
Acute on chronic hypoxic respiratory failure, currently requiring nasal cannula oxygen up to 6 L.
Chest x-ray with pulmonary edema
Weight is up close to 20 pounds since December 2023.
Anasarca with increased abdominal girth and peripheral edema.
Patient states to be compliant with diuretic regimen at home.
Suspect progressive and now critical
Repeat echocardiogram
Cardiology evaluation
Responding to IV diuresis and transition from Lasix to Bumex 4 mg twice daily on 01/27
Continue metoprolol
Hold valsartan with concern for hypotension
Hold Imdur and Norvasc avoiding hypotension
Daily weights
Daily BMP
Relatively high risk for TAVR, although could be considered depends on response to diuresis, renal function and overall performance status.
Hold Farxiga with possible UTI
GDMT to be determined according to above.
Atrial fibrillation with rapid reticular response, new onset on 01/28/2025
Hypotension possibly related to fast rate
Initiated on IV amiodarone with plan to transition to oral.
Continue low-dose of beta-erika.
Adjust other antihypertensive medication and diuresis around to avoid hypotension
Anticoagulation: Initiated on IV heparin for thromboembolic prophylaxis.
CAD.
Hypertension
History of PCI to LAD 08/18
She complains of periodic chest pain.
Has mildly elevated troponin.
ECG without ischemia.
Had nonobstructive CAD on cath 01/21
Continue aspirin
Continue high potency statin
Continue beta-erika
Hold amlodipine
Hold Imdur avoiding hypotension while on aggressive diuresis
UTI without complications
Intermittent flank pain
Foul-smelling urine
Urinalysis obtained via straight cath equivocal
Urine cultures with E. coli
Renal sonogram with no acute abnormalities
Start empiric antibiotic ceftriaxone pending cultures
Continue ceftriaxone through 01/30
Hold Farxiga
Obstructive sleep apnea.
Continue CPAP at night.
Not compliant
IDDM
Hemoglobin A1c 7.8
Continue Basaglar insulin Lantus
Hold oral glucose lowering medications including Prandin and metformin.
Basal bolus protocol with serial Accu-Cheks
Increase of abdominal girth
Anasarca with severe peripheral edema
Ventral hernia.
CT scan abdomen pelvis done in ED pending report
Severe DJD with chronic ambulatory dysfunction
CODE STATUS discussed again on 01/27 with the patient in the presence of son. Patient would like to have full resuscitation
DVT prophylaxis Lovenox
Anticipated Discharge: > 48 hours
Subjective/Interval History
-
Date of Service: January 28, 2025
Objective Data
-
Labs:
Laboratory Results
01/28/25 01/28/25 01/28/25
04:59 05:18 05:38
WBC 7.5 Pending
Hgb 13.3 Pending
Hct 43.0 Pending
Plt Count 297 Pending
APTT 28.5
Sodium 136
Potassium 4.2
Chloride 96 L
Carbon Dioxide 34 H
BUN 25 H
Creatinine 0.8
Glucose 192 H
Calcium 9.0
01/28/25 01/28/25
11:51 18:15
WBC
Hgb
Hct
Plt Count
APTT 42.1 H Pending
Sodium
Potassium
Chloride
Carbon Dioxide
BUN
Creatinine
Glucose
Calcium
Vital Signs:
Vital Signs
Temp Pulse Resp BP Pulse Ox
97.9 F 108 16 93/78 98
01/28/25 11:06 01/28/25 12:00 01/28/25 11:06 01/28/25 12:00 01/28/25 11:06
I&O
01/27/25 01/28/25 01/29/25
06:59 06:59 06:59
Intake Total 150 / 150 870 / 870
Output Total 1150 / 1150 850 / 850 500 / 500
Balance -1000 / -1000 20 / 20 -500 / -500
Physical Exam
-
General: Well Developed and No Apparent Distress
HEENT: Normocephalic, Atraumatic and Moist Mucous Membranes
Respiratory: Rales and Crackles; Negative Wheezes
Cardiac: Regular Rhythm, S1/S2 and Murmur (Systolic, left sternal border); Negative Rub or Gallop
GI: Soft, Nontender, Nondistended and Normal Bowel Sounds; Negative Organomegaly
Rectal: Deferred by Provider
Musculoskeletal: No Clubbing, No Cyanosis and No Edema
Skin: Negative Rash
Neuro: Nonfocal/Grossly Intact
--- NOTE | 2025-01-28 14:06 | CM ---
Reviewed chart. Met with Mrs. Skinner and her son to review discharge plans. He states the medical ream has pushed up her date for the TAVR which is now on 02/01/25. Prior to admission Mrs. Skinner to review discharge plans. Prior to
admission she resides alone in an apartment. Prior to admission she ambulates with a rolling walker. She has CPAP Machine, rolling walker and possible home 02. She is current with [facility]. Referral already sent to [facility] to resume
services when medically stable. Will need to see her current functional level to see if she will have any skilled care needs Meidcal work-up in progress. The discharge plan is to return home with resumption of [facility] when medically
stable.
--- NOTE | 2025-01-28 14:39 | PTCARENOTE ---
Spoke with Dr. Rossi. Continue Amino gtt and Lopressor as ordered
[2025-01-28] MEDS: ROCEPHIN 1000 MG IV (14:45)
[2025-01-28] MEDS: STERILE WATER FOR INJECTION 10 ML IV (14:45)
--- NOTE | 2025-01-28 15:29 | W.PN.CD ---
Addendum entered and electronically signed by Westley Rossi MD 01/28/25 16:22:
Transitioned to amio 200 PO BID. IV amio discontinued.
Original Note:
Today's Communication / Plan
-
heparin, amio, metop for Afib
TAVR planning, likely next week
Impression / Plan
-
Impression/Plan: 89 y/o Thai speaking female with HTN, HFpEF, CAD s/p prior PCI, RACHEL, HLD, and HFpEF with borderline severe LFLG (mean grad 35, JUDY 0.9, SVI 36) a/w HFpEF exacerbation and evidence of progression of her .
Primary quarter backer: Dr. 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 Rosenthal ([place])
#Aortic Stenosis
-Chronic, progressive.
-Prior data from 2023 hospitalization and repeat TTE from this hospitalization reviewed:
-Echo from 01/22/2025 shows progressive, borderline severe LFLG (mean grad 35 mmHg, JUDY 0.9, SVI 36).
-Prior cath from 12/2023 with non-obstructive CAD but no invasive valve gradient.
-TAVR CT with calcium score 1400 but mobile aortic valve leaflets and small annulus. Aortic stenosis deemed moderate at this time and TAVR deferred.
-She sizes for a Medtronic Evolut #26 valve (or a #20 YARELI S3); vessel caliber adequate for femoral access.
-Overall, while her heart failure is certainly multifactorial in setting of HFpEF, obesity, and , aortic valva pathology is significantly contributing to her symptoms and decompensation.
-I discussed the fact that the patient's symptoms may or may not be relieved by TAVR. The patient's son acknowledged this fact and conveyed it to the patient. Family and patient interested in proceeding with TAVR.
-Case discussed at multidisciplinary TAVR meeting today: plan will be for 26 mm Evolute from the left groin, timing TBD, possible next Thursday 02/01; given new Afib w/ RVR, may need to stay to have it done inpatient
#Afib
-new diagnosis
-initially with RVR (rates to 140s) and chest pain
-rates now controlled on IV amio and PO metop 12.5 q6
-heparin gtt
-will consider cardioversion once loaded with amio, perhaps at time of AVR
#HFpEF
-Acute on chronic.
-proBNP 1460 elevated from 518 prior admission, echo below.
-GDTM as hemodynamics will tolerate:
-Diuretics: Transitioned to 4 BID bumex today; will check weight tomrorow to determine final regimen (may do better on 4 qD with BID dosing PRN)
-Beta erika: restarted in setting of Afib w/ RVR at 12.5 q6
-ACEI/ARB/ARNi: Valsartan 80 mg daily.
-MRA: None.
-SGLT2i: Dapagliflozin on hold for UTI.
-ICD: Not currently indicated.
#CAD
-Chronic, stable, non-anginal.
-LHC 07/2021: LAD with patent stent, D1 50%, OM2 70%.
-PCI to mid LAD 08/11/2020.
-Continue aspirin 81mg, isosorbide mononitrate on hold with diuresis.
-Continue atorvastatin 80 mg daily. Goal LDL < 55.
#Urinary frequency with retention
-Acute.
-Straight cath yesterday for 560 mL.
-UA shows evidence of infection. UCx positive for E. coli (Ampicillin-R, Ampicillin/Sulbactam-I, Tetracycline-R, TMP/SMX-R).
-Hold dapagliflozin.
-Continue abx
#HTN
-Chronic, stable.
-Continue valsartan at half dose.
-Amlodipine held given intermittent hypotension.
#Hypoxic respiratory failure
-Chronic, on home oxygen.
#Type 2 diabetes mellitus
-Chronic, stable.
-HgbA1c 7.8%.
#Obesity
-Chronic, stable.
-BMI 38.
Subjective:
Comfortable sitting in chair
No chest pain
Stable dyspnea
DATA:
CT Abdomen/Pelvis, 01/21/2025:
IMPRESSION:
1. No acute intra-abdominal abnormalities.
2. Extensive left colonic diverticular disease.
3. Mild diffuse subcutaneous stranding within the anterior abdominal wall inferiorly. Small fat-containing ventral hernia.
4. 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 Severe left hip osteoarthritis.
5. Additional findings above.
Echo 01/21/2025:
SUMMARY
1. Normal biventricular size and function without regional wall motion abnormalities.
2. LVEF is 60-65% by visual estimation. Mild concentric LVH.
3. Moderate to severe aortic stenosis with peak/mean gradient of 59/35 mmHg. JUDY = 0.91 cm2.
4. Mild to moderate TR. Estimated PASP moderately elevated at 44 mmHg.
5. Compared to prior from January 13, 2024, mean gradient has increased and TR is now mild to moderate with moderately elevated PASP at 44 mmHg, previously mild TR with estimated PASP at 37 mmHg.
Renal US, 01/23/2025:
IMPRESSION:
No hydronephrosis.
There is a 9.0 cm cyst along the lower pole of the right kidney which demonstrates layering echogenic debris which likely represents a hemorrhagic cyst.
Mild debris within the urinary bladder which can be seen with cystitis.
Physical Exam
Vital Signs/Labs
Vital Signs
Temp Pulse Resp BP Pulse Ox
36.6 C 129 17 92/51 100
01/28/25 14:59 01/28/25 15:06 01/28/25 14:59 01/28/25 15:06 01/28/25 14:59
01/27/25 01/28/25 01/29/25
06:59 06:59 06:59
Actual Weight 101.2 kg 101.5 kg
01/28/25 04:59
APTT 42.1 Sec (23.4-35.0) H 01/28/25 11:51
Magnesium 2.0 mg/dl (1.6-2.3) 01/28/25 04:59
Triglycerides 84 mg/dl (10-149) 01/22/25 03:59
LDL Cholesterol, Calc 42 mg/dl 01/22/25 03:59
VLDL Cholesterol, Calc 16 mg/dl (0-30) 01/22/25 03:59
HDL Cholesterol 58 mg/dl 01/22/25 03:59
01/21/25
00:46
Daa-[id number]-Iuhbkplomci Pept 1460
LAB Results
01/28/25
04:59
Troponin I 0.025
Physical Exam
Constitutional: Comfortable
Cardiovascular: Rhythm/rate is irregular
Respiratory: Respiratory effort normal
Neuro/Psych: AO x 3
Data Reviewed
-
Date of Service: January 28, 2025
Medical Decision Making: Reviewed Test Results
EKG: Tracing Personally Visualized and interpreted
Labs: Labs Reviewed by me
--- NOTE | 2025-01-28 16:28 | PTCARENOTE ---
Amino gtt stopped and changed to PO
[2025-01-28 17:15] LABS: Glucose - Point of Care 321 mg/dl (70-99)
[2025-01-28] MEDS: NOVOLOG FLEXPEN-LOW RESISTANCE 4 UNITS SC (17:15)
[2025-01-28] MEDS: LIPITOR 80 MG PO (17:16)
--- NOTE | 2025-01-28 19:38 | PTCARENOTE ---
PTT collected, Heparin gtt at 1200 units/hr. Patient assisted to bed. A-fib HR 112, BP 102/50, oxygen 4 liters NC. Will continue to monitor
[2025-01-28] MEDS: PACERONE 200 MG PO (19:48)
[2025-01-28 20:09] LABS: APTT 46.9 Sec (23.4-35.0)
--- NOTE | 2025-01-28 20:27 | PTCARENOTE ---
PTT 46.9, Heparin gtt increased to 1400 units/hr
[2025-01-28] MEDS: AMBIEN 2.5 MG PO (20:51)
[2025-01-28 20:57] LABS: Glucose - Point of Care 303 mg/dl (70-99)
[2025-01-28] MEDS: LANTUS 0.2 UNITS SC (21:03)
[2025-01-29] VITALS (9 sets, daily range): BP systolic 92–137; BP diastolic 43–110; BMI 37.3
--- NOTE | 2025-01-29 02:16 | PTCARENOTE ---
Assumed care of patient at approx 23:15. Pt restless, anxious and moaning out frequently. Bed alarm in place d/t patients forgetfulness. Bed alarm goes off d/t patient attempting to get OOB. Upon assessment patient sitting on the side of the bed w/
blood dripping onto the floor. Upon further investigation, the IV tubing was torn near the IV connector. RN asked patient 'how did it happen?'. Patient shrugged shoulders and said 'I don't know'. New IV tubing and connector replaced. IV Heparin gtt
infusing at 1400 units/hr, next ptt due at 02:30. Tele remains Afib, HR in the 90-110's at rest. Patient SOB w/ any exertion, and remains on 4L of O2. At times patient will remove oxygen, and is instructed by nursing staff to leave it on. Patient
inc at times, and requires the BSC often and has urinary urgency. Urine yellow and foul smelling. Bed alarm remains active, call young within reach.
[2025-01-29 03:07] LABS: Hematocrit 42.2 % (37.0-47.0); Hemoglobin 12.8 g/dL (12.0-16.0); Mean Corp Hgb Conc. 30.3 g/dL (33.0-37.0); Mean Corpuscular Volume 87.2 fL (81.0-99.0); Platelet Count 294 10^3/uL (130-400); Red Cell Dist. Width 17.2 % (11.5-14.5)
[2025-01-29 03:18] LABS: APTT 109.6 Sec (23.4-35.0)
[2025-01-29 04:04] LABS: Blood Urea Nitrogen 29 mg/dl (7-17); Calcium 8.9 mg/dl (8.4-10.2); Carbon Dioxide 34 mmol/L (22-30); Chloride 96 mmol/L (98-107); Estimated Creatinine Clearance 51 ml/min; Glucose 249 mg/dl (70-99); Potassium 3.8 mmol/L (3.5-5.1); Sodium 137 mmol/L (135-145); eGFR > 60.00
[2025-01-29] MEDS: ULTRAM 50 MG PO (06:16)
[2025-01-29] MEDS: LOPRESSOR PO (06:25)
--- NOTE | 2025-01-29 08:06 | W.PN.CD ---
Today's Communication / Plan
-
I spoke with patient with assistance of parts interpreter line
patient remains on nasal cannula and reports exertional shortness of breath which is unchanged from yesterday. Weights are stable.
A-fib heart rates are in the low 100s with some acceleration with activity. Additional use of beta-erika limited by blood pressure. Will continue with oral amiodarone if further increases in rates can reinitiate IV amiodarone.
Continue efforts to optimize medical therapy for heart failure and A-fib. Ultimate plan for TAVR as previously outlined by Dr. Durbin. Possible TAVR 02/22
Impression / Plan
-
Impression/Plan: 89 y/o [place] Islander speaking female with HTN, HFpEF, CAD s/p prior PCI, RACHEL, HLD, and HFpEF with borderline severe LFLG (mean grad 35, JUDY 0.9, SVI 36) a/w HFpEF exacerbation and evidence of progression of her .
Primary dental laboratory manager: Dr. 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 Rosenthal ([place])
#Aortic Stenosis
-Chronic, progressive.
-Prior data from 2023 hospitalization and repeat TTE from this hospitalization reviewed:
-Echo from 01/22/2025 shows progressive, borderline severe LFLG (mean grad 35 mmHg, JUDY 0.9, SVI 36).
-Prior cath from 12/2023 with non-obstructive CAD but no invasive valve gradient.
-TAVR CT with calcium score 1400 but mobile aortic valve leaflets and small annulus. Aortic stenosis deemed moderate at this time and TAVR deferred.
-She sizes for a Medtronic Evolut #26 valve (or a #20 YARELI S3); vessel caliber adequate for femoral access.
- Heart failure full to be multifactorial but AAS felt to be a significant contributing factor. Issues related to AVR have been reviewed between Dr. Durbin and the patient and family. Also case has been discussed at multidisciplinary TAVR meeting
as previously outlined by Dr. Durbin with plans for
26 mm Evolute from the left groin, timing TBD, possible next Thursday 02/01;
#Afib
-new diagnosis
-initially with RVR (rates to 140s) and chest pain
-rates now controlled on IV amio and PO metop 12.5 q6
-heparin gtt
-will consider cardioversion once loaded with amio, perhaps at time of AVR
#HFpEF
-Acute on chronic.
-proBNP 1460 elevated from 518 prior admission, echo below.
-GDTM as hemodynamics will tolerate:
-Diuretics: Transitioned to 4 BID bumex today; will check weight tomrorow to determine final regimen (may do better on 4 qD with BID dosing PRN)
-Beta erika: restarted in setting of Afib w/ RVR at 12.5 q6
-ACEI/ARB/ARNi: Valsartan 80 mg daily.
-MRA: None.
-SGLT2i: Dapagliflozin on hold for UTI.
-ICD: Not currently indicated.
#CAD
-Chronic, stable, non-anginal.
-LHC 07/2021: LAD with patent stent, D1 50%, OM2 70%.
-PCI to mid LAD 08/11/2020.
-Continue aspirin 81mg, isosorbide mononitrate on hold with diuresis.
-Continue atorvastatin 80 mg daily. Goal LDL < 55.
#Urinary frequency with retention
-Acute.
-Straight cath yesterday for 560 mL.
-UA shows evidence of infection. UCx positive for E. coli (Ampicillin-R, Ampicillin/Sulbactam-I, Tetracycline-R, TMP/SMX-R).
-Hold dapagliflozin.
-Continue abx
#HTN
-Chronic, stable.
-Continue valsartan at half dose.
-Amlodipine held given intermittent hypotension.
#Hypoxic respiratory failure
-Chronic, on home oxygen.
#Type 2 diabetes mellitus
-Chronic, stable.
-HgbA1c 7.8%.
#Obesity
-Chronic, stable.
-BMI 38.
Subjective:
Comfortable sitting in chair
No chest pain
Stable dyspnea
DATA:
CT Abdomen/Pelvis, 01/21/2025:
IMPRESSION:
1. No acute intra-abdominal abnormalities.
2. Extensive left colonic diverticular disease.
3. Mild diffuse subcutaneous stranding within the anterior abdominal wall inferiorly. Small fat-containing ventral hernia.
4. 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 Severe left hip osteoarthritis.
5. Additional findings above.
Echo 01/21/2025:
SUMMARY
1. Normal biventricular size and function without regional wall motion abnormalities.
2. LVEF is 60-65% by visual estimation. Mild concentric LVH.
3. Moderate to severe aortic stenosis with peak/mean gradient of 59/35 mmHg. JUDY = 0.91 cm2.
4. Mild to moderate TR. Estimated PASP moderately elevated at 44 mmHg.
5. Compared to prior from January 13, 2024, mean gradient has increased and TR is now mild to moderate with moderately elevated PASP at 44 mmHg, previously mild TR with estimated PASP at 37 mmHg.
Renal US, 01/23/2025:
IMPRESSION:
No hydronephrosis.
There is a 9.0 cm cyst along the lower pole of the right kidney which demonstrates layering echogenic debris which likely represents a hemorrhagic cyst.
Mild debris within the urinary bladder which can be seen with cystitis.
Physical Exam
Vital Signs/Labs
Vital Signs
Temp Pulse Resp BP Pulse Ox
98.5 F 117 22 92/43 97
01/29/25 07:33 01/29/25 04:31 01/29/25 07:33 01/29/25 06:25 01/29/25 07:33
01/28/25 01/29/25 01/30/25
06:59 06:59 05:59
Actual Weight 101.5 kg
01/29/25 02:52
01/29/25 02:52
APTT 109.6 Sec (23.4-35.0) H 01/29/25 02:50
Magnesium 2.0 mg/dl (1.6-2.3) 01/28/25 04:59
Triglycerides 84 mg/dl (10-149) 01/22/25 03:59
LDL Cholesterol, Calc 42 mg/dl 01/22/25 03:59
VLDL Cholesterol, Calc 16 mg/dl (0-30) 01/22/25 03:59
HDL Cholesterol 58 mg/dl 01/22/25 03:59
01/21/25
00:46
Mjs-E-Lqjpftirqzz Pept 1460
LAB Results
01/28/25
04:59
Troponin I 0.025
Physical Exam
Constitutional: No acute distress
Cardiovascular: Rhythm/rate is irregular and Systolic murmur present
Respiratory: Wheeze Absent and Rhonchi Absent
GI: Soft and Non tender
Neuro/Psych: Alert
Data Reviewed
-
Date of Service: January 29, 2025
Medical Decision Making: Reviewed Test Results
X-Ray/CT/US/MRI/NUC/PET: Report Reviewed by me
Medical Tests (PFT, Pathology etc): Report Reviewed by me
Labs: Labs Reviewed by me
[2025-01-29 08:13] LABS: Glucose - Point of Care 249 mg/dl (70-99)
[2025-01-29] MEDS: MYRBETRIQ EXTENDED RELEASE 50 MG PO (08:27)
[2025-01-29] MEDS: NOVOLOG FLEXPEN-LOW RESISTANCE 2 UNITS SC (08:27)
[2025-01-29] MEDS: ASPIR LOW (ENTERIC COATED) 81 MG PO (08:28)
[2025-01-29] MEDS: ZENPEP DELAYED RELEASE CAPSULE 1 CAPSULE PO ×3 (08:28→22:18)
[2025-01-29] MEDS: DICLOFENAC 1% TOPICAL GEL 100 GRAM TOPICAL ×4 (08:28→22:18)
[2025-01-29] MEDS: PEPCID 20 MG PO (08:28)
[2025-01-29] MEDS: PACERONE 200 MG PO ×2 (08:28→19:59)
[2025-01-29] MEDS: BenGay-Like 1 APPLIC TOPICAL ×3 (08:29→22:18)
--- NOTE | 2025-01-29 08:30 | W.PN.HOSP.TC ---
Today's Communication/Plan
-
see plan
Assessment / Plan
Assessment / Plan
Gen: appears moderately SOB, Awake and alert
Eyes: EOMI, PERRLA, no scleral icterus.
Neck: supple.
CV: tachy, irreg/irreg, +S1/S2, no m/r/g.
Resp: CTAB, no rales, wheezes, or rhonchi.
Abd: +BS, soft, NT, ND
Skin: No rashes.
Neuro: CN 2-12 intact, non-focal.
Psych: Normal mood and affect.
Impression
89-year-old with complex past medical history coming to the emergency department with progressive shortness of breath much more severe over the last 2 to 3 days without known weight gain. Evaluation in the ED is consistent with CHF exacerbation
with increasing BNP, bilateral pleural effusions and pulmonary edema on x-ray, increased work of breathing. She is not wheezing and does not appear to be having asthma or COPD exacerbation. She has no focal consolidation on x-ray and shows no
other signs of an acute infection. She does appear to have significant sleep apnea in the setting of her somnolence.
Acute on chronic hypoxic respiratory failure.
Acute CHF preserved EF/valvular secondary severe aortic stenosis
Acute cardiogenic pulmonary edema
Atrial fibrillation with rapid ventricular response new onset on 01/28/2025
Conditions prior to admission:
Chronic CHF preserved EF.
Chronic hypoxic respiratory failure on home O2 at 2-1/2 L.
CAD
Obstructive sleep apnea on nightly CPAP.
Moderate to severe aortic stenosis by echo 01/21.
CAD.
History of acute kidney injury
IDDM.
Obesity with BMI of 40
Ventral hernia
Plan
Acute CHF presumed with preserved EF and secondary to severe aortic stenosis.
Acute on chronic hypoxic respiratory failure, currently requiring nasal cannula oxygen up to 6 L.
Chest x-ray with pulmonary edema
Weight is up close to 20 pounds since December 2023.
Anasarca with increased abdominal girth and peripheral edema.
Patient states to be compliant with diuretic regimen at home.
Suspect progressive and now critical
Repeat echocardiogram
Cardiology evaluation
Responding to IV diuresis and transition from Lasix to Bumex 4 mg twice daily on 01/27
Continue metoprolol
Hold valsartan with concern for hypotension
Hold Imdur and Norvasc avoiding hypotension
Daily weights
Daily BMP
Relatively high risk for TAVR, although could be considered depends on response to diuresis, renal function and overall performance status.
Hold Farxiga with possible UTI
GDMT to be determined according to above.
Atrial fibrillation with rapid reticular response, new onset on 01/28/2025
Hypotension possibly related to fast rate
Initiated on IV amiodarone, now transitioned to PO Amio
Continue low-dose of beta-erika.
Adjust other antihypertensive medication and diuresis around to avoid hypotension
Anticoagulation: Initiated on IV heparin for thromboembolic prophylaxis.
CAD.
Hypertension
History of PCI to LAD 08/18
She complains of periodic chest pain.
Has mildly elevated troponin.
ECG without ischemia.
Had nonobstructive CAD on cath 01/21
Continue aspirin
Continue high potency statin
Continue beta-erika
Hold amlodipine
Hold Imdur avoiding hypotension while on aggressive diuresis
UTI without complications
Intermittent flank pain
Foul-smelling urine
Urinalysis obtained via straight cath equivocal
Urine cultures with E. coli
Renal sonogram with no acute abnormalities
Continue ceftriaxone through 01/30
Hold Farxiga
Obstructive sleep apnea.
Continue CPAP at night.
Not compliant
IDDM
Hemoglobin A1c 7.8
Continue Basaglar insulin Lantus
Hold oral glucose lowering medications including Prandin and metformin.
Basal bolus protocol with serial Accu-Cheks
Increase of abdominal girth
Anasarca with severe peripheral edema
Ventral hernia.
CT A/P 01/21:
1. No acute intra-abdominal abnormalities.
2. Extensive left colonic diverticular disease.
3. Mild diffuse subcutaneous stranding within the anterior abdominal wall inferiorly. Small fat-containing ventral hernia.
4. 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 Severe left hip osteoarthritis.
Severe DJD with chronic ambulatory dysfunction
CODE STATUS discussed again on 01/27 with the patient in the presence of son. Patient would like to have full resuscitation
DVT prophylaxis Lovenox
Anticipated Discharge: > 48 hours
Subjective/Interval History
-
Date of Service: January 29, 2025
No new events.
Objective Data
-
Labs:
Laboratory Results
01/28/25 01/29/25 01/29/25
05:18 02:50 02:52
WBC Cancelled 7.9
Hgb Cancelled 12.8
Hct Cancelled 42.2
Plt Count Cancelled 294
APTT 109.6 H
Sodium 137
Potassium 3.8
Chloride 96 L
Carbon Dioxide 34 H
BUN 29 H
Creatinine 0.9
Glucose 249 H
Calcium 8.9
01/29/25
08:24
WBC
Hgb
Hct
Plt Count
APTT Pending
Sodium
Potassium
Chloride
Carbon Dioxide
BUN
Creatinine
Glucose
Calcium
Vital Signs:
Vital Signs
Temp Pulse Resp BP Pulse Ox
98.5 F 120 22 92/43 97
01/29/25 07:33 01/29/25 08:28 01/29/25 07:33 01/29/25 06:25 01/29/25 07:33
I&O
01/28/25 01/29/2525
06:59 06:59 05:59
Intake Total 870 / 870 888 / 888
Output Total 850 / 850 960 / 960
Balance - /
[2025-01-29 08:48] LABS: APTT 110.5 Sec (23.4-35.0)
[2025-01-29 12:07] LABS: Glucose - Point of Care 281 mg/dl (70-99)
[2025-01-29] MEDS: LOPRESSOR 12.5 MG PO ×2 (12:15→17:09)
[2025-01-29] MEDS: NOVOLOG FLEXPEN-LOW RESISTANCE 3 UNITS SC (12:15)
[2025-01-29] MEDS: ROCEPHIN 1000 MG IV (14:10)
[2025-01-29] MEDS: STERILE WATER FOR INJECTION 10 ML IV (14:10)
[2025-01-29] MEDS: NOVOLOG FLEXPEN-LOW RESISTANCE 4 UNITS SC (16:51)
[2025-01-29 16:53] LABS: Glucose - Point of Care 308 mg/dl (70-99)
[2025-01-29] MEDS: LIPITOR 80 MG PO (17:09)
[2025-01-29] MEDS: HEPARIN 25000 UNITS/250 ML IV (17:13)
--- NOTE | 2025-01-29 18:08 | PTCARENOTE ---
01/29/25 Received patient from previous shift in bed resting comfortably. Pt on forming acid dumper A Fib (controlled to uncontrolled). BP stable. Pt afebrile. Heparin drip infusing at 14 ml/hr. PTT therapeutic. Pt is AAOx3. Pt follows commands, Pt with
no complaints at this time, Mobile Marketing Manager phone at bedside, Pt able to make her needs known. Pt OOB chair most of day, with use if bedside commode. Will monitor.
[2025-01-29 21:29] LABS: Glucose - Point of Care 338 mg/dl (70-99)
[2025-01-29] MEDS: NOVOLOG FLEXPEN 4 UNITS SC (22:16)
[2025-01-29] MEDS: AMBIEN 2.5 MG PO (22:17)
[2025-01-29] MEDS: LANTUS 0.2 UNITS SC (22:19)
--- NOTE | 2025-01-29 22:59 | PTCARENOTE ---
blood glucose- 338. updated Georgie prieto [employer]. 4 units of insulin ordered and given, see mar. will recheck in 2 hours.
[2025-01-30] VITALS (17 sets, daily range): BP systolic 63–146; BP diastolic 37–134; BMI 37.4
[2025-01-30 00:21] LABS: Glucose - Point of Care 256 mg/dl (70-99)
[2025-01-30] MEDS: ULTRAM 50 MG PO ×2 (00:28→16:42)
[2025-01-30] MEDS: LOPRESSOR 12.5 MG PO ×5 (00:29→23:19)
[2025-01-30 03:41] LABS: Hematocrit 40.2 % (37.0-47.0); Hemoglobin 12.4 g/dL (12.0-16.0); Mean Corp Hgb Conc. 30.8 g/dL (33.0-37.0); Mean Corpuscular Volume 88.7 fL (81.0-99.0); Platelet Count 265 10^3/uL (130-400); Red Cell Dist. Width 16.9 % (11.5-14.5)
[2025-01-30 03:49] LABS: APTT 122.0 Sec (23.4-35.0)
--- NOTE | 2025-01-30 07:46 | W.PN.HOSP.TC ---
Today's Communication/Plan
-
TAVR likely 02/01
Assessment / Plan
Assessment / Plan
Gen: appears moderately SOB, Awake and alert
Eyes: EOMI, PERRLA, no scleral icterus.
Neck: supple.
CV: irreg/irreg, +S1/S2, no m/r/g.
Resp: faint rales R base
Abd: remains +BS, soft, NT, ND
Skin: No rashes.
Neuro: CN 2-12 intact, non-focal.
Psych: Normal mood and affect.
Impression
89-year-old with complex past medical history coming to the emergency department with progressive shortness of breath much more severe over the last 2 to 3 days without known weight gain. Evaluation in the ED is consistent with CHF exacerbation
with increasing BNP, bilateral pleural effusions and pulmonary edema on x-ray, increased work of breathing. She is not wheezing and does not appear to be having asthma or COPD exacerbation. She has no focal consolidation on x-ray and shows no
other signs of an acute infection. She does appear to have significant sleep apnea in the setting of her somnolence.
Acute on chronic hypoxic respiratory failure.
Acute CHF preserved EF/valvular secondary severe aortic stenosis
Acute cardiogenic pulmonary edema
Atrial fibrillation with rapid ventricular response new onset on 01/28/2025
Conditions prior to admission:
Chronic CHF preserved EF.
Chronic hypoxic respiratory failure on home O2 at 2-1/2 L.
CAD
Obstructive sleep apnea on nightly CPAP.
Moderate to severe aortic stenosis by echo 01/21.
CAD.
History of acute kidney injury
IDDM.
Obesity with BMI of 40
Ventral hernia
Plan
Acute CHF presumed with preserved EF and secondary to severe aortic stenosis.
Acute on chronic hypoxic respiratory failure, currently requiring nasal cannula oxygen up to 6 L, now on 2L NC O2.
Chest x-ray with pulmonary edema
Weight is up close to 20 pounds since December 2023.
Anasarca with increased abdominal girth and peripheral edema.
Patient states to be compliant with diuretic regimen at home.
Suspect progressive and now critical
Repeat echocardiogram
Cardiology evaluation
Responding to IV diuresis and transition from Lasix to Bumex 4 mg twice daily on 01/27
Continue metoprolol
Hold valsartan with concern for hypotension
Hold Imdur and Norvasc avoiding hypotension
Daily weights
Daily BMP
Relatively high risk for TAVR, although could be considered depends on response to diuresis, renal function and overall performance status. Likely TAVR 02/01.
Hold Farxiga with possible UTI
GDMT to be determined according to above.
Atrial fibrillation with rapid reticular response, new onset on 01/28/2025
Hypotension possibly related to fast rate
Initiated on IV amiodarone, now transitioned to PO Amio
Continue low-dose of beta-erika.
Adjust other antihypertensive medication and diuresis around to avoid hypotension
Anticoagulation: Initiated on IV heparin for thromboembolic prophylaxis.
CAD.
Hypertension
History of PCI to LAD 08/18
She complains of periodic chest pain.
Has mildly elevated troponin.
ECG without ischemia.
Had nonobstructive CAD on cath 01/21
Continue aspirin
Continue high potency statin
Continue beta-erika
Hold amlodipine
Hold Imdur avoiding hypotension while on aggressive diuresis
UTI without complications
Intermittent flank pain
Foul-smelling urine
Urinalysis obtained via straight cath equivocal
Urine cultures with E. coli
Renal sonogram with no acute abnormalities
Continue ceftriaxone through 01/30
Hold Farxiga
Obstructive sleep apnea.
Continue CPAP at night.
Not compliant
IDDM
Hemoglobin A1c 7.8
Continue Basaglar insulin Lantus
Hold oral glucose lowering medications including Prandin and metformin.
Basal bolus protocol with serial Accu-Cheks
Increase of abdominal girth
Anasarca with severe peripheral edema
Ventral hernia.
CT A/P 01/21:
1. No acute intra-abdominal abnormalities.
2. Extensive left colonic diverticular disease.
3. Mild diffuse subcutaneous stranding within the anterior abdominal wall inferiorly. Small fat-containing ventral hernia.
4. 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 Severe left hip osteoarthritis.
Severe DJD with chronic ambulatory dysfunction
CODE STATUS discussed again on 01/27 with the patient in the presence of son. Patient would like to have full resuscitation.
DVT prophylaxis Lovenox
01/30 update: Case discussed with Dr. Loaiza, will plan to optimize HR and volume status as much as able in the setting of severe awaiting TAVR. Change SSI to high resistance, add 4U Novolog premeal.
Total time spent on today's encounter was 52 minutes which included time spent in counseling the patient/family regarding diagnosis and treatment plan as listed above, goals of care, and symptom management. Case was discussed with nursing staff,
specialists, and care coordinators/case management. All labs and imaging personally reviewed by me. Remainder the time spent in detailed review of previous records, lab data, imaging, and other medical provider documentation.
Anticipated Discharge: > 48 hours
Subjective/Interval History
-
Date of Service: January 30, 2025
Language line utilized.
Pt states worsening SOB and dull CP.
Objective Data
-
Labs:
Laboratory Results
01/30/25 01/30/25
03:30 10:15
WBC 7.7
Hgb 12.4
Hct 40.2
Plt Count 265
APTT 122.0 H Pending
Vital Signs:
Vital Signs
Temp Pulse Resp BP Pulse Ox
97.9 F 73 18 127/110 97
01/30/25 07:16 01/30/25 07:16 01/30/25 07:16 01/30/25 06:16 01/30/25 07:16
I&O
01/29/25 01/30/25 01/31/25
06:59 05:59 06:59
Intake Total 888 / 888 550 / 550
Output Total 960 / 960 1050 / 1050
Balance -72 / -72 -500 / -500
[2025-01-30 08:03] LABS: Glucose - Point of Care 244 mg/dl (70-99)
[2025-01-30] MEDS: MYRBETRIQ EXTENDED RELEASE 50 MG PO (08:20)
[2025-01-30] MEDS: NOVOLOG FLEXPEN-LOW RESISTANCE 2 UNITS SC (08:20)
[2025-01-30] MEDS: ASPIR LOW (ENTERIC COATED) 81 MG PO (08:20)
[2025-01-30] MEDS: PACERONE 200 MG PO ×2 (08:21→20:27)
[2025-01-30] MEDS: PEPCID 20 MG PO (08:21)
[2025-01-30] MEDS: ZENPEP DELAYED RELEASE CAPSULE 1 CAPSULE PO ×3 (08:21→23:18)
[2025-01-30] MEDS: DICLOFENAC 1% TOPICAL GEL 100 GRAM TOPICAL ×4 (08:23→23:17)
[2025-01-30] MEDS: BenGay-Like 1 APPLIC TOPICAL ×3 (08:23→23:18)
--- NOTE | 2025-01-30 09:03 | W.PN.CD ---
Today's Communication / Plan
-
- Patient had shortness of breath this morning feels better now that she is sitting up seems the chest also felt more comfortable with deep breaths. Patient had been on IV Lasix earlier this admission which was stopped on 01/27/2025. Patient was
transition to oral Bumex on 01/27/2025 and then diuretic was held. Patient had some lower blood pressures. Will readminister IV Lasix with patient's shortness of breath.
Impression / Plan
-
Impression/Plan: 89 y/o [place] speaking female with HTN, HFpEF, CAD s/p prior PCI, RACHEL, HLD, and HFpEF with borderline severe LFLG (mean grad 35, JUDY 0.9, SVI 36) a/w HFpEF exacerbation and evidence of progression of her .
Primary sand bobber: Dr. 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 Rosenthal ([place])
#Aortic Stenosis
-Chronic, progressive.
-Prior data from 2023 hospitalization and repeat TTE from this hospitalization reviewed:
-Echo from 01/22/2025 shows progressive, borderline severe LFLG (mean grad 35 mmHg, JUDY 0.9, SVI 36).
-Prior cath from 12/2023 with non-obstructive CAD but no invasive valve gradient.
-TAVR CT with calcium score 1400 but mobile aortic valve leaflets and small annulus. Aortic stenosis deemed moderate at this time and TAVR deferred.
-She sizes for a Medtronic Evolut #26 valve (or a #20 YARELI S3); vessel caliber adequate for femoral access.
- Heart failure full to be multifactorial but AAS felt to be a significant contributing factor. Issues related to AVR have been reviewed between Dr. Durbin and the patient and family. Also case has been discussed at multidisciplinary TAVR meeting
as previously outlined by Dr. Durbin with plans for
26 mm Evolute from the left groin, timing TBD, possible next Thursday 02/01;
- Patient had shortness of breath this morning feels better now that she is sitting up seems the chest also felt more comfortable with deep breaths. Patient had been on IV Lasix earlier this admission which was stopped on 01/27/2025. Patient was
transition to oral Bumex on 01/27/2025 and then diuretic was held. Patient had some lower blood pressures. Will readminister IV Lasix with patient's shortness of breath.
#Afib
-new diagnosis
-initially with RVR (rates to 140s) and chest pain
-rates now controlled on IV amio and PO metop 12.5 q6
-heparin gtt
-will consider cardioversion once loaded with amio, perhaps at time of AVR
#HFpEF
-Acute on chronic.
-proBNP 1460 elevated from 518 prior admission, echo below.
-GDTM as hemodynamics will tolerate:
-Diuretics: Transitioned to 4 BID bumex today; will check weight tomrorow to determine final regimen (may do better on 4 qD with BID dosing PRN)
-Beta erika: restarted in setting of Afib w/ RVR at 12.5 q6
-ACEI/ARB/ARNi: Valsartan 80 mg daily.
-MRA: None.
-SGLT2i: Dapagliflozin on hold for UTI.
-ICD: Not currently indicated.
#CAD
-Chronic, stable, non-anginal.
-C 07/2021: LAD with patent stent, D1 50%, OM2 70%.
-PCI to mid LAD 08/11/2020.
-Continue aspirin 81mg, isosorbide mononitrate on hold with diuresis.
-Continue atorvastatin 80 mg daily. Goal LDL < 55.
#Urinary frequency with retention
-Acute.
-Straight cath yesterday for 560 mL.
-UA shows evidence of infection. UCx positive for E. coli (Ampicillin-R, Ampicillin/Sulbactam-I, Tetracycline-R, TMP/SMX-R).
-Hold dapagliflozin.
-Continue abx
#HTN
-Chronic, stable.
-Continue valsartan at half dose.
-Amlodipine held given intermittent hypotension.
#Hypoxic respiratory failure
-Chronic, on home oxygen.
#Type 2 diabetes mellitus
-Chronic, stable.
-HgbA1c 7.8%.
#Obesity
-Chronic, stable.
-BMI 38.
Subjective:
Comfortable sitting in chair
No chest pain
Stable dyspnea
DATA:
CT Abdomen/Pelvis, 01/21/2025:
IMPRESSION:
1. No acute intra-abdominal abnormalities.
2. Extensive left colonic diverticular disease.
3. Mild diffuse subcutaneous stranding within the anterior abdominal wall inferiorly. Small fat-containing ventral hernia.
4. 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 Severe left hip osteoarthritis.
5. Additional findings above.
Echo 01/21/2025:
SUMMARY
1. Normal biventricular size and function without regional wall motion abnormalities.
2. LVEF is 60-65% by visual estimation. Mild concentric LVH.
3. Moderate to severe aortic stenosis with peak/mean gradient of 59/35 mmHg. JUDY = 0.91 cm2.
4. Mild to moderate TR. Estimated PASP moderately elevated at 44 mmHg.
5. Compared to prior from January 13, 2024, mean gradient has increased and TR is now mild to moderate with moderately elevated PASP at 44 mmHg, previously mild TR with estimated PASP at 37 mmHg.
Renal US, 01/23/2025:
IMPRESSION:
No hydronephrosis.
There is a 9.0 cm cyst along the lower pole of the right kidney which demonstrates layering echogenic debris which likely represents a hemorrhagic cyst.
Mild debris within the urinary bladder which can be seen with cystitis.
Physical Exam
Vital Signs/Labs
Vital Signs
Temp Pulse Resp BP Pulse Ox
97.9 F 73 18 127/110 97
01/30/25 07:16 01/30/25 07:16 01/30/25 07:16 01/30/25 06:16 01/30/25 07:16
01/29/25 01/30/25 01/31/25
06:59 05:59 06:59
Actual Weight 101.7 kg 102 kg
01/30/25 03:30
APTT 122.0 Sec (23.4-35.0) H 01/30/25 03:30
Magnesium 2.0 mg/dl (1.6-2.3) 01/28/25 04:59
Triglycerides 84 mg/dl (10-149) 01/22/25 03:59
LDL Cholesterol, Calc 42 mg/dl 01/22/25 03:59
VLDL Cholesterol, Calc 16 mg/dl (0-30) 01/22/25 03:59
HDL Cholesterol 58 mg/dl 01/22/25 03:59
01/21/25
00:46
Ceh-M-Lgwbmjiyhby Pept 1460
LAB Results
01/28/25
04:59
Troponin I 0.025
Physical Exam
Constitutional: No acute distress
Cardiovascular: Rhythm/rate is irregular and Systolic murmur present
Respiratory: Wheeze Absent and Rhonchi Absent
GI: Soft
Neuro/Psych: Alert
Data Reviewed
-
Date of Service: January 30, 2025
Medical Decision Making: Reviewed Test Results
X-Ray/CT/US/MRI/NUC/PET: Report Reviewed by me
Medical Tests (PFT, Pathology etc): Report Reviewed by me
Labs: Labs Reviewed by me
[2025-01-30] MEDS: LASIX 60 MG IV (09:24)
[2025-01-30 10:24] LABS: APTT 103.6 Sec (23.4-35.0)
[2025-01-30 10:36] LABS: Troponin I 0.263 ng/ml
[2025-01-30 11:05] LABS: Blood Urea Nitrogen 23 mg/dl (7-17); Calcium 8.9 mg/dl (8.4-10.2); Carbon Dioxide 36 mmol/L (22-30); Chloride 95 mmol/L (98-107); Estimated Creatinine Clearance 51 ml/min; Glucose 355 mg/dl (70-99); Potassium 4.1 mmol/L (3.5-5.1); Sodium 137 mmol/L (135-145); eGFR > 60.00
[2025-01-30] MEDS: HEPARIN 25000 UNITS/250 ML IV (12:01)
[2025-01-30] MEDS: NOVOLOG FLEXPEN-HIGH RESISTANCE 7 UNITS SC (12:32)
[2025-01-30] MEDS: NOVOLOG FLEXPEN 4 UNITS SC ×2 (12:32→16:43)
[2025-01-30 12:35] LABS: Glucose - Point of Care 295 mg/dl (70-99)
[2025-01-30] MEDS: STERILE WATER FOR INJECTION 10 ML IV (13:51)
[2025-01-30] MEDS: ROCEPHIN 1000 MG IV (13:51)
[2025-01-30] MEDS: TYLENOL 650 MG PO (14:25)
--- NOTE | 2025-01-30 15:26 | PTCARENOTE ---
01/30/25 Assumed care of patient from previous shift. Pt restless at times in AM, but able to make her needs known. Pt is AAO x3. Pt on court monitor A Fib-70-100(controlled). Pt's lungs decreased at the bases-but ARAUJO+. Pt maintained on 3L NC. 60
mg IV Lasix ordered and given- Pt diuresed 2000 ml. PT worked with patient in room w/walker. Pt c/o pain in b/l knees- Tylenol given as ordered.
[2025-01-30] MEDS: LASIX IV (15:58)
[2025-01-30 16:02] LABS: APTT 96.5 Sec (23.4-35.0)
[2025-01-30 16:18] LABS: Troponin I 0.252 ng/ml
[2025-01-30 16:41] LABS: Glucose - Point of Care 201 mg/dl (70-99)
[2025-01-30] MEDS: NOVOLOG FLEXPEN-HIGH RESISTANCE 4 UNITS SC (16:44)
[2025-01-30] MEDS: LIPITOR 80 MG PO (16:45)
[2025-01-30 23:13] LABS: Glucose - Point of Care 238 mg/dl (70-99)
[2025-01-30] MEDS: LANTUS 0.2 UNITS SC (23:19)
[2025-01-31] VITALS (10 sets, daily range): BP systolic 96–123; BP diastolic 60–99; BMI 37.7
--- NOTE | 2025-01-31 00:42 | PTCARENOTE ---
assumed care of patient at the change of shift. restless. dyspnea noted. moaning and groaning intermittently. tachypneic. records tech used for communication. patient oriented but forgetful. patient states feeling short of breath. denies any pain. 98%
on 3L NC. assisted patient to the chair. when sitting up, patient appears more comfortable. notified Melania Benitez MANUFACTURING BUSINESS ANALYST of patients breathing- no new orders at this time. controlled Afib on tele 80s-90s. bp stable. bed/chair alarm for safety.
incontinent at times. call young within reach. will make needs known at times.
[2025-01-31 04:43] LABS: APTT 90.0 Sec (23.4-35.0)
[2025-01-31 05:01] LABS: Blood Urea Nitrogen 25 mg/dl (7-17); Calcium 9.0 mg/dl (8.4-10.2); Carbon Dioxide 37 mmol/L (22-30); Chloride 95 mmol/L (98-107); Estimated Creatinine Clearance 58 ml/min; Glucose 227 mg/dl (70-99); Potassium 4.2 mmol/L (3.5-5.1); Sodium 135 mmol/L (135-145); eGFR > 60.00
[2025-01-31 07:22] LABS: Glucose - Point of Care 219 mg/dl (70-99)
[2025-01-31] MEDS: LOPRESSOR 12.5 MG PO ×4 (07:31→23:19)
[2025-01-31] MEDS: NOVOLOG FLEXPEN-HIGH RESISTANCE 4 UNITS SC ×2 (07:54→12:03)
[2025-01-31] MEDS: NOVOLOG FLEXPEN 4 UNITS SC ×3 (07:56→17:27)
[2025-01-31] MEDS: DICLOFENAC 1% TOPICAL GEL 100 GRAM TOPICAL ×4 (07:58→23:16)
[2025-01-31] MEDS: BenGay-Like 1 APPLIC TOPICAL ×3 (07:58→20:26)
[2025-01-31] MEDS: HEPARIN 25000 UNITS/250 ML IV (08:48)
--- NOTE | 2025-01-31 08:52 | W.PN.CD ---
Today's Communication / Plan
-
IV lasix 60 x1 today
cont. heparin
TAVR tomorrow, NPO@[email or web address]
Impression / Plan
-
Impression/Plan: 89 y/o [place] speaking female with HTN, HFpEF, CAD s/p prior PCI, RACHEL, HLD, and HFpEF with borderline severe LFLG (mean grad 35, JUDY 0.9, SVI 36) a/w HFpEF exacerbation and evidence of progression of her .
Primary landscaper: Dr. 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 Rosenthal ([place])
#Aortic Stenosis
-Chronic, progressive.
-Prior data from 2023 hospitalization and repeat TTE from this hospitalization reviewed:
-Echo from 01/22/2025 shows progressive, borderline severe LFLG (mean grad 35 mmHg, JUDY 0.9, SVI 36).
-Prior cath from 12/2023 with non-obstructive CAD but no invasive valve gradient.
-TAVR CT with calcium score 1400 but mobile aortic valve leaflets and small annulus. Aortic stenosis deemed moderate at this time and TAVR deferred.
-She sizes for a Medtronic Evolut #26 valve (or a #20 YARELI S3); vessel caliber adequate for femoral access.
- Heart failure full to be multifactorial but AAS felt to be a significant contributing factor. Issues related to AVR have been reviewed between Dr. Durbin and the patient and family. Also case has been discussed at multidisciplinary TAVR meeting
as previously outlined by Dr. Durbin with plans for
- pending TVVR tomorrow
#Afib
-new diagnosis
-initially with RVR (rates to 140s) and chest pain
-rates now controlled on PO amio and PO metop 12.5 q6
-heparin gtt
-will consider cardioversion once loaded with amio, perhaps at time of TAVR
#HFpEF
-Acute on chronic.
-proBNP 1460 elevated from 518 prior admission, echo below.
-GDTM as hemodynamics will tolerate:
-Diuretics: Transitioned to 4 BID bumex today but then held for unclear reasons; IV diuresis over weekend, will give additional dose today
-Beta erika: restarted in setting of Afib w/ RVR at 25 BID
-ACEI/ARB/ARNi: Valsartan 80 mg daily.
-MRA: None.
-SGLT2i: Dapagliflozin on hold for UTI.
-ICD: Not currently indicated.
#CAD
-Chronic, stable, non-anginal.
-LHC 07/2021: LAD with patent stent, D1 50%, OM2 70%.
-PCI to mid LAD 08/11/2020.
-Continue aspirin 81mg, isosorbide mononitrate on hold with diuresis.
-Continue atorvastatin 80 mg daily. Goal LDL < 55.
#Urinary frequency with retention
-Acute.
-Straight cath yesterday for 560 mL.
-UA shows evidence of infection. UCx positive for E. coli (Ampicillin-R, Ampicillin/Sulbactam-I, Tetracycline-R, TMP/SMX-R).
-Hold dapagliflozin.
-Continue abx
#HTN
-Chronic, stable.
-Continue valsartan at half dose.
-Amlodipine held given intermittent hypotension.
#Hypoxic respiratory failure
-Chronic, on home oxygen.
#Type 2 diabetes mellitus
-Chronic, stable.
-HgbA1c 7.8%.
#Obesity
-Chronic, stable.
-BMI 38.
Subjective:
Comfortable sitting in chair
No chest pain
Stable dyspnea
DATA:
CT Abdomen/Pelvis, 01/21/2025:
IMPRESSION:
1. No acute intra-abdominal abnormalities.
2. Extensive left colonic diverticular disease.
3. Mild diffuse subcutaneous stranding within the anterior abdominal wall inferiorly. Small fat-containing ventral hernia.
4. 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 Severe left hip osteoarthritis.
5. Additional findings above.
Echo 01/21/2025:
SUMMARY
1. Normal biventricular size and function without regional wall motion abnormalities.
2. LVEF is 60-65% by visual estimation. Mild concentric LVH.
3. Moderate to severe aortic stenosis with peak/mean gradient of 59/35 mmHg. JUDY = 0.91 cm2.
4. Mild to moderate TR. Estimated PASP moderately elevated at 44 mmHg.
5. Compared to prior from January 13, 2024, mean gradient has increased and TR is now mild to moderate with moderately elevated PASP at 44 mmHg, previously mild TR with estimated PASP at 37 mmHg.
Renal US, 01/23/2025:
IMPRESSION:
No hydronephrosis.
There is a 9.0 cm cyst along the lower pole of the right kidney which demonstrates layering echogenic debris which likely represents a hemorrhagic cyst.
Mild debris within the urinary bladder which can be seen with cystitis.
Physical Exam
Vital Signs/Labs
Vital Signs
Temp Pulse Resp BP Pulse Ox
36.7 C 85 20 123/99 98
01/31/25 07:17 01/31/25 06:00 01/31/25 07:17 01/31/25 04:03 01/31/25 07:17
01/30/25 01/31/25 02/01/25
05:59 06:59 06:59
Actual Weight 102 kg 102.7 kg
01/30/25 03:30
01/31/25 04:11
APTT 90.0 Sec (23.4-35.0) H 01/31/25 04:11
Magnesium 2.0 mg/dl (1.6-2.3) 01/28/25 04:59
Triglycerides 84 mg/dl (10-149) 01/22/25 03:59
LDL Cholesterol, Calc 42 mg/dl 01/22/25 03:59
VLDL Cholesterol, Calc 16 mg/dl (0-30) 01/22/25 03:59
HDL Cholesterol 58 mg/dl 01/22/25 03:59
01/21/25
00:46
Diy-H-Gwrxmzbbncp Pept 1460
LAB Results
01/30/25 01/30/25 01/30/25
09:15 09:59 15:44
Troponin I Cancelled 0.263 H* 0.252 H*
Physical Exam
Constitutional: Comfortable
Cardiovascular: Rhythm/rate is irregular
Respiratory: Respiratory effort normal
Neuro/Psych: AO x 3
Data Reviewed
-
Date of Service: January 31, 2025
Medical Decision Making: Reviewed Test Results
Labs: Labs Reviewed by me
[2025-01-31] MEDS: PEPCID 20 MG PO (09:12)
[2025-01-31] MEDS: ASPIR LOW (ENTERIC COATED) 81 MG PO (09:12)
[2025-01-31] MEDS: MYRBETRIQ EXTENDED RELEASE 50 MG PO (09:12)
[2025-01-31] MEDS: PACERONE 200 MG PO ×2 (09:12→20:25)
[2025-01-31] MEDS: LASIX 60 MG IV (09:14)
[2025-01-31] MEDS: ZENPEP DELAYED RELEASE CAPSULE 1 CAPSULE PO ×3 (09:17→23:18)
[2025-01-31 12:04] LABS: Glucose - Point of Care 230 mg/dl (70-99)
--- NOTE | 2025-01-31 12:15 | W.PN.HOSP.TC ---
Today's Communication/Plan
-
Continue IV heparin
Status post IV Lasix today
Completed course of antibiotics for UTI as of 01/30
Plan for TAVR on 02/01
Assessment / Plan
Assessment / Plan
Impression
89-year-old with complex past medical history coming to the emergency department with progressive shortness of breath much more severe over the last 2 to 3 days without known weight gain. Evaluation in the ED is consistent with CHF exacerbation
with increasing BNP, bilateral pleural effusions and pulmonary edema on x-ray, increased work of breathing. She is not wheezing and does not appear to be having asthma or COPD exacerbation. She has no focal consolidation on x-ray and shows no
other signs of an acute infection. She does appear to have significant sleep apnea in the setting of her somnolence.
Acute on chronic hypoxic respiratory failure.
Acute CHF preserved EF/valvular secondary severe aortic stenosis
Acute cardiogenic pulmonary edema
Atrial fibrillation with rapid ventricular response new onset on 01/28/2025
Conditions prior to admission:
Chronic CHF preserved EF.
Chronic hypoxic respiratory failure on home O2 at 2-1/2 L.
CAD
Obstructive sleep apnea on nightly CPAP.
Moderate to severe aortic stenosis by echo 01/21.
CAD.
History of acute kidney injury
IDDM.
Obesity with BMI of 40
Ventral hernia
Plan
Acute CHF presumed with preserved EF and secondary to severe aortic stenosis.
Acute on chronic hypoxic respiratory failure, currently requiring nasal cannula oxygen up to 6 L, now on 2L NC O2.
Chest x-ray with pulmonary edema
Weight is up close to 20 pounds since December 2023.
Anasarca with increased abdominal girth and peripheral edema.
Patient states to be compliant with diuretic regimen at home.
Suspect progressive and now critical
Repeat echocardiogram
Cardiology evaluation
Responding to IV diuresis and transition from Lasix to Bumex 4 mg twice daily on 01/27
Continue metoprolol
Hold valsartan with concern for hypotension
Hold Imdur and Norvasc avoiding hypotension
Daily weights
Daily BMP
Relatively high risk for TAVR, although could be considered depends on response to diuresis, renal function and overall performance status. Likely TAVR 02/01.
Hold Farxiga with possible UTI
GDMT to be determined according to above.
Atrial fibrillation with rapid reticular response, new onset on 01/28/2025
Hypotension possibly related to fast rate
Initiated on IV amiodarone, now transitioned to PO Amio
Continue low-dose of beta-erika.
Adjust other antihypertensive medication and diuresis around to avoid hypotension
Anticoagulation: Initiated on IV heparin for thromboembolic prophylaxis.
CAD.
Hypertension
History of PCI to LAD 08/18
She complains of periodic chest pain.
Has mildly elevated troponin.
ECG without ischemia.
Had nonobstructive CAD on cath 01/21
Continue aspirin
Continue high potency statin
Continue beta-erika
Hold amlodipine
Hold Imdur avoiding hypotension while on aggressive diuresis
UTI without complications
Intermittent flank pain
Foul-smelling urine
Urinalysis obtained via straight cath equivocal
Urine cultures with E. coli
Renal sonogram with no acute abnormalities
Completed course of ceftriaxone as of 01/30
Hold Farxiga
Obstructive sleep apnea.
Continue CPAP at night.
Not compliant
IDDM
Hemoglobin A1c 7.8
Continue Basaglar insulin Lantus
Hold oral glucose lowering medications including Prandin and metformin.
Basal bolus protocol with serial Accu-Cheks
Increase of abdominal girth
Anasarca with severe peripheral edema
Ventral hernia.
CT A/P 01/21:
1. No acute intra-abdominal abnormalities.
2. Extensive left colonic diverticular disease.
3. Mild diffuse subcutaneous stranding within the anterior abdominal wall inferiorly. Small fat-containing ventral hernia.
4. 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 Severe left hip osteoarthritis.
Severe DJD with chronic ambulatory dysfunction
CODE STATUS discussed again on 01/27 with the patient in the presence of son. Patient would like to have full resuscitation.
Anticipated Discharge: > 48 hours
Subjective/Interval History
-
Date of Service: January 31, 2025
Objective Data
-
Labs:
Laboratory Results
01/31/25
04:11
APTT 90.0 H
Sodium 135
Potassium 4.2
Chloride 95 L
Carbon Dioxide 37 H
BUN 25 H
Creatinine 0.8
Glucose 227 H
Calcium 9.0
Vital Signs:
Vital Signs
Temp Pulse Resp BP Pulse Ox
98.2 F 85 20 123/99 96
01/31/25 12:01 01/31/25 06:00 01/31/25 12:01 01/31/25 04:03 01/31/25 12:01
I&O
01/30/25 01/31/25 02/01/25
05:59 06:59 06:59
Intake Total 550 / 550 200 / 200
Output Total 1050 / 1050 3300 / 3300 400 / 400
Balance -500 / -500 -3100 / -3100 -400 / -400
Physical Exam
-
General: Well Developed and No Apparent Distress
HEENT: Normocephalic, Atraumatic and Moist Mucous Membranes
Respiratory: Rales and Crackles; Negative Wheezes
Cardiac: Regular Rhythm, S1/S2 and Murmur (Systolic, left sternal border); Negative Rub or Gallop
GI: Soft, Nontender, Nondistended and Normal Bowel Sounds; Negative Organomegaly
Rectal: Deferred by Provider
Musculoskeletal: No Clubbing, No Cyanosis and No Edema
Skin: Negative Rash
Neuro: Nonfocal/Grossly Intact
--- NOTE | 2025-01-31 13:30 | CONSULT.CT ---
Consultation
-
Date/Time Consultation Requested: 01/31 1pm
Date/Time Consultation Performed: 01/31 130pm
Requesting Provider: Delano LINDSEY
Performing Provider: Alexa LINDSEY for Isai ISAACS
Reason for Consultation: TAVR
Patient History
Physicians
Family Physician: Dr. August
Outpatient Airline Hostess: Dr. 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 Rosenthal (Iraan)
Inpatient Airline Hostess: CBC
History of Present Illness
89-year-old with complex past medical history coming to the emergency department with progressive shortness of breath much more severe over the last 2 to 3 days without known weight gain. Evaluation in the ED is consistent with CHF exacerbation
with increasing BNP, bilateral pleural effusions and pulmonary edema on x-ray, increased work of breathing. She is not wheezing and does not appear to be having asthma or COPD exacerbation. She has no focal consolidation on x-ray and shows no
other signs of an acute infection. She was started on BIPAP and was diuresed. Patient has been getting diuresed and is being worked up for her severe . CT surgery was consulted for TAVR evaluation.
Past Medical History
Past Medical History: Other
Chronic CHF preserved EF.
Chronic hypoxic respiratory failure on home O2 at 2-1/2 L.
CAD
Obstructive sleep apnea on nightly CPAP.
Moderate to severe aortic stenosis by echo 01/21.
CAD.
History of acute kidney injury
IDDM.
Obesity with BMI of 40
Ventral hernia
Past Surgical History
Past Surgical History: Other
hysterectomy
Coronary artery stent
Dental History
edentulous
Social History
Alcohol: None
Drug: None
Tobacco: Non-Smoker
Personal: Single
Living: With Family
Employment: Retired
Allergies
Allergy/AdvReac Type Severity Reaction Status Date / Time
No Known Allergies Allergy Verified 01/21/25 01:06
Home Medications
�Medication �Instructions �Recorded �Confirmed �Type
acetaminophen 650 mg 650 mg PO BIDPRN PRN mild pain 01/12/24 01/14/24 History
tablet,extended release (Pain
Relief (acetaminophen))
albuterol sulfate 90 mcg/actuation 2 puff inhalation R Q4HPRN PRN 01/12/24 01/14/24 History
aerosol inhaler (Ventolin HFA) sob/wheezing
aspirin 81 mg tablet,delayed 81 mg PO DAILY Blood Clot 01/12/24 01/14/24 History
release Prevention/Tx
atorvastatin 80 mg tablet 80 mg PO QPM High Cholesterol 01/12/24 01/14/24 History
bisacodyl 5 mg tablet,delayed 10 mg PO DAILY Constipation 01/12/24 01/15/24 History
release
cholecalciferol (vitamin D3) 50 50 mcg PO DAILY Supplement 01/12/24 01/14/24 History
mcg (2,000 unit) capsule (Vitamin
D3)
diclofenac sodium 1 % topical gel 1 ea topical QIDPRN PRN knee pain 01/12/24 01/14/24 History
docusate sodium 100 mg capsule 100 mg PO BID Constipation 01/12/24 01/15/24 History
fluticasone furoate 200 2 inh inhalation R DAILY 01/12/24 01/14/24 History
mcg-vilanterol 25 mcg/dose Lung/Breathing Issues
inhalation powder (Breo Ellipta)
furosemide 20 mg tablet 20 mg PO BID Fluid 01/12/24 01/15/24 History
Retention/Swelling
insulin degludec 100 unit/mL (3 35 unit SC HS Diabetes 01/12/24 01/15/24 History
mL) subcutaneous pen (Tresiba
FlexTouch U-100 insulin)
meclizine 12.5 mg tablet 12.5 mg PO BIDPRN PRN dizziness 01/12/24 01/15/24 History
metoprolol tartrate 25 mg tablet 25 mg PO BID Heart 01/12/24 01/15/24 History
Disease/Condition
mirabegron 50 mg tablet,extended 50 mg PO DAILY Urinary Issue 01/12/24 01/15/24 History
release 24 hr (Myrbetriq)
nitroglycerin 0.4 mg sublingual 0.4 mg sublingual [id number] PRN 01/12/24 01/14/24 History
tablet chest pain
tramadol 50 mg tablet 50 mg PO TIDPRN PRN moderate pain 01/12/24 01/15/24 History
zolpidem 5 mg tablet (Ambien) 5 mg PO HSPRN PRN sleep 01/12/24 01/15/24 History
budesonide 160 mcg-glycopyr 9 2 inh inhalation BID 01/14/24 01/14/24 History
mcg-formot 4.8 mcg/actuation HFA Lung/Breathing Issues
inhaler (Breztri Aerosphere)
buspirone 10 mg tablet 20 mg PO TID Mental Health/Anxiety 01/14/24 01/14/24 History
escitalopram oxalate 20 mg tablet 20 mg PO DAILY Mental 01/14/24 01/14/24 History
(Lexapro) Health/Anxiety
folic acid 1 mg tablet 1 mg PO DAILY Supplement 01/14/24 01/14/24 History
gabapentin 100 mg capsule 100 mg PO BID Neuropathic pain 01/14/24 01/14/24 History
metronidazole 0.75 % topical gel 1 applic topical BID Topical agent 01/14/24 01/14/24 History
pantoprazole 40 mg tablet,delayed 40 mg PO DAILY Gastrointestinal 01/14/24 01/14/24 History
release (Protonix) Issue
vitamin P11-lsueddzda factor 500 mcg PO DAILY Supplement 01/14/24 01/14/24 History
bisacodyl 10 mg rectal suppository 10 mg LA DAILY PRN constipation 01/15/24 01/15/24 History
insulin lispro 100 unit/mL 6 unit SC TID Diabetes 01/15/24 01/15/24 History
subcutaneous pen
iqqurj-ighsmyen-boipdt(pork)24,000-76,000-120,000 1 cap PO TID Gastrointestinal Issue 01/15/24 01/15/24 History
unit capsule,del rel (Creon)
repaglinide 2 mg tablet 2 mg PO TID Diabetes 01/15/24 01/15/24 History
tirzepatide 10 mg/0.5 mL 10 mg SC QWEEK Diabetes 01/15/24 01/15/24 History
subcutaneous pen injector
(Mounjaro)
dapagliflozin propanediol 10 mg 10 mg PO DAILY #30 tabs 01/21/24 Rx
tablet
Review of Systems
-
History Source: Patient
General: Reports Weight Gain and Fatigue
HEENT: Reports No Symptoms
Respiratory: Reports SOB
Cardiac: Reports Known Vascular Disease
Abdomen/GI: Reports No Symptoms
: Reports No Symptoms
Musculoskeletal: Reports No Symptoms
Skin: Reports No Symptoms
Neurological: Reports No Symptoms
Vascular: Reports No Symptoms
Physical Exam
Vital Signs
Temp 98.2 F 01/31/25 12:01
Temp route: Oral 01/31/25 12:01
Pulse 108 01/31/25 12:14
Rhythm: Atrial fibrillation 01/30/25 20:30
With- PAC's 01/26/25 10:11
Resp Rate 20 01/31/25 12:01
Blood pressure 108/79 01/31/25 12:14
Blood pressure extremity used: Right upper arm 01/31/25 12:01
Position: Sitting 01/31/25 12:01
MAP (cuff-Quentin Monitor) 90 01/31/25 12:14
SaO2 96 01/31/25 12:01
Nasal Cannula flow liters per minute 2 01/31/25 12:01
Oxygen Mode of Delivery Room air 01/28/25 14:59
Other oxygen comment Could not tolerate BiPAP/CPAP, sitting upright to sleep 01/25/25 02:03
Acceptable pain level during hospitalization? 0 01/21/25 00:41
Can the patient verbally communicate their pain? Yes 01/30/25 20:30
Pain scale ratin 01/30/25 17:42
Actual Weight 102.7 kg 01/31/25 06:00
Body Mass Index (BMI) 37.7 01/31/25 06:00
Sitting- Blood Pressure 118/68 01/27/25 13:59
Sitting- Pulse 90 01/27/25 13:59
Heart rate after activity 112 01/30/25 12:20
Blood pressure after activity 117/62 01/30/25 12:20
Oxygen Saturation with Activity 99 01/30/25 12:20
Labs
01/30/25 03:30
01/31/25 04:11
APTT 90.0 Sec (23.4-35.0) H 01/31/25 04:11
Hemoglobin A1c 7.8 % (4.0-5.9) H 01/21/25 00:46
Troponin I 0.252 ng/ml H* 01/30/25 15:44
Wnl-E-Gryqwywxulu Pept 1460 pg/ml 01/21/25 00:46
Urinalysis
Urine Color Straw 01/24/25 10:23
Urine Clarity Clear (Clear) 01/24/25 10:23
Urine pH 8.0 (5.0-9.0) 01/24/25 10:23
Ur Specific Reedley 1.015 (<1.030) 01/24/25 10:23
Urine Ketones Negative (Negative) 01/24/25 10:23
Ur Occult Blood Reflex 1+ (Negative) A 01/24/25 10:23
Urine Bilirubin Negative (Negative) 01/24/25 10:23
Leukocyte Esterase Rfl 3+ (Negative) A 01/24/25 10:23
Urine RBC 3-6 /HPF (0-2) A 01/24/25 10:23
Urine WBC (Reflex) 6-10 /HPF (0-5) 01/24/25 10:23
Ur Squamous Epith Cells 0-2 /LPF (Few) 01/24/25 10:23
Urine Bacteria (Reflex) Many (Negative) A 01/24/25 10:23
Urine Glucose 4+ (Negative) A 01/24/25 10:23
Urine Albumin (Reflex) Negative (Neg - Trace) 01/24/25 10:23
Exam
General: Well Developed and Well Nourished
HEENT: Normocephalic
Neck: JVD
Respiratory: Crackles
Cardiac: S1/S2 and Murmur
GI: Soft and Other (Obese)
Rectal: Deferred by Provider
Skin: Warm and Dry
Neuro: AO x 3
Extremities: Lower Level Edema
Lymph: No Lymphadenopathy
Psych: Calm
Assessment / Plan
-
89 y/o Female with PMHx listed above and known aortic stenosis p/w SOB. CT Surgery was consulted for TAVR evaluation.
#Aortic Stenosis
- complete pre-op testing
- pre-op ordered placed for TF TAVR tomorrow
- Consent to be obtained
--- NOTE | 2025-01-31 15:42 | CM ---
Chart reviewed. Patient's son at bedside. 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 Plan is for the patient to return home with [facility]. CM to
follow
[2025-01-31 17:23] LABS: Glucose - Point of Care 289 mg/dl (70-99)
[2025-01-31] MEDS: NOVOLOG FLEXPEN-HIGH RESISTANCE 7 UNITS SC (17:29)
[2025-01-31] MEDS: LIPITOR 80 MG PO ×2 (17:31→17:34)
--- NOTE | 2025-01-31 18:00 | PTCARENOTE ---
Pt received this am with no c/o of any pain, lightheaded or dizziness. Sob with exertion. O2 on at 2LNC, sat 96%. Assisted oob to the chair and tolerated well. Afib, rate in the 70's to 100's.
[2025-01-31 22:00] LABS: Glucose - Point of Care 149 mg/dl (70-99)
[2025-01-31] MEDS: LANTUS SC (23:17)
[2025-01-31] MEDS: LANTUS 0.1 UNITS SC (23:18)
[2025-02-01] VITALS (24 sets, daily range): BP systolic 89–132; BP diastolic 58–99; BMI 37.8
--- NOTE | 2025-02-01 01:13 | PTCARENOTE ---
Rec'd pt at change of shift. Pt AAO*3, VSS, and Afib on tele monitor in the 110-120's. PT denies any pain or discomfort, also denying knee pain currently but reports shortness of breath. Pulse ox 96-97% on 2 liters, and pt given instruction on
breathing exercises. Pt reported relief with position changes breathing exercises. PT botswanan speaking with hospital language line at bedside. Pt now resting with call young in reach. See MAR and flowchart for full pt care and assessment.
ROSALIA Vergara notified via tigertext about pt NPO status and upcoming procedure. REC'd order for 10 units of lantus and 20 unit HS lantus ordered to hold .
[2025-02-01 02:13] LABS: Hematocrit 40.8 % (37.0-47.0); Hemoglobin 12.4 g/dL (12.0-16.0); Mean Corp Hgb Conc. 30.4 g/dL (33.0-37.0); Mean Corpuscular Volume 87.9 fL (81.0-99.0); Platelet Count 304 10^3/uL (130-400); Red Cell Dist. Width 17.1 % (11.5-14.5)
[2025-02-01 02:24] LABS: APTT 63.4 Sec (23.4-35.0)
[2025-02-01] MEDS: TYLENOL 650 MG PO (02:33)
[2025-02-01] MEDS: HEPARIN 25000 UNITS/250 ML IV (03:32)
--- NOTE | 2025-02-01 05:38 | PTCARENOTE ---
Pt used call young to report chest pain @ 452 AM. BP 103/84 at this time and PT rates pain at a 7/10. CT JACQUELINE corbin notified. EKG obtained showing afib with RVR. PT now reports relief in pain and resting with call young in reach. Morning
operation prep complete. PT NPO for procedure. See MAR and flowchart for full pt care and assessment.
[2025-02-01] MEDS: LOPRESSOR PO (06:00)
[2025-02-01] MEDS: NOVOLOG FLEXPEN SC ×3 (09:18→17:21)
[2025-02-01] MEDS: ZENPEP DELAYED RELEASE CAPSULE PO ×2 (09:19→20:49)
[2025-02-01 09:25] LABS: Glucose - Point of Care 185 mg/dl (70-99)
[2025-02-01] MEDS: PACERONE 200 MG PO ×2 (09:40→20:49)
[2025-02-01] MEDS: BenGay-Like 1 APPLIC TOPICAL ×3 (09:41→22:57)
[2025-02-01] MEDS: PEPCID 20 MG PO (09:42)
[2025-02-01] MEDS: ASPIR LOW (ENTERIC COATED) 81 MG PO (09:42)
[2025-02-01] MEDS: DICLOFENAC 1% TOPICAL GEL 2 GRAM TOPICAL ×2 (09:42→18:36)
[2025-02-01] MEDS: MYRBETRIQ EXTENDED RELEASE 50 MG PO (09:43)
[2025-02-01] MEDS: NOVOLOG FLEXPEN-HIGH RESISTANCE 2 UNITS SC ×2 (09:45→12:17)
--- NOTE | 2025-02-01 09:54 | PTCARENOTE ---
Patient resting in bed, very anxious and restless, moaning out. Wants to eat, wants water, reinforced she is NPO x meds which were given. Assisted oob to the bathroom and sat in the chair a short while, now back in bed with alarm in place. Talking
with her son on her cell phone. IV heparin infusing as per protocol, PTT sent, call young in reach.
[2025-02-01 09:58] LABS: APTT 126.1 Sec (23.4-35.0)
--- NOTE | 2025-02-01 10:59 | W.PN.HOSP.TC ---
Today's Communication/Plan
-
TAVR
N.p.o. with held standing dose of insulin
Assessment / Plan
Assessment / Plan
Impression
89-year-old with complex past medical history coming to the emergency department with progressive shortness of breath much more severe over the last 2 to 3 days without known weight gain. Evaluation in the ED is consistent with CHF exacerbation
with increasing BNP, bilateral pleural effusions and pulmonary edema on x-ray, increased work of breathing. She is not wheezing and does not appear to be having asthma or COPD exacerbation. She has no focal consolidation on x-ray and shows no
other signs of an acute infection. She does appear to have significant sleep apnea in the setting of her somnolence.
Acute on chronic hypoxic respiratory failure.
Acute CHF preserved EF/valvular secondary severe aortic stenosis
Acute cardiogenic pulmonary edema
Atrial fibrillation with rapid ventricular response new onset on 01/28/2025
Conditions prior to admission:
Chronic CHF preserved EF.
Chronic hypoxic respiratory failure on home O2 at 2-1/2 L.
CAD
Obstructive sleep apnea on nightly CPAP.
Moderate to severe aortic stenosis by echo 01/21.
CAD.
History of acute kidney injury
IDDM.
Obesity with BMI of 40
Ventral hernia
Plan
Acute CHF presumed with preserved EF and secondary to severe aortic stenosis.
Acute on chronic hypoxic respiratory failure, currently requiring nasal cannula oxygen up to 6 L, now on 2L NC O2.
Chest x-ray with pulmonary edema
Weight is up close to 20 pounds since December 2023.
Anasarca with increased abdominal girth and peripheral edema.
Patient states to be compliant with diuretic regimen at home.
Suspect progressive and now critical
Repeat echocardiogram
Cardiology evaluation
Responding to IV diuresis and transition from Lasix to Bumex 4 mg twice daily on 01/27
Continue metoprolol
Hold valsartan with concern for hypotension
Hold Imdur and Norvasc avoiding hypotension
Daily weights
Daily BMP
Relatively high risk for TAVR, although could be considered depends on response to diuresis, renal function and overall performance status. Likely TAVR 02/01.
Hold Farxiga with possible UTI
GDMT to be determined according to above.
Atrial fibrillation with rapid reticular response, new onset on 01/28/2025
Hypotension possibly related to fast rate
Initiated on IV amiodarone, now transitioned to PO Amio
Continue low-dose of beta-erika.
Adjust other antihypertensive medication and diuresis around to avoid hypotension
Anticoagulation: Initiated on IV heparin for thromboembolic prophylaxis.
CAD.
Hypertension
History of PCI to LAD 08/18
She complains of periodic chest pain.
Has mildly elevated troponin.
ECG without ischemia.
Had nonobstructive CAD on cath 01/21
Continue aspirin
Continue high potency statin
Continue beta-erika
Hold amlodipine
Hold Imdur avoiding hypotension while on aggressive diuresis
UTI without complications
Intermittent flank pain
Foul-smelling urine
Urinalysis obtained via straight cath equivocal
Urine cultures with E. coli
Renal sonogram with no acute abnormalities
Completed course of ceftriaxone as of 01/30
Hold Farxiga
Obstructive sleep apnea.
Continue CPAP at night.
Not compliant
IDDM
Hemoglobin A1c 7.8
Continue Basaglar insulin Lantus
Hold oral glucose lowering medications including Prandin and metformin.
Basal bolus protocol with serial Accu-Cheks
Increase of abdominal girth
Anasarca with severe peripheral edema
Ventral hernia.
CT A/P 01/21:
1. No acute intra-abdominal abnormalities.
2. Extensive left colonic diverticular disease.
3. Mild diffuse subcutaneous stranding within the anterior abdominal wall inferiorly. Small fat-containing ventral hernia.
4. 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 Severe left hip osteoarthritis.
Severe DJD with chronic ambulatory dysfunction
CODE STATUS discussed again on 01/27 with the patient in the presence of son. Patient would like to have full resuscitation.
Anticipated Discharge: > 48 hours
Subjective/Interval History
-
Date of Service: February 01, 2025
Objective Data
-
Labs:
Laboratory Results
02/01/25 02/01/25 02/01/25
02:05 09:38 16:20
WBC 8.9
Hgb 12.4
Hct 40.8
Plt Count 304
APTT 63.4 H 126.1 H Pending
Vital Signs:
Vital Signs
Temp Pulse Resp BP Pulse Ox
97.8 F 126 24 97/87 97
02/01/25 08:00 02/01/25 08:00 02/01/25 08:00 02/01/25 07:58 02/01/25 08:00
I&O
01/31/25 02/01/25 02/02/25
06:59 06:59 06:59
Intake Total 200 / 200 240 / 240
Output Total 3300 / 3300 1850 / 1850 350 / 350
Balance -3100 / -3100 -1610 / -1610 -350 / -350
--- NOTE | 2025-02-01 11:43 | CM ---
Chart reviewed. Patient is on the OR today. Patient is Bermudian speaking, lives in a apartment, assist of ADLS, ambulates with a RW, occasional Home O2 and CPAP. Patient uses [facility], along with a MANAGER INTERNSHIP and receives 21 hours of care. Plan is
for the patient to return home with [facility]
[2025-02-01 12:16] LABS: Glucose - Point of Care 195 mg/dl (70-99)
[2025-02-01] MEDS: LOPRESSOR 12.5 MG PO ×2 (12:17→18:38)
--- NOTE | 2025-02-01 13:45 | PTCARENOTE ---
JEREMYG wipes done and mouth care. Son at the bedside, Dr. Rossi in to sign consent. Patient taken for her TAVR, has been NPO x meds.
[2025-02-01] MEDS: DICLOFENAC 1% TOPICAL GEL TOPICAL (13:47)
[2025-02-01 15:21] LABS: Glucose - Point of Care 188 mg/dl (70-99)
--- NOTE | 2025-02-01 16:07 | W.PN.CT.SURG ---
CT Surgery Operative Note
-
OPERATIVE REPORT
Preoperative Diagnosis: Severe aortic valve stenosis, symptomatic
Postoperative Diagnosis: Same
Procedure(s) Performed: Right trans femoral TAVR with a 26 mm mm Medtronic Evolut FX+ device with preballoon valvuloplasty
Date of Procedure: 01/01/2025
Comorbidities:
1. Severe symptomatic aortic stenosis
2. Atrial fibrillation
3. Morbidly obese
4. Acute on chronic congestive heart failure with elevated LVEDP pre-TAVR
5. UTIs
6. Diabetes type 2
7. CAD
8. RACHEL on CPAP
Cardiac Surgeon: Jim Rader MD, MS
Guidance Director: Clarence Rossi MD
Anesthesia: General, endotracheal intubation
EBL: 100cc
Products: none
Implant: Medtronic Evolut 26 mm FX+ SN: [id number]
Indication(s) for Procedures: 89-year-old female with severe aortic stenosis. Symptomatic. CT-TAVR protocol revealed acceptable anatomy for a self-expanding TAVR valve. Given her comorbidities need for oxygen and size, she was not offered surgical
rescue.
Start time: 1510hrs
Deployment time: 1546hrs
End time: 1602hrs
Radiation Dose (mGy): 1439
DAP (cm2.Gy): 104
Fluoroscopy time (minutes): 13.4
Contrast volume (ml): 160
TAVR gradient (mmHg): 2mmHg
Heparin Dose: [id number]
Protamine Dose: 40mg
Final Valve Positionin:2mm
Findings: Preoperative LVEF was 55% and was 55% following TAVR without inotropic support. Function was overall normal without regional wall motion abnormalities or dyskinesia. The aortic valve was well seated with only trace PVL. The patient did not
require pacing postoperative and was in atrial fibrillation, rate controlled. There was successful placement of 26 mm Evolut FX+ TAVR valve without acute complications. Of note, she was intubated given her body habitus. Her LVEDP pre-TAVR
deployment was 30 mmHg. We did perform a pre-BAV with an 18 mm balloon with good success. This required 1 recapture there was partial.
Access:
1. Device -right common femoral artery, perclose x 2
2. Pigtail -left common femoral artery + 6Fr angioseal
3. Transvenous Pacer -left common femoral vein
Description of Procedure: The patient was taken to the laborer drying department. Their identity and procedure to be performed were verified and they were positioned supine on the laborer drying department table. Induction via conscious sedation with local analgesia. The patient was
then prepped and draped from chin to thigh in a sterile fashion. A preoperative time-out was performed with all members of the team present. Using fluoroscopy, bilateral femoral heads and their margins were identified. Arterial and venous access
were done with a micropuncture needle with Seldinger technique. Test pacing revealed capture with excellent threshold. Angiography confirmed proper puncture site and femoral artery integrity. Two Per-Close devices were used on the TAVR side. An AL1
catheter was used to deliver a extrastiff wire and insertion of the working sheath. An AL1 catheter with a straight stiff wire was used to access the LV. The valve was prepped and mounted on to the device carrier. An ACT of >250 was achieved. We
verified x 3 under fluoroscopy that the valve was mounted correctly with paddles in appropriate position. Balloon valvuloplasty was performed to 180 beats per minute of pacing. This was done with good success and return of vital signs once pacing
stopped. We than set our parameters to achieve a co-planar view with the pigtail positioned in the NCC. We advanced the device with it's in-line sheath into the descending thoracic aorta and over the arch into the root and positioned across the
aortic valve. Contrast fluoroscopy was used to visualize the prosthesis across the valve. We performed a quick pre-deployment time out. We verified positioning based on the pigtail and gentle contrast puffs. The valve was slowly deployed to just
before annular contact. We paused here and verified positioning in our cusp overlap view. We then rotated AFGHAN and removed any parallax from the valve. Contrast was used to verify the LCC was appropriate in height. It was and so we slowly continued
to deploy the valve until the crowns and paddles were free from the device. At this point the valve was functioning and pacing was stopped. We slowly continued to deploy the valve until the crowns and paddles were free from the device. The
deployment device was withdrawn into the descending thoracic aorta while maintaining wire access across the valve. A transthoracic echocardiogram was performed . The pigtail was re-positioned at the level of the crown of the valve and angiography
revealed excellent placement and seating of the valve at the annulus. The device was removed from the groin as we cinched down the perclose devices while maintaining wire access. There was acceptable hemostasis. The pigtail was repositioned into the
descending/abdominal and runoff aortogram was performed. There was no significant stenosis or dissection of the bilateral iliofemoral systems with excellent runoff to the SFAs. All wires were removed and perclose snugged and cut. There was
acceptable hemostasis of bilateral groins.
All instrument, sponge, and needle counts were confirmed to be correct x 2 at the end of the operation. The patient was transferred to the cardiac intensive care unit in stable condition.
I, Dr. Jim Rader, was present, scrubbed for, and performed all critical elements of this procedure.
Jim aRder MD, MS
Cardiothoracic Surgeon
[facility]
This operative dictation was created using the [employer] dictation system. Please excuse any grammatical, typographical, or 'sound alike' errors
[2025-02-01] MEDS: NOVOLOG FLEXPEN-HIGH RESISTANCE 7 UNITS SC (17:20)
[2025-02-01] MEDS: DILAUDID 0.25 MG IV (17:23)
[2025-02-01 17:25] LABS: Glucose - Point of Care 255 mg/dl (70-99)
--- NOTE | 2025-02-01 18:27 | PTCARENOTE ---
Patient returned from PACU after TAVR, sons at the bedside to translate. Oriented and following commands appropriately, cooperative but curious about external jugular line right neck, trying to grab at it however soft limb restraints are in place.
Bilateral groin dressings are dry and intact with palpable pedal pulses. AF on the monitor, tolerating sips of water. Call young in reach, maintaining flat and supine in bed with bed in reverse trendelenberg position.
[2025-02-01] MEDS: ANCEF 10 IV ×2 (18:36)
--- NOTE | 2025-02-01 19:47 | ITS.CL.PN ---
Sales Operations Analyst - Procedure Note
Procedure
Procedure Note:
TRANSCATHETER AORTIC VALVE REPLACEMENT REPORT
Date of Procedure: 02/01/2025
Referring: Dr. Clarence Rossi MD, PhD
Indication: Symptomatic severe aortic valve stenosis
Operators: Westley Rossi MD, PhD (interventional cardiology); Dr. Jim Rader MD (CT surgery)
Anesthesia: conscious sedation provided by the anesthesia staff
PROCEDURE: transfemoral, transcatheter aortic valve replacement with a 26 mm Medtronic Evolut FX+
ACCESS:
1. 6F left femoral vein (closure: manual hemostasis) - Ultrasound was utilized for vascular access. The vessel was visualized under ultrasound and noted to be patent. An image of the vessel was stored permanently in the patient's medical record.
Under direct ultrasound guidance, vascular access was obtained using a modified Seldinger technique and a 6 Cuban sheath was placed.
2. 6F left common femoral artery (closure: Angioseal) - Ultrasound was utilized for vascular access. The vessel was visualized under ultrasound and noted to be patent. An image of the vessel was stored permanently in the patient's medical record.
Under direct ultrasound guidance, vascular access was obtained using a modified Seldinger technique and a 6 Cuban sheath was placed.
3. 14F right common femoral artery (closure: Perclose x2) - Ultrasound was utilized for vascular access. The vessel was visualized under ultrasound and noted to be patent. An image of the vessel was stored permanently in the patient's medical
record. Under direct ultrasound guidance, vascular access was obtained using a modified Seldinger technique and an 8 Cuban sheath was placed.
HEMODYNAMIC DATA
LVEDP 30 mmHg
PROCEDURE NARRATIVE:
The patient was prepped and draped in standard sterile fashion. Conscious sedation was provided by the anesthesia staff. 6F left femoral vein and left common femoral artery access was obtained with ultrasound guidance using micropuncture technique
with verification of appropriate arteriotomy location via hand injection angiography. A temporary venous pacing wire was advanced via the left femoral vein to the right ventricle under fluoroscopic guidance with appropriate capture verified. A 5F
pigtail catheter was advanced via the left common femoral artery and seated in the non-coronary cusp. Angiography was performed to verify the cusp overlap angle.
8F right common femoral artery access was obtained with ultrasound guidance using micropuncture technique with verification of appropriate arteriotomy location via hand injection angiography. The arteriotomy was preclosed with two Perclose sutures
followed by replacement of the 8F sheath. Using an AL1 catheter, a Lunderquist wire was placed in the descending thoracic aorta. A 12F dilator was advanced over the Lunderquist wire followed by placement of a 14F Cook sheath. Heparin [ ] units was
given. The AL1 catheter was re-advanced through the sheath to the level of the ascending aorta. The Lunderquist wire was exchanged for a soft tipped straight wire which was used to cross the aortic valve and deposit the AL1 in the LV apex. A J-wire
was used to exchange the AL1 for a pigtail catheter in the LV and LVEDP was measured. The Lunderquist wire was advanced through the pigtail catheter and seated in the LV apex. ACT was checked and confirmed to be >300 seconds.
A 18 mm True valvuloplasty balloon was advanced over the Lunderquist wire and into the aortic annulus. Valvuloplasty was performed under rapid pacing with good balloon expansion. The valvuloplasty balloon was removed.
The valve was inspected under fluoroscopy to confirm lack of infolding above the 4th node. The Cook sheath was removed, and the in-line sheath was advanced over the Lunderquist wire into the descending aorta. The valve was then advanced over the
aortic arch and into the left ventricle. In the cusp overlap view, the valve was slowly deployed to the point of flowering. The patient was paced to adequately lower pulse pressure as the valve was deployed through the rumble strips to 80%.
Injection demonstrated the valve to be deep. Thus, a partial recapture as performed and the valve was redeployed with a non-coronary cusp implant depth of 3 mm. Angiography performed in an K[place] projection demonstrated left coronary cusp implant depth
of 3 mm. The decision was made to proceed with full deployment. The Lunderquist wire was partially withdrawn to lift the nose cone of the valve delivery device. In the cusp overlap view, the delivery handle was slowly rotated until both paddles were
released from the superior aspect of the valve. The delivery device was withdrawn to the descending aorta and re-assembled. The patient was resuscitated by anesthesia with recovery of adequate blood pressure. Telemetry demonstrating Afib with
narrow QRS. Aortography demonstrated good valve positioning, adequate coronary filling, and trace aortic valve insufficiency. Echocardiography confirmed trace aortic insufficiency. Mean valve gradient was 2 mmHg.
The valve deployment system and inline sheath were removed, and hemostasis obtained with the two Perclose sutures. Protamine 40 mg was given. Aortoiliac angiography demonstrated no evidence of iliofemoral dissection/perforation and good runoff below
the common femoral artery bilaterally. The pacemaker and the pigtail catheter were removed. The left femoral artery sheath was removed using a 6F Angioseal. The left femoral venous sheath was removed with manual pressure.
CONCLUSIONS
1. successful placement of a 26 mm Medtronic Evolut FX+ transcatheter aortic valve via right transfemoral approach with no acute complications
2. acute on chronic systolic heart failure with elevated filling pressures (LVEDP = 30)
Copy to: Dr. Taniya Ford MD (orthotic technician); Dr. Sabino August MD (PCP)
Signed: Westley Rossi MD, PhD
[2025-02-01 20:38] LABS: Glucose - Point of Care 232 mg/dl (70-99)
--- NOTE | 2025-02-01 20:39 | W.PN.CD ---
Today's Communication / Plan
-
well tolerate TAVR procedure
resume AC tomorrow (NOAC) if groins stable
Impression / Plan
-
Impression/Plan: 89 y/o Kyrgyz speaking female with HTN, HFpEF, CAD s/p prior PCI, RACHEL, HLD, and HFpEF with borderline severe LFLG (mean grad 35, JUDY 0.9, SVI 36) a/w HFpEF exacerbation and evidence of progression of her .
Primary medical billing supervisor: Dr. 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 Rosenthal ([place])
#Aortic Stenosis
-Chronic, progressive.
-Prior data from 2023 hospitalization and repeat TTE from this hospitalization reviewed:
-Echo from 01/22/2025 shows progressive, borderline severe LFLG (mean grad 35 mmHg, JUDY 0.9, SVI 36).
-Prior cath from 12/2023 with non-obstructive CAD but no invasive valve gradient.
-TAVR CT with calcium score 1400 but mobile aortic valve leaflets and small annulus. Aortic stenosis deemed moderate at this time and TAVR deferred.
-She sizes for a Medtronic Evolut #26 valve (or a #20 YARELI S3); vessel caliber adequate for femoral access.
- Heart failure full to be multifactorial but AAS felt to be a significant contributing factor. Issues related to AVR have been reviewed between Dr. Durbin and the patient and family. Also case has been discussed at multidisciplinary TAVR meeting
as previously outlined by Dr. Durbin with plans for
- successful TAVR today with 26 mm Medtronic Evolut FX+ from the right groin. Extubated in room.
- Cont. ASA
- Echo POD1.
#Afib
-new diagnosis
-initially with RVR (rates to 140s) and chest pain
-rates now controlled on PO amio 200 BID, discharge on dose of 200 daily
-add back low dose metoprolol as tolerated for additional rate control
-resume anticoagulation with NOAC POD1 if groin stable
-outpatient consider CV once on AC for 4 weeks
#HFpEF
-Acute on chronic.
-proBNP 1460 elevated from 518 prior admission, echo below.
-GDTM as hemodynamics will tolerate:
-Diuretics: may require additional IV diuresis, once euvolemic attempt to transition to oral PO bumex
-Beta erika: restart as tolerated
-ACEI/ARB/ARNi: restart as tolerated
-MRA: None.
-SGLT2i: Dapagliflozin on hold for UTI; defer discussion of possible re-trial to outpatient
-ICD: Not currently indicated.
#CAD
-Chronic, stable, non-anginal.
-LHC 07/2021: LAD with patent stent, D1 50%, OM2 70%.
-PCI to mid LAD 08/11/2020.
-Continue aspirin 81mg, isosorbide mononitrate on hold with diuresis.
-Continue atorvastatin 80 mg daily. Goal LDL < 55.
#Urinary frequency with retention
-Acute.
-Straight cath yesterday for 560 mL.
-UA shows evidence of infection. UCx positive for E. coli (Ampicillin-R, Ampicillin/Sulbactam-I, Tetracycline-R, TMP/SMX-R).
-Hold dapagliflozin.
-Continue abx
#HTN
-Chronic, stable.
-Continue valsartan at half dose.
-Amlodipine held given intermittent hypotension.
#Hypoxic respiratory failure
-Chronic, on home oxygen.
#Type 2 diabetes mellitus
-Chronic, stable.
-HgbA1c 7.8%.
#Obesity
-Chronic, stable.
-BMI 38.
DATA:
CT Abdomen/Pelvis, 01/21/2025:
IMPRESSION:
1. No acute intra-abdominal abnormalities.
2. Extensive left colonic diverticular disease.
3. Mild diffuse subcutaneous stranding within the anterior abdominal wall inferiorly. Small fat-containing ventral hernia.
4. 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 Severe left hip osteoarthritis.
5. Additional findings above.
Echo 01/21/2025:
SUMMARY
1. Normal biventricular size and function without regional wall motion abnormalities.
2. LVEF is 60-65% by visual estimation. Mild concentric LVH.
3. Moderate to severe aortic stenosis with peak/mean gradient of 59/35 mmHg. JUDY = 0.91 cm2.
4. Mild to moderate TR. Estimated PASP moderately elevated at 44 mmHg.
5. Compared to prior from January 13, 2024, mean gradient has increased and TR is now mild to moderate with moderately elevated PASP at 44 mmHg, previously mild TR with estimated PASP at 37 mmHg.
Renal US, 01/23/2025:
IMPRESSION:
No hydronephrosis.
There is a 9.0 cm cyst along the lower pole of the right kidney which demonstrates layering echogenic debris which likely represents a hemorrhagic cyst.
Mild debris within the urinary bladder which can be seen with cystitis.
Physical Exam
Vital Signs/Labs
Vital Signs
Temp Pulse Resp BP Pulse Ox
36.6 C 92 16 114/69 94
02/01/25 19:21 02/01/25 19:21 02/01/25 19:21 02/01/25 19:01 02/01/25 19:21
01/31/25 02/01/25 02/02/25
06:59 06:59 06:59
Actual Weight 102.7 kg 103.1 kg
02/01/25 02:05
01/31/25 04:11
APTT 126.1 Sec (23.4-35.0) H 02/01/25 09:38
Magnesium 2.0 mg/dl (1.6-2.3) 01/28/25 04:59
Triglycerides 84 mg/dl (10-149) 01/22/25 03:59
LDL Cholesterol, Calc 42 mg/dl 01/22/25 03:59
VLDL Cholesterol, Calc 16 mg/dl (0-30) 01/22/25 03:59
HDL Cholesterol 58 mg/dl 01/22/25 03:59
01/21/25
00:46
Xly-O-Sgddxwkdwlw Pept 1460
LAB Results
01/30/25 01/30/25 01/30/25
09:15 09:59 15:44
Troponin I Cancelled 0.263 H* 0.252 H*
Physical Exam
Constitutional: Comfortable
Cardiovascular: Rhythm/rate is irregular
Respiratory: Respiratory effort normal
Neuro/Psych: AO x 3
Other: Cath Site
cdi
Data Reviewed
-
Date of Service: February 01, 2025
Medical Decision Making: Reviewed Test Results
Labs: Labs Reviewed by me
[2025-02-01] MEDS: ZENPEP DELAYED RELEASE CAPSULE 1 CAPSULE PO (20:49)
[2025-02-01 22:06] LABS: Glucose - Point of Care 345 mg/dl (70-99)
[2025-02-01] MEDS: LANTUS 0.2 UNITS SC (22:52)
[2025-02-01] MEDS: ANCEF 5 IV (22:52)
[2025-02-01] MEDS: NOVOLOG FLEXPEN 5 UNITS SC (22:55)
[2025-02-01] MEDS: DICLOFENAC 1% TOPICAL GEL 100 GRAM TOPICAL (22:57)
[2025-02-02] VITALS (15 sets, daily range): BP systolic 79–142; BP diastolic 54–96; PULSE 106; O2SAT 97; BMI 38.0
[2025-02-02] MEDS: ULTRAM 50 MG PO (00:31)
[2025-02-02] MEDS: LOPRESSOR 12.5 MG PO ×3 (00:31→17:00)
[2025-02-02 02:51] LABS: Glucose - Point of Care 264 mg/dl (70-99)
--- NOTE | 2025-02-02 03:21 | PTCARENOTE ---
Pt Afib on monitor, VSS. Pt AAOx3, c/o generalize discomfort/pain when awake. rt groin dsg changed by CVPA. Safety measures in place, call young within reach
[2025-02-02 04:27] LABS: Hematocrit 39.8 % (37.0-47.0); Hemoglobin 11.9 g/dL (12.0-16.0); Mean Corp Hgb Conc. 29.9 g/dL (33.0-37.0); Mean Corpuscular Volume 89.6 fL (81.0-99.0); Platelet Count 274 10^3/uL (130-400); Red Cell Dist. Width 17.3 % (11.5-14.5)
[2025-02-02 04:53] LABS: Blood Urea Nitrogen 26 mg/dl (7-17); Calcium 9.4 mg/dl (8.4-10.2); Carbon Dioxide 36 mmol/L (22-30); Chloride 97 mmol/L (98-107); Estimated Creatinine Clearance 46 ml/min; Glucose 262 mg/dl (70-99); Potassium 5.2 mmol/L (3.5-5.1); Sodium 138 mmol/L (135-145); eGFR 54.19
[2025-02-02] MEDS: TYLENOL 650 MG PO ×2 (05:59→16:59)
[2025-02-02 07:51] LABS: ACT-LR - POC 263 Seconds (116-155)
[2025-02-02] MEDS: LASIX 40 MG IV (08:04)
[2025-02-02] MEDS: ASPIR LOW (ENTERIC COATED) 81 MG PO (08:04)
[2025-02-02] MEDS: BenGay-Like 1 APPLIC TOPICAL ×3 (08:04→20:48)
[2025-02-02] MEDS: DICLOFENAC 1% TOPICAL GEL 2 GRAM TOPICAL ×4 (08:05→20:49)
[2025-02-02] MEDS: FLUSH (NSS) 2 FLUSH IV (08:05)
[2025-02-02] MEDS: PEPCID 20 MG PO (08:05)
[2025-02-02] MEDS: PACERONE 200 MG PO ×2 (08:05→20:45)
[2025-02-02] MEDS: ZENPEP DELAYED RELEASE CAPSULE 1 CAPSULE PO ×3 (08:05→20:59)
--- NOTE | 2025-02-02 08:28 | W.PN.CT ---
Today's Communication / Plan
-
-pod #1
-no significant issues overnight
-in a-fib. No bradycardia or pauses overnight
-new LBBB post TAVR - resolved
-Echo today
-continue current meds
-encourage IS, OOB
-consider outpatient monitor
Assessment / Plan
-
- Severe aortic valve stenosis, symptomatic- s/p Right trans femoral TAVR with a 26 mm mm Medtronic Evolut FX+ device with pre-balloon valvuloplasty on 02/01/25, pod #1
- Severe symptomatic aortic stenosis
- Chronic Atrial fibrillation
- Class 2 Morbidly obese
- Acute on chronic congestive heart failure with elevated LVEDP pre-TAVR
- UTIs
- Diabetes type 2
- CAD
- RACHEL on CPAP
Discussed patient care with: Nursing and Care Team
Subjective
-
Date of Service: February 02, 2025
Objective Data
-
Lab Results
02/02/25 03:47
02/02/25 03:47
APTT Cancelled 02/01/25 16:20
Vital Signs
Vital Signs
Temp Pulse Resp BP Pulse Ox
98.3 F 86 18 125/88 99
02/02/25 07:42 02/02/25 07:42 02/02/25 07:42 02/02/25 05:59 02/02/25 07:42
CT Intake/Output/Weight
02/01/25 02/02/25 02/02/25
18:59 06:59 18:59
Intake Total 100 / 350 250 / 350
Output Total 550 / 850 300 / 850
Balance -450 / -500 -50 / -500
SaO2: 99
Physical Exam
-
General: Awake and Oriented
Cardiovascular: Irregular rate & rhythm, No Murmurs and No Rub
Respiratory: Decreased Breath Sounds
Incision: Clean (groins are soft, clean, dry, intact, no hematoma b/l)
Extremities: Other (trace edema b/l)
Data Reviewed
-
Lab Results: Results Reviewed
Medications: Active Meds Reviewed
Chest X-Ray: Report Reviewed and Image Reviewed
ECG: Report Reviewed and Image Reviewed
[2025-02-02] MEDS: NOVOLOG FLEXPEN 4 UNITS SC (08:31)
[2025-02-02] MEDS: NOVOLOG FLEXPEN-HIGH RESISTANCE 7 UNITS SC ×2 (08:32→17:22)
[2025-02-02 08:34] LABS: Glucose - Point of Care 271 mg/dl (70-99)
--- NOTE | 2025-02-02 09:21 | PTCARENOTE ---
Echo done at the bedside this morning. Small amount of serosanguineous drainage right groin site, left groin site is dry and intact. Patient given IV lasix as ordered and assisted to the bedside commode to void. OOB in the chair, alarm in place.
--- NOTE | 2025-02-02 10:59 | W.PN.CD ---
Today's Communication / Plan
-
Furosemide 80 mg IV this afternoon.
Post TAVR echocardiogram pending.
Continue metoprolol tartrate 12.5 mg Q6H. If BP remains stable overnight, transition to metoprolol succinate 50 mg daily tomorrow morning.
Start apixaban 5 mg BID.
Impression / Plan
-
Impression/Plan: 89 y/o Ghanaian speaking female with HTN, HFpEF, CAD s/p prior PCI, RACHEL, HLD, and HFpEF with borderline severe LFLG (mean grad 35, JUDY 0.9, SVI 36) a/w HFpEF exacerbation and evidence of progression of her .
Primary options trader: Dr. 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 Rosenthal ([place])
#Aortic Stenosis
-Chronic, progressive.
-Prior data from 2023 hospitalization and repeat TTE from this hospitalization reviewed:
-Echo from 01/22/2025 shows progressive, borderline severe LFLG (mean grad 35 mmHg, JUDY 0.9, SVI 36).
-Prior cath from 12/2023 with non-obstructive CAD but no invasive valve gradient.
-TAVR CT with calcium score 1400 but mobile aortic valve leaflets and small annulus. Aortic stenosis deemed moderate at this time and TAVR deferred.
-She sizes for a Medtronic Evolut #26 valve (or a #20 YARELI S3); vessel caliber adequate for femoral access.
- Heart failure full to be multifactorial but AAS felt to be a significant contributing factor. Issues related to AVR have been reviewed between Dr. Rossi and the patient and family. Also case has been discussed at multidisciplinary TAVR
meeting as previously outlined by Dr. Durbin with plans for
-S/P #26 Medtronic Evolut FX+ from the right groin.
-Bilateral femoral access sites are C/D/I.
-Telemetry shows atrial fibrillation with resolved LBBB and no evidence of conduction delay.
-Post operative echocardiogram pending.
#Afib
-New diagnosis.
-Initially with RVR (rates to 140s) and chest pain. Current HR 90-110.
-Rate/rhythm control with amiodarone 200 mg PO BID and metoprolol tartrate 12.5 mg PO Q6H.
-CHADS2-Vasc = 7 (CHF, HTN, Age x2, DM, vascular disease, female gender).
-Anticoagulation with apixaban 5 mg BID.
-Outpatient consider DCCV once on AC for 4 weeks, possible PVI in the future.
#HFpEF
-Acute on chronic.
-proBNP 1460 elevated from 518 prior admission, echo below.
-GDTM as hemodynamics will tolerate:
-Diuretics: Furosemide 40 mg IV. Increase to 80 mg IV for PM dose.
-Beta erika: Metoprolol 12.5 mg Q6H.
-ACEI/ARB/ARNi: Valsartan 80 mg daily.
-MRA: None.
-SGLT2i: Dapagliflozin on hold for UTI; defer discussion of possible re-trial to outpatient.
-ICD: Not currently indicated.
#CAD
-Chronic, stable, non-anginal.
-LHC 07/2021: LAD with patent stent, D1 50%, OM2 70%.
-PCI to mid LAD 08/11/2020.
-Continue aspirin 81mg, isosorbide mononitrate on hold with diuresis.
-Continue atorvastatin 80 mg daily. Goal LDL < 55.
#Urinary frequency with retention
-Acute.
-Straight cath yesterday for 560 mL.
-UA shows evidence of infection. UCx positive for E. coli (Ampicillin-R, Ampicillin/Sulbactam-I, Tetracycline-R, TMP/SMX-R).
-Hold dapagliflozin.
-Continue abx.
#HTN
-Chronic, stable.
-Continue valsartan at half dose.
-Hold amlodipine.
#Hypoxic respiratory failure
-Chronic, on home oxygen.
#Type 2 diabetes mellitus
-Chronic, stable.
-HgbA1c 7.8%.
#Obesity
-Chronic, stable.
-BMI 38.
Subjective/Interval History:
TAVR yesterday.
Post TAVR EKG shows LBBB, resolved on today's EKG.
Weight is up to 103.6 kg (jonna 101.2 kg).
SaO2 = 99% on 4LNC.
Furosemide 40 mg IV given this morning.
DATA:
CT Abdomen/Pelvis, 01/21/2025:
IMPRESSION:
1. No acute intra-abdominal abnormalities.
2. Extensive left colonic diverticular disease.
3. Mild diffuse subcutaneous stranding within the anterior abdominal wall inferiorly. Small fat-containing ventral hernia.
4. 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 Severe left hip osteoarthritis.
5. Additional findings above.
Echo 01/21/2025:
SUMMARY
1. Normal biventricular size and function without regional wall motion abnormalities.
2. LVEF is 60-65% by visual estimation. Mild concentric LVH.
3. Moderate to severe aortic stenosis with peak/mean gradient of 59/35 mmHg. JUDY = 0.91 cm2.
4. Mild to moderate TR. Estimated PASP moderately elevated at 44 mmHg.
5. Compared to prior from January 13, 2024, mean gradient has increased and TR is now mild to moderate with moderately elevated PASP at 44 mmHg, previously mild TR with estimated PASP at 37 mmHg.
Renal US, 01/23/2025:
IMPRESSION:
No hydronephrosis.
There is a 9.0 cm cyst along the lower pole of the right kidney which demonstrates layering echogenic debris which likely represents a hemorrhagic cyst.
Mild debris within the urinary bladder which can be seen with cystitis.
Physical Exam
Vital Signs/Labs
Vital Signs
Temp Pulse Resp BP Pulse Ox
36.8 C 96 18 98/83 99
02/02/25 07:42 02/02/25 08:04 02/02/25 07:42 02/02/25 08:04 02/02/25 08:33
01/31/25 02/01/25 02/02/25
11:59 11:59 11:59
Actual Weight 102.7 kg 103.1 kg 103.6 kg
02/02/25 03:47
02/02/25 03:47
APTT Cancelled 02/01/25 16:20
Magnesium 2.0 mg/dl (1.6-2.3) 01/28/25 04:59
Triglycerides 84 mg/dl (10-149) 01/22/25 03:59
LDL Cholesterol, Calc 42 mg/dl 01/22/25 03:59
VLDL Cholesterol, Calc 16 mg/dl (0-30) 01/22/25 03:59
HDL Cholesterol 58 mg/dl 01/22/25 03:59
01/21/25
00:46
Kqm-M-Ayiwlnjijwm Pept 1460
LAB Results
01/30/25 01/30/25
09:15 15:44
Troponin I Cancelled 0.252 H*
Physical Exam
Constitutional: No acute distress and Comfortable
EENT: Anicteric and Moist mucous membranes
Cardiovascular: Pedal edema is absent, JVD pressure is normal, Rhythm/rate is irregular, S1S2 is normal and Murmur/rub/gallop absent
Respiratory: Respiratory effort normal, Lungs clear to auscul., Wheeze Absent, Rhonchi Absent and Crackles Present (Bilateral bases.)
GI: Soft, Distention absent, Flat, Non tender and Normal bowel sounds
Neuro/Psych: AO x 3
Other: Cath Site (Bilateral femoral access sites are C/D/I.)
Data Reviewed
-
Date of Service: February 02, 2025
Medical Decision Making: Reviewed Test Results, Independent Historian Assessment and Test Interpretation
EKG: Tracing Personally Visualized and interpreted and Report Reviewed by me
Echo: Tracing Personally Visualized and interpreted and Report Reviewed by me
X-Ray/CT/US/MRI/NUC/PET: Image Personally Visualized and interpreted and Report Reviewed by me
Medical Tests (PFT, Pathology etc): Image Personally Visualized and interpreted and Report Reviewed by me
Labs: Labs Reviewed by me
Old Records: Reviewed
--- NOTE | 2025-02-02 11:56 | CM ---
Chart reviewed. Patient is an assist of ADLS, finnish speaking, lives alone in a apartment in subsidized housing, ambulates with a RW and wears occasional O2 at home. Patient receives VN services through [facility] with a total of 21 hours. Plan is
for the patient to return home with [facility]. CM to follow
[2025-02-02 13:24] LABS: Glucose - Point of Care 220 mg/dl (70-99)
[2025-02-02] MEDS: NOVOLOG FLEXPEN-HIGH RESISTANCE 4 UNITS SC (13:24)
[2025-02-02] MEDS: NOVOLOG FLEXPEN 6 UNITS SC ×2 (13:25→17:23)
[2025-02-02] MEDS: LOPRESSOR PO (13:32)
[2025-02-02] MEDS: NOVOLOG FLEXPEN SC (13:37)
--- NOTE | 2025-02-02 14:02 | W.PN.HOSP.TC ---
Today's Communication/Plan
-
Post TAVR echo pending
Additional diuresis
Adjustment of GDMT
Initiated on Eliquis
Adjust insulin dose for hyperglycemia
PT/OT assessment prior to discharge
Assessment / Plan
Assessment / Plan
Impression
89-year-old with complex past medical history coming to the emergency department with progressive shortness of breath much more severe over the last 2 to 3 days without known weight gain. Evaluation in the ED is consistent with CHF exacerbation
with increasing BNP, bilateral pleural effusions and pulmonary edema on x-ray, increased work of breathing. She is not wheezing and does not appear to be having asthma or COPD exacerbation. She has no focal consolidation on x-ray and shows no
other signs of an acute infection. She does appear to have significant sleep apnea in the setting of her somnolence.
Acute on chronic hypoxic respiratory failure.
Acute CHF preserved EF/valvular secondary severe aortic stenosis
Acute cardiogenic pulmonary edema
Atrial fibrillation with rapid ventricular response new onset on 01/28/2025
Conditions prior to admission:
Chronic CHF preserved EF.
Chronic hypoxic respiratory failure on home O2 at 2-1/2 L.
CAD
Obstructive sleep apnea on nightly CPAP.
Moderate to severe aortic stenosis by echo 01/21.
CAD.
History of acute kidney injury
IDDM.
Obesity with BMI of 40
Ventral hernia
Plan
Acute CHF presumed with preserved EF and secondary to severe aortic stenosis.
Acute on chronic hypoxic respiratory failure, currently requiring nasal cannula oxygen up to 6 L, now on 2L NC O2.
Chest x-ray with pulmonary edema
Weight is up close to 20 pounds since December 2023.
Anasarca with increased abdominal girth and peripheral edema.
Patient states to be compliant with diuretic regimen at home.
Suspect progressive and now critical
Repeat echocardiogram
Cardiology evaluation
Responding to IV diuresis and transition from Lasix to Bumex 4 mg twice daily on 01/27
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
Additional diuresis
Adjustment of GDMT including beta-blockers, possibly reintroduction of valsartan if blood pressure allows
Atrial fibrillation with rapid reticular response, new onset on 01/28/2025
Hypotension possibly related to fast rate
Continue amiodarone
Beta-erika as above
Initiated on Eliquis on 02/02
CAD.
Hypertension
History of PCI to LAD 08/18
She complains of periodic chest pain.
Has mildly elevated troponin.
ECG without ischemia.
Had nonobstructive CAD on cath 01/21
Continue aspirin
Continue high potency statin
Continue beta-erika
Hold amlodipine
Hold Imdur avoiding hypotension while on aggressive diuresis
UTI without complications
Intermittent flank pain
Foul-smelling urine
Urinalysis obtained via straight cath equivocal
Urine cultures with E. coli
Renal sonogram with no acute abnormalities
Completed course of ceftriaxone as of 01/30
Hold Farxiga
Obstructive sleep apnea.
Continue CPAP at night.
Not compliant
IDDM
Hemoglobin A1c 7.8
Adjust insulin regimen increasing Lantus to 30 units at bedtime and aspart 6 units AC
Has been on Farxiga due to to UTI
Hold oral glucose lowering medications including Prandin and metformin.
Basal bolus protocol with serial Accu-Cheks
Increase of abdominal girth
Anasarca with severe peripheral edema
Ventral hernia.
CT A/P 01/21:
1. No acute intra-abdominal abnormalities.
2. Extensive left colonic diverticular disease.
3. Mild diffuse subcutaneous stranding within the anterior abdominal wall inferiorly. Small fat-containing ventral hernia.
4. 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 Severe left hip osteoarthritis.
Severe DJD with chronic ambulatory dysfunction
CODE STATUS discussed again on 01/27 with the patient in the presence of son. Patient would like to have full resuscitation.
Anticipated Discharge: Within 24 hours
Subjective/Interval History
-
Date of Service: February 02, 2025
Objective Data
-
Labs:
Laboratory Results
02/02/25
03:47
WBC 9.2
Hgb 11.9 L
Hct 39.8
Plt Count 274
Sodium 138
Potassium 5.2 H
Chloride 97 L
Carbon Dioxide 36 H
BUN 26 H
Creatinine 1.0
Glucose 262 H
Calcium 9.4
Vital Signs:
Vital Signs
Temp Pulse Resp BP Pulse Ox
97.7 F 107 18 90/64 100
02/02/25 12:27 02/02/25 13:32 02/02/25 12:27 02/02/25 13:32 02/02/25 12:27
I&O
02/01/25 02/02/25 02/03/25
06:59 06:59 06:59
Intake Total 240 / 240 350 / 350 100 / 100
Output Total 1850 / 1850 850 / 850 350 / 350
Balance -1610 / -1610 -500 / -500 -250 / -250
Physical Exam
-
General: Well Developed and No Apparent Distress
HEENT: Normocephalic, Atraumatic and Moist Mucous Membranes
Respiratory: Rales and Crackles; Negative Wheezes
Cardiac: Regular Rhythm, S1/S2 and Murmur (Systolic, left sternal border); Negative Rub or Gallop
GI: Soft, Nontender, Nondistended and Normal Bowel Sounds; Negative Organomegaly
Rectal: Deferred by Provider
Musculoskeletal: No Clubbing, No Cyanosis and No Edema
Skin: Negative Rash
Neuro: Nonfocal/Grossly Intact
[2025-02-02] MEDS: LASIX 80 MG IV (14:34)
--- NOTE | 2025-02-02 15:58 | W.PN.UPDATE ---
Update Note
Progress Note Update
89-year-old female with known severe aortic stenosis was taken for a transfemoral transcatheter aortic valve replacement on 02/01. She is now status post right transfemoral TAVR with #26 mm Medtronic evolut fx. Immediately postop, patient had a
transient left bundle branch block that resolved by 6:30 PM. Postoperatively she did well and returned to IVU. Today bilateral groin from stable. Repeat echocardiogram showed a peak of 9.7 and mean of 5 mmHg and EF of 55-60%. At this time CT
surgery will sign off. Please reconsult as needed.
[2025-02-02] MEDS: LIPITOR 80 MG PO (16:56)
[2025-02-02 17:22] LABS: Glucose - Point of Care 283 mg/dl (70-99)
[2025-02-02] MEDS: ELIQUIS 5 MG PO (20:45)
[2025-02-02 20:56] LABS: Glucose - Point of Care 297 mg/dl (70-99)
[2025-02-02] MEDS: LANTUS 0.3 UNITS SC (20:59)
[2025-02-02 22:07] LABS: Glucose - Point of Care 260 mg/dl (70-99)
[2025-02-03] VITALS (7 sets, daily range): BP systolic 95–138; BP diastolic 61–95; BMI 37.1
[2025-02-03] MEDS: LOPRESSOR 12.5 MG PO ×2 (00:04→06:36)
[2025-02-03] MEDS: ULTRAM 50 MG PO (00:30)
--- NOTE | 2025-02-03 03:04 | PTCARENOTE ---
Assumed care on pt at 1900, resting OOB to chair with no complaints at change of shift. Afib on tele, HR 110's at rest and 120's with ambulation. B/l groin dsg intact, no active bleeding or hematoma noted, R site with old drainage, L site redressed
as pt had removed dsg. O2 at 4L via NC,pox 95%, ARAUJO and at rest. Bed and chair alarm in place. Call young within reach, POC ongoing.
[2025-02-03 03:29] LABS: Blood Urea Nitrogen 31 mg/dl (7-17); Calcium 9.3 mg/dl (8.4-10.2); Carbon Dioxide 36 mmol/L (22-30); Chloride 95 mmol/L (98-107); Estimated Creatinine Clearance 52 ml/min; Glucose 205 mg/dl (70-99); Potassium 4.3 mmol/L (3.5-5.1); Sodium 135 mmol/L (135-145); eGFR > 60.00
[2025-02-03] MEDS: ROXICODONE 2.5 MG PO (06:43)
[2025-02-03] MEDS: MAALOX 30 ML PO (06:44)
[2025-02-03 08:44] LABS: Glucose - Point of Care 268 mg/dl (70-99)
[2025-02-03] MEDS: PACERONE 200 MG PO (08:48)
[2025-02-03] MEDS: ZENPEP DELAYED RELEASE CAPSULE 1 CAPSULE PO (08:48)
[2025-02-03] MEDS: PEPCID 20 MG PO (08:48)
[2025-02-03] MEDS: ASPIR LOW (ENTERIC COATED) 81 MG PO (08:48)
[2025-02-03] MEDS: ELIQUIS 5 MG PO (08:48)
[2025-02-03] MEDS: DICLOFENAC 1% TOPICAL GEL 100 GRAM TOPICAL ×2 (08:49→12:32)
[2025-02-03] MEDS: BenGay-Like 1 APPLIC TOPICAL (08:50)
[2025-02-03] MEDS: NOVOLOG FLEXPEN 6 UNITS SC ×2 (09:03→12:36)
[2025-02-03] MEDS: NOVOLOG FLEXPEN-HIGH RESISTANCE 7 UNITS SC (09:03)
[2025-02-03 12:16] LABS: Glucose - Point of Care 241 mg/dl (70-99)
[2025-02-03] MEDS: LOPRESSOR PO (12:28)
[2025-02-03] MEDS: TOPROL XL 50 MG PO (12:31)
[2025-02-03] MEDS: NOVOLOG FLEXPEN-HIGH RESISTANCE 4 UNITS SC (12:37)
--- NOTE | 2025-02-03 13:27 | CM ---
Chart reviewed. Patient is an assist of ADLS, barbadian speaking, lives alone in a apartment in subsidized housing, ambulates with a RW and wears occasional O2 at home. Patient receives VN services through [facility] with a total of 21 hours. PT
evaluation pending. Plan is for the patient to return home with VN vs SNF. CM to follow
--- NOTE | 2025-02-03 13:50 | W.PN.CD ---
Today's Communication / Plan
-
stable for discharge
Impression / Plan
-
Impression/Plan: 89 y/o [place]an speaking female with HTN, HFpEF, CAD s/p prior PCI, RACHEL, HLD, and HFpEF with borderline severe LFLG (mean grad 35, JUDY 0.9, SVI 36) a/w HFpEF exacerbation and evidence of progression of her .
Primary raised printer: Dr. 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 Rosenthal ([place])
#Aortic Stenosis
-Chronic, progressive.
-Prior data from 2023 hospitalization and repeat TTE from this hospitalization reviewed:
-Echo from 01/22/2025 shows progressive, borderline severe LFLG (mean grad 35 mmHg, JUDY 0.9, SVI 36).
-Prior cath from 12/2023 with non-obstructive CAD but no invasive valve gradient.
-TAVR CT with calcium score 1400 but mobile aortic valve leaflets and small annulus. Aortic stenosis deemed moderate at this time and TAVR deferred.
-She sizes for a Medtronic Evolut #26 valve (or a #20 YARELI S3); vessel caliber adequate for femoral access.
- Heart failure full to be multifactorial but AAS felt to be a significant contributing factor. Issues related to AVR have been reviewed between Dr. Rossi and the patient and family. Also case has been discussed at multidisciplinary TAVR
meeting as previously outlined by Dr. Durbin with plans for
-S/P #26 Medtronic Evolut FX+ from the right groin. 02/01/2025
-Bilateral femoral access sites are C/D/I.
-Telemetry shows atrial fibrillation with resolved LBBB and no evidence of conduction delay.
-Post operative echocardiogram pending with mean gradient 5 mmHg, no PVL
#Afib
-New diagnosis.
-Initially with RVR (rates to 140s) and chest pain. Current HR 90-110.
-Rate/rhythm control with amiodarone 200 mg PO BID and metoprolol tartrate 12.5 mg PO Q6H.
-CHADS2-Vasc = 7 (CHF, HTN, Age x2, DM, vascular disease, female gender).
-Anticoagulation with apixaban 5 mg BID.
-Outpatient consider DCCV once 4 week out from TAVR
-note: while anticoagulated immediately once Afib started inpatient, possible she has pAfib prior to admission so would favor anticoagulation 4 weeks prior to electric cardioversion
-cont. amio 200 daily for additional rate control and to improve chance for durable sinus rhythm once cardioverted
#HFpEF
-Acute on chronic.
-proBNP 1460 elevated from 518 prior admission, echo below.
-GDTM as hemodynamics will tolerate:
-Diuretics: Furosemide 80 IV today, will transition to bumex 4 PO on discharge
-Beta erika: Metoprolol 12.5 mg Q6H, transitioning to 50 succinate daily
-ACEI/ARB/ARNi: hold prior valsartan 80 (pressure have been lower while hospitalized)
-MRA: None.
-SGLT2i: Dapagliflozin on hold for UTI; defer discussion of possible re-trial to outpatient.
-ICD: Not currently indicated.
#CAD
-Chronic, stable, non-anginal.
-LHC 07/2021: LAD with patent stent, D1 50%, OM2 70%.
-PCI to mid LAD 08/11/2020.
-Continue aspirin 81mg, isosorbide mononitrate on hold with diuresis.
-Continue atorvastatin 80 mg daily. Goal LDL < 55.
#Urinary frequency with retention
-s/p abx
-management per hospitalist team
#HTN
-Chronic, stable.
-Continue valsartan at half dose.
-Hold amlodipine.
#Hypoxic respiratory failure
-Chronic, on home oxygen.
#Type 2 diabetes mellitus
-Chronic, stable.
-HgbA1c 7.8%.
#Obesity
-Chronic, stable.
-BMI 38.
DATA:
CT Abdomen/Pelvis, 01/21/2025:
IMPRESSION:
1. No acute intra-abdominal abnormalities.
2. Extensive left colonic diverticular disease.
3. Mild diffuse subcutaneous stranding within the anterior abdominal wall inferiorly. Small fat-containing ventral hernia.
4. 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 Severe left hip osteoarthritis.
5. Additional findings above.
Echo 01/21/2025:
SUMMARY
1. Normal biventricular size and function without regional wall motion abnormalities.
2. LVEF is 60-65% by visual estimation. Mild concentric LVH.
3. Moderate to severe aortic stenosis with peak/mean gradient of 59/35 mmHg. JUDY = 0.91 cm2.
4. Mild to moderate TR. Estimated PASP moderately elevated at 44 mmHg.
5. Compared to prior from January 13, 2024, mean gradient has increased and TR is now mild to moderate with moderately elevated PASP at 44 mmHg, previously mild TR with estimated PASP at 37 mmHg.
Renal US, 01/23/2025:
IMPRESSION:
No hydronephrosis.
There is a 9.0 cm cyst along the lower pole of the right kidney which demonstrates layering echogenic debris which likely represents a hemorrhagic cyst.
Mild debris within the urinary bladder which can be seen with cystitis.
Physical Exam
Vital Signs/Labs
Vital Signs
Temp Pulse Resp BP Pulse Ox
36.6 C 122 20 99/61 100
02/03/25 11:52 02/03/25 08:57 02/03/25 11:52 02/03/25 08:57 02/03/25 11:52
02/02/25 02/03/25 02/04/25
06:59 06:59 06:59
Actual Weight 101.2 kg
02/02/25 03:47
02/03/25 02:27
APTT Cancelled 02/01/25 16:20
Magnesium 2.0 mg/dl (1.6-2.3) 01/28/25 04:59
Triglycerides 84 mg/dl (10-149) 01/22/25 03:59
LDL Cholesterol, Calc 42 mg/dl 01/22/25 03:59
VLDL Cholesterol, Calc 16 mg/dl (0-30) 01/22/25 03:59
HDL Cholesterol 58 mg/dl 01/22/25 03:59
01/21/25
00:46
[id number]-A-[id number] Pept 1460
Physical Exam
Constitutional: Comfortable
Cardiovascular: Rhythm & rate is regular
Respiratory: Respiratory effort normal
Neuro/Psych: AO x 3
Data Reviewed
-
Date of Service: February 03, 2025
Medical Decision Making: Reviewed Test Results
EKG: Tracing Personally Visualized and interpreted
Echo: Tracing Personally Visualized and interpreted
Labs: Labs Reviewed by me
[2025-02-03] MEDS: LASIX 80 MG IV (14:11)
--- NOTE | 2025-02-03 14:56 | PTCARENOTE ---
Assumed care of the pt @0700. Pt is AAOx2-3 follows simple commands + language barrier but able to make needs know. Pt ambulates with stand by assist. Bed alarm in use call young within reach. Family updated POC.
--- NOTE | 2025-02-03 14:58 | W.DS.TRANS ---
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
-
Discharge Instructions:
Discharge Diagnosis/Procedures Acute on chronic hypoxic respiratory failure.
Acute CHF preserved EF/valvular secondary severe
aortic stenosis
Acute cardiogenic pulmonary edema
Atrial fibrillation with rapid ventricular
response new onset on 01/28/2025
Conditions prior to admission:
Chronic CHF preserved EF.
Chronic hypoxic respiratory failure on home O2
at 2-1/2 L.
CAD
Obstructive sleep apnea on nightly CPAP.
Moderate to severe aortic stenosis by echo 01/21
.
CAD.
History of acute kidney injury
IDDM.
Obesity with BMI of 40
Ventral hernia
Status post TAVR
Diet Low Cholesterol,2 Gram Sodium,Low Fat
Activity As tolerated
Driving Restrictions No driving for 1 week
Bathing Restrictions OK to Shower
Others Tests 30-day follow up echocardiogram 03/02/2025 @ 3:
00pm with your medical support assistant
Other Services Cardiac Rehab
Wound Care No lotions, powders, or creams to puncture sites
Specialty Instructions Weigh Daily
Instructions: *PCP/Other Systems Integration Manager Heart Failure Instructions
Stand-Alone Forms:
Changes to Home Medications: Yes
Discharge Medications:
DC Medications w/original date entered in [employer]
acetaminophen 650 mg tablet,extended release (Pain Relief (acetaminophen)) 650 mg PO BIDPRN PRN mild pain 01/12/24
albuterol sulfate 90 mcg/actuation aerosol inhaler (Ventolin HFA) 2 puff inhalation R Q4HPRN PRN sob/wheezing 01/12/24
aspirin 81 mg tablet,delayed release 81 mg PO DAILY Blood Clot Prevention/Tx 01/12/24
atorvastatin 80 mg tablet 80 mg PO QPM High Cholesterol 01/12/24
bisacodyl 5 mg tablet,delayed release 10 mg PO DAILY Constipation 01/12/24
cholecalciferol (vitamin D3) 50 mcg (2,000 unit) capsule (Vitamin D3) 50 mcg PO DAILY Supplement 01/12/24
diclofenac sodium 1 % topical gel 1 ea topical QIDPRN PRN knee pain 01/12/24
docusate sodium 100 mg capsule 100 mg PO BID Constipation 01/12/24
fluticasone furoate 200 mcg-vilanterol 25 mcg/dose inhalation powder (Breo Ellipta) 2 inh inhalation R DAILY Lung/Breathing Issues 01/12/24
insulin degludec 100 unit/mL (3 mL) subcutaneous pen (Tresiba FlexTouch U-100 insulin) 35 unit SC HS Diabetes 01/12/24
meclizine 12.5 mg tablet 12.5 mg PO BIDPRN PRN dizziness 01/12/24
mirabegron 50 mg tablet,extended release 24 hr (Myrbetriq) 50 mg PO DAILY Urinary Issue 01/12/24
nitroglycerin 0.4 mg sublingual tablet 0.4 mg sublingual [id number] PRN chest pain 01/12/24
tramadol 50 mg tablet 50 mg PO TIDPRN PRN moderate pain 01/12/24
zolpidem 5 mg tablet (Ambien) 5 mg PO HSPRN PRN sleep 01/12/24
budesonide 160 mcg-glycopyr 9 mcg-formot 4.8 mcg/actuation HFA inhaler (Breztri Aerosphere) 2 inh inhalation BID Lung/Breathing Issues 01/14/24
buspirone 10 mg tablet 20 mg PO TID Mental Health/Anxiety 01/14/24
escitalopram oxalate 20 mg tablet (Lexapro) 20 mg PO DAILY Mental Health/Anxiety 01/14/24
folic acid 1 mg tablet 1 mg PO DAILY Supplement 01/14/24
gabapentin 100 mg capsule 100 mg PO BID Neuropathic pain 01/14/24
metronidazole 0.75 % topical gel 1 applic topical BID Topical agent 01/14/24
pantoprazole 40 mg tablet,delayed release (Protonix) 40 mg PO DAILY Gastrointestinal Issue 01/14/24
vitamin Y10-gphdvtdpf factor 500 mcg PO DAILY Supplement 01/14/24
bisacodyl 10 mg rectal suppository 10 mg AK DAILY PRN constipation 01/15/24
insulin lispro 100 unit/mL subcutaneous pen 6 unit SC TID Diabetes 01/15/24
mtlxqd-reizfbcp-iiutsc(pork)24,000-76,000-120,000 unit capsule,del rel (Creon) 1 cap PO TID Gastrointestinal Issue 01/15/24
repaglinide 2 mg tablet 2 mg PO TID Diabetes 01/15/24
tirzepatide 10 mg/0.5 mL subcutaneous pen injector (Mounjaro) 10 mg SC QWEEK Diabetes 01/15/24
dapagliflozin propanediol 10 mg tablet 10 mg PO DAILY #30 tabs 01/21/24
amiodarone 200 mg tablet (Pacerone) 200 mg PO DAILY #30 tabs 02/03/25
apixaban 5 mg tablet (Eliquis) 5 mg PO BID #60 tabs 02/03/25
bumetanide 1 mg tablet 4 mg (4 x 1 mg) PO DAILY #30 tabs 02/03/25
metoprolol succinate 50 mg tablet,extended release 24 hr 50 mg PO DAILY #30 tabs 02/03/25
Home Medication Changes
Bumex replaced Lasix
Amiodarone and Eliquis started
Valsartan stopped with marginal BP
Pending Results: No
--- NOTE | 2025-02-03 17:34 | PTCARENOTE ---
Pt was discharged to home with VN. Instructions provided to son. Verbalized understanding. potline monitor and piv removed. Pt was escorted out by wheelchair with staff to son's car.
--- NOTE | 2025-02-04 12:22 | W.HF.CON ---
Heart Failure
- LV Function
Left ventricular function study result: LV Ejection fraction >/= 50%
Ejection Fraction Percentage: 55-60
- ARNI
Patient already on ARNI: No
Heart Failure ARNI Not Indicated: LV Ejection Fraction >/= 40%
- ACEI/ARB
Patient already on ACEI/ARB: No
Heart Failure ACEI/ARB Not Indicated: LV Ejection Fraction > 40%
- Beta Connie
Patient already on Evidence Based Beta Connie: Yes
- Mineralocorticord Receptor Antagonist
Patient already on MRA: No
Heart Failure MRA Not Indicated: LV Ejection Fraction > 40%
- SGLT-2 Inhibitor
Patient already on SGLT-2 Inhibitor: Yes
- Afib Anticoagulation
Patient already on Anticoagulation for Afib: Yes
- NYHA CHF Classification
NYHA CHF Classification Level: Class III - Symptoms w/ min exertion, interferes w/ nml daily activity
- ACC/AHA Stage
ACC/AHA Stage: Stage C: Symptomatic Heart Failure
== END 2025-02-03 17:43 | disposition home health service (06) | DRG 266 ==
LOC: IVU 05:41
PROVIDERS: Hospitalist; Internal Medicine; Internal Medicine Cardiovascular Disease; Physician Assistant Medical; Registered Nurse; Student in an Organized Health Care Education/Training Program; Thoracic Surgery (Cardiothoracic Vascular Surgery); ADMITTING PHYSICIAN Internal Medicine; ATTENDING PHYSICIAN Internal Medicine; EMERGENCY PHYSICIAN Student in an Organized Health Care Education/Training Program; FAMILY PHYSICIAN Internal Medicine; OTHER PHYSICIAN Internal Medicine Cardiovascular Disease; OTHER PHYSICIAN Thoracic Surgery (Cardiothoracic Vascular Surgery)
PROC: 5A09357 Assistance with Respiratory Ventilation, Less than 24 Consecutive Hours, Continuous Positive Airway Pressure (ICD-10-PCS; 2025-01-21)
PROC: 027F3ZZ Dilation of Aortic Valve, Percutaneous Approach (ICD-10-PCS; 2025-02-01)
PROC: 02RF38Z Replacement of Aortic Valve with Zooplastic Tissue, Percutaneous Approach (ICD-10-PCS; 2025-02-01)
DX: I35.0 Nonrheumatic aortic (valve) stenosis (principal); Z00.6 Encounter for examination for normal comparison and control in clinical research program; I50.33 Acute on chronic diastolic (congestive) heart failure; J96.21 Acute and chronic respiratory failure with hypoxia; J98.11 Atelectasis; I25.110 Atherosclerotic heart disease of native coronary artery with unstable angina pectoris; Z68.41 Body mass index [BMI] 40.0-44.9, adult; I5A Non-ischemic myocardial injury (non-traumatic); N39.0 Urinary tract infection, site not specified; I48.20 Chronic atrial fibrillation, unspecified; I11.0 Hypertensive heart disease with heart failure; K57.30 Diverticulosis of large intestine without perforation or abscess without bleeding; E11.9 Type 2 diabetes mellitus without complications; K86.89 Other specified diseases of pancreas; G47.33 Obstructive sleep apnea (adult) (pediatric); N28.1 Cyst of kidney, acquired; I27.20 Pulmonary hypertension, unspecified; E11.65 Type 2 diabetes mellitus with hyperglycemia; E78.00 Pure hypercholesterolemia, unspecified; K43.9 Ventral hernia without obstruction or gangrene; I44.7 Left bundle-branch block, unspecified; I95.9 Hypotension, unspecified; E66.01 Morbid (severe) obesity due to excess calories; B96.20 Unspecified Escherichia coli [E. coli] as the cause of diseases classified elsewhere; Z60.3 Acculturation difficulty; Z99.81 Dependence on supplemental oxygen; Z79.82 Long term (current) use of aspirin; Z79.4 Long term (current) use of insulin; Z79.891 Long term (current) use of opiate analgesic; Z79.84 Long term (current) use of oral hypoglycemic drugs; Z79.01 Long term (current) use of anticoagulants; Z95.5 Presence of coronary angioplasty implant and graft; Z90.710 Acquired absence of both cervix and uterus; Z91.148 Patient's other noncompliance with medication regimen for other reason; Z79.899 Other long term (current) drug therapy
CPT/HCPCS: 33361; 71045; 71046; 74177; 76770; 80048; 80053; 80061; 81003; 81015; 82805; 82962; 83036; 83735; 83880; 84443; 84484; 85025; 85027; 85347; 85730; 86850; 86900; 86901; 87070; 87077; 87086; 87186; 93005; 93306; 93308; 93321; 93325; 94640; 94660; 96360; 96361; 97163; 97167; 97530; 97535; 99291; C1726; C1760; C1769; C1894; J0282; Q9967